=== PATIENT | female | born 1940 | race Caucasian/White ===

== ENCOUNTER 2017-05-08 20:54 | Inpatient (IN) | payer MEDICARE, OTHER ==
[~2017-05-08] VITALS: Ht 162.6 cm; Wt 104.1 kg
[2017-05-08] VITALS (9 sets, daily range): BP systolic 84–119; BP diastolic 53–65; PULSE 88–93; RESP 14–28; Ht 162.6 cm; Wt 104.1 kg
[2017-05-08 23:36] LABS: Allen Test ACCEPTAB; Arterial Base Excess -3.1 mmol/L (-3.0-3); Arterial COHb 0.3 % (0.0-3.0); Arterial Fraction of Oxyhgb 86.2 % (93.0-99.0); Arterial HCO3 23.7 mmol/L (22.0-26.0); Arterial MetHb 0.4 % (0.0-1.5); Arterial Total Hemglobin 8.8 g/dl (12.0-18.0); MODE VENT - AC
[2017-05-09] VITALS (48 sets, daily range): BP systolic 82–166; BP diastolic 44–76; PULSE 81–98; RESP 14–23
--- NOTE | 2017-05-09 06:27 | RADRPT ---
PROCEDURE: XR Chest. CLINICAL INDICATION: Respiratory failure TECHNIQUE: A single AP view of the chest was obtained. COMPARISON: Chest x-ray dated 05/08/2017 FINDINGS: A tracheostomy tube is in place. Lung volumes are low with compressive changes and crowding of the central pulmonary vascular marking s with right basilar interstitial opacities in consolidation of the left lower lobe and lingula. The re is a wedge-shaped opacities projects over the left upper lobe. No pneumothorax is seen. The card iomediastinal silhouette is obscured. Calcifications are seen within the aortic arch. The osseous s tructures demonstrate postsurgical changes from bilateral shoulder arthroplasty. IMPRESSION: 1. Wedge-shaped consolidation of the left upper thorax, suggesting left apical pleural fluid. Findin gs are new when compared to the prior examination. If there is history of recent line placement, con subscription clerk CT to assess for hematoma. 2. Low lung volumes with compressive changes and bibasilar consolidation, at least partially related to atelectasis. 3. Aortic atherosclerosis. 4. Tracheostomy tube in place. RPTAT: HH .Cat Augustine MD, MD Date Time Electronically viewed and signed by .Cat Augustine MD, on 05/09/2017 06:27 .G/
[2017-05-09 06:34] LABS: BASOPHILS % 0.2 % (0.0-2.0); EOSINOPHILS # 0.8 10^3/ul (0.0-0.5); EOSINOPHILS % 9.3 % (0.0-7.0); HEMATOCRIT 25.6 % (37.0-47.0); LYMPHOCYTES # 0.8 10^3/ul (0.8-2.9); LYMPHOCYTES % 9.8 % (15.0-51.0); MEAN CORPUSCULAR HEMOGLOBIN 27.4 pg (29.0-33.0); MEAN CORPUSCULAR HGB CONC 31.3 g/dl (32.0-37.0); MEAN CORPUSCULAR VOLUME 87.7 fl (82.0-101.0); MEAN PLATELET VOLUME 11.9 fl (7.4-10.4); MONOCYTE # 0.6 10^3/ul (0.3-0.9); MONOCYTES % 7.1 % (0.0-11.0); NEUTROPHIL # 5.8 10^3/ul (1.6-7.5); PLATELET COUNT 118 10^3/UL (140-415); RED BLOOD COUNT 2.92 10^6/ul (4.20-5.40); RED CELL DISTRIBUTION WIDTH 18.9 % (11.5-14.5); WHITE BLOOD COUNT 8.4 10^3/ul (4.8-10.8)
[2017-05-09 07:04] LABS: CALCIUM 9.6 mg/dl (8.4-10.2); CREATININE 1.67 mg/dl (0.44-1.00); PHOSPHORUS 5.2 mg/dl (2.5-4.9); POTASSIUM 5.2 mmol/L (3.5-5.1)
[2017-05-09] MEDS ORDERED: PANTOPRAZOLE 40 MG INJ IV SCH (09:00)
[2017-05-09] MEDS ORDERED: SOD CHLORIDE 0.9% 500 ML IV ONE (09:00)
[2017-05-09] MEDS ORDERED: ALBUTEROL/IPRATROPIUM (NEB) 3 ML AMP HHN PRN (09:00)
[2017-05-09] MEDS ORDERED: ONDANSETRON 4 MG INJ IV PRN (09:00)
[2017-05-09 09:01] LABS: AADO2 Arterial 461.7 mmHg (7.0-24.0); Allen Test ACCEPTAB; Arterial Base Excess -2.1 mmol/L (-3.0-3); Arterial COHb 0.3 % (0.0-3.0); Arterial Fraction of Oxyhgb 91.4 % (93.0-99.0); Arterial HCO3 22.6 mmol/L (22.0-26.0); Arterial MetHb 0.4 % (0.0-1.5); Arterial Total Hemglobin 8.8 g/dl (12.0-18.0); MODE VENT - AC
[2017-05-09] MEDS ORDERED: GLUCOSE GEL 15 GRAM TUBE PO PRN ×2 (10:00)
[2017-05-09] MEDS ORDERED: GLUCAGON 1 MG INJ IM PRN (10:00)
[2017-05-09] MEDS: ZINC SULFATE 220 MG CAP GTB SCH (10:00)
[2017-05-09] MEDS ORDERED: DEXTROSE 50% 50 ML SYRINGE IV PRN ×2 (10:00)
[2017-05-09] MEDS: CHOLECALCIFEROL 1,000 UNIT TAB GTB SCH (10:00)
[2017-05-09] MEDS: ENOXAPARIN 30 MG/0.3 ML SYG SC SCH (10:00)
[2017-05-09] MEDS ORDERED: GLUCOSE GEL 15 GRAM TUBE BUCCAL PRN (10:00)
[2017-05-09] MEDS: ASPIRIN 81 MG TAB GTB SCH (10:00)
--- NOTE | 2017-05-09 10:56 | CONS ---
Date/Time of Note Date/Time of Note DATE: 05/09/17 TIME: 10:51 Assessment/Plan Assessment/Plan Additional Assessment/Plan Chest x-ray was reviewed from today which is showing patchy bilateral alveolar infiltrates. Cardiomegaly is present. Ventilator setting; AC of 14, tidal volume 600, PEEP of 5, 80% FiO2. Next Assessment and recommendations; 1. patient admitted with bilateral pneumonia with possibility of areas of loculated pleural effusion bilaterally. 2. Chronic respiratory failure with recent tracheostomy. 3. Generalized anasarca possibly some element of CHF as well. 4. Paraplegia. 5. Renal insufficiency. 6. Anemia and thrombocytopenia. Continue current supportive care. Add cefepime and vancomycin. Obtain CT chest without contrast. Further recommendations to be made once CT imaging of the chest is obtained. Consultation Date/Type/Reason Admit Date/Time May 08, 2017 at 20:54 Date of Consultation: May 09, 2017 Type of Consultation: Pulmonary/critical care Reason for Consultation Pulmonary consultation requested for evaluation of pneumonia and chronic respiratory failure. Next History of presenting illness; patient is a 76-year-old lady who was admitted to [facility] yesterday however soon after being admitted there the patient was found to be quite hypoxemic and was hemodynamically unstable. Patient was then transferred to ICU over here. By the time I saw the patient the patient is on mechanical ventilation with tracheostomy and is arousable. Patient has remained hemodynamically stable. Past medical history; 1. Patient with a history of chronic respiratory failure with recent tracheostomy and PEG tube placement. 2. History of paraplegia. 3. History of chronic renal insufficiency. 4. History of anemia and thrombocytopenia. Medications; reviewed. Allergies; none. Family history; patient is . Occupation history; currently not available. Review of systems; not able to be obtained. General exam; elderly woman, on ventilator via tracheostomy, readily arousable. Currently in no distress. Social History Smoking Status: Never smoker Exam/Review of Systems Vital Signs Vitals Vital Signs Date Time Temp Pulse Resp B/P Pulse Ox O2 Delivery O2 Flow Rate FiO2 05/09/17 08:00 85 05/09/17 06:00 17 97/59 99 Mechanical Ventilator 05/09/17 05:50 90 05/09/17 04:00 97.4 Intake and Output 05/08/17 05/08/17 05/09/17 15:00 23:00 07:00 Output Total 60 ml 220 ml Balance -60 ml -220 ml Exam HEENT exam; supple neck, JVD difficult to see because of short neck. Patient has a tracheostomy in place. Insertion site is clean. No lymphadenopathy. No thyromegaly. No neck bruits. Pupils are small bilaterally. Chest exam; diminished breath sounds throughout. S1-S2 audible, no murmurs. Regular rhythm. Abdomen exam; soft, protuberant. PEG tube in place. Bowel sounds audible. Extremity exam; 1+ generalized anasarca with areas of scattered ecchymosis. GEOTECHNICAL FIELD TECHNICIAN exam; patient is awake and follows very simple commands like eye opening. Patient exhibiting profound generalized weakness. Results Result Diagram: 05/09/17 0550 05/09/17 0550 Results 24 hrs Laboratory Tests Test 05/08/17 23:00 05/09/17 05:50 05/09/17 08:10 Blood Gas Specimen Source Blood arterial Blood arterial Arterial Blood Date Drawn 05/08/2017 11:20:48 PM 05/09/2017 8:50:31 AM Arterial Blood pH (Temp corrected) 7.281 *L 7.388 Arterial Blood pCO2 (Temp correct) 51.5 H 38.4 Arterial Blood pO2 (Temp corrected) 61.5 L 68.4 L Arterial Blood HCO3 23.7 22.6 Arterial Blood Base Excess -3.1 L -2.1 Arterial Blood Oxygen Saturation 86.8 L 92.0 L Ki Test ACCEPTAB ACCEPTAB Arterial Blood Gas Puncture Site Right Radial Left Radial Arterial Blood Carboxyhemoglobin 0.3 0.3 Arterial Blood Methemoglobin 0.4 0.4 Blood Gas A-a O2 Differential 600.0 H 461.7 H Oxyhemoglobin Percent 86.2 L 91.4 L Total Hemoglobin 8.8 L 8.8 L Blood Gas Temperature 37.0 37.0 Blood Gas Respiration Rate 14.0 14.0 Blood Gas Actual Respiration Rate 15 15 Blood Gas Modality VENT - AC VENT - AC FiO2 100.0 80.0 Blood Gas Tidal Volume 600.0 600.0 Blood Gas Low PEEP Setting 5.0 5.0 Blood Gas Critical Value Read Back MODE COOPER Blood Gas Notified Whom JONATHAN WHELAN Blood Gas Notified Time 05/08/2017 11:36:26 PM 05/09/2017 9:01:21 AM White Blood Count 8.4 Red Blood Count 2.92 L Hemoglobin 8.0 L Hematocrit 25.6 L Mean Corpuscular Volume 87.7 Mean Corpuscular Hemoglobin 27.4 L Mean Corpuscular Hemoglobin Concent 31.3 L Red Cell Distribution Width 18.9 H Platelet Count 118 L Mean Platelet Volume 11.9 H Neutrophils % 70.0 Lymphocytes % 9.8 L Monocytes % 7.1 Eosinophils % 9.3 H Basophils % 0.2 Nucleated Red Blood Cells % 0.0 Neutrophils # 5.8 Lymphocytes # 0.8 Monocytes # 0.6 Eosinophils # 0.8 H Basophils # 0.0 Nucleated Red Blood Cells # 0.0 Sodium Level 138 Potassium Level 5.2 H Chloride Level 101 Carbon Dioxide Level 23 Anion Gap 19 H Blood Urea Nitrogen 104 H Creatinine 1.67 H Glucose Level 103 Calcium Level 9.6 Phosphorus Level 5.2 H Magnesium Level 2.0 Medications Medications Current Medications Enoxaparin Sodium (Lovenox) 30 mg DAILY SC Last administered on 05/09/17 10:00 ; Admin Dose 30 MG; Start 05/09/17 at 09:00 Aspirin (Aspirin) 81 mg DAILY GTB Last administered on 05/09/17 10:00; Admin Dose 81 MG; Start 05/09/17 at 09:00 Acetaminophen (Tylenol Liquid) 650 mg Q6H PRN GTB PAIN AND OR ELEVATED TEMP; Start 05/09/17 at 09:00 Cholecalciferol (Vitamin D) 1,000 unit DAILY GTB Last administered on 10:00; Admin Dose 1,000 UNIT; Start 05/09/17 at 09:00 Insulin Glargine (Lantus) 17 unit DAILY@08 SC ; Start 05/10/17 at 08:00 Diagnostic Test (Pha) (Accu-Chek) 1 ea 02 XX ; Start 05/10/17 at 02:00 Levothyroxine Sodium (Synthroid) 125 mcg DAILY@06 GTB ; Start 05/10/17 at 06:00 Zinc Sulfate (Zinc Sulfate) 220 mg DAILY GTB Last administered on 05/09/17 10: 00; Admin Dose 220 MG; Start 05/09/17 at 09:00 Ondansetron HCl (Zofran Inj) 4 mg Q6H PRN IV NAUSEA AND/OR VOMITING; Start 05/09/17 at 09:00 Lorazepam (Ativan) 1 mg Q6H PRN IV ANXIETY; Start 05/09/17 at 09:00 Miscellaneous Information 1 ea NOTE XX ; Start 05/09/17 at 10:00 Glucose (Glutose) 15 gm Q15M PRN PO DECREASED GLUCOSE; Start 05/09/17 at 10:00 Glucose (Glutose) 22.5 gm Q15M PRN PO DECREASED GLUCOSE; Start 05/09/17 at 10: 00 Dextrose (D50w Syringe) 25 ml Q15M PRN IV DECREASED GLUCOSE; Start 05/09/17 at 10:00 Dextrose (D50w Syringe) 50 ml Q15M PRN IV DECREASED GLUCOSE; Start 05/09/17 at 10:00 Glucagon (Glucagen) 1 mg Q15M PRN IM DECREASED GLUCOSE; Start 05/09/17 at 10:00 Glucose (Glutose) 15 gm Q15M PRN BUCCAL DECREASED GLUCOSE; Start 05/09/17 at 10 :00 Famotidine 20 mg 20 mg DAILY IV ; Start 05/10/17 at 09:00 Cefepime HCl (Maxipime 1gm/50 ml (Pmx)) 50 ml @ 100 mls/hr Q12 IVPB ; Start at 11:00; Status GUSTAVO VIERA May 09, 2017 10:55
[2017-05-09] MEDS ORDERED: VANCOMYCIN IV PER PHARMACY XX SCH (11:00)
[2017-05-09] MEDS: INSULIN ASPART [NOVOLOG] 3 ML PEN SC SCH ×3 (11:30→21:00)
[2017-05-09] MEDS ORDERED: CEFEPIME 1GM/50 ML (PMX) 50 ML IVPB SCH (11:34)
--- NOTE | 2017-05-09 12:43 | CONS ---
Date/Time of Note Date/Time of Note DATE: 05/09/17 TIME: 12:43 Assessment/Plan Assessment/Plan Additional Assessment/Plan 1. Acute kindey injury due to ATN with acute fluid overload 2. acute uremia with BUn around 100 3. acute on chronic resp failure, s/p tracheostomy 4. Metabolic acidosis 5. Paraplegia 6. Anemia of chronic disease, rule out iron deficiency Plan : Thanks for consultaiton, pt is dropping her urine outpu will give Albumin 25% 100ml IV x 1 followed up by lasix 20mg IV X 1 Urine stuides Renal US if resp status dont improve with IV lasix and continue to have Uremia, will discuss with family about HD. will follow up Consultation Date/Type/Reason Admit Date/Time May 08, 2017 at 20:54 Date of Consultation: May 09, 2017 Type of Consultation: Nephrology Reason for Consultation Acute kidney injury, acute uremia, Oliguria Referring Provider: PERLITA WALLS MD Hx of Present Illness 76-year-old female who was recently transferred to [facility] and then transferred to [facility] because of worsening hypoxia. Patient on ventilator with increased oxygen requirements..pt is s/p tracheostomy , non verbal, on ventilator Renal has been consulted for BERNARDINO, uremia, and decreased Urine output. Subjective hx not possible: pt non-verbal Past Medical History Medical History: high cholesterol, hypertension, renal disease, other ( Paraplegia, Chronic resp failure s/p Tracheostomy ) Past Surgical History Past Surgical Hx: other (Tracheostomy, PEG tube placement ) Family History Significant Family History: no pertinent family hx Social History Alcohol Use: none Smoking Status: Never smoker Drug Use: none Exam/Review of Systems Vital Signs Vitals Vital Signs Date Time Temp Pulse Resp B/P Pulse Ox O2 Delivery O2 Flow Rate FiO2 05/09/17 12:00 85 05/09/17 11:35 15 100 70 05/09/17 11:00 109/76 Mechanical Ventilator 05/09/17 08:00 97.2 Intake and Output 05/08/17 05/08/17 05/09/17 15:00 23:00 07:00 Output Total 60 ml 240 ml Balance -60 ml -240 ml Exam Constitutional: non-verbal ENMT: other (+ tracehostomy on ventilator ) Neck: non-tender, supple Respiratory: crackles/rales, diminished breath sounds Cardiovascular: other (tachycardia ), regular rate and rhythm Gastrointestinal: non-tender, soft Musculoskeletal: muscle weakness, swelling Neurological: other (Unable to assess neurolgoical due to pt clinical condition ), unresponsive Results Result Diagram: 05/09/17 0550 05/09/17 0550 Results 24 hrs Laboratory Tests Test 05/08/17 23:00 05/09/17 05:50 05/09/17 08:10 05/09/17 12:08 Blood Gas Specimen Source Blood arterial Blood arterial Arterial Blood Date Drawn 05/08/2017 11:20:48 PM 05/09/2017 8:50:31 AM Arterial Blood pH (Temp corrected) 7.281 *L 7.388 Arterial Blood pCO2 (Temp correct) 51.5 H 38.4 Arterial Blood pO2 (Temp corrected) 61.5 L 68.4 L Arterial Blood HCO3 23.7 22.6 Arterial Blood Base Excess -3.1 L -2.1 Arterial Blood Oxygen Saturation 86.8 L 92.0 L Ki Test ACCEPTAB ACCEPTAB Arterial Blood Gas Puncture Site Right Radial Left Radial Arterial Blood Carboxyhemoglobin 0.3 0.3 Arterial Blood Methemoglobin 0.4 0.4 Blood Gas A-a O2 Differential 600.0 H 461.7 H Oxyhemoglobin Percent 86.2 L 91.4 L Total Hemoglobin 8.8 L 8.8 L Blood Gas Temperature 37.0 37.0 Blood Gas Respiration Rate 14.0 14.0 Blood Gas Actual Respiration Rate 15 15 Blood Gas Modality VENT - AC VENT - AC FiO2 100.0 80.0 Blood Gas Tidal Volume 600.0 600.0 Blood Gas Low PEEP Setting 5.0 5.0 Blood Gas Critical Value Read Back MODE COOPER Blood Gas Notified Whom JONATHAN WHELAN Blood Gas Notified Time 05/08/2017 11:36:26 PM 05/09/2017 9:01:21 AM White Blood Count 8.4 Red Blood Count 2.92 L Hemoglobin 8.0 L Hematocrit 25.6 L Mean Corpuscular Volume 87.7 Mean Corpuscular Hemoglobin 27.4 L Mean Corpuscular Hemoglobin Concent 31.3 L Red Cell Distribution Width 18.9 H Platelet Count 118 L Mean Platelet Volume 11.9 H Neutrophils % 70.0 Lymphocytes % 9.8 L Monocytes % 7.1 Eosinophils % 9.3 H Basophils % 0.2 Nucleated Red Blood Cells % 0.0 Neutrophils # 5.8 Lymphocytes # 0.8 Monocytes # 0.6 Eosinophils # 0.8 H Basophils # 0.0 Nucleated Red Blood Cells # 0.0 Sodium Level 138 Potassium Level 5.2 H Chloride Level 101 Carbon Dioxide Level 23 Anion Gap 19 H Blood Urea Nitrogen 104 H Creatinine 1.67 H Glucose Level 103 Calcium Level 9.6 Phosphorus Level 5.2 H Magnesium Level 2.0 Bedside Glucose 86 Medications Medications Current Medications Enoxaparin Sodium (Lovenox) 30 mg DAILY SC Last administered on 05/09/17 10:00 ; Admin Dose 30 MG; Start 05/09/17 at 09:00 Aspirin (Aspirin) 81 mg DAILY GTB Last administered on 05/09/17 10:00; Admin Dose 81 MG; Start 05/09/17 at 09:00 Acetaminophen (Tylenol Liquid) 650 mg Q6H PRN GTB PAIN AND OR ELEVATED TEMP; Start 05/09/17 at 09:00 Cholecalciferol (Vitamin D) 1,000 unit DAILY GTB Last administered on 10:00; Admin Dose 1,000 UNIT; Start 05/09/17 at 09:00 Insulin Glargine (Lantus) 17 unit DAILY@08 SC ; Start 05/10/17 at 08:00 Diagnostic Test (Pha) (Accu-Chek) 1 ea 02 XX ; Start 05/10/17 at 02:00 Levothyroxine Sodium (Synthroid) 125 mcg DAILY@06 GTB ; Start 05/10/17 at 06:00 Zinc Sulfate (Zinc Sulfate) 220 mg DAILY GTB Last administered on 05/09/17 10: 00; Admin Dose 220 MG; Start 05/09/17 at 09:00 Ondansetron HCl (Zofran Inj) 4 mg Q6H PRN IV NAUSEA AND/OR VOMITING; Start 05/09/17 at 09:00 Lorazepam (Ativan) 1 mg Q6H PRN IV ANXIETY; Start 05/09/17 at 09:00 Miscellaneous Information 1 ea NOTE XX ; Start 05/09/17 at 10:00 Glucose (Glutose) 15 gm Q15M PRN PO DECREASED GLUCOSE; Start 05/09/17 at 10:00 Glucose (Glutose) 22.5 gm Q15M PRN PO DECREASED GLUCOSE; Start 05/09/17 at 10: 00 Dextrose (D50w Syringe) 25 ml Q15M PRN IV DECREASED GLUCOSE; Start 05/09/17 at 10:00 Dextrose (D50w Syringe) 50 ml Q15M PRN IV DECREASED GLUCOSE; Start 05/09/17 at 10:00 Glucagon (Glucagen) 1 mg Q15M PRN IM DECREASED GLUCOSE; Start 05/09/17 at 10:00 Glucose (Glutose) 15 gm Q15M PRN BUCCAL DECREASED GLUCOSE; Start 05/09/17 at 10 :00 Famotidine 20 mg 20 mg DAILY IV ; Start 05/10/17 at 09:00 Cefepime HCl (Maxipime 1gm/50 ml (Pmx)) 50 ml @ 100 mls/hr Q12 IVPB Last administered on 05/09/17t 12:04; Admin Dose 100 MLS/HR; Start 05/09/17 at 11:34 Multivitamins (Multivitamin) 30 ml DAILY PEG ; Start 05/10/17 at 09:00 Fluoxetine HCl 20 mg 20 mg DAILY GTB ; Start 05/10/17 at 09:00 Vancomycin HCl/ Sodium Chloride (Vancocin/NS) 500 ml @ 125 mls/hr ONCE IVPB ; Start 05/09/17 at 13:00; Stop 05/09/17 at 16:59 JOANIE PHILLIPS MD May 09, 2017 12:43
[2017-05-09] MEDS ORDERED: VANCOMYCIN 2 GM in SOD CHLORIDE 0.9% 500 ML IVPB SCH (13:00)
[2017-05-09] MEDS ORDERED: EPOETIN 10000 UNITS/1 ML INJ (ESRD) SC SCH (13:00)
[2017-05-09] MEDS ORDERED: ALBUMIN HUMAN 25% 100 ML IV ONE (13:00)
[2017-05-09] MEDS ORDERED: FUROSEMIDE 20 MG INJ IV SCH (13:00)
[2017-05-09] MEDS: ALBUTEROL HFA 8 GM INHALER INH SCH ×2 (13:36→19:01)
[2017-05-09] MEDS: IPRATROPIUM (HFA) 12.9 GM INHALER INH SCH ×2 (13:39→19:01)
[2017-05-09] MEDS ORDERED: ALBUTEROL/IPRATROPIUM (NEB) 3 ML AMP HHN SCH (14:00)
--- NOTE | 2017-05-09 14:59 | RADRPT ---
PROCEDURE: CT Chest without contrast. CLINICAL INDICATION: Respiratory distress. Multifocal pneumonia. TECHNIQUE: CT scan of the chest without contrast was performed on a multidetector high-resolution CT scanner. Coronal and sagittal reformatted images were obtained from the axial source images. The total exam CTDI equals 19.93 mGy and the total exam DLP equals 823.84 mGy-cm. One or more of the following dose reduction techniques were used: Automated exposure control. Adjustment of the mA and/or kV according to patient size. Use of iterative reconstruction technique. COMPARISON: Chest x-ray 05/09/2017 FINDINGS: Tracheostomy is in place. There is complete atelectasis of the left upper lobe. There is partial ate lectasis of the right middle lobe and bilateral lower lobes. Patchy infiltrates are seen in the righ t upper lobe and superior segment of right lower lobe. There is obstruction of the left upper lobe b ronchus. There is narrowing of the left main bronchus. Small to moderate left and small right pleura l effusions are present. There is small right pneumothorax (less than 5%). The mediastinum is unremarkable without evidence for mass or lymphadenopathy. The vascular structur es of the mediastinum are normal in course and caliber. Aortic vascular calcifications and coronary artery calcifications are present. The heart size is normal without evidence for pericardial thick ening or effusion. The axillary regions, subpectoral regions, and supraclavicular regions are all unremarkable. Imagin g obtained through the upper abdomen reveals no acute abnormality. There is atrophic right kidney. T here is no hydronephrosis. Severe anterior compression fracture of L1 with associated focal kyphos is is noted. The surrounding osseous structures are remarkable for degenerative spondylosis of the s pine. No osteolytic or osteoblastic lesion is detected. A call report was made to DENTAL EQUIPMENT TECHNICIANKENNETH Saucedo at 05/09/2017 2:58:52 PM following completion of the examinatio n. IMPRESSION: 1. Complete collapse of the left upper lobe with obliteration of the left upper lobe bronchus. Bj mmend bronchoscopy evaluation. 2. Multifocal patchy infiltrates in the right upper lobe, anterior left lower lobe and superior seg ment of right lower lobe. 3. Partial atelectasis of the right middle lobe and bilateral lower lobes. 4. Small to moderate left and small right pleural effusions. 5. Small right pneumothorax (less than 5%). 6. Atrophic right kidney. 7. Severe compression fracture of L1 with associated moderate junctional kyphosis. RPTAT: BB .Dominick Nguyen MD, Date Time Electronically viewed and signed by .Dominick Nguyen MD, on 05/09/2017 14:59 .O/
--- NOTE | 2017-05-09 16:39 | CONS ---
Date/Time of Note Date/Time of Note DATE: 05/09/17 TIME: 16:33 Assessment/Plan Assessment/Plan Additional Assessment/Plan Respiratory failure with hypoxia Paraplegia Renal dysfunction with volume overload Obesity -Patient status post CT of the chest with evidence of lung collapse. Respiratory and vent management as per our pulmonary colleagues. Would obtain echocardiogram to evaluate LV function and for any significant valvular abnormalities. Antibiotics as per infectious disease. Continue telemetry monitoring, check ECG. Consultation Date/Type/Reason Admit Date/Time May 08, 2017 at 20:54 Type of Consultation: cv Reason for Consultation respiratory failure Hx of Present Illness This is a 76-year-old female who was recently transferred to [facility] and then transferred to [facility] because of worsening hypoxia. Patient on ventilator with increased oxygen requirements. Cardiology consultation was requested for evaluation for any possible cardiac etiology. Patient denies any chest pain at the current time, palpitations. He does have a tracheostomy and history obtaining is difficult. Unable to be performed at the current time given patient unable to give full history Past Medical History Paraplegia, Respiratory failure Medical History: hypertension, renal disease Past Surgical History trach, peg Family History Significant Family History: no pertinent family hx Social History Smoking Status: Never smoker Exam/Review of Systems Vital Signs Vitals Vital Signs Date Time Temp Pulse Resp B/P Pulse Ox O2 Delivery O2 Flow Rate FiO2 05/09/17 16:00 91 05/09/17 14:00 16 88/47 96 Mechanical Ventilator 05/09/17 13:25 70 05/09/17 12:00 97.0 Intake and Output 05/08/17 05/08/17 05/09/17 15:00 23:00 07:00 Output Total 60 ml 240 ml Balance -60 ml -240 ml Exam sleeping but arrousable, follows commands, NAD, obses Head: normocephalic Neck: other (trach) Respiratory: other (course bs, + rhonchi, no wheeze) Cardiovascular: other (s1s2), regular rate and rhythm Gastrointestinal: bowel sounds, non-tender, soft Extremities: edema Results Result Diagram: 05/09/17 0550 05/09/17 0550 Results 24 hrs Laboratory Tests Test 05/08/17 23:00 05/09/17 05:50 05/09/17 08:10 05/09/17 12:08 Blood Gas Specimen Source Blood arterial Blood arterial Arterial Blood Date Drawn 05/08/2017 11:20:48 PM 05/09/2017 8:50:31 AM Arterial Blood pH (Temp corrected) 7.281 *L 7.388 Arterial Blood pCO2 (Temp correct) 51.5 H 38.4 Arterial Blood pO2 (Temp corrected) 61.5 L 68.4 L Arterial Blood HCO3 23.7 22.6 Arterial Blood Base Excess -3.1 L -2.1 Arterial Blood Oxygen Saturation 86.8 L 92.0 L Ki Test ACCEPTAB ACCEPTAB Arterial Blood Gas Puncture Site Right Radial Left Radial Arterial Blood Carboxyhemoglobin 0.3 0.3 Arterial Blood Methemoglobin 0.4 0.4 Blood Gas A-a O2 Differential 600.0 H 461.7 H Oxyhemoglobin Percent 86.2 L 91.4 L Total Hemoglobin 8.8 L 8.8 L Blood Gas Temperature 37.0 37.0 Blood Gas Respiration Rate 14.0 14.0 Blood Gas Actual Respiration Rate 15 15 Blood Gas Modality VENT - AC VENT - AC FiO2 100.0 80.0 Blood Gas Tidal Volume 600.0 600.0 Blood Gas Low PEEP Setting 5.0 5.0 Blood Gas Critical Value Read Back MODE COOPER Blood Gas Notified Whom JONATHAN WHELAN Blood Gas Notified Time 05/08/2017 11:36:26 PM 05/09/2017 9:01:21 AM White Blood Count 8.4 Red Blood Count 2.92 L Hemoglobin 8.0 L Hematocrit 25.6 L Mean Corpuscular Volume 87.7 Mean Corpuscular Hemoglobin 27.4 L Mean Corpuscular Hemoglobin Concent 31.3 L Red Cell Distribution Width 18.9 H Platelet Count 118 L Mean Platelet Volume 11.9 H Neutrophils % 70.0 Lymphocytes % 9.8 L Monocytes % 7.1 Eosinophils % 9.3 H Basophils % 0.2 Nucleated Red Blood Cells % 0.0 Neutrophils # 5.8 Lymphocytes # 0.8 Monocytes # 0.6 Eosinophils # 0.8 H Basophils # 0.0 Nucleated Red Blood Cells # 0.0 Sodium Level 138 Potassium Level 5.2 H Chloride Level 101 Carbon Dioxide Level 23 Anion Gap 19 H Blood Urea Nitrogen 104 H Creatinine 1.67 H Glucose Level 103 Calcium Level 9.6 Phosphorus Level 5.2 H Magnesium Level 2.0 Bedside Glucose 86 Medications Medications Current Medications Enoxaparin Sodium (Lovenox) 30 mg DAILY SC Last administered on 05/09/17 10:00 ; Admin Dose 30 MG; Start 05/09/17 at 09:00 Aspirin (Aspirin) 81 mg DAILY GTB Last administered on 05/09/17 10:00; Admin Dose 81 MG; Start 05/09/17 at 09:00 Acetaminophen (Tylenol Liquid) 650 mg Q6H PRN GTB PAIN AND OR ELEVATED TEMP; Start 05/09/17 at 09:00 Cholecalciferol (Vitamin D) 1,000 unit DAILY GTB Last administered on 10:00; Admin Dose 1,000 UNIT; Start 05/09/17 at 09:00 Insulin Glargine (Lantus) 17 unit DAILY@08 SC ; Start 05/10/17 at 08:00 Diagnostic Test (Pha) (Accu-Chek) 1 ea 02 XX ; Start 05/10/17 at 02:00 Levothyroxine Sodium (Synthroid) 125 mcg DAILY@06 GTB ; Start 05/10/17 at 06:00 Zinc Sulfate (Zinc Sulfate) 220 mg DAILY GTB Last administered on 05/09/17 10: 00; Admin Dose 220 MG; Start 05/09/17 at 09:00 Ondansetron HCl (Zofran Inj) 4 mg Q6H PRN IV NAUSEA AND/OR VOMITING; Start 05/09/17 at 09:00 Lorazepam (Ativan) 1 mg Q6H PRN IV ANXIETY; Start 05/09/17 at 09:00 Miscellaneous Information 1 ea NOTE XX ; Start 05/09/17 at 10:00 Glucose (Glutose) 15 gm Q15M PRN PO DECREASED GLUCOSE; Start 05/09/17 at 10:00 Glucose (Glutose) 22.5 gm Q15M PRN PO DECREASED GLUCOSE; Start 05/09/17 at 10: 00 Dextrose (D50w Syringe) 25 ml Q15M PRN IV DECREASED GLUCOSE; Start 05/09/17 at 10:00 Dextrose (D50w Syringe) 50 ml Q15M PRN IV DECREASED GLUCOSE; Start 05/09/17 at 10:00 Glucagon (Glucagen) 1 mg Q15M PRN IM DECREASED GLUCOSE; Start 05/09/17 at 10:00 Glucose (Glutose) 15 gm Q15M PRN BUCCAL DECREASED GLUCOSE; Start 05/09/17 at 10 :00 Famotidine 20 mg 20 mg DAILY IV ; Start 05/10/17 at 09:00 Cefepime HCl (Maxipime 1gm/50 ml (Pmx)) 50 ml @ 100 mls/hr Q12 IVPB Last administered on 05/09/17 12:04; Admin Dose 100 MLS/HR; Start 05/09/17 at 11:34 Multivitamins (Multivitamin) 30 ml DAILY PEG ; Start 05/10/17 at 09:00 Fluoxetine HCl 20 mg 20 mg DAILY GTB ; Start 05/10/17 at 09:00 Vancomycin HCl/ Sodium Chloride (Vancocin/NS) 500 ml @ 125 mls/hr ONCE IVPB Last administered on 05/09/17 13:33; Admin Dose 125 MLS/HR; Start 05/09/17 at 13:00; Stop 05/09/17 at 16:59 Furosemide (Lasix) 20 mg ONCE IV Last administered on 05/09/17 14:42; Admin Dose 20 MG; Start 05/09/17 at 13:00; Stop 05/09/17 at 23:00 Epoetin [place] (Epogen (Esrd)) 10,000 units ONCE SC Last administered on 15:16; Admin Dose 10,000 UNITS; Start 05/09/17 at 13:00; Stop 05/09/17 at 23:00 Jonah Ayala DO May 09, 2017 16:39
--- NOTE | 2017-05-09 17:09 | RADRPT ---
Echocardiogram Report Patient Name: SUDEEP IRAHETA Gender: Female Date: 1940 Study Date: 09-May-2017 Multiple Resaw Operator: Rex Ly RDCS Location: [facility] Ref. Physician: PERLITA WALLS Quality: Adequate Procedures: Transthoracic echocardiogram with complete 2D, M-Mode, and doppler examination. Indications: fluid overload. 2D/M Mode Doppler Measurement Value Normal Ranges Measurement Value Normal Ranges LVIDd 2D 3.9 3.5 - 5.6 cm AV Peak Wily 1.5 m/sec LVIDs 2D 2.1 2.1 - 4.1 cm AV Peak PG 9.0 mmHg FS 2D 46.6 % LVOT Peak Wily 1.0 m/sec LVPWd 2D 1.1 0.6 - 1.1 cm LVOT Peak PG 4.0 mmHg IVSd 2D 1.0 0.6 - 1.1 cm MV E Peak Wily 0.7 m/sec IVS/LVPW 2D 0.8 MV A Peak Wily 1.0 m/sec AoR Diam 2D 2.9 2.0 - 3.7 cm MV E/A 0.7 LA/Ao 2D 1 0 - 1 MV Decel Time 134 msec EDV 2D 58.4 cm3 MV E/A 0.7 ESV 2D 8.9 cm3 TR Peak Wily 4.0 m/sec LA Dimen 2D 3.8 2.3 - 4.0 cm TR Peak PG 63.0 mmHg RVSP 78.0 mmHg Findings Left Ventricle: Normal left ventricular systolic function. Normal left ventricular cavity size. Mild concentric left ventricular hypertrophy. Ejection fraction is visually estimated at 65 %. Tissue Doppler/Mitral Doppler indices are consistent with impaired relaxation (Stage I diastolic dysfunction). Right Ventricle: Normal right ventricular size. Normal right ventricular systolic function. Left Atrium: The left atrium is normal in size. Right Atrium: The right atrium is normal in size. Mitral Valve: Normal appearance and function of the mitral valve with trace physiologic regurgitation. Aortic Valve: Normal appearance of the aortic valve. No significant aortic stenosis or insufficiency. Tricuspid Valve: Normal appearance of the tricuspid valve. Estimated peak PA systolic pressure 73 mmHg. There is moderate tricuspid regurgitation. Pulmonic Valve: Normal pulmonic valve appearance. There is trace pulmonic regurgitation. Pericardium: Normal pericardium with no significant pericardial effusion. Pleural effusion seen. Aorta: Normal aortic root. IVC: Dilated IVC without respiratory collapse, however, patient on ventilator. Conclusions 1.Normal left ventricular systolic function. Normal left ventricular cavity size. Mild concentric left ventricular hypertrophy. Ejection fraction is visually estimated at 65 %. Tissue Doppler/Mitral Doppler indices are consistent with impaired relaxation (Stage I diastolic dysfunction). 2.Normal right ventricular size. Normal right ventricular systolic function. 3.The left atrium is normal in size. 4.The right atrium is normal in size. 5.Estimated peak PA systolic pressure 73 mmHg. There is moderate tricuspid regurgitation. 6.No significant valvular stenosis or regurgitation seen of remaining visualized valves. 7.Normal pericardium with no significant pericardial effusion. Pleural effusion seen. Electronically Signed By: Jonah Ayala 09-May-2017 17:09:42 -0700 Patient Name: SUDEEP IRAHETA Study Date: 09-May-2017 [id number]
--- NOTE | 2017-05-09 20:49 | RADRPT ---
PROCEDURE: Renal US. CLINICAL INDICATION: Renal dysfunction. TECHNIQUE: Multiple sonographic images of the kidneys and urinary bladder were attempted to be obt ained. The images were reviewed on a PACS workstation. COMPARISON: No prior studies are available for comparison. FINDINGS: The kidneys and urinary bladder are not visualized. IMPRESSION: 1. Nondiagnostic study with kidneys and urinary bladder not visualized. RPTAT: QQ .Tor Grider MD, MD Date Time Electronically viewed and signed by .Tor Grider MD, on 05/09/2017 20:49 .R/
[2017-05-09] MEDS ORDERED: FAMOTIDINE 20 MG INJ IV SCH (21:00)
[2017-05-10] VITALS (43 sets, daily range): BP systolic 82–179; BP diastolic 37–108; PULSE 83–106; RESP 10–29
[2017-05-10] MEDS: ALBUTEROL HFA 8 GM INHALER INH SCH ×4 (01:00→19:34)
[2017-05-10] MEDS: IPRATROPIUM (HFA) 12.9 GM INHALER INH SCH ×4 (01:00→19:34)
[2017-05-10] MEDS ORDERED: PENDING SANTYL ORDER FOR WOUND CARE XX PRN (01:00)
[2017-05-10] MEDS: ACCU-CHEK XX SCH (01:05)
[2017-05-10] MEDS ORDERED: COLLAGENASE 30 GM TUBE TOP PRN (01:30)
--- NOTE | 2017-05-10 01:41 | HP ---
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 The patient is wheelchair bound. The patient also has history of coronary artery disease, details not available, paroxysmal atrial fibrillation, and hypertension. The patient was recently admitted at [facility] for increasing shortness of breath and was diagnosed with acute hypoxemic respiratory failure due to pneumonia, which was attributed to gram-negative organism pseudomonas and possibly due to aspiration. The patient failed swallow study and underwent G-tube placement. The patient could not be weaned off of vent and therefore underwent tracheostomy. Patient was transferred to [facility] for further care. The patient, however, after arriving in [facility] became progressively more hypoxemic and was requiring 100% of FiO2 to maintain adequate saturation, and therefore, the patient was transferred to [facility] ICU last night. The patient also has marginal blood pressure. The patient prior to her transfer did not have any chest pain, diaphoresis, or vomiting. Patient did have bloody tracheal secretions. Upon arrival in the ER, the patient was noted to have white count of 9.8, hemoglobin 8.4, platelets 119, BUN was 99, creatinine 1.5. Chest x-ray revealed pulmonary edema with left side worse than right, and also prior bilateral shoulder surgery. The patient is being admitted for further evaluation and management. Patient since admission at [facility], has not had any temperature spike. No reported seizure. No reported vomiting. No reported diarrhea. REVIEW OF SYSTEMS: Rather limited as the patient has tracheostomy. The patient does follow simple commands. Patient has complete paraplegia but upper extremities are also weaker. The patient has generalized anasarca. PAST MEDICAL HISTORY: As stated above. In addition, the patient recently had left shoulder reverse arthroplasty. The patient also is status post right shoulder surgery, details not available, status post appendectomy, cholecystectomy. ALLERGIES: NONE. SOCIAL HISTORY: No smoking. Patient prior to admission lived with her . FAMILY HISTORY: Negative for patient's condition. PHYSICAL EXAMINATION: GENERAL: The patient is lethargic but arousable and follows simple commands. VITAL SIGNS: Temperature 97.2, pulse 85, respirations 17, blood pressure 90/68 , O2 saturation 97%. Patient is on vent and FiO2 of 80%. HEENT: Atraumatic, normocephalic. Conjunctivae are pale. Lids are normal. No eye discharge or redness. No ear discharge. NECK: Tracheostomy in place. No mass or crepitus. CHEST: Revealed diminished air entry at bases. No use of accessory muscles. CARDIOVASCULAR: Regular rate and rhythm. S1, S2 normal. No murmur. ABDOMEN: Soft, obese. G-tube in place. EXTREMITIES: Edematous. No clubbing, no cyanosis. NEUROLOGIC: The patient is lethargic but arousable, has dense paraplegia and weakness in the upper extremities also. SKIN: Without acute rash. Patient has stage IV coccygeal and also has a right knee wound. LABORATORY DATA: Labs done this morning reveal sodium of 138, potassium 5.2, BUN was 104, creatinine 1.6, glucose 103. Hemoglobin is 8. WBC 8.4. Chest CT scan revealed complete collapse of the left upper lobe with obliteration of the left upper lobe bronchus, multifocal patchy infiltrates, small to moderate left and small right pleural effusion, small right pneumothorax less than 5%, severe compression fracture of L1 with associated moderate junctional kyphosis. IMPRESSION: 1. Acute hypoxemic respiratory failure. Patient's ABG yesterday revealed pH of 7.28, pCO2 of 51, pO2 of 61. Currently, the patient has a pH of 7.38, pCO2 38, and pO2 68.4 on at 80% FiO2. We will continue vent support. In addition, the patient had a possible infectious etiology as indicated by multifocal infiltrates, possibly healthcare facility acquired pneumonia. The patient will be started on IV vancomycin and cefepime. will obtain urine & sputum culture. 2. As far as congestive heart failure is concerned, will obtain echocardiogram and cardiac consult from Dr. Ayala. I spoke with him regarding patient's previous medical history including history of coronary artery disease and paroxysmal atrial fibrillation. The patient is currently in sinus rhythm. Her low blood pressure precludes any use of beta azul or calcium channel azul. I also discussed the case with Dr. Apurva Stevens from nephrology standpoint and we will try a small dose of IV Lasix. 3. Paroxysmal atrial fibrillation. Currently the patient in sinus rhythm. Will hold off on anticoagulation since the patient is anemic and in renal failure& at risk higher for bleeding. Will give 1 dose of Epogen. 4. Diabetes. Will continue Lantus and sliding scale insulin. 5. Hypothyroidism. Continue Synthroid at current dose. Patient's recent TSH and T4 were within acceptable range. 6. Pulmonary consult from Dr. Cohen has also been requested. We will obtain echocardiogram to assess LV function and valvular function, and cardiology evaluation by Dr. Ayala has also been requested. 7. As far as anemia is concerned, will obtain iron panel and ferritin, stool guaiac as well as vitamin B12 level. 8. A wound care consult & consult from Dr. olga Valencia will also be obtained 9. gastrointestinal prophylaxis with Pepcid and deep venous thrombosis prophylaxis with Lovenox adjusted to her creatinine. I recently spoke with her . Continue care in ICU. Dictated By: PERLITA GAMEZ/LOIS Conf#: [id number] DID#: [id number] MTDD
[2017-05-10] MEDS ORDERED: ACCU-CHEK XX SCH (02:00)
[2017-05-10] MEDS: LEVOTHYROXINE 125 MCG TAB GTB SCH (06:41)
[2017-05-10 07:05] LABS: BASOPHILS % 0.2 % (0.0-2.0); EOSINOPHILS # 0.8 10^3/ul (0.0-0.5); EOSINOPHILS % 9.4 % (0.0-7.0); HEMATOCRIT 24.4 % (37.0-47.0); HEMOGLOBIN 7.7 g/dl (12.0-16.0); LYMPHOCYTES # 0.8 10^3/ul (0.8-2.9); LYMPHOCYTES % 9.6 % (15.0-51.0); MEAN CORPUSCULAR HEMOGLOBIN 27.7 pg (29.0-33.0); MEAN CORPUSCULAR HGB CONC 31.6 g/dl (32.0-37.0); MEAN CORPUSCULAR VOLUME 87.8 fl (82.0-101.0); MEAN PLATELET VOLUME 12.5 fl (7.4-10.4); MONOCYTE # 0.6 10^3/ul (0.3-0.9); MONOCYTES % 6.3 % (0.0-11.0); NEUTROPHIL # 6.2 10^3/ul (1.6-7.5); NEUTROPHILS % 70.7 % (39.0-77.0); PLATELET COUNT 149 10^3/UL (140-415); RED BLOOD COUNT 2.78 10^6/ul (4.20-5.40); RED CELL DISTRIBUTION WIDTH 18.8 % (11.5-14.5); WHITE BLOOD COUNT 8.7 10^3/ul (4.8-10.8)
[2017-05-10 07:25] LABS: CALCIUM 9.7 mg/dl (8.4-10.2); CREATININE 1.8 mg/dl (0.44-1.00); POTASSIUM 5.4 mmol/L (3.5-5.1)
[2017-05-10 07:28] LABS: URIC ACID 7.8 mg/dl (3.1-7.9)
[2017-05-10 07:30] LABS: INR 1.16; PROTIME 14.8 Sec (12.2-14.2); PT RATIO 1.2
[2017-05-10 07:31] LABS: PARTIAL THROMBOPLASTIN TIME 40.2 Sec (25.0-35.0)
[2017-05-10 07:34] LABS: CREATINE KINASE < 20 IU/L (23-200)
[2017-05-10] MEDS: INSULIN ASPART [NOVOLOG] 3 ML PEN SC SCH ×4 (07:35→20:42)
[2017-05-10 07:42] LABS: IRON 30 ug/dl (35-150)
[2017-05-10 07:52] LABS: TOTAL IRON BINDING CAPACITY 222 ug/dl (241-421)
[2017-05-10] MEDS: LORAZEPAM 2 MG INJ IV PRN ×3 (08:19→21:47)
[2017-05-10] MEDS ORDERED: FAMOTIDINE 20 MG INJ IV SCH (09:00)
[2017-05-10] MEDS: ASPIRIN 81 MG TAB GTB SCH (09:16)
[2017-05-10] MEDS: COLLAGENASE 30 GM TUBE TOP SCH (09:24)
[2017-05-10] MEDS: ZINC SULFATE 220 MG CAP GTB SCH (09:24)
[2017-05-10] MEDS: FLUOXETINE 20 MG CAP GTB SCH (09:24)
[2017-05-10] MEDS: MULTIVITAMINS 30 ML CUP PEG SCH (09:24)
[2017-05-10] MEDS: CHOLECALCIFEROL 1,000 UNIT TAB GTB SCH (09:24)
[2017-05-10] MEDS: ENOXAPARIN 30 MG/0.3 ML SYG SC SCH (09:27)
[2017-05-10] MEDS: INSULIN GLARGINE [LANtus] 3 ML PEN SC SCH (09:45)
[2017-05-10] MEDS ORDERED: LIDOCAINE 1% (MPF) 5 ML VIAL SC ONE (10:00)
--- NOTE | 2017-05-10 10:16 | CONS ---
Date/Time of Note Date/Time of Note DATE: 05/10/17 TIME: 10:09 Assessment/Plan Assessment/Plan Chief Complaint/Hosp Course 76-year-old female who was recently transferred to [facility] and then transferred to [facility] because of worsening hypoxia. Patient on ventilator with increased oxygen requirements..pt is s/p tracheostomy , non verbal, on ventilator Renal has been consulted for BERNARDINO, uremia, and decreased Urine output. Problems: Additional Assessment/Plan 1. Acute kindey injury due to ATN with acute fluid overload 2. acute uremia with BUn around 100 3. acute on chronic resp failure, s/p tracheostomy 4. Metabolic acidosis 5. Paraplegia 6. Anemia of chronic disease, rule out iron deficiency Plan : pt remains fluid overloaded, IV Albumin + lasix+ NS did not work, urine output dropping down, on ventilator with anasarca she is currently on ventilator with diffus anasarca and facial swelling discussed with at bedside, he wanted to have HD started At [facility] but somehow it was not started.. I explained him in details about HD indications, how it is done, dialysis catheter placement and then HD for 2-3 hr with UF- he understood it and verbalized understanding.. to place latisha HD catheter and will plan for HD today and tomorrow with UF as tolerated I explained the that Starting hemodialysis would be Supportive care but it would not change her overall quality of life since she is vent depenandt and bedridden. he still insisted on attempting dialysis to see if pt improves. will follow up Consultation Date/Type/Reason Admit Date/Time May 08, 2017 at 20:54 Initial Consult Date 05/09/17 Type of Consultation: NEPHROLOGY Referring Provider: PERLITA WALLS MD 24 HR Interval Summary Free Text/Dictation pt remains fluid overloaded, IV Albumin + lasix+ NS did not work, urine output dropping down, on ventilator with anasarca Exam/Review of Systems Vital Signs Vitals Vital Signs Date Time Temp Pulse Resp B/P Pulse Ox O2 Delivery O2 Flow Rate FiO2 05/10/17 08:00 93 05/10/17 05:00 24 124/58 89 Mechanical Ventilator 05/10/17 04:55 70 05/10/17 04:00 98.0 Intake and Output 1105/09/17 05/10/17 15:00 23:00 07:00 Intake Total 1000 ml 610 ml 620 ml Output Total 148 ml 240 ml 250 ml Balance 852 ml 370 ml 370 ml Exam Constitutional: non-verbal + facial swelling, neck swelling, + diffuse anasarca ENMT: other (+ tracehostomy on ventilator ) Neck: non-tender, supple Respiratory: crackles/rales, diminished breath sounds Cardiovascular: other (tachycardia ), regular rate and rhythm Gastrointestinal: non-tender, soft Musculoskeletal: muscle weakness, 3+ pitting edema upto thigh, back and sacral area Neurological: other (Unable to assess neurolgoical due to pt clinical condition ), unresponsive Results Result Diagram: 05/10/17 0649 05/10/17 0648 Results 24 hrs Laboratory Tests Test 05/09/17 12:08 05/09/17 17:26 05/09/17 19:00 05/09/17 21:21 Bedside Glucose 86 91 85 Urine Eosinophils % 0.0 Urine Random Creatinine < 12.40 L Urine Random Sodium 106 H Urine Protein/Creatinine Ratio 5.00 Urine Total Protein 66.0 H Test 05/10/17 00:55 05/10/17 06:48 05/10/17 06:49 05/10/17 09:14 Bedside Glucose 96 90 Sodium Level 139 Potassium Level 5.4 H Chloride Level 100 Carbon Dioxide Level 21 Anion Gap 23 H Blood Urea Nitrogen 100 H Creatinine 1.80 H Glucose Level 77 Calcium Level 9.7 White Blood Count 8.7 Red Blood Count 2.78 L Hemoglobin 7.7 L Hematocrit 24.4 L Mean Corpuscular Volume 87.8 Mean Corpuscular Hemoglobin 27.7 L Mean Corpuscular Hemoglobin Concent 31.6 L Red Cell Distribution Width 18.8 H Platelet Count 149 # Mean Platelet Volume 12.5 H Neutrophils % 70.7 Lymphocytes % 9.6 L Monocytes % 6.3 Eosinophils % 9.4 H Basophils % 0.2 Nucleated Red Blood Cells % 0.0 Neutrophils # 6.2 Lymphocytes # 0.8 Monocytes # 0.6 Eosinophils # 0.8 H Basophils # 0.0 Nucleated Red Blood Cells # 0.0 Prothrombin Time 14.8 H Prothrombin Time Ratio 1.2 INR International Normalized Ratio 1.16 Activated Partial Thromboplast Time 40.2 H Hemoglobin A1c 5.5 Uric Acid 7.8 Iron Level 30 L Total Iron Binding Capacity 222 L Percent Iron Saturation 14 L Creatine Kinase < 20 L Medications Medications Current Medications Enoxaparin Sodium (Lovenox) 30 mg DAILY SC Last administered on 05/10/17 09:27 ; Admin Dose 30 MG; Start 05/09/17 at 09:00 Aspirin (Aspirin) 81 mg DAILY GTB Last administered on 05/10/17 09:16; Admin Dose 81 MG; Start 05/09/17 at 09:00 Acetaminophen (Tylenol Liquid) 650 mg Q6H PRN GTB PAIN AND OR ELEVATED TEMP; Start 05/09/17 at 09:00 Cholecalciferol (Vitamin D) 1,000 unit DAILY GTB Last administered on 09:24; Admin Dose 1,000 UNIT; Start 05/09/17 at 09:00 Insulin Glargine (Lantus) 17 unit DAILY@08 SC Last administered on 05/10/17 09 :45; Admin Dose 17 UNIT; Start 05/10/17 at 08:00 Diagnostic Test (Pha) (Accu-Chek) 1 ea 02 XX ; Start 05/10/17 at 02:00 Levothyroxine Sodium (Synthroid) 125 mcg DAILY@06 GTB Last administered on 05/10 06:41; Admin Dose 125 MCG; Start 05/10/17 at 06:00 Zinc Sulfate (Zinc Sulfate) 220 mg DAILY GTB Last administered on 05/10/17 09: 24; Admin Dose 220 MG; Start 05/09/17 at 09:00 Ondansetron HCl (Zofran Inj) 4 mg Q6H PRN IV NAUSEA AND/OR VOMITING; Start 05/09/17 at 09:00 Lorazepam (Ativan) 1 mg Q6H PRN IV ANXIETY Last administered on 05/10/17 08:19 ; Admin Dose 1 MG; Start 05/09/17 at 09:00 Miscellaneous Information 1 ea NOTE XX ; Start 05/09/17 at 10:00 Glucose (Glutose) 15 gm Q15M PRN PO DECREASED GLUCOSE; Start 05/09/17 at 10:00 Glucose (Glutose) 22.5 gm Q15M PRN PO DECREASED GLUCOSE; Start 05/09/17 at 10: 00 Dextrose (D50w Syringe) 25 ml Q15M PRN IV DECREASED GLUCOSE; Start 05/09/17 at 10:00 Dextrose (D50w Syringe) 50 ml Q15M PRN IV DECREASED GLUCOSE; Start 05/09/17 at 10:00 Glucagon (Glucagen) 1 mg Q15M PRN IM DECREASED GLUCOSE; Start 05/09/17 at 10:00 Glucose (Glutose) 15 gm Q15M PRN BUCCAL DECREASED GLUCOSE; Start 05/09/17 at 10 :00 Famotidine (Pepcid Iv) 20 mg DAILY IV Last administered on 05/10/17 09:24; Admin Dose 20 MG; Start 05/10/17 at 09:00 Multivitamins (Multivitamin) 30 ml DAILY PEG Last administered on 05/10/17 09: 24; Admin Dose 30 ML; Start 05/10/17 at 09:00 Fluoxetine HCl 20 mg 20 mg DAILY GTB Last administered on 05/10/17 09:24; Admin Dose 20 MG; Start 05/10/17 at 09:00 Cefepime HCl (Maxipime 1gm/50 ml (Pmx)) 50 ml @ 100 mls/hr Q24H IVPB ; Start 05/10/17 at 12:00 Collagenase (Santyl) 1 applic DAILY TOP Last administered on 05/10/17 09:24; Admin Dose 1 APPLIC; Start 05/10/17 at 09:00 Collagenase 1 applic 1 applic PRN PRN TOP SOILING; Start 05/10/17 at 01:30 Vancomycin HCl/ Sodium Chloride (Vancocin/NS) 250 ml @ 83.333 mls/ hr Q48H IVPB ; Start 05/11/17 at 13:00 Miscellaneous Information (*Rx Drug Level Order Reminder*) RANDOM VANCOMYCIN LEVEL 1... ONCE ONCE XX ; Start 05/11/17 at 05:00; Stop 05/11/17 at 05:01 JOANIE PHILLIPS MD May 10, 2017 10:16
[2017-05-10 11:06] LABS: FOLATE > 20.0 ng/ml (2.8-20.0)
--- NOTE | 2017-05-10 11:08 | CONS ---
Date/Time of Note Date/Time of Note DATE: 05/10/17 TIME: 11:04 Consult Date/Type/Reason Admit Date/Time May 08, 2017 at 20:54 Initial Consult Date 05/09/17 Type of Consultation: Pulmonary Ordering Provider: PERLITA WALLS MD Subjective Lethargic but arousable. Continues mechanical ventilation. Currently not on vasopressors. Objective Vital Signs Date Time Temp Pulse Resp B/P Pulse Ox O2 Delivery O2 Flow Rate FiO2 05/10/17 10:00 88 21 113/66 100 Mechanical Ventilator 05/10/17 08:00 97.9 05/10/17 04:55 70 Intake and Output 05/09/17 05/09/17 05/10/17 15:00 23:00 07:00 Intake Total 1000 ml 610 ml 620 ml Output Total 148 ml 240 ml 250 ml Balance 852 ml 370 ml 370 ml Exam PHYSICAL EXAMINATION GENERAL: Elderly lady on mechanical ventilation. VITAL SIGNS: see below. HEENT: Pupils equal, round, and reactive to light. Tracheostomy site clean and intact. CARDIAC: S1, S2, 1/6 systolic ejection murmur CHEST: Diminished air entry bilaterally. ABDOMEN: Mildly distended. Bowel sounds present no guarding or rebound EXTREMITIES: No cyanosis, clubbing significant anasarca NEUROLOGIC: Generalized weakness Results/Medications Result Diagram: 05/10/17 0649 05/10/17 0648 Results 24 hrs Laboratory Tests Test 05/09/17 12:08 05/09/17 17:26 05/09/17 19:00 05/09/17 21:21 Bedside Glucose 86 91 85 Urine Eosinophils % 0.0 Urine Random Creatinine < 12.40 L Urine Random Sodium 106 H Urine Protein/Creatinine Ratio 5.00 Urine Total Protein 66.0 H Test 05/10/17 00:55 05/10/17 06:48 05/10/17 06:49 05/10/17 09:14 Bedside Glucose 96 90 Sodium Level 139 Potassium Level 5.4 H Chloride Level 100 Carbon Dioxide Level 21 Anion Gap 23 H Blood Urea Nitrogen 100 H Creatinine 1.80 H Glucose Level 77 Calcium Level 9.7 White Blood Count 8.7 Red Blood Count 2.78 L Hemoglobin 7.7 L Hematocrit 24.4 L Mean Corpuscular Volume 87.8 Mean Corpuscular Hemoglobin 27.7 L Mean Corpuscular Hemoglobin Concent 31.6 L Red Cell Distribution Width 18.8 H Platelet Count 149 # Mean Platelet Volume 12.5 H Neutrophils % 70.7 Lymphocytes % 9.6 L Monocytes % 6.3 Eosinophils % 9.4 H Basophils % 0.2 Nucleated Red Blood Cells % 0.0 Neutrophils # 6.2 Lymphocytes # 0.8 Monocytes # 0.6 Eosinophils # 0.8 H Basophils # 0.0 Nucleated Red Blood Cells # 0.0 Prothrombin Time 14.8 H Prothrombin Time Ratio 1.2 INR International Normalized Ratio 1.16 Activated Partial Thromboplast Time 40.2 H Hemoglobin A1c 5.5 Uric Acid 7.8 Magnesium Level 2.0 Iron Level 30 L Total Iron Binding Capacity 222 L Percent Iron Saturation 14 L Ferritin Pending Creatine Kinase < 20 L Vitamin B12 Level Pending Folate Pending Thyroid Stimulating Hormone (TSH) 25.600 H Medications Current Medications Enoxaparin Sodium (Lovenox) 30 mg DAILY SC Last administered on 05/10/17 09:27 ; Admin Dose 30 MG; Start 05/09/17 at 09:00 Aspirin (Aspirin) 81 mg DAILY GTB Last administered on 05/10/17 09:16; Admin Dose 81 MG; Start 05/09/17 at 09:00 Acetaminophen (Tylenol Liquid) 650 mg Q6H PRN GTB PAIN AND OR ELEVATED TEMP; Start 05/09/17 at 09:00 Cholecalciferol (Vitamin D) 1,000 unit DAILY GTB Last administered on 09:24; Admin Dose 1,000 UNIT; Start 05/09/17 at 09:00 Insulin Glargine (Lantus) 17 unit DAILY@08 SC Last administered on 05/10/17 09 :45; Admin Dose 17 UNIT; Start 05/10/17 at 08:00 Diagnostic Test (Pha) (Accu-Chek) 1 ea 02 XX ; Start 05/10/17 at 02:00 Levothyroxine Sodium (Synthroid) 125 mcg DAILY@06 GTB Last administered on 05/10 06:41; Admin Dose 125 MCG; Start 05/10/17 at 06:00 Zinc Sulfate (Zinc Sulfate) 220 mg DAILY GTB Last administered on 05/10/17 09: 24; Admin Dose 220 MG; Start 05/09/17 at 09:00 Ondansetron HCl (Zofran Inj) 4 mg Q6H PRN IV NAUSEA AND/OR VOMITING; Start 05/09/17 at 09:00 Lorazepam (Ativan) 1 mg Q6H PRN IV ANXIETY Last administered on 05/10/17 08:19 ; Admin Dose 1 MG; Start 05/09/17 at 09:00 Miscellaneous Information 1 ea NOTE XX ; Start 05/09/17 at 10:00 Glucose (Glutose) 15 gm Q15M PRN PO DECREASED GLUCOSE; Start 05/09/17 at 10:00 Glucose (Glutose) 22.5 gm Q15M PRN PO DECREASED GLUCOSE; Start 05/09/17 at 10: 00 Dextrose (D50w Syringe) 25 ml Q15M PRN IV DECREASED GLUCOSE; Start 05/09/17 at 10:00 Dextrose (D50w Syringe) 50 ml Q15M PRN IV DECREASED GLUCOSE; Start 05/09/17 at 10:00 Glucagon (Glucagen) 1 mg Q15M PRN IM DECREASED GLUCOSE; Start 05/09/17 at 10:00 Glucose (Glutose) 15 gm Q15M PRN BUCCAL DECREASED GLUCOSE; Start 05/09/17 at 10 :00 Famotidine (Pepcid Iv) 20 mg DAILY IV Last administered on 05/10/17 09:24; Admin Dose 20 MG; Start 05/10/17 at 09:00 Multivitamins (Multivitamin) 30 ml DAILY PEG Last administered on 05/10/17 09: 24; Admin Dose 30 ML; Start 05/10/17 at 09:00 Fluoxetine HCl 20 mg 20 mg DAILY GTB Last administered on 05/10/17 09:24; Admin Dose 20 MG; Start 05/10/17 at 09:00 Cefepime HCl (Maxipime 1gm/50 ml (Pmx)) 50 ml @ 100 mls/hr Q24H IVPB ; Start 05/10/17 at 12:00 Collagenase (Santyl) 1 applic DAILY TOP Last administered on 05/10/17 09:24; Admin Dose 1 APPLIC; Start 05/10/17 at 09:00 Collagenase 1 applic 1 applic PRN PRN TOP SOILING; Start 05/10/17 at 01:30 Vancomycin HCl/ Sodium Chloride (Vancocin/NS) 250 ml @ 83.333 mls/ hr Q48H IVPB ; Start 05/11/17 at 13:00 Miscellaneous Information (*Rx Drug Level Order Reminder*) RANDOM VANCOMYCIN LEVEL 1... ONCE ONCE XX ; Start 05/11/17 at 05:00; Stop 05/11/17 at 05:01 Assessment/Plan Chief Complaint/Hosp Course Assessment 1. Hypoxemic respiratory failure with recent tracheostomy. Chest CT demonstrates 5% right pneumothorax and dense left lung consolidation. 2. Renal insufficiency with profound anasarca 3. Anemia possible chronic in nature rule out GI bleed 4. Encephalopathy toxic metabolic appears to be resolving 5. Diabetes mellitus 6. Paroxysmal atrial fibrillation 7. History of hypothyroidism 8. Dysphagia now with G-tube Plan 1. Continue mechanical ventilation decrease tidal volume from 600-500. Serial chest x-rays to ensure no progression of pneumothorax. Hold off on chest replacement for now. 2. Continue broad-spectrum antibiotics currently on vancomycin and cefepime pending cultures 3. Continue tube feeding if tolerated 4. Renal recommendations 5. DVT and GI prophylaxis 6. Consider transfusion 1 unit packed red blood cells to improve intravascular volume Discussed with family at bedside. Problems: YAQUELIN DURAN MD, [facility] May 10, 2017 11:08
--- NOTE | 2017-05-10 11:18 | CONS ---
Date/Time of Note Date/Time of Note DATE: 05/10/17 TIME: 11:15 Assessment/Plan Assessment/Plan Additional Assessment/Plan Respiratory failure with hypoxia Preserved ejection fraction Pulmonary hypertension Tricuspid valve regurgitation Pneumothorax Paraplegia Acute kidney injury with history of CKD Obesity -In discussion with nursing staff, patient plan for initiation of hemodialysis. Fluid management via hemodialysis as per nephrology colleagues. Remains in sinus rhythm on telemetry. Echocardiogram with preserved ejection fraction. Ventilator and pulmonary care as per our pulmonary colleagues. Consultation Date/Type/Reason Admit Date/Time May 08, 2017 at 20:54 Initial Consult Date 05/09/17 Type of Consultation: cv Referring Provider: PERLITA WALLS MD 24 HR Interval Summary Free Text/Dictation Patient seen and examined, no new cardiac issues as per nursing staff, denies chest pain or palpitations Exam/Review of Systems Vital Signs Vitals Vital Signs Date Time Temp Pulse Resp B/P Pulse Ox O2 Delivery O2 Flow Rate FiO2 05/10/17 10:00 88 21 113/66 100 Mechanical Ventilator 05/10/17 08:00 97.9 05/10/17 04:55 70 Intake and Output 05/09/17 05/09/17 05/10/17 15:00 23:00 07:00 Intake Total 1000 ml 610 ml 620 ml Output Total 148 ml 240 ml 250 ml Balance 852 ml 370 ml 370 ml Exam Follows commands, able to answer yes or no questions, no apparent distress Constitutional: alert, obese Head: normocephalic Neck: other (Tracheostomy) Respiratory: other (Coarse breath sounds bilaterally, no wheezing) Cardiovascular: other (S1-S2 heard), regular rate and rhythm Gastrointestinal: bowel sounds, non-tender, soft Extremities: edema Results Result Diagram: 05/10/17 0649 05/10/17 0648 Results 24 hrs Laboratory Tests Test 05/09/17 12:08 05/09/17 17:26 05/09/17 19:00 05/09/17 21:21 Bedside Glucose 86 91 85 Urine Eosinophils % 0.0 Urine Random Creatinine < 12.40 L Urine Random Sodium 106 H Urine Protein/Creatinine Ratio 5.00 Urine Total Protein 66.0 H Test 05/10/17 00:55 05/10/17 06:48 05/10/17 06:49 05/10/17 09:14 Bedside Glucose 96 90 Sodium Level 139 Potassium Level 5.4 H Chloride Level 100 Carbon Dioxide Level 21 Anion Gap 23 H Blood Urea Nitrogen 100 H Creatinine 1.80 H Glucose Level 77 Calcium Level 9.7 White Blood Count 8.7 Red Blood Count 2.78 L Hemoglobin 7.7 L Hematocrit 24.4 L Mean Corpuscular Volume 87.8 Mean Corpuscular Hemoglobin 27.7 L Mean Corpuscular Hemoglobin Concent 31.6 L Red Cell Distribution Width 18.8 H Platelet Count 149 # Mean Platelet Volume 12.5 H Neutrophils % 70.7 Lymphocytes % 9.6 L Monocytes % 6.3 Eosinophils % 9.4 H Basophils % 0.2 Nucleated Red Blood Cells % 0.0 Neutrophils # 6.2 Lymphocytes # 0.8 Monocytes # 0.6 Eosinophils # 0.8 H Basophils # 0.0 Nucleated Red Blood Cells # 0.0 Prothrombin Time 14.8 H Prothrombin Time Ratio 1.2 INR International Normalized Ratio 1.16 Activated Partial Thromboplast Time 40.2 H Hemoglobin A1c 5.5 Uric Acid 7.8 Magnesium Level 2.0 Iron Level 30 L Total Iron Binding Capacity 222 L Percent Iron Saturation 14 L Ferritin Pending Creatine Kinase < 20 L Vitamin B12 Level 904 Folate > 20.0 H Thyroid Stimulating Hormone (TSH) 25.600 H Medications Medications Current Medications Enoxaparin Sodium (Lovenox) 30 mg DAILY SC Last administered on 05/10/17 09:27 ; Admin Dose 30 MG; Start 05/09/17 at 09:00 Aspirin (Aspirin) 81 mg DAILY GTB Last administered on 05/10/17 09:16; Admin Dose 81 MG; Start 05/09/17 at 09:00 Acetaminophen (Tylenol Liquid) 650 mg Q6H PRN GTB PAIN AND OR ELEVATED TEMP; Start 05/09/17 at 09:00 Cholecalciferol (Vitamin D) 1,000 unit DAILY GTB Last administered on 09:24; Admin Dose 1,000 UNIT; Start 05/09/17 at 09:00 Insulin Glargine (Lantus) 17 unit DAILY@08 SC Last administered on 05/10/17 09 :45; Admin Dose 17 UNIT; Start 05/10/17 at 08:00 Diagnostic Test (Pha) (Accu-Chek) 1 ea 02 XX ; Start 05/10/17 at 02:00 Levothyroxine Sodium (Synthroid) 125 mcg DAILY@06 GTB Last administered on 05/10 06:41; Admin Dose 125 MCG; Start 05/10/17 at 06:00 Zinc Sulfate (Zinc Sulfate) 220 mg DAILY GTB Last administered on 05/10/17 09: 24; Admin Dose 220 MG; Start 05/09/17 at 09:00 Ondansetron HCl (Zofran Inj) 4 mg Q6H PRN IV NAUSEA AND/OR VOMITING; Start 05/09/17 at 09:00 Lorazepam (Ativan) 1 mg Q6H PRN IV ANXIETY Last administered on 05/10/17 08:19 ; Admin Dose 1 MG; Start 05/09/17 at 09:00 Miscellaneous Information 1 ea NOTE XX ; Start 05/09/17 at 10:00 Glucose (Glutose) 15 gm Q15M PRN PO DECREASED GLUCOSE; Start 05/09/17 at 10:00 Glucose (Glutose) 22.5 gm Q15M PRN PO DECREASED GLUCOSE; Start 05/09/17 at 10: 00 Dextrose (D50w Syringe) 25 ml Q15M PRN IV DECREASED GLUCOSE; Start 05/09/17 at 10:00 Dextrose (D50w Syringe) 50 ml Q15M PRN IV DECREASED GLUCOSE; Start 05/09/17 at 10:00 Glucagon (Glucagen) 1 mg Q15M PRN IM DECREASED GLUCOSE; Start 05/09/17 at 10:00 Glucose (Glutose) 15 gm Q15M PRN BUCCAL DECREASED GLUCOSE; Start 05/09/17 at 10 :00 Famotidine (Pepcid Iv) 20 mg DAILY IV Last administered on 05/10/17 09:24; Admin Dose 20 MG; Start 05/10/17 at 09:00 Multivitamins (Multivitamin) 30 ml DAILY PEG Last administered on 05/10/17 09: 24; Admin Dose 30 ML; Start 05/10/17 at 09:00 Fluoxetine HCl 20 mg 20 mg DAILY GTB Last administered on 05/10/17 09:24; Admin Dose 20 MG; Start 05/10/17 at 09:00 Cefepime HCl (Maxipime 1gm/50 ml (Pmx)) 50 ml @ 100 mls/hr Q24H IVPB ; Start 05/10/17 at 12:00 Collagenase (Santyl) 1 applic DAILY TOP Last administered on 05/10/17t 09:24; Admin Dose 1 APPLIC; Start 05/10/17 at 09:00 Collagenase 1 applic 1 applic PRN PRN TOP SOILING; Start 05/10/17 at 01:30 Vancomycin HCl/ Sodium Chloride (Vancocin/NS) 250 ml @ 83.333 mls/ hr Q48H IVPB ; Start 05/11/17 at 13:00 Miscellaneous Information (*Rx Drug Level Order Reminder*) RANDOM VANCOMYCIN LEVEL 1... ONCE ONCE XX ; Start 05/11/17 at 05:00; Stop 05/11/17 at 05:01 Jonah Ayala DO May 10, 2017 11:18
[2017-05-10] MEDS: CEFEPIME 1GM/50 ML (PMX) 50 ML IVPB SCH (12:38)
--- NOTE | 2017-05-10 12:42 | PN ---
KISHAN SAUCEDO 05/10/17 1242: Date/Time of Note Date/Time of Note DATE: 05/10/17 TIME: 12:37 Assessment/Plan VTE Prophylaxis VTE Prophylaxis Intervention: SCD's Lines/Catheters IV Catheter Type (from Nrs): Mid Line Urinary Cath still in place: Yes Reason Cath still needed: urinary retention Assessment/Plan Chief Complaint/Hosp Course Patient with generalized edema and anasarca, pending hemodialysis catheter placement by Dr. Borges placement for initiation of hemodialysis. Problems: Assessment/Plan -Acute respiratory failure with left upper lobe collapse. Continue ventilatory support. Dr. Hamliton is following in pulmonology consultation. -5% pneumothorax, continue serial chest x-rays to ensure no progression of pneumothorax. -Healthcare acquired pneumonia continue vancomycin and cefepime, follow-up and sputum culture. Dr. Stephenson is following in infection disease consultation - Acute kidney injury with a generalized edema and hyperkalemia, Dr. Stevens is following in nephrology consultation. Pending hemodialysis upon placement of hemodialysis catheter. -Paroxysmal atrial fibrillation -Diabetes mellitus, continue Lantus and NovoLog -Hypothyroidism, continue levothyroxine. 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 Further recommendations based on clinical course. Plan of care discussed with Dr. Walls. Exam/Review of Systems Vital Signs Vitals Vital Signs Date Time Temp Pulse Resp B/P Pulse Ox O2 Delivery O2 Flow Rate FiO2 05/10/17 12:19 93 05/10/17 10:00 21 113/66 100 Mechanical Ventilator 05/10/17 08:00 97.9 05/10/17 04:55 70 Intake and Output 05/09/17 05/09/17 05/10/17 15:00 23:00 07:00 Intake Total 1000 ml 610 ml 620 ml Output Total 148 ml 240 ml 250 ml Balance 852 ml 370 ml 370 ml Exam Constitutional: alert Neck: other (Tracheostomy), supple Respiratory: diminished breath sounds Cardiovascular: nl pulses Gastrointestinal: ascites, non-tender, other (G-tube), soft Musculoskeletal: muscle weakness Extremities: edema Neurological: other (Paraplegia) Results Result Diagram: 05/10/17 0649 05/10/17 0648 Results 24 hrs Laboratory Tests Test 05/09/17 17:26 05/09/17 19:00 05/09/17 21:21 05/10/17 00:55 Bedside Glucose 91 85 96 Urine Eosinophils % 0.0 Urine Random Creatinine < 12.40 L Urine Random Sodium 106 H Urine Protein/Creatinine Ratio 5.00 Urine Total Protein 66.0 H Test 05/10/17 06:48 05/10/17 06:49 05/10/17 09:14 05/10/17 12:22 Sodium Level 139 Potassium Level 5.4 H Chloride Level 100 Carbon Dioxide Level 21 Anion Gap 23 H Blood Urea Nitrogen 100 H Creatinine 1.80 H Glucose Level 77 Calcium Level 9.7 White Blood Count 8.7 Red Blood Count 2.78 L Hemoglobin 7.7 L Hematocrit 24.4 L Mean Corpuscular Volume 87.8 Mean Corpuscular Hemoglobin 27.7 L Mean Corpuscular Hemoglobin Concent 31.6 L Red Cell Distribution Width 18.8 H Platelet Count 149 # Mean Platelet Volume 12.5 H Neutrophils % 70.7 Lymphocytes % 9.6 L Monocytes % 6.3 Eosinophils % 9.4 H Basophils % 0.2 Nucleated Red Blood Cells % 0.0 Neutrophils # 6.2 Lymphocytes # 0.8 Monocytes # 0.6 Eosinophils # 0.8 H Basophils # 0.0 Nucleated Red Blood Cells # 0.0 Prothrombin Time 14.8 H Prothrombin Time Ratio 1.2 INR International Normalized Ratio 1.16 Activated Partial Thromboplast Time 40.2 H Hemoglobin A1c 5.5 Uric Acid 7.8 Magnesium Level 2.0 Iron Level 30 L Total Iron Binding Capacity 222 L Percent Iron Saturation 14 L Ferritin Pending Creatine Kinase < 20 L Vitamin B12 Level 904 Folate > 20.0 H Thyroid Stimulating Hormone (TSH) 25.600 H Bedside Glucose 90 99 Medications Medications Current Medications Enoxaparin Sodium (Lovenox) 30 mg DAILY SC Last administered on 05/10/17 09:27 ; Admin Dose 30 MG; Start 05/09/17 at 09:00 Aspirin (Aspirin) 81 mg DAILY GTB Last administered on 05/10/17 09:16; Admin Dose 81 MG; Start 05/09/17 at 09:00 Acetaminophen (Tylenol Liquid) 650 mg Q6H PRN GTB PAIN AND OR ELEVATED TEMP; Start 05/09/17 at 09:00 Cholecalciferol (Vitamin D) 1,000 unit DAILY GTB Last administered on 09:24; Admin Dose 1,000 UNIT; Start 05/09/17 at 09:00 Insulin Glargine (Lantus) 17 unit DAILY@08 SC Last administered on 05/10/17 09 :45; Admin Dose 17 UNIT; Start 05/10/17 at 08:00 Diagnostic Test (Pha) (Accu-Chek) 1 ea 02 XX ; Start 05/10/17 at 02:00 Levothyroxine Sodium (Synthroid) 125 mcg DAILY@06 GTB Last administered on 05/10 06:41; Admin Dose 125 MCG; Start 05/10/17 at 06:00 Zinc Sulfate (Zinc Sulfate) 220 mg DAILY GTB Last administered on 05/10/17 09: 24; Admin Dose 220 MG; Start 05/09/17 at 09:00 Ondansetron HCl (Zofran Inj) 4 mg Q6H PRN IV NAUSEA AND/OR VOMITING; Start 05/09/17 at 09:00 Lorazepam (Ativan) 1 mg Q6H PRN IV ANXIETY Last administered on 05/10/17 08:19 ; Admin Dose 1 MG; Start 05/09/17 at 09:00 Miscellaneous Information 1 ea NOTE XX ; Start 05/09/17 at 10:00 Glucose (Glutose) 15 gm Q15M PRN PO DECREASED GLUCOSE; Start 05/09/17 at 10:00 Glucose (Glutose) 22.5 gm Q15M PRN PO DECREASED GLUCOSE; Start 05/09/17 at 10: 00 Dextrose (D50w Syringe) 25 ml Q15M PRN IV DECREASED GLUCOSE; Start 05/09/17 at 10:00 Dextrose (D50w Syringe) 50 ml Q15M PRN IV DECREASED GLUCOSE; Start 05/09/17 at 10:00 Glucagon (Glucagen) 1 mg Q15M PRN IM DECREASED GLUCOSE; Start 05/09/17 at 10:00 Glucose (Glutose) 15 gm Q15M PRN BUCCAL DECREASED GLUCOSE; Start 05/09/17 at 10 :00 Famotidine (Pepcid Iv) 20 mg DAILY IV Last administered on 05/10/17 09:24; Admin Dose 20 MG; Start 05/10/17 at 09:00 Multivitamins (Multivitamin) 30 ml DAILY PEG Last administered on 05/10/17 09: 24; Admin Dose 30 ML; Start 05/10/17 at 09:00 Fluoxetine HCl 20 mg 20 mg DAILY GTB Last administered on 05/10/17 09:24; Admin Dose 20 MG; Start 05/10/17 at 09:00 Cefepime HCl (Maxipime 1gm/50 ml (Pmx)) 50 ml @ 100 mls/hr Q24H IVPB ; Start 05/10/17 at 12:00 Collagenase (Santyl) 1 applic DAILY TOP Last administered on 05/10/17 09:24; Admin Dose 1 APPLIC; Start 05/10/17 at 09:00 Collagenase 1 applic 1 applic PRN PRN TOP SOILING; Start 05/10/17 at 01:30 Vancomycin HCl/ Sodium Chloride (Vancocin/NS) 250 ml @ 83.333 mls/ hr Q48H IVPB ; Start 05/11/17 at 13:00 Miscellaneous Information (*Rx Drug Level Order Reminder*) RANDOM VANCOMYCIN LEVEL 1... ONCE ONCE XX ; Start 05/11/17 at 05:00; Stop 05/11/17 at 05:01 PERLITA WALLS MD 05/10/17 1756: Assessment/Plan Assessment/Plan Chief Complaint/Hosp Course Total critical care time spent approx 30 mins Problems: Exam/Review of Systems Results Result Diagram: 05/10/17 0649 05/10/17 0648 KISHAN SAUCEDO May 10, 2017 12:42 PERLITA WALLS MD May 10, 2017 17:56
--- NOTE | 2017-05-10 14:09 | RADRPT ---
Vent Rate: 83 bpm RR Interval: [address] Interval: 144 msec QRS Duration: 68 msec QT Interval: 374 msec QTC Interval: 439 msec P-R-T [place]: 78 - 51 - 50 degrees Normal sinus rhythm Cannot rule out Inferior infarct , age undetermined Anterior infarct , age undetermined Abnormal ECG Electronically Signed By: Adeel Shah [id number]
[2017-05-10] MEDS ORDERED: SOD CHLORIDE 0.9% 250 ML IV* ONE (14:13)
[2017-05-10] MEDS ORDERED: HEPARIN 1000 UNITS/ML 10 ML INJ ONE (16:06)
--- NOTE | 2017-05-10 16:26 | OPR ---
Date/Time of Note Date/Time of Note DATE: 05/10/17 TIME: 16:24 Operative Report Procedure Date: May 10, 2017 Preoperative Diagnosis renal failure Postoperative Diagnosis same Surgeon see signature line Literacy Consultant NONE Anesthesia Type: other (LOCAL) Estimated Blood Loss: none Transfusion none Specimen NONE Grafts/Implants none Complications none Pt Condition Post Procedure: critical Disposition: other (ICU) Procedure Description DATE OF OPERATION: 05/10/2017 SURGEON: Kt Rodas MD PREOPERATIVE DIAGNOSIS: RENAL FAILURE POSTOPERATIVE DIAGNOSIS: same ANESTHESIA: Local BLOOD LOSS: minimal COMPLICATIONS: None. ACCESS: Right common femoral vein INDICATIONS: This is a 76 year-old female with renal failure requiring dialysis. Patient and family have been informed of the alternatives, risks, and benefits. Risks including but not limited to bleeding, thrombosis, embolization , myocardial infarction, , device malfunction, infection, pneumothorax, nephrotoxicity and patient has agreed to proceed. PROCEDURE: 1. Ultrasound guided access of right common femoral vein 2. Right common femoral vein non-tunneled hemodialysis catheter placement DESCRIPTION: The patient was in supine position in her ICU bed. Bed was placed in slight Trendelenburg position and the groin was prepped and draped with sterile technique. The central catheter was flushed with heparin to ensure function of each port. Landmarks were identified and the skin entry site was chosen using ultrasound guidance. The skin And subcutaneous tissue were anesthetized with 1% lidocaine. The vein was then located with a needle with a 10 mL syringe using ultrasound guidance. The needle was then directed towards the vein and was entered. The needle position was secured and syringe was removed. The hub was occluded to prevent venous air embolus. The guidewire was passed easily and the needle was removed while the wire was held in place. A small incision was then made at the point of the wire entry. The dilator was placed over the wire and the tract gently dilated. The catheter was fed over the wire, ensuring the wire exited from the port before advancing the catheter. The catheter was inserted to the desired depth and the wire removed. Each port was aspirated to ensure adequate blood flow and then flushed with heparinized saline solution. The catheter was secured in place with a 2-0 nylon suture and a sterile dressing was applied. The patient tolerated the procedure well and was in stable condition. All instrument, sponge and needle counts were correct 2. KT RODAS MD May 10, 2017 16:26
[2017-05-10] MEDS: morphine 2 MG INJ IV PRN (17:44)
--- NOTE | 2017-05-10 17:49 | HP ---
DATE OF ADMISSION: 05/09/2017 VASCULAR SURGERY CONSULTATION DATE OF CONSULTATION: 05/10/2017 Dear Doctors: Ms. Joann Tate is a 76-year-old female who was transferred from [facility] with worsening hypoxia and acute kidney injury secondary to ATN and fluid overload. Further, the pa marie had developed acute uremia with BUN of 100, requiring dialysis; therefore, vascular surgery wa s consulted for evaluation and HD catheter placement. At the moment, the patient is nonverbal, trac h dependent with respiratory failure and unable to answer any further questions. No family members are at the bedside. The rest of the medical information is based on her medical records. REVIEW OF SYSTEMS: Unable to ascertain as patient is ventilated and nonverbal. PAST MEDICAL HISTORY: Involves spinal injury secondary paraplegia, paroxysmal AFib, hypertension, c hronic respiratory failure, pseudomonas pneumonia, left shoulder injury. PAST SURGICAL HISTORY: Appendectomy, cholecystectomy, tracheostomy, left shoulder reverse arthropla sty, feeding tube. ALLERGIES: NONE RECORDED. SOCIAL HISTORY: No history of tobacco, alcohol or illicit drug use. FAMILY HISTORY: Hypertension. PHYSICAL EXAMINATION: GENERAL: Patient is nonverbal, noncommunicative, and sedated. HEENT: Normocephalic, atraumatic. Mucosa moist. NECK: Supple, no carotid bruit. Tracheostomy intact. PULMONARY: Coarse breath sounds bilaterally, some crackles at the bases. CARDIOVASCULAR: S1, S2 present. ABDOMEN: Soft, nontender, nondistended. Bowel sounds positive. Large truncal obesity, G-tube inta ct. EXTREMITIES: Lower extremities, unable to palpate the femoral pulses secondary to body habitus, non palpable pedal pulse secondary to edema. Motor and sensory unable to ascertain as the patient is se dated and trached. Capillary refill 3 seconds. ASSESSMENT AND PLAN: Renal failure with uremia: Due to the patient's acute kidney injury with pinky re uremia, requires the patient to receive dialysis. I will plan to place a Dany catheter for th e patient. Optimize vascular status (BP meds, diet, nutrition, exercise, sugar control, antiplatelets). We will plan to follow the patient, and will follow the progress of her renal function. Discussed findings, plan and management with her primary service. Thank you for allowing us to partake in the care of your patient. Please call with any questions. Dictated By: WENDY MALIK/LOIS Conf#: [id number] [facility]#: [id number]
--- NOTE | 2017-05-10 20:23 | QN ---
Documentation Comment ID Consult requested by JOE Borrego. Dr. Stephenson to see pt in AM. Thank you. KATHY VARGAS NP May 10, 2017 20:23
[2017-05-11] VITALS (36 sets, daily range): BP systolic 87–156; BP diastolic 44–79; PULSE 86–117; RESP 18–29
[2017-05-11] MEDS ORDERED: VANCOMYCIN 2 GM in SOD CHLORIDE 0.9% 500 ML IVPB SCH ×2
[2017-05-11] MEDS ORDERED: VANCOMYCIN 1.5 GM in SOD CHLORIDE 0.9% 250 ML IVPB SCH ×2 (01:00→13:00)
[2017-05-11] MEDS: IPRATROPIUM (HFA) 12.9 GM INHALER INH SCH ×4 (01:00→19:02)
[2017-05-11] MEDS: ALBUTEROL HFA 8 GM INHALER INH SCH ×4 (01:00→19:02)
[2017-05-11] MEDS: ACCU-CHEK XX SCH (01:55)
[2017-05-11 05:24] LABS: BASOPHILS % 0.3 % (0.0-2.0); EOSINOPHILS # 0.4 10^3/ul (0.0-0.5); EOSINOPHILS % 6.3 % (0.0-7.0); HEMATOCRIT 24.3 % (37.0-47.0); LYMPHOCYTES # 0.7 10^3/ul (0.8-2.9); LYMPHOCYTES % 9.7 % (15.0-51.0); MEAN CORPUSCULAR HEMOGLOBIN 28.9 pg (29.0-33.0); MEAN CORPUSCULAR HGB CONC 32.9 g/dl (32.0-37.0); MEAN CORPUSCULAR VOLUME 87.7 fl (82.0-101.0); MONOCYTE # 0.6 10^3/ul (0.3-0.9); MONOCYTES % 8.9 % (0.0-11.0); NEUTROPHIL # 5.1 10^3/ul (1.6-7.5); NEUTROPHILS % 72.5 % (39.0-77.0); PLATELET COUNT 120 10^3/UL (140-415); RED BLOOD COUNT 2.77 10^6/ul (4.20-5.40); RED CELL DISTRIBUTION WIDTH 17.4 % (11.5-14.5)
[2017-05-11 05:45] LABS: CALCIUM 9.4 mg/dl (8.4-10.2); CREATININE 1.65 mg/dl (0.44-1.00); POTASSIUM 5.2 mmol/L (3.5-5.1)
[2017-05-11] MEDS: LEVOTHYROXINE 125 MCG TAB GTB SCH (06:17)
[2017-05-11] MEDS: INSULIN ASPART [NOVOLOG] 3 ML PEN SC SCH ×4 (07:35→21:00)
[2017-05-11 08:47] LABS: AADO2 Arterial 602.9 mmHg (7.0-24.0); Allen Test ACCEPTAB; Arterial Base Excess -4.7 mmol/L (-3.0-3); Arterial COHb 0.3 % (0.0-3.0); Arterial Fraction of Oxyhgb 94.3 % (93.0-99.0); Arterial MetHb 0.5 % (0.0-1.5); Arterial Total Hemglobin 8.9 g/dl (12.0-18.0); MODE VENT - AC
[2017-05-11] MEDS: MULTIVITAMINS 30 ML CUP PEG SCH (08:51)
[2017-05-11] MEDS: ASPIRIN 81 MG TAB GTB SCH (08:51)
[2017-05-11] MEDS: CHOLECALCIFEROL 1,000 UNIT TAB GTB SCH (08:52)
[2017-05-11] MEDS: FAMOTIDINE 20 MG TAB GTB SCH (08:52)
[2017-05-11] MEDS: ZINC SULFATE 220 MG CAP GTB SCH (08:52)
[2017-05-11] MEDS: FLUOXETINE 20 MG CAP GTB SCH (08:52)
[2017-05-11] MEDS: ENOXAPARIN 30 MG/0.3 ML SYG SC SCH (08:54)
[2017-05-11] MEDS: COLLAGENASE 30 GM TUBE TOP SCH (08:56)
[2017-05-11] MEDS: INSULIN GLARGINE [LANtus] 3 ML PEN SC SCH (09:09)
--- NOTE | 2017-05-11 09:52 | RADRPT ---
PROCEDURE: XR Chest. CLINICAL INDICATION: pna chf TECHNIQUE: Single portable view of the chest was obtained. COMPARISON: CT CHEST 05/09/2017 FINDINGS: Patient rotation and scoliosis with the examination. Tracheostomy tube overlies the upper trachea. Near-complete opacification of the left lung is presen t secondary to the combination of left upper and lower lobe collapse and pleural effusion. Diffuse r ight lung interstitial parenchymal opacities are present likely consistent with pulmonary edema. Sma ll right-sided pleural effusion is present. CT chest of reference also demonstrated partial atelecta sis of the right middle lobe. Small right pneumothorax conspicuous on CT chest is not seen. IMPRESSION: 1. Near-complete opacification of the left lung secondary to the combination of pleural effusion an d collapsed left upper greater than lower lobes. 2. Diffuse right lung interstitial parenchymal opacities favored to represent pulmonary edema. 3. Small right-sided pleural effusion. right-sided pleural effusion. 4. Tracheostomy tube. RPTAT: HRSR Physician Yissel Date Time Electronically viewed and signed by Physician Yissel on 05/11/2017 09:52 RR/
[2017-05-11] MEDS ORDERED: HEPARIN 1000 UNITS/ML 10 ML INJ CATHETER SCH (10:30)
--- NOTE | 2017-05-11 11:27 | CONS ---
Date/Time of Note Date/Time of Note DATE: 05/11/17 TIME: 11:24 Consult Date/Type/Reason Admit Date/Time May 09, 2017 at 00:06 Initial Consult Date 05/09/17 Type of Consultation: Pulm/CCM Ordering Provider: PERLITA WALLS MD Subjective On the vent. No events. On HD. Objective Vital Signs Date Time Temp Pulse Resp B/P Pulse Ox O2 Delivery O2 Flow Rate FiO2 05/11/17 11:00 117 26 126/53 89 05/11/17 08:00 97.8 Mechanical Ventilator 05/11/17 05:10 100 Intake and Output 05/10/17 05/10/17 05/11/17 15:00 23:00 07:00 Intake Total 390 ml 330 ml 1360 ml Output Total 130 ml 2340 ml 80 ml Balance 260 ml -2010 ml 1280 ml Exam HEENT: Neck supple; no JVD; no LAD CVS: Tachy, S1 and S2 CHEST: Decreased BS B/L ABD: Soft, NT, + BS EXT: No c/c; ++ edema Results/Medications Result Diagram: 05/11/17 0500 05/11/17 0500 Results 24 hrs Laboratory Tests Test 05/10/17 12:22 05/10/17 15:00 05/10/17 17:11 05/10/17 17:48 Bedside Glucose 99 83 113 Stool Occult Blood POSITIVE Test 05/10/17 20:26 05/11/17 01:38 05/11/17 03:04 05/11/17 05:00 Bedside Glucose 76 64 L 94 White Blood Count 7.0 Red Blood Count 2.77 L Hemoglobin 8.0 L Hematocrit 24.3 L Mean Corpuscular Volume 87.7 Mean Corpuscular Hemoglobin 28.9 L Mean Corpuscular Hemoglobin Concent 32.9 Red Cell Distribution Width 17.4 H Platelet Count 120 L Mean Platelet Volume 12.0 H Neutrophils % 72.5 Lymphocytes % 9.7 L Monocytes % 8.9 Eosinophils % 6.3 Basophils % 0.3 Nucleated Red Blood Cells % 0.0 Neutrophils # 5.1 Lymphocytes # 0.7 L Monocytes # 0.6 Eosinophils # 0.4 Basophils # 0.0 Nucleated Red Blood Cells # 0.0 Sodium Level 136 Potassium Level 5.2 H Chloride Level 101 Carbon Dioxide Level 20 L Anion Gap 20 H Blood Urea Nitrogen 89 H Creatinine 1.65 H Glucose Level 93 Calcium Level 9.4 Random Vancomycin Level 26.0 Test 05/11/17 07:00 05/11/17 07:50 05/11/17 09:01 Blood Gas Specimen Source Blood arterial Arterial Blood Date Drawn 05/11/2017 8:20:00 AM Arterial Blood pH (Temp corrected) 7.423 Arterial Blood pCO2 (Temp correct) 29.7 L Arterial Blood pO2 (Temp corrected) 80.4 Arterial Blood HCO3 19.0 L Arterial Blood Base Excess -4.7 L Arterial Blood Oxygen Saturation 95.1 Ki Test ACCEPTAB Arterial Blood Gas Puncture Site Right Radial Arterial Blood Carboxyhemoglobin 0.3 Arterial Blood Methemoglobin 0.5 Blood Gas A-a O2 Differential 602.9 H Oxyhemoglobin Percent 94.3 Total Hemoglobin 8.9 L Blood Gas Temperature 37.0 Blood Gas Respiration Rate 14.0 Blood Gas Actual Respiration Rate 21 Blood Gas Modality VENT - AC FiO2 100.0 Blood Gas Tidal Volume 500.0 Blood Gas Low PEEP Setting 8.0 Blood Gas Notified Whom DT Blood Gas Notified Time 05/11/2017 8:46:00 AM Bedside Glucose 130 100 Medications Current Medications Enoxaparin Sodium (Lovenox) 30 mg DAILY SC Last administered on 05/11/17 08:54 ; Admin Dose 30 MG; Start 05/09/17 at 09:00 Aspirin (Aspirin) 81 mg DAILY GTB Last administered on 05/11/17 08:51; Admin Dose 81 MG; Start 05/09/17 at 09:00 Acetaminophen (Tylenol Liquid) 650 mg Q6H PRN GTB PAIN AND OR ELEVATED TEMP; Start 05/09/17 at 09:00 Cholecalciferol (Vitamin D) 1,000 unit DAILY GTB Last administered on 08:52; Admin Dose 1,000 UNIT; Start 05/09/17 at 09:00 Insulin Glargine (Lantus) 17 unit DAILY@08 SC Last administered on 05/11/17 09 :09; Admin Dose 17 UNIT; Start 05/10/17 at 08:00 Diagnostic Test (Pha) (Accu-Chek) 1 ea 02 XX Last administered on 05/11/17 01: 55; Admin Dose 1 EA; Start 05/10/17 at 02:00 Levothyroxine Sodium (Synthroid) 125 mcg DAILY@06 GTB Last administered on 05/11 06:17; Admin Dose 125 MCG; Start 05/10/17 at 06:00 Zinc Sulfate (Zinc Sulfate) 220 mg DAILY GTB Last administered on 05/11/17 08: 52; Admin Dose 220 MG; Start 05/09/17 at 09:00 Ondansetron HCl (Zofran Inj) 4 mg Q6H PRN IV NAUSEA AND/OR VOMITING; Start 05/09/17 at 09:00 Lorazepam (Ativan) 1 mg Q6H PRN IV ANXIETY Last administered on 05/10/17 21:47 ; Admin Dose 1 MG; Start 05/09/17 at 09:00 Miscellaneous Information 1 ea NOTE XX ; Start 05/09/17 at 10:00 Glucose (Glutose) 15 gm Q15M PRN PO DECREASED GLUCOSE; Start 05/09/17 at 10:00 Glucose (Glutose) 22.5 gm Q15M PRN PO DECREASED GLUCOSE; Start 05/09/17 at 10: 00 Dextrose (D50w Syringe) 25 ml Q15M PRN IV DECREASED GLUCOSE Last administered on 05/11/17 01:54; Admin Dose 25 ML; Start 05/09/17 at 10:00 Dextrose (D50w Syringe) 50 ml Q15M PRN IV DECREASED GLUCOSE; Start 05/09/17 at 10:00 Glucagon (Glucagen) 1 mg Q15M PRN IM DECREASED GLUCOSE; Start 05/09/17 at 10:00 Glucose (Glutose) 15 gm Q15M PRN BUCCAL DECREASED GLUCOSE; Start 05/09/17 at 10 :00 Multivitamins (Multivitamin) 30 ml DAILY PEG Last administered on 05/11/17 08: 51; Admin Dose 30 ML; Start 05/10/17 at 09:00 Fluoxetine HCl 20 mg 20 mg DAILY GTB Last administered on 05/11/17 08:52; Admin Dose 20 MG; Start 05/10/17 at 09:00 Cefepime HCl (Maxipime 1gm/50 ml (Pmx)) 50 ml @ 100 mls/hr Q24H IVPB Last administered on 05/10/17 12:38; Admin Dose 100 MLS/HR; Start 05/10/17 at 12:00 Collagenase (Santyl) 1 applic DAILY TOP Last administered on 05/11/17 08:56; Admin Dose 1 APPLIC; Start 05/10/17 at 09:00 Collagenase (Santyl) 1 applic PRN PRN TOP SOILING; Start 05/10/17 at 01:30 Morphine Sulfate (morphine) 2 mg Q4H PRN IV PAIN LEVEL 4-6 Last administered on 05/10/17 17:44; Admin Dose 2 MG; Start 05/10/17 at 17:30 Famotidine 20 mg 20 mg DAILY GTB Last administered on 05/11/17 08:52; Admin Dose 20 MG; Start 05/11/17 at 09:00 Vancomycin HCl/ Sodium Chloride (Vancocin/NS) 250 ml @ 83.333 mls/ hr Q96H IVPB ; Start 05/13/17 at 16:00 Assessment/Plan Additional Assessment/Plan IMP: 1. Hypoxemic respiratory failure with recent tracheostomy 2. Renal insufficiency with profound anasarca 3. Anemia possible chronic in nature rule out GI bleed 4. Encephalopathy toxic metabolic appears to be resolving 5. Diabetes mellitus 6. Paroxysmal atrial fibrillation 7. History of hypothyroidism 8. Dysphagia now with G-tube RECS: 1. Continue mechanical ventilation; follow peak and plateau pressures now. 2. Continue broad-spectrum antibiotics 3. Continue tube feeding if tolerated 4. HD with UF 5. DVT and GI prophylaxis 6. Follow H/H; transfuse as needed. 35 min cc time GREGORY TOLENTINO MD May 11, 2017 11:27
[2017-05-11] MEDS: CEFEPIME 1GM/50 ML (PMX) 50 ML IVPB SCH (11:49)
--- NOTE | 2017-05-11 13:04 | CONS ---
Date/Time of Note Date/Time of Note DATE: 05/11/17 TIME: 13:01 Assessment/Plan Assessment/Plan Chief Complaint/Hosp Course 1. Possible/Probable VAP 2. Probable component of pulm edema 3. vent/trach dependence 4 quadraplegia 5. multiple chronic medical problems R: cont. empiric abx procalc f/u cxs serial cxr influenza screen will follow closely with you Problems: Consultation Date/Type/Reason Admit Date/Time May 09, 2017 at 00:06 Date of Consultation: May 11, 2017 Type of Consultation: id Reason for Consultation abx recs sepsis Referring Provider: PERLITA WALLS MD Hx of Present Illness A very sad case of 76 yo female with hx of quadrpegis, chf, afib, htn, cad, admitted with resp failure and infils. She has been placed on empiric broad spectrum abx and has continued to require heavy resp support. No fevers or leukocytosis is recorded in EMR. Patient is unable to provide any hx at this time. She has been seen by multiple consultants. patient unable to provide Past Medical History Medical History: high cholesterol, hypertension, renal disease, other ( Paraplegia, Chronic resp failure s/p Tracheostomy ) Past Surgical History Past Surgical Hx: other (Tracheostomy, PEG tube placement ) Social History Alcohol Use: none Smoking Status: Never smoker Drug Use: none Exam/Review of Systems Vital Signs Vitals Vital Signs Date Time Temp Pulse Resp B/P Pulse Ox O2 Delivery O2 Flow Rate FiO2 05/11/17 12:00 104 05/11/17 12:00 98.2 26 99/54 100 Mechanical Ventilator 05/11/17 05:10 100 Intake and Output 05/10/17 05/10/17 05/11/17 15:00 23:00 07:00 Intake Total 390 ml 330 ml 1360 ml Output Total 130 ml 2340 ml 80 ml Balance 260 ml -2010 ml 1280 ml Exam Constitutional: alert, non-verbal Psych: no complaints Head: atraumatic, normocephalic Eyes: EOMI, PERRL, nl conjunctiva, nl lids, nl sclera Respiratory: clear to auscultation, diminished breath sounds Cardiovascular: nl pulses, regular rate and rhythm Gastrointestinal: soft Results Result Diagram: 05/11/17 0500 05/11/17 0500 Results 24 hrs Laboratory Tests Test 05/10/17 15:00 05/10/17 17:11 05/10/17 17:48 05/10/17 20:26 Stool Occult Blood POSITIVE Bedside Glucose 83 113 76 Test 05/11/17 01:38 05/11/17 03:04 05/11/17 05:00 05/11/17 07:00 Bedside Glucose 64 L 94 White Blood Count 7.0 Red Blood Count 2.77 L Hemoglobin 8.0 L Hematocrit 24.3 L Mean Corpuscular Volume 87.7 Mean Corpuscular Hemoglobin 28.9 L Mean Corpuscular Hemoglobin Concent 32.9 Red Cell Distribution Width 17.4 H Platelet Count 120 L Mean Platelet Volume 12.0 H Neutrophils % 72.5 Lymphocytes % 9.7 L Monocytes % 8.9 Eosinophils % 6.3 Basophils % 0.3 Nucleated Red Blood Cells % 0.0 Neutrophils # 5.1 Lymphocytes # 0.7 L Monocytes # 0.6 Eosinophils # 0.4 Basophils # 0.0 Nucleated Red Blood Cells # 0.0 Sodium Level 136 Potassium Level 5.2 H Chloride Level 101 Carbon Dioxide Level 20 L Anion Gap 20 H Blood Urea Nitrogen 89 H Creatinine 1.65 H Glucose Level 93 Calcium Level 9.4 Random Vancomycin Level 26.0 Blood Gas Specimen Source Blood arterial Arterial Blood Date Drawn 05/11/2017 8:20:00 AM Arterial Blood pH (Temp corrected) 7.423 Arterial Blood pCO2 (Temp correct) 29.7 L Arterial Blood pO2 (Temp corrected) 80.4 Arterial Blood HCO3 19.0 L Arterial Blood Base Excess -4.7 L Arterial Blood Oxygen Saturation 95.1 Ki Test ACCEPTAB Arterial Blood Gas Puncture Site Right Radial Arterial Blood Carboxyhemoglobin 0.3 Arterial Blood Methemoglobin 0.5 Blood Gas A-a O2 Differential 602.9 H Oxyhemoglobin Percent 94.3 Total Hemoglobin 8.9 L Blood Gas Temperature 37.0 Blood Gas Respiration Rate 14.0 Blood Gas Actual Respiration Rate 21 Blood Gas Modality VENT - AC FiO2 100.0 Blood Gas Tidal Volume 500.0 Blood Gas Low PEEP Setting 8.0 Blood Gas Notified Whom DT Blood Gas Notified Time 05/11/2017 8:46:00 AM Test 05/11/17 07:50 05/11/17 09:01 05/11/17 11:41 Bedside Glucose 130 100 125 Medications Medications Current Medications Enoxaparin Sodium (Lovenox) 30 mg DAILY SC Last administered on 05/11/17 08:54 ; Admin Dose 30 MG; Start 05/09/17 at 09:00 Aspirin (Aspirin) 81 mg DAILY GTB Last administered on 05/11/17 08:51; Admin Dose 81 MG; Start 05/09/17 at 09:00 Acetaminophen (Tylenol Liquid) 650 mg Q6H PRN GTB PAIN AND OR ELEVATED TEMP; Start 05/09/17 at 09:00 Cholecalciferol (Vitamin D) 1,000 unit DAILY GTB Last administered on 08:52; Admin Dose 1,000 UNIT; Start 05/09/17 at 09:00 Insulin Glargine (Lantus) 17 unit DAILY@08 SC Last administered on 05/11/17 09 :09; Admin Dose 17 UNIT; Start 05/10/17 at 08:00 Diagnostic Test (Pha) (Accu-Chek) 1 ea 02 XX Last administered on 05/11/17 01: 55; Admin Dose 1 EA; Start 05/10/17 at 02:00 Levothyroxine Sodium (Synthroid) 125 mcg DAILY@06 GTB Last administered on 05/11 06:17; Admin Dose 125 MCG; Start 05/10/17 at 06:00 Zinc Sulfate (Zinc Sulfate) 220 mg DAILY GTB Last administered on 05/11/17 08: 52; Admin Dose 220 MG; Start 05/09/17 at 09:00 Ondansetron HCl (Zofran Inj) 4 mg Q6H PRN IV NAUSEA AND/OR VOMITING; Start 05/09/17 at 09:00 Lorazepam (Ativan) 1 mg Q6H PRN IV ANXIETY Last administered on 05/10/17 21:47 ; Admin Dose 1 MG; Start 05/09/17 at 09:00 Miscellaneous Information 1 ea NOTE XX ; Start 05/09/17 at 10:00 Glucose (Glutose) 15 gm Q15M PRN PO DECREASED GLUCOSE; Start 05/09/17 at 10:00 Glucose (Glutose) 22.5 gm Q15M PRN PO DECREASED GLUCOSE; Start 05/09/17 at 10: 00 Dextrose (D50w Syringe) 25 ml Q15M PRN IV DECREASED GLUCOSE Last administered on 05/11/17 01:54; Admin Dose 25 ML; Start 05/09/17 at 10:00 Dextrose (D50w Syringe) 50 ml Q15M PRN IV DECREASED GLUCOSE; Start 05/09/17 at 10:00 Glucagon (Glucagen) 1 mg Q15M PRN IM DECREASED GLUCOSE; Start 05/09/17 at 10:00 Glucose (Glutose) 15 gm Q15M PRN BUCCAL DECREASED GLUCOSE; Start 05/09/17 at 10 :00 Multivitamins (Multivitamin) 30 ml DAILY PEG Last administered on 05/11/17 08: 51; Admin Dose 30 ML; Start 05/10/17 at 09:00 Fluoxetine HCl 20 mg 20 mg DAILY GTB Last administered on 05/11/17 08:52; Admin Dose 20 MG; Start 05/10/17 at 09:00 Cefepime HCl (Maxipime 1gm/50 ml (Pmx)) 50 ml @ 100 mls/hr Q24H IVPB Last administered on 05/11/17 11:49; Admin Dose 100 MLS/HR; Start 05/10/17 at 12:00 Collagenase (Santyl) 1 applic DAILY TOP Last administered on 05/11/17 08:56; Admin Dose 1 APPLIC; Start 05/10/17 at 09:00 Collagenase (Santyl) 1 applic PRN PRN TOP SOILING; Start 05/10/17 at 01:30 Morphine Sulfate (morphine) 2 mg Q4H PRN IV PAIN LEVEL 4-6 Last administered on 05/10/17 17:44; Admin Dose 2 MG; Start 05/10/17 at 17:30 Famotidine 20 mg 20 mg DAILY GTB Last administered on 05/11/17 08:52; Admin Dose 20 MG; Start 05/11/17 at 09:00 Vancomycin HCl/ Sodium Chloride (Vancocin/NS) 250 ml @ 83.333 mls/ hr Q96H IVPB ; Start 05/13/17 at 16:00 BELA GRAHAM MD May 11, 2017 13:04
--- NOTE | 2017-05-11 13:09 | PN ---
Date/Time of Note Date/Time of Note DATE: 05/11/17 TIME: 13:08 Assessment/Plan VTE Prophylaxis VTE Prophylaxis Intervention: SCD's Lines/Catheters IV Catheter Type (from Nrs): Dany with pigtail Central line still needed: No Urinary Cath still in place: Yes Reason Cath still needed: urinary retention Assessment/Plan Assessment/Plan Respiratory failure with hypoxia Preserved ejection fraction Pulmonary hypertension Tricuspid valve regurgitation Pneumothorax Paraplegia Acute kidney injury with history of CKD Obesity -on hemodialysis. Fluid management via hemodialysis as per nephrology colleagues. Remains in sinus rhythm on telemetry. Echocardiogram with preserved ejection fraction. Ventilator and pulmonary care as per our pulmonary colleagues. Subjective 24 Hr Interval Summary Free Text/Dictation The patient with no change Exam/Review of Systems Vital Signs Vitals Vital Signs Date Time Temp Pulse Resp B/P Pulse Ox O2 Delivery O2 Flow Rate FiO2 05/11/17 12:00 104 05/11/17 12:00 98.2 26 99/54 100 Mechanical Ventilator 05/11/17 11:10 100 Intake and Output 05/10/17 05/10/17 05/11/17 15:00 23:00 07:00 Intake Total 390 ml 330 ml 1360 ml Output Total 130 ml 2340 ml 80 ml Balance 260 ml -2010 ml 1280 ml Results Result Diagram: 05/11/17 0500 05/11/17 0500 Results 24 hrs Laboratory Tests Test 05/10/17 15:00 05/10/17 17:11 05/10/17 17:48 05/10/17 20:26 Stool Occult Blood POSITIVE Bedside Glucose 83 113 76 Test 05/11/17 01:38 05/11/17 03:04 05/11/17 05:00 05/11/17 07:00 Bedside Glucose 64 L 94 White Blood Count 7.0 Red Blood Count 2.77 L Hemoglobin 8.0 L Hematocrit 24.3 L Mean Corpuscular Volume 87.7 Mean Corpuscular Hemoglobin 28.9 L Mean Corpuscular Hemoglobin Concent 32.9 Red Cell Distribution Width 17.4 H Platelet Count 120 L Mean Platelet Volume 12.0 H Neutrophils % 72.5 Lymphocytes % 9.7 L Monocytes % 8.9 Eosinophils % 6.3 Basophils % 0.3 Nucleated Red Blood Cells % 0.0 Neutrophils # 5.1 Lymphocytes # 0.7 L Monocytes # 0.6 Eosinophils # 0.4 Basophils # 0.0 Nucleated Red Blood Cells # 0.0 Sodium Level 136 Potassium Level 5.2 H Chloride Level 101 Carbon Dioxide Level 20 L Anion Gap 20 H Blood Urea Nitrogen 89 H Creatinine 1.65 H Glucose Level 93 Calcium Level 9.4 Random Vancomycin Level 26.0 Blood Gas Specimen Source Blood arterial Arterial Blood Date Drawn 05/11/2017 8:20:00 AM Arterial Blood pH (Temp corrected) 7.423 Arterial Blood pCO2 (Temp correct) 29.7 L Arterial Blood pO2 (Temp corrected) 80.4 Arterial Blood HCO3 19.0 L Arterial Blood Base Excess -4.7 L Arterial Blood Oxygen Saturation 95.1 Ki Test ACCEPTAB Arterial Blood Gas Puncture Site Right Radial Arterial Blood Carboxyhemoglobin 0.3 Arterial Blood Methemoglobin 0.5 Blood Gas A-a O2 Differential 602.9 H Oxyhemoglobin Percent 94.3 Total Hemoglobin 8.9 L Blood Gas Temperature 37.0 Blood Gas Respiration Rate 14.0 Blood Gas Actual Respiration Rate 21 Blood Gas Modality VENT - AC FiO2 100.0 Blood Gas Tidal Volume 500.0 Blood Gas Low PEEP Setting 8.0 Blood Gas Notified Whom DT Blood Gas Notified Time 05/11/2017 8:46:00 AM Test 05/11/17 07:50 05/11/17 09:01 05/11/17 11:41 Bedside Glucose 130 100 125 Medications Medications Current Medications Enoxaparin Sodium (Lovenox) 30 mg DAILY SC Last administered on 05/11/17 08:54 ; Admin Dose 30 MG; Start 05/09/17 at 09:00 Aspirin (Aspirin) 81 mg DAILY GTB Last administered on 05/11/17 08:51; Admin Dose 81 MG; Start 05/09/17 at 09:00 Acetaminophen (Tylenol Liquid) 650 mg Q6H PRN GTB PAIN AND OR ELEVATED TEMP; Start 05/09/17 at 09:00 Cholecalciferol (Vitamin D) 1,000 unit DAILY GTB Last administered on 08:52; Admin Dose 1,000 UNIT; Start 05/09/17 at 09:00 Insulin Glargine (Lantus) 17 unit DAILY@08 SC Last administered on 05/11/17 09 :09; Admin Dose 17 UNIT; Start 05/10/17 at 08:00 Diagnostic Test (Pha) (Accu-Chek) 1 02 XX Last administered on 05/11/17 01: 55; Admin Dose 1 EA; Start 05/10/17 at 02:00 Levothyroxine Sodium (Synthroid) 125 mcg DAILY@06 GTB Last administered on 05/11 06:17; Admin Dose 125 MCG; Start 05/10/17 at 06:00 Zinc Sulfate (Zinc Sulfate) 220 mg DAILY GTB Last administered on 05/11/17 08: 52; Admin Dose 220 MG; Start 05/09/17 at 09:00 Ondansetron HCl (Zofran Inj) 4 mg Q6H PRN IV NAUSEA AND/OR VOMITING; Start 05/09/17 at 09:00 Lorazepam (Ativan) 1 mg Q6H PRN IV ANXIETY Last administered on 05/10/17 21:47 ; Admin Dose 1 MG; Start 05/09/17 at 09:00 Miscellaneous Information 1 ea NOTE XX ; Start 05/09/17 at 10:00 Glucose (Glutose) 15 gm Q15M PRN PO DECREASED GLUCOSE; Start 05/09/17 at 10:00 Glucose (Glutose) 22.5 gm Q15M PRN PO DECREASED GLUCOSE; Start 05/09/17 at 10: 00 Dextrose (D50w Syringe) 25 ml Q15M PRN IV DECREASED GLUCOSE Last administered on 05/11/17 01:54; Admin Dose 25 ML; Start 05/09/17 at 10:00 Dextrose (D50w Syringe) 50 ml Q15M PRN IV DECREASED GLUCOSE; Start 05/09/17 at 10:00 Glucagon (Glucagen) 1 mg Q15M PRN IM DECREASED GLUCOSE; Start 05/09/17 at 10:00 Glucose (Glutose) 15 gm Q15M PRN BUCCAL DECREASED GLUCOSE; Start 05/09/17 at 10 :00 Multivitamins (Multivitamin) 30 ml DAILY PEG Last administered on 05/11/17 08: 51; Admin Dose 30 ML; Start 05/10/17 at 09:00 Fluoxetine HCl 20 mg 20 mg DAILY GTB Last administered on 05/11/17 08:52; Admin Dose 20 MG; Start 05/10/17 at 09:00 Cefepime HCl (Maxipime 1gm/50 ml (Pmx)) 50 ml @ 100 mls/hr Q24H IVPB Last administered on 05/11/17 11:49; Admin Dose 100 MLS/HR; Start 05/10/17 at 12:00 Collagenase (Santyl) 1 applic DAILY TOP Last administered on 05/11/17 08:56; Admin Dose 1 APPLIC; Start 05/10/17 at 09:00 Collagenase (Santyl) 1 applic PRN PRN TOP SOILING; Start 05/10/17 at 01:30 Morphine Sulfate (morphine) 2 mg Q4H PRN IV PAIN LEVEL 4-6 Last administered on 05/10/17 17:44; Admin Dose 2 MG; Start 05/10/17 at 17:30 Famotidine 20 mg 20 mg DAILY GTB Last administered on 05/11/17 08:52; Admin Dose 20 MG; Start 05/11/17 at 09:00 Vancomycin HCl/ Sodium Chloride (Vancocin/NS) 250 ml @ 83.333 mls/ hr Q96H IVPB ; Start 05/13/17 at 16:00 NASEEM ROJAS MD May 11, 2017 13:09
--- NOTE | 2017-05-11 16:54 | CONS ---
Date/Time of Note Date/Time of Note DATE: 05/11/17 TIME: 16:48 Assessment/Plan Assessment/Plan Chief Complaint/Hosp Course 76-year-old female who was recently transferred to [facility] and then transferred to [facility] because of worsening hypoxia. Patient on ventilator with increased oxygen requirements..pt is s/p tracheostomy , non verbal, on ventilator Renal has been consulted for BERNARDINO, uremia, and decreased Urine output. Problems: Additional Assessment/Plan 1. Acute kindey injury due to ATN with acute fluid overload 2. acute uremia with BUn around 100 3. acute on chronic resp failure, s/p tracheostomy 4. Metabolic acidosis 5. Paraplegia 6. Anemia of chronic disease, rule out iron deficiency Plan : started on HD during This admission s/p HD x 2 hr yesterday, Today during HD saturation dropped so HD stopped after 1.5 hr after HD, 1 L UF Continue IV abx, Bp stable, p remained on ventilator, , pulmonary following no plan for HD tomorrrow, will reassess for HD on Saturday will follow up Consultation Date/Type/Reason Admit Date/Time May 09, 2017 at 00:06 Initial Consult Date 05/09/17 Type of Consultation: NEPHROLOGY Referring Provider: PERLITA WALLS MD 24 HR Interval Summary Free Text/Dictation pt did not tolerate HD well, her saturation droppped furing HD today , Stopped HD after 1.5 hr , remains on ventilator, Exam/Review of Systems Vital Signs Vitals Vital Signs Date Time Temp Pulse Resp B/P Pulse Ox O2 Delivery O2 Flow Rate FiO2 05/11/17 16:00 103 05/11/17 15:00 23 110/52 100 05/11/17 12:00 98.2 Mechanical Ventilator 05/11/17 11:10 100 Intake and Output 05/10/17 05/10/17 05/11/17 15:00 23:00 07:00 Intake Total 390 ml 330 ml 1360 ml Output Total 130 ml 2340 ml 80 ml Balance 260 ml -2010 ml 1280 ml Exam Constitutional: non-verbal + facial swelling, neck swelling, + diffuse anasarca ENMT: other (+ tracehostomy on ventilator ) Neck: non-tender, supple Respiratory: crackles/rales, diminished breath sounds Cardiovascular: other (tachycardia ), regular rate and rhythm Gastrointestinal: non-tender, soft Musculoskeletal: muscle weakness, 3+ pitting edema upto thigh, back and sacral area Neurological: other (Unable to assess neurolgoical due to pt clinical condition ), unresponsive Results Result Diagram: 05/11/17 0500 05/11/17 0500 Results 24 hrs Laboratory Tests Test 05/10/17 17:11 05/10/17 17:48 05/10/17 20:26 05/11/17 01:38 Bedside Glucose 83 113 76 64 L Test 05/11/17 03:04 05/11/17 05:00 05/11/17 07:00 05/11/17 07:50 Bedside Glucose 94 130 White Blood Count 7.0 Red Blood Count 2.77 L Hemoglobin 8.0 L Hematocrit 24.3 L Mean Corpuscular Volume 87.7 Mean Corpuscular Hemoglobin 28.9 L Mean Corpuscular Hemoglobin Concent 32.9 Red Cell Distribution Width 17.4 H Platelet Count 120 L Mean Platelet Volume 12.0 H Neutrophils % 72.5 Lymphocytes % 9.7 L Monocytes % 8.9 Eosinophils % 6.3 Basophils % 0.3 Nucleated Red Blood Cells % 0.0 Neutrophils # 5.1 Lymphocytes # 0.7 L Monocytes # 0.6 Eosinophils # 0.4 Basophils # 0.0 Nucleated Red Blood Cells # 0.0 Sodium Level 136 Potassium Level 5.2 H Chloride Level 101 Carbon Dioxide Level 20 L Anion Gap 20 H Blood Urea Nitrogen 89 H Creatinine 1.65 H Glucose Level 93 Calcium Level 9.4 Random Vancomycin Level 26.0 Blood Gas Specimen Source Blood arterial Arterial Blood Date Drawn 05/11/2017 8:20:00 AM Arterial Blood pH (Temp corrected) 7.423 Arterial Blood pCO2 (Temp correct) 29.7 L Arterial Blood pO2 (Temp corrected) 80.4 Arterial Blood HCO3 19.0 L Arterial Blood Base Excess -4.7 L Arterial Blood Oxygen Saturation 95.1 Ki Test ACCEPTAB Arterial Blood Gas Puncture Site Right Radial Arterial Blood Carboxyhemoglobin 0.3 Arterial Blood Methemoglobin 0.5 Blood Gas A-a O2 Differential 602.9 H Oxyhemoglobin Percent 94.3 Total Hemoglobin 8.9 L Blood Gas Temperature 37.0 Blood Gas Respiration Rate 14.0 Blood Gas Actual Respiration Rate 21 Blood Gas Modality VENT - AC FiO2 100.0 Blood Gas Tidal Volume 500.0 Blood Gas Low PEEP Setting 8.0 Blood Gas Notified Whom DT Blood Gas Notified Time 05/11/2017 8:46:00 AM Test 05/11/17 09:01 05/11/17 11:41 Bedside Glucose 100 125 Medications Medications Current Medications Enoxaparin Sodium (Lovenox) 30 mg DAILY SC Last administered on 05/11/17 08:54 ; Admin Dose 30 MG; Start 05/09/17 at 09:00 Aspirin (Aspirin) 81 mg DAILY GTB Last administered on 05/11/17 08:51; Admin Dose 81 MG; Start 05/09/17 at 09:00 Acetaminophen (Tylenol Liquid) 650 mg Q6H PRN GTB PAIN AND OR ELEVATED TEMP; Start 05/09/17 at 09:00 Cholecalciferol (Vitamin D) 1,000 unit DAILY GTB Last administered on 08:52; Admin Dose 1,000 UNIT; Start 05/09/17 at 09:00 Insulin Glargine (Lantus) 17 unit DAILY@08 SC Last administered on 05/11/17 09 :09; Admin Dose 17 UNIT; Start 05/10/17 at 08:00 Diagnostic Test (Pha) (Accu-Chek) 1 ea 02 XX Last administered on 05/11/17 01: 55; Admin Dose 1 EA; Start 05/10/17 at 02:00 Levothyroxine Sodium (Synthroid) 125 mcg DAILY@06 GTB Last administered on 05/11 06:17; Admin Dose 125 MCG; Start 05/10/17 at 06:00 Zinc Sulfate (Zinc Sulfate) 220 mg DAILY GTB Last administered on 05/11/17 08: 52; Admin Dose 220 MG; Start 05/09/17 at 09:00 Ondansetron HCl (Zofran Inj) 4 mg Q6H PRN IV NAUSEA AND/OR VOMITING; Start 05/09/17 at 09:00 Lorazepam (Ativan) 1 mg Q6H PRN IV ANXIETY Last administered on 05/10/17 21:47 ; Admin Dose 1 MG; Start 05/09/17 at 09:00 Miscellaneous Information 1 ea NOTE XX ; Start 05/09/17 at 10:00 Glucose (Glutose) 15 gm Q15M PRN PO DECREASED GLUCOSE; Start 05/09/17 at 10:00 Glucose (Glutose) 22.5 gm Q15M PRN PO DECREASED GLUCOSE; Start 05/09/17 at 10: 00 Dextrose (D50w Syringe) 25 ml Q15M PRN IV DECREASED GLUCOSE Last administered on 05/11/17 01:54; Admin Dose 25 ML; Start 05/09/17 at 10:00 Dextrose (D50w Syringe) 50 ml Q15M PRN IV DECREASED GLUCOSE; Start 05/09/17 at 10:00 Glucagon (Glucagen) 1 mg Q15M PRN IM DECREASED GLUCOSE; Start 05/09/17 at 10:00 Glucose (Glutose) 15 gm Q15M PRN BUCCAL DECREASED GLUCOSE; Start 05/09/17 at 10 :00 Multivitamins (Multivitamin) 30 ml DAILY PEG Last administered on 05/11/17 08: 51; Admin Dose 30 ML; Start 05/10/17 at 09:00 Fluoxetine HCl 20 mg 20 mg DAILY GTB Last administered on 05/11/17 08:52; Admin Dose 20 MG; Start 05/10/17 at 09:00 Cefepime HCl (Maxipime 1gm/50 ml (Pmx)) 50 ml @ 100 mls/hr Q24H IVPB Last administered on 05/11/17 11:49; Admin Dose 100 MLS/HR; Start 05/10/17 at 12:00 Collagenase (Santyl) 1 applic DAILY TOP Last administered on 05/11/17 08:56; Admin Dose 1 APPLIC; Start 05/10/17 at 09:00 Collagenase (Santyl) 1 applic PRN PRN TOP SOILING; Start 05/10/17 at 01:30 Morphine Sulfate (morphine) 2 mg Q4H PRN IV PAIN LEVEL 4-6 Last administered on 05/10/17 17:44; Admin Dose 2 MG; Start 05/10/17 at 17:30 Famotidine 20 mg 20 mg DAILY GTB Last administered on 05/11/17 08:52; Admin Dose 20 MG; Start 05/11/17 at 09:00 Vancomycin HCl/ Sodium Chloride (Vancocin/NS) 250 ml @ 83.333 mls/ hr Q96H IVPB ; Start 05/13/17 at 16:00 JOANIE PHILLIPS MD May 11, 2017 16:54
--- NOTE | 2017-05-11 18:38 | PN ---
Date/Time of Note Date/Time of Note DATE: 05/11/17 TIME: 14:53 Assessment/Plan VTE Prophylaxis VTE Prophylaxis Intervention: other Lines/Catheters IV C[facility] Type [facility] Dany with pigtail Urinary Cath still in place: Yes Assessment/Plan Assessment/Plan -Acute respiratory failure with left upper lobe collapse. Continue ventilatory support. Dr. Hamilton is following in pulmonology consultation. -5% pneumothorax, continue serial chest x-rays to ensure no progression of pneumothorax. -Healthcare acquired pneumonia continue vancomycin and cefepime, follow-up and sputum culture. Dr. Stephenson is following in infection disease consultation - Acute kidney injury with a generalized edema and hyperkalemia, Dr. Stevens is following in nephrology consultation. Pending hemodialysis upon placement of hemodialysis catheter. -Paroxysmal atrial fibrillation -Diabetes mellitus, continue Lantus and NovoLog -Hypothyroidism, continue levothyroxine. 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 Further recommendations based on clinical course. Plan of care discussed with Dr. Han. Subjective 24 Hr Interval Summary Free Text/Dictation awake, responsive, HD today , 1.5 L removed, pt desaturated, HD on Saturday, afebrile. dw staff Subjective hx not possible: pt critical status Constitutional: requiring IVF, requiring O2 Exam/Review of Systems Vital Signs Vitals Vital Signs Date Time Temp Pulse Resp B/P Pulse Ox O2 Delivery O2 Flow Rate FiO2 05/11/17 13:00 103 24 97/45 100 05/11/17 12:00 98.2 Mechanical Ventilator 05/11/17 11:10 100 Intake and Output 05/10/17 05/10/17 05/11/17 15:00 23:00 07:00 Intake Total 390 ml 330 ml 1360 ml Output Total 130 ml 2340 ml 80 ml Balance 260 ml -2010 ml 1280 ml Exam Constitutional: alert, non-verbal Respiratory: diminished breath sounds, normal air movement Cardiovascular: nl pulses, other (s1s2) Gastrointestinal: non-tender, soft Musculoskeletal: swelling Extremities: normal pulses Neurological: confused Results Result Diagram: 05/11/17 0500 05/11/17 0500 Results 24 hrs Laboratory Tests Test 05/10/17 15:00 05/10/17 17:11 05/10/17 17:48 05/10/17 20:26 Stool Occult Blood POSITIVE Bedside Glucose 83 113 76 Test 05/11/17 01:38 05/11/17 03:04 05/11/17 05:00 05/11/17 07:00 Bedside Glucose 64 L 94 White Blood Count 7.0 Red Blood Count 2.77 L Hemoglobin 8.0 L Hematocrit 24.3 L Mean Corpuscular Volume 87.7 Mean Corpuscular Hemoglobin 28.9 L Mean Corpuscular Hemoglobin Concent 32.9 Red Cell Distribution Width 17.4 H Platelet Count 120 L Mean Platelet Volume 12.0 H Neutrophils % 72.5 Lymphocytes % 9.7 L Monocytes % 8.9 Eosinophils % 6.3 Basophils % 0.3 Nucleated Red Blood Cells % 0.0 Neutrophils # 5.1 Lymphocytes # 0.7 L Monocytes # 0.6 Eosinophils # 0.4 Basophils # 0.0 Nucleated Red Blood Cells # 0.0 Sodium Level 136 Potassium Level 5.2 H Chloride Level 101 Carbon Dioxide Level 20 L Anion Gap 20 H Blood Urea Nitrogen 89 H Creatinine 1.65 H Glucose Level 93 Calcium Level 9.4 Random Vancomycin Level 26.0 Blood Gas Specimen Source Blood arterial Arterial Blood Date Drawn 05/11/2017 8:20:00 AM Arterial Blood pH (Temp corrected) 7.423 Arterial Blood pCO2 (Temp correct) 29.7 L Arterial Blood pO2 (Temp corrected) 80.4 Arterial Blood HCO3 19.0 L Arterial Blood Base Excess -4.7 L Arterial Blood Oxygen Saturation 95.1 Ki Test ACCEPTAB Arterial Blood Gas Puncture Site Right Radial Arterial Blood Carboxyhemoglobin 0.3 Arterial Blood Methemoglobin 0.5 Blood Gas A-a O2 Differential 602.9 H Oxyhemoglobin Percent 94.3 Total Hemoglobin 8.9 L Blood Gas Temperature 37.0 Blood Gas Respiration Rate 14.0 Blood Gas Actual Respiration Rate 21 Blood Gas Modality VENT - AC FiO2 100.0 Blood Gas Tidal Volume 500.0 Blood Gas Low PEEP Setting 8.0 Blood Gas Notified Whom DT Blood Gas Notified Time 05/11/2017 8:46:00 AM Test 05/11/17 07:50 05/11/17 09:01 05/11/17 11:41 Bedside Glucose 130 100 125 Medications Medications Current Medications Enoxaparin Sodium (Lovenox) 30 mg DAILY SC Last administered on 05/11/17t 08:54 ; Admin Dose 30 MG; Start 05/09/17 at 09:00 Aspirin (Aspirin) 81 mg DAILY GTB Last administered on 05/11/17 08:51; Admin Dose 81 MG; Start 05/09/17 at 09:00 Acetaminophen (Tylenol Liquid) 650 mg Q6H PRN GTB PAIN AND OR ELEVATED TEMP; Start 05/09/17 at 09:00 Cholecalciferol (Vitamin D) 1,000 unit DAILY GTB Last administered on 08:52; Admin Dose 1,000 UNIT; Start 05/09/17 at 09:00 Insulin Glargine (Lantus) 17 unit DAILY@08 SC Last administered on 05/11/17 09 :09; Admin Dose 17 UNIT; Start 05/10/17 at 08:00 Diagnostic Test (Pha) (Accu-Chek) 1 ea 02 XX Last administered on 05/11/17 01: 55; Admin Dose 1 EA; Start 05/10/17 at 02:00 Levothyroxine Sodium (Synthroid) 125 mcg DAILY@06 GTB Last administered on 05/11 06:17; Admin Dose 125 MCG; Start 05/10/17 at 06:00 Zinc Sulfate (Zinc Sulfate) 220 mg DAILY GTB Last administered on 05/11/17 08: 52; Admin Dose 220 MG; Start 05/09/17 at 09:00 Ondansetron HCl (Zofran Inj) 4 mg Q6H PRN IV NAUSEA AND/OR VOMITING; Start 05/09/17 at 09:00 Lorazepam (Ativan) 1 mg Q6H PRN IV ANXIETY Last administered on 05/10/17 21:47 ; Admin Dose 1 MG; Start 05/09/17 at 09:00 Miscellaneous Information 1 ea NOTE XX ; Start 05/09/17 at 10:00 Glucose (Glutose) 15 gm Q15M PRN PO DECREASED GLUCOSE; Start 05/09/17 at 10:00 Glucose (Glutose) 22.5 gm Q15M PRN PO DECREASED GLUCOSE; Start 05/09/17 at 10: 00 Dextrose (D50w Syringe) 25 ml Q15M PRN IV DECREASED GLUCOSE Last administered on 05/11/17 01:54; Admin Dose 25 ML; Start 05/09/17 at 10:00 Dextrose (D50w Syringe) 50 ml Q15M PRN IV DECREASED GLUCOSE; Start 05/09/17 at 10:00 Glucagon (Glucagen) 1 mg Q15M PRN IM DECREASED GLUCOSE; Start 05/09/17 at 10:00 Glucose (Glutose) 15 gm Q15M PRN BUCCAL DECREASED GLUCOSE; Start 05/09/17 at 10 :00 Multivitamins (Multivitamin) 30 ml DAILY PEG Last administered on 05/11/17 08: 51; Admin Dose 30 ML; Start 05/10/17 at 09:00 Fluoxetine HCl 20 mg 20 mg DAILY GTB Last administered on 05/11/17 08:52; Admin Dose 20 MG; Start 05/10/17 at 09:00 Cefepime HCl (Maxipime 1gm/50 ml (Pmx)) 50 ml @ 100 mls/hr Q24H IVPB Last administered on 05/11/17 11:49; Admin Dose 100 MLS/HR; Start 05/10/17 at 12:00 Collagenase (Santyl) 1 applic DAILY TOP Last administered on 05/11/17 08:56; Admin Dose 1 APPLIC; Start 05/10/17 at 09:00 Collagenase (Santyl) 1 applic PRN PRN TOP SOILING; Start 05/10/17 at 01:30 Morphine Sulfate (morphine) 2 mg Q4H PRN IV PAIN LEVEL 4-6 Last administered on 05/10/17 17:44; Admin Dose 2 MG; Start 05/10/17 at 17:30 Famotidine 20 mg 20 mg DAILY GTB Last administered on 05/11/17 08:52; Admin Dose 20 MG; Start 05/11/17 at 09:00 Vancomycin HCl/ Sodium Chloride (Vancocin/NS) 250 ml @ 83.333 mls/ hr Q96H IVPB ; Start 05/13/17 at 16:00 LYDIA SWAIN May 11, 2017 15:03
--- NOTE | 2017-05-11 19:36 | PN ---
Date/Time of Note Date/Time of Note DATE: 05/11/17 TIME: 19:32 Assessment/Plan Lines/Catheters IV Catheter Type (from Nrs): Dany with pigtail Geronimo in Place (from Nrs): Yes Assessment/Plan Chief Complaint/Hosp Course 1. Sacral wound: stage 4 -debridement prn -local care -frequent turning and off-loading -low air loss mattress -vitamin c -short term zinc -optimize nutrition 2. Acute respiratory failure with complete collapse of the left upper lobe with obliteration of the left upper lobe bronchus. -pulm consult -continue vent support 3. VDRF -pulm toilet -respiratory treatments 4. Anemia: no acute bleed noted -monitor -transfuse as needed 5. Elevated TSH -further workup per medical team 6. Electrolyte imbalance -optimize lytes 7. Morbid obesity: bmi 40 -diet and exercise optimization -encourage weight loss 8. BERNARDINO started on HD -per renal 9. Tachycardia: -cardiac optimization Thank you. Patient seen and examined in collaboration with Dr. Kedar Valencia. Problems: Subjective 24 Hr Interval Summary HD today. Labs minimally improved. ABG improved. nonverbal indicators of pain not present. Comfortable on vent. No fevers, sz, congested cough, vomiting diarrhea Exam/Review of Systems Vital Signs Vitals Vital Signs Date Time Temp Pulse Resp B/P Pulse Ox O2 Delivery O2 Flow Rate FiO2 05/11/17 18:00 104 27 140/59 99 05/11/17 17:00 100 05/11/17 16:00 98.1 05/11/17 12:00 Mechanical Ventilator Intake and Output 05/10/17 05/10/17 05/11/17 15:00 23:00 07:00 Intake Total 390 ml 330 ml 1360 ml Output Total 130 ml 2340 ml 80 ml Balance 260 ml -2010 ml 1280 ml Exam Free Text/Dictation Constitutional: alert, responsive No distress Psych: nl mood/affect, no complaints Head: atraumatic, normocephalic Eyes: nl lids, nl sclera ENMT: mucosa pink and moist, nl nasal mucosa & septum Neck: non-tender, other (trach vent), supple Respiratory: crackles/rales Cardiovascular: nl pulses, other (st), regular rate and rhythm Gastrointestinal: distended Genitourinary - Female: nl adnexae, nl external genitalia Musculoskeletal: No muscle tone (stiffness) Extremities: pitting pedal edema Neurological: other (paraplegia), No nl speech, No nl strength Skin: other (wound: clean, nonmalodorous, periwound without erythema) Results Result Diagram: 05/11/1749905/11/17499 BRITTANY STALEY NP May 11, 2017 19:36
--- NOTE | 2017-05-11 19:52 | CONS ---
Date/Time of Note Date/Time of Note DATE: 05/10/17 TIME: 18:33 Assessment/Plan Assessment/Plan Chief Complaint/Hosp Course 1. Sacral wound: stage 4 -debridement prn -local care -frequent turning and off-loading -low air loss mattress -vitamin c -short term zinc -optimize nutrition 2. Acute respiratory failure with complete collapse of the left upper lobe with obliteration of the left upper lobe bronchus. -pulm consult -continue vent support 3. VDRF -pulm toilet -respiratory treatments 4. Anemia: no acute bleed noted -monitor -transfuse as needed 5. Elevated TSH -further workup per medical team 6. Electrolyte imbalance -optimize lytes 7. Morbid obesity: bmi 40 -diet and exercise optimization -encourage weight loss Thank you. Patient seen and examined in collaboration with Dr. Kedar Valencia. Problems: Consultation Date/Type/Reason Admit Date/Time May 08, 2017 at 20:54 Date of Consultation: May 10, 2017 Type of Consultation: Surgical Reason for Consultation wounds Referring Provider: KISHAN SAUCEDO Hx of Present Illness Joann Tate is a 76 yo woman with multiple comorbidities, more significantly paraplegia from spinal injury, wheelchair bound and immobility. She was transferred from [facility] s/p recent tracheostomy and peg resulting from pneumonia. However, after arriving in [facility] she became hypoxemic and was requiring 100% of FiO2. She was then transferred to [facility] ICU. The patient also has marginal blood pressure. She was also noted to have bloody tracheal secretions and chest x-ray revealed pulmonary edema with left side worse than right. she was also noted to have a sacral wound. General surgery was asked to evaluate. Constitutional: No chills, No diaphoresis, No febrile Eyes: No discharge, No pain ENT: No congestion Respiratory: sputum (bloody), No cough Cardiovascular: edema Gastrointestinal: No diarrhea, No vomiting Genitourinary: No dysuria Musculoskeletal: No neck pain Skin: other (as above), skin lesions, No bruising, No erythema Neurologic: No seizure Psychological: other (somnolence) Past Medical History Medical History: high cholesterol, hypertension, renal disease, other ( Paraplegia, Chronic resp failure s/p Tracheostomy ) Past Surgical History Past Surgical Hx: other (Tracheostomy, PEG tube placement ) Social History Alcohol Use: none Smoking Status: Never smoker Drug Use: none Exam/Review of Systems Vital Signs Vitals Vital Signs Date Time Temp Pulse Resp B/P Pulse Ox O2 Delivery O2 Flow Rate FiO2 05/10/17 17:10 94 29 96 90 05/10/17 13:00 90/37 Mechanical Ventilator 05/10/17 08:00 97.9 Intake and Output 05/09/17 05/09/17 05/10/17 15:00 23:00 07:00 Intake Total 1000 ml 610 ml 650 ml Output Total 148 ml 240 ml 265 ml Balance 852 ml 370 ml 385 ml Exam Constitutional: alert, other (somnolent), No distress Psych: nl mood/affect, no complaints Head: atraumatic, normocephalic Eyes: nl lids, nl sclera ENMT: mucosa pink and moist, nl nasal mucosa & septum Neck: non-tender, other (trach vent), supple Respiratory: crackles/rales Cardiovascular: nl pulses, other (sr), regular rate and rhythm Gastrointestinal: distended Genitourinary - Female: nl adnexae, nl external genitalia Musculoskeletal: No muscle tone (stiffness) Extremities: pitting pedal edema Neurological: other (paraplegia), No nl speech, No nl strength Skin: other (wound: clean, nonmalodorous, periowound without erythema) Results Result Diagram: 05/10/17 0649 05/10/17 0648 Results 24 hrs Laboratory Tests Test 05/09/17 19:00 05/09/17 21:21 05/10/17 00:55 05/10/17 06:48 Urine Eosinophils % 0.0 Urine Random Creatinine < 12.40 L Urine Random Sodium 106 H Urine Protein/Creatinine Ratio 5.00 Urine Total Protein 66.0 H Bedside Glucose 85 96 Sodium Level 139 Potassium Level 5.4 H Chloride Level 100 Carbon Dioxide Level 21 Anion Gap 23 H Blood Urea Nitrogen 100 H Creatinine 1.80 H Glucose Level 77 Calcium Level 9.7 Test 05/10/17 06:49 05/10/17 09:14 05/10/17 12:22 05/10/17 17:11 White Blood Count 8.7 Red Blood Count 2.78 L Hemoglobin 7.7 L Hematocrit 24.4 L Mean Corpuscular Volume 87.8 Mean Corpuscular Hemoglobin 27.7 L Mean Corpuscular Hemoglobin Concent 31.6 L Red Cell Distribution Width 18.8 H Platelet Count 149 # Mean Platelet Volume 12.5 H Neutrophils % 70.7 Lymphocytes % 9.6 L Monocytes % 6.3 Eosinophils % 9.4 H Basophils % 0.2 Nucleated Red Blood Cells % 0.0 Neutrophils # 6.2 Lymphocytes # 0.8 Monocytes # 0.6 Eosinophils # 0.8 H Basophils # 0.0 Nucleated Red Blood Cells # 0.0 Prothrombin Time 14.8 H Prothrombin Time Ratio 1.2 INR International Normalized Ratio 1.16 Activated Partial Thromboplast Time 40.2 H Hemoglobin A1c 5.5 Uric Acid 7.8 Magnesium Level 2.0 Iron Level 30 L Total Iron Binding Capacity 222 L Percent Iron Saturation 14 L Ferritin 615.0 H Creatine Kinase < 20 L Vitamin B12 Level 904 Folate > 20.0 H Thyroid Stimulating Hormone (TSH) 25.600 H Bedside Glucose 90 99 83 Test 05/10/17 17:48 Bedside Glucose 113 Medications Medications Current Medications Enoxaparin Sodium (Lovenox) 30 mg DAILY SC Last administered on 05/10/17 09:27 ; Admin Dose 30 MG; Start 05/09/17 at 09:00 Aspirin (Aspirin) 81 mg DAILY GTB Last administered on 05/10/17 09:16; Admin Dose 81 MG; Start 05/09/17 at 09:00 Acetaminophen (Tylenol Liquid) 650 mg Q6H PRN GTB PAIN AND OR ELEVATED TEMP; Start 05/09/17 at 09:00 Cholecalciferol (Vitamin D) 1,000 unit DAILY GTB Last administered on 09:24; Admin Dose 1,000 UNIT; Start 05/09/17 at 09:00 Insulin Glargine (Lantus) 17 unit DAILY@08 SC Last administered on 05/10/17 09 :45; Admin Dose 17 UNIT; Start 05/10/17 at 08:00 Diagnostic Test (Pha) (Accu-Chek) 1 ea 02 XX ; Start 05/10/17 at 02:00 Levothyroxine Sodium (Synthroid) 125 mcg DAILY@06 GTB Last administered on 05/10 06:41; Admin Dose 125 MCG; Start 05/10/17 at 06:00 Zinc Sulfate (Zinc Sulfate) 220 mg DAILY GTB Last administered on 05/10/17 09: 24; Admin Dose 220 MG; Start 05/09/17 at 09:00 Ondansetron HCl (Zofran Inj) 4 mg Q6H PRN IV NAUSEA AND/OR VOMITING; Start 05/09/17 at 09:00 Lorazepam (Ativan) 1 mg Q6H PRN IV ANXIETY Last administered on 05/10/17 15:29 ; Admin Dose 1 MG; Start 05/09/17 at 09:00 Miscellaneous Information 1 ea NOTE XX ; Start 05/09/17 at 10:00 Glucose (Glutose) 15 gm Q15M PRN PO DECREASED GLUCOSE; Start 05/09/17 at 10:00 Glucose (Glutose) 22.5 gm Q15M PRN PO DECREASED GLUCOSE; Start 05/09/17 at 10: 00 Dextrose (D50w Syringe) 25 ml Q15M PRN IV DECREASED GLUCOSE; Start 05/09/17 at 10:00 Dextrose (D50w Syringe) 50 ml Q15M PRN IV DECREASED GLUCOSE; Start 05/09/17 at 10:00 Glucagon (Glucagen) 1 mg Q15M PRN IM DECREASED GLUCOSE; Start 05/09/17 at 10:00 Glucose (Glutose) 15 gm Q15M PRN BUCCAL DECREASED GLUCOSE; Start 05/09/17 at 10 :00 Multivitamins (Multivitamin) 30 ml DAILY PEG Last administered on 05/10/17 09: 24; Admin Dose 30 ML; Start 05/10/17 at 09:00 Fluoxetine HCl 20 mg 20 mg DAILY GTB Last administered on 05/10/17 09:24; Admin Dose 20 MG; Start 05/10/17 at 09:00 Cefepime HCl (Maxipime 1gm/50 ml (Pmx)) 50 ml @ 100 mls/hr Q24H IVPB Last administered on 05/10/17 12:38; Admin Dose 100 MLS/HR; Start 05/10/17 at 12:00 Collagenase (Santyl) 1 applic DAILY TOP Last administered on 05/10/17 09:24; Admin Dose 1 APPLIC; Start 05/10/17 at 09:00 Collagenase 1 applic 1 applic PRN PRN TOP SOILING; Start 05/10/17 at 01:30 Vancomycin HCl/ Sodium Chloride (Vancocin/NS) 250 ml @ 83.333 mls/ hr Q48H IVPB ; Start 05/11/17 at 13:00 Miscellaneous Information (*Rx Drug Level Order Reminder*) RANDOM VANCOMYCIN LEVEL 1... ONCE ONCE XX ; Start 05/11/17 at 05:00; Stop 05/11/17 at 05:01 Morphine Sulfate (morphine) 2 mg Q4H PRN IV PAIN LEVEL 4-6 Last administered on 05/10/17t 17:44; Admin Dose 2 MG; Start 05/10/17 at 17:30 Famotidine (Pepcid) 20 mg DAILY GTB ; Start 05/11/17 at 09:00 BRITTANY STALEY NP May 10, 2017 18:43
[2017-05-12] VITALS (27 sets, daily range): BP systolic 82–167; BP diastolic 38–78; PULSE 89–117; RESP 16–28
[2017-05-12] MEDS: IPRATROPIUM (HFA) 12.9 GM INHALER INH SCH ×4 (01:12→20:08)
[2017-05-12] MEDS: ALBUTEROL HFA 8 GM INHALER INH SCH ×4 (01:12→20:08)
[2017-05-12] MEDS: ACCU-CHEK XX SCH (02:07)
[2017-05-12 04:55] LABS: AADO2 Arterial 619.8 mmHg (7.0-24.0); Allen Test ACCEPTAB; Arterial COHb 0.3 % (0.0-3.0); Arterial Fraction of Oxyhgb 82.8 % (93.0-99.0); Arterial HCO3 22.3 mmol/L (22.0-26.0); Arterial MetHb 0.5 % (0.0-1.5); Arterial Total Hemglobin 10.1 g/dl (12.0-18.0); MODE VENT - AC
[2017-05-12] MEDS: morphine 2 MG INJ IV PRN ×2 (05:05→08:33)
[2017-05-12 05:36] LABS: BASOPHILS % 0.2 % (0.0-2.0); EOSINOPHILS # 0.4 10^3/ul (0.0-0.5); EOSINOPHILS % 4.8 % (0.0-7.0); HEMATOCRIT 24.9 % (37.0-47.0); LYMPHOCYTES # 0.7 10^3/ul (0.8-2.9); LYMPHOCYTES % 8.9 % (15.0-51.0); MEAN CORPUSCULAR HEMOGLOBIN 28.1 pg (29.0-33.0); MEAN CORPUSCULAR HGB CONC 32.1 g/dl (32.0-37.0); MEAN CORPUSCULAR VOLUME 87.4 fl (82.0-101.0); MEAN PLATELET VOLUME 11.7 fl (7.4-10.4); MONOCYTE # 0.7 10^3/ul (0.3-0.9); MONOCYTES % 8.9 % (0.0-11.0); NEUTROPHIL # 6.1 10^3/ul (1.6-7.5); NEUTROPHILS % 74.1 % (39.0-77.0); PLATELET COUNT 169 10^3/UL (140-415); RED BLOOD COUNT 2.85 10^6/ul (4.20-5.40); RED CELL DISTRIBUTION WIDTH 18.2 % (11.5-14.5); WHITE BLOOD COUNT 8.2 10^3/ul (4.8-10.8)
[2017-05-12] MEDS: LEVOTHYROXINE 125 MCG TAB GTB SCH (05:50)
[2017-05-12 06:01] LABS: ALBUMIN 2.5 g/dl (3.3-4.9); ALBUMIN/GLOBULIN RATIO 0.86; CALCIUM 9.3 mg/dl (8.4-10.2); CREATININE 1.42 mg/dl (0.44-1.00); POTASSIUM 5.2 mmol/L (3.5-5.1); TOTAL PROTEIN 5.4 g/dl (6.1-8.1)
[2017-05-12] MEDS: INSULIN ASPART [NOVOLOG] 3 ML PEN SC SCH ×4 (07:35→21:00)
[2017-05-12] MEDS: FAMOTIDINE 20 MG TAB GTB SCH (08:34)
[2017-05-12] MEDS: FLUOXETINE 20 MG CAP GTB SCH (08:34)
[2017-05-12] MEDS: CHOLECALCIFEROL 1,000 UNIT TAB GTB SCH (08:34)
[2017-05-12] MEDS: MULTIVITAMINS 30 ML CUP PEG SCH (08:34)
[2017-05-12] MEDS: ZINC SULFATE 220 MG CAP GTB SCH (08:34)
[2017-05-12] MEDS: COLLAGENASE 30 GM TUBE TOP SCH (08:34)
[2017-05-12] MEDS: ACETAMINOPHEN 650MG/20.3ML CUP GTB PRN (08:34)
[2017-05-12] MEDS: ASPIRIN 81 MG TAB GTB SCH (08:34)
[2017-05-12] MEDS: INSULIN GLARGINE [LANtus] 3 ML PEN SC SCH (08:57)
[2017-05-12] MEDS: ENOXAPARIN 30 MG/0.3 ML SYG SC SCH (08:58)
--- NOTE | 2017-05-12 10:55 | CONS ---
Date/Time of Note Date/Time of Note DATE: 05/12/17 TIME: 10:52 Consult Date/Type/Reason Admit Date/Time May 09, 2017 at 00:06 Initial Consult Date 05/09/17 Type of Consultation: Pulm/CCM Ordering Provider: KISHAN SAUCEDO Subjective Remains on 100% FiO2 and PEEP 8 Objective Vital Signs Date Time Temp Pulse Resp B/P Pulse Ox O2 Delivery O2 Flow Rate FiO2 05/12/17 10:00 101 20 85/42 100 Mechanical Ventilator 05/12/17 09:00 100 05/12/17 08:00 98.2 Intake and Output 05/11/17 05/11/17 05/12/17 15:00 23:00 07:00 Intake Total 805 ml 1000 ml 900 ml Output Total 2230 ml 155 ml 150 ml Balance -1425 ml 845 ml 750 ml Exam HEENT: Neck supple; no JVD; no LAD; Trach site clean CVS: Tachy, S1 and S2 CHEST: Decreased BS B/L ABD: Soft, NT, + BS EXT: No c/c; ++ edema Results/Medications Result Diagram: 05/12/1751805/12/17518 Results 24 hrs Laboratory Tests Test 05/11/17 11:41 05/11/17 17:19 05/11/17 21:20 05/12/17 05:00 Bedside Glucose 125 129 130 Blood Gas Specimen Source Blood arterial Arterial Blood Date Drawn 05/12/2017 4:30:01 AM Arterial Blood pH (Temp corrected) 7.352 Arterial Blood pCO2 (Temp correct) 41.2 Arterial Blood pO2 (Temp corrected) 52.0 *L Arterial Blood HCO3 22.3 Arterial Blood Base Excess -3.0 Arterial Blood Oxygen Saturation 83.5 L Ki Test ACCEPTAB Arterial Blood Gas Puncture Site Right Radial Arterial Blood Carboxyhemoglobin 0.3 Arterial Blood Methemoglobin 0.5 Blood Gas A-a O2 Differential 619.8 H Oxyhemoglobin Percent 82.8 L Total Hemoglobin 10.1 L Blood Gas Temperature 37.0 Blood Gas Respiration Rate 14.0 Blood Gas Actual Respiration Rate 25 Blood Gas Modality VENT - AC FiO2 100.0 Blood Gas Tidal Volume 500.0 Blood Gas Low PEEP Setting 8.0 Blood Gas Critical Value Read Back Shiv MCCLOUD R.N Blood Gas Notified Whom MM Blood Gas Notified Time 05/12/2017 4:55:01 AM Test 05/12/17 05:19 05/12/17 08:53 White Blood Count 8.2 Red Blood Count 2.85 L Hemoglobin 8.0 L Hematocrit 24.9 L Mean Corpuscular Volume 87.4 Mean Corpuscular Hemoglobin 28.1 L Mean Corpuscular Hemoglobin Concent 32.1 Red Cell Distribution Width 18.2 H Platelet Count 169 # Mean Platelet Volume 11.7 H Neutrophils % 74.1 Lymphocytes % 8.9 L Monocytes % 8.9 Eosinophils % 4.8 Basophils % 0.2 Nucleated Red Blood Cells % 0.0 Neutrophils # 6.1 Lymphocytes # 0.7 L Monocytes # 0.7 Eosinophils # 0.4 Basophils # 0.0 Nucleated Red Blood Cells # 0.0 Sodium Level 137 Potassium Level 5.2 H Chloride Level 102 Carbon Dioxide Level 22 Anion Gap 18 H Blood Urea Nitrogen 78 H Creatinine 1.42 H Glucose Level 122 Lactic Acid Level 1.2 Calcium Level 9.3 Total Bilirubin 0.0 L Direct Bilirubin 0.00 Indirect Bilirubin 0.0 Aspartate Amino Transf (AST/SGOT) 30 Alanine Aminotransferase (ALT/SGPT) 26 Alkaline Phosphatase 139 H Total Protein 5.4 L Albumin 2.5 L Globulin 2.90 Albumin/Globulin Ratio 0.86 Bedside Glucose 117 Medications Current Medications Enoxaparin Sodium (Lovenox) 30 mg DAILY SC Last administered on 05/12/17 08:58 ; Admin Dose 30 MG; Start 05/09/17 at 09:00 Aspirin (Aspirin) 81 mg DAILY GTB Last administered on 05/12/17 08:34; Admin Dose 81 MG; Start 05/09/17 at 09:00 Acetaminophen (Tylenol Liquid) 650 mg Q6H PRN GTB PAIN AND OR ELEVATED TEMP Last administered on 05/12/17 08:34; Admin Dose 650 MG; Start 05/09/17 at 09:00 Cholecalciferol (Vitamin D) 1,000 unit DAILY GTB Last administered on 08:34; Admin Dose 1,000 UNIT; Start 05/09/17 at 09:00 Insulin Glargine (Lantus) 17 unit DAILY@08 SC Last administered on 05/12/17 08 :57; Admin Dose 17 UNIT; Start 05/10/17 at 08:00 Diagnostic Test (Pha) (Accu-Chek) 1 ea 02 XX Last administered on 05/12/17 02: 07; Admin Dose 1 EA; Start 05/10/17 at 02:00 Levothyroxine Sodium (Synthroid) 125 mcg DAILY@06 GTB Last administered on 05/12 05:50; Admin Dose 125 MCG; Start 05/10/17 at 06:00 Zinc Sulfate (Zinc Sulfate) 220 mg DAILY GTB Last administered on 05/12/17 08: 34; Admin Dose 220 MG; Start 05/09/17 at 09:00 Ondansetron HCl (Zofran Inj) 4 mg Q6H PRN IV NAUSEA AND/OR VOMITING Last administered on 05/12/17 08:33; Admin Dose 4 MG; Start 05/09/17 at 09:00 Lorazepam (Ativan) 1 mg Q6H PRN IV ANXIETY Last administered on 05/10/17 21:47 ; Admin Dose 1 MG; Start 05/09/17 at 09:00 Miscellaneous Information 1 ea NOTE XX ; Start 05/09/17 at 10:00 Glucose (Glutose) 15 gm Q15M PRN PO DECREASED GLUCOSE; Start 05/09/17 at 10:00 Glucose (Glutose) 22.5 gm Q15M PRN PO DECREASED GLUCOSE; Start 05/09/17 at 10: 00 Dextrose (D50w Syringe) 25 ml Q15M PRN IV DECREASED GLUCOSE Last administered on 05/11/17 01:54; Admin Dose 25 ML; Start 05/09/17 at 10:00 Dextrose (D50w Syringe) 50 ml Q15M PRN IV DECREASED GLUCOSE; Start 05/09/17 at 10:00 Glucagon (Glucagen) 1 mg Q15M PRN IM DECREASED GLUCOSE; Start 05/09/17 at 10:00 Glucose (Glutose) 15 gm Q15M PRN BUCCAL DECREASED GLUCOSE; Start 05/09/17 at 10 :00 Multivitamins (Multivitamin) 30 ml DAILY PEG Last administered on 05/12/17 08: 34; Admin Dose 30 ML; Start 05/10/17 at 09:00 Fluoxetine HCl 20 mg 20 mg DAILY GTB Last administered on 05/12/17 08:34; Admin Dose 20 MG; Start 05/10/17 at 09:00 Cefepime HCl (Maxipime 1gm/50 ml (Pmx)) 50 ml @ 100 mls/hr Q24H IVPB Last administered on 05/11/17 11:49; Admin Dose 100 MLS/HR; Start 05/10/17 at 12:00 Collagenase (Santyl) 1 applic DAILY TOP Last administered on 05/12/17 08:34; Admin Dose 1 APPLIC; Start 05/10/17 at 09:00 Collagenase (Santyl) 1 applic PRN PRN TOP SOILING; Start 05/10/17 at 01:30 Morphine Sulfate (morphine) 2 mg Q4H PRN IV PAIN LEVEL 4-6 Last administered on 05/12/17 08:33; Admin Dose 2 MG; Start 05/10/17 at 17:30 Famotidine 20 mg 20 mg DAILY GTB Last administered on 05/12/17 08:34; Admin Dose 20 MG; Start 05/11/17 at 09:00 Vancomycin HCl/ Sodium Chloride (Vancocin/NS) 250 ml @ 83.333 mls/ hr Q96H IVPB ; Start 05/13/17 at 16:00 Assessment/Plan Additional Assessment/Plan IMP: 1. Severe hypoxemic respiratory failure--s/p recent tracheostomy 2. Renal insufficiency with profound anasarca 3. Partial Left Lung ATX/consolidation and small right PTX 4. Encephalopathy toxic metabolic appears to be resolving 5. Diabetes mellitus 6. Paroxysmal atrial fibrillation 7. History of hypothyroidism 8. Dysphagia now with G-tube RECS: 1. Continue mechanical ventilation; follow peak and plateau pressures now. 2. Continue broad-spectrum antibiotics 3. Increase PEEP 12 cm H20 4. HD with UF 5. Chest PT/suctioning 6. Follow CXR/ABG Prognosis poor 35 min cc time GREGORY TOLENTINO MD May 12, 2017 10:55
--- NOTE | 2017-05-12 11:22 | CONS ---
Date/Time of Note Date/Time of Note DATE: 05/12/17 TIME: 11:08 Assessment/Plan Assessment/Plan Chief Complaint/Hosp Course - Probable VAP vs HCAP; prelim sputum cx +Staph aureus - Pulmonary edema - Acute on chronic hypoxemic respiratory failure s/p recent trach - Small right pneumothorax (less than 5%) on CT - BERNARDINO on CKD d/t ATN with fluid overload initiated on HD 05/10/2017 - CAD - PAF - remains in SR/ST - CHF d/t diastolic dysfunction - IDDM - Hgb A1c 5.5% - Hypothyroidism - Anemia with iron deficiency, +stool OB - Dysphagia s/p PEG - Paraplegia d/t spinal injury - Chronic BUE weakness - Hypoalbuminemia with anasarca - Toxic metabolic encephalopathy - improving - Morbid obesity - BMI 39 - 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 Aureus with sensis pending), procalc, influenza screen - serial CXR - continue local wound care Management d/w KENNETH Chandra and Dr. Stephenson Critical care time spent: 40 min Problems: Consultation Date/Type/Reason Admit Date/Time May 09, 2017 at 00:06 Initial Consult Date 05/10/17 Type of Consultation: Infectious Disease Referring Provider: KISHAN SAUCEDO 24 HR Interval Summary Free Text/Dictation Remains on FiO2 100%, PEEP 8, and afebrile. Started on HD this admission and s/p HD with UF yesterday for 2 hours c/b desaturation. Tube feeds held for PICC line placement per d/w nursing staff. Unable to perform ROS d/t encephalopathy. Nods yes to breathing ok and having tolerable pain. Subjective hx not possible: pt non-verbal Exam/Review of Systems Vital Signs Vitals Vital Signs Date Time Temp Pulse Resp B/P Pulse Ox O2 Delivery O2 Flow Rate FiO2 05/12/17 10:00 101 20 85/42 100 Mechanical Ventilator 05/12/17 09:00 100 05/12/17 08:00 98.2 Intake and Output 05/11/17 05/11/17 05/12/17 15:00 23:00 07:00 Intake Total 805 ml 1000 ml 900 ml Output Total 2230 ml 155 ml 150 ml Balance -1425 ml 845 ml 750 ml Exam Constitutional: alert, non-verbal, obese, other (anasarca), well developed Head: atraumatic, normocephalic Eyes: nl sclera ENMT: other (No thrush) Neck: other (tracheostomy intact), supple Respiratory: diminished breath sounds (L>R) Cardiovascular: other (S1, S2, regular rhythm, tachycardic) Gastrointestinal: bowel sounds (normoactive), non-tender, other (G-tube intact with tube feeds on hold), soft, surgical scars (well healed) Genitourinary - Female: other (Geronimo catheter present; R fem HD catheter in place) Extremities: edema, other (Bilateral foot drop noted), No clubbing, No cyanosis Neurological: lethargic, other (paraplegia with BUE weakness; selectively nods to simple questions; + tracking) Skin: other (R knee wound and stage IV coccygeal wound - see nurse note and photos for details) Results Result Diagram: 05/12/1751805/12/17518 Results 24 hrs Laboratory Tests Test 05/11/17 11:41 05/11/17 17:19 05/11/17 21:20 05/12/17 05:00 Bedside Glucose 125 129 130 Blood Gas Specimen Source Blood arterial Arterial Blood Date Drawn 05/12/2017 4:30:01 AM Arterial Blood pH (Temp corrected) 7.352 Arterial Blood pCO2 (Temp correct) 41.2 Arterial Blood pO2 (Temp corrected) 52.0 *L Arterial Blood HCO3 22.3 Arterial Blood Base Excess -3.0 Arterial Blood Oxygen Saturation 83.5 L Ki Test ACCEPTAB Arterial Blood Gas Puncture Site Right Radial Arterial Blood Carboxyhemoglobin 0.3 Arterial Blood Methemoglobin 0.5 Blood Gas A-a O2 Differential 619.8 H Oxyhemoglobin Percent 82.8 L Total Hemoglobin 10.1 L Blood Gas Temperature 37.0 Blood Gas Respiration Rate 14.0 Blood Gas Actual Respiration Rate 25 Blood Gas Modality VENT - AC FiO2 100.0 Blood Gas Tidal Volume 500.0 Blood Gas Low PEEP Setting 8.0 Blood Gas Critical Value Read Back Shiv MCCLOUD R.N Blood Gas Notified Whom MM Blood Gas Notified Time 05/12/2017 4:55:01 AM Test 05/12/17:19 05/12/17 08:53 White Blood Count 8.2 Red Blood Count 2.85 L Hemoglobin 8.0 L Hematocrit 24.9 L Mean Corpuscular Volume 87.4 Mean Corpuscular Hemoglobin 28.1 L Mean Corpuscular Hemoglobin Concent 32.1 Red Cell Distribution Width 18.2 H Platelet Count 169 # Mean Platelet Volume 11.7 H Neutrophils % 74.1 Lymphocytes % 8.9 L Monocytes % 8.9 Eosinophils % 4.8 Basophils % 0.2 Nucleated Red Blood Cells % 0.0 Neutrophils # 6.1 Lymphocytes # 0.7 L Monocytes # 0.7 Eosinophils # 0.4 Basophils # 0.0 Nucleated Red Blood Cells # 0.0 Sodium Level 137 Potassium Level 5.2 H Chloride Level 102 Carbon Dioxide Level 22 Anion Gap 18 H Blood Urea Nitrogen 78 H Creatinine 1.42 H Glucose Level 122 Lactic Acid Level 1.2 Calcium Level 9.3 Total Bilirubin 0.0 L Direct Bilirubin 0.00 Indirect Bilirubin 0.0 Aspartate Amino Transf (AST/SGOT) 30 Alanine Aminotransferase (ALT/SGPT) 26 Alkaline Phosphatase 139 H Total Protein 5.4 L Albumin 2.5 L Globulin 2.90 Albumin/Globulin Ratio 0.86 Bedside Glucose 117 Medications Medications Current Medications Enoxaparin Sodium (Lovenox) 30 mg DAILY SC Last administered on 05/12/17 08:58 ; Admin Dose 30 MG; Start 05/09/17 at 09:00 Aspirin (Aspirin) 81 mg DAILY GTB Last administered on 05/12/17 08:34; Admin Dose 81 MG; Start 05/09/17 at 09:00 Acetaminophen (Tylenol Liquid) 650 mg Q6H PRN GTB PAIN AND OR ELEVATED TEMP Last administered on 05/12/17 08:34; Admin Dose 650 MG; Start 05/09/17 at 09:00 Cholecalciferol (Vitamin D) 1,000 unit DAILY GTB Last administered on 08:34; Admin Dose 1,000 UNIT; Start 05/09/17 at 09:00 Insulin Glargine (Lantus) 17 unit DAILY@08 SC Last administered on 05/12/17 08 :57; Admin Dose 17 UNIT; Start 05/10/17 at 08:00 Diagnostic Test (Pha) (Accu-Chek) ea 02 XX Last administered on 05/12/17 02: 07; Admin Dose 1 EA; Start 05/10/17 at 02:00 Levothyroxine Sodium (Synthroid) 125 mcg DAILY@06 GTB Last administered on 05/12 05:50; Admin Dose 125 MCG; Start 05/10/17 at 06:00 Zinc Sulfate (Zinc Sulfate) 220 mg DAILY GTB Last administered on 05/12/17 08: 34; Admin Dose 220 MG; Start 05/09/17 at 09:00 Ondansetron HCl (Zofran Inj) 4 mg Q6H PRN IV NAUSEA AND/OR VOMITING Last administered on 05/12/17 08:33; Admin Dose 4 MG; Start 05/09/17 at 09:00 Lorazepam (Ativan) 1 mg Q6H PRN IV ANXIETY Last administered on 05/10/17 21:47 ; Admin Dose 1 MG; Start 05/09/17 at 09:00 Miscellaneous Information 1 ea NOTE XX ; Start 05/09/17 at 10:00 Glucose (Glutose) 15 gm Q15M PRN PO DECREASED GLUCOSE; Start 05/09/17 at 10:00 Glucose (Glutose) 22.5 gm Q15M PRN PO DECREASED GLUCOSE; Start 05/09/17 at 10: 00 Dextrose (D50w Syringe) 25 ml Q15M PRN IV DECREASED GLUCOSE Last administered on 05/11/17 01:54; Admin Dose 25 ML; Start 05/09/17 at 10:00 Dextrose (D50w Syringe) 50 ml Q15M PRN IV DECREASED GLUCOSE; Start 05/09/17 at 10:00 Glucagon (Glucagen) 1 mg Q15M PRN IM DECREASED GLUCOSE; Start 05/09/17 at 10:00 Glucose (Glutose) 15 gm Q15M PRN BUCCAL DECREASED GLUCOSE; Start 05/09/17 at 10 :00 Multivitamins (Multivitamin) 30 ml DAILY PEG Last administered on 05/12/17 08: 34; Admin Dose 30 ML; Start 05/10/17 at 09:00 Fluoxetine HCl 20 mg 20 mg DAILY GTB Last administered on 05/12/17 08:34; Admin Dose 20 MG; Start 05/10/17 at 09:00 Cefepime HCl (Maxipime 1gm/50 ml (Pmx)) 50 ml @ 100 mls/hr Q24H IVPB Last administered on 05/11/17 11:49; Admin Dose 100 MLS/HR; Start 05/10/17 at 12:00 Collagenase (Santyl) 1 applic DAILY TOP Last administered on 05/12/17 08:34; Admin Dose 1 APPLIC; Start 05/10/17 at 09:00 Collagenase (Santyl) 1 applic PRN PRN TOP SOILING; Start 05/10/17 at 01:30 Morphine Sulfate (morphine) 2 mg Q4H PRN IV PAIN LEVEL 4-6 Last administered on 05/12/17 08:33; Admin Dose 2 MG; Start 05/10/17 at 17:30 Famotidine 20 mg 20 mg DAILY GTB Last administered on 05/12/17 08:34; Admin Dose 20 MG; Start 05/11/17 at 09:00 Vancomycin HCl/ Sodium Chloride (Vancocin/NS) 250 ml @ 83.333 mls/ hr Q96H IVPB ; Start 05/13/17 at 16:00 Procedures Procedures CXR 05/11/2017: 1. Near-complete opacification of the left lung secondary to the combination of pleural effusion and collapsed left upper greater than lower lobes. 2. Diffuse right lung interstitial parenchymal opacities favored to represent pulmonary edema. 3. Small right-sided pleural effusion. right-sided pleural effusion. 4. Tracheostomy tube. KATHY VARGAS [employer] May 12, 2017 11:18
--- NOTE | 2017-05-12 12:44 | CONS ---
Date/Time of Note Date/Time of Note DATE: 05/12/17 TIME: 12:44 Assessment/Plan Assessment/Plan Additional Assessment/Plan Respiratory failure with hypoxia Preserved ejection fraction Pulmonary hypertension Tricuspid valve regurgitation Pneumothorax Paraplegia Acute kidney injury with history of CKD Obesity -on hemodialysis. Fluid management via hemodialysis as per nephrology colleagues. Remains in sinus rhythm on telemetry. Echocardiogram with preserved ejection fraction. Ventilator and pulmonary care as per our pulmonary colleagues. Consultation Date/Type/Reason Admit Date/Time May 09, 2017 at 00:06 Initial Consult Date 05/10/17 Type of Consultation: Infectious Disease Referring Provider: KISHAN SAUCEDO 24 HR Interval Summary Free Text/Dictation unchanged Exam/Review of Systems Vital Signs Vitals Vital Signs Date Time Temp Pulse Resp B/P Pulse Ox O2 Delivery O2 Flow Rate FiO2 05/12/17 10:00 101 20 85/42 100 Mechanical Ventilator 05/12/17 09:00 100 05/12/17 08:00 98.2 Intake and Output 05/11/17 05/11/17 05/12/17 15:00 23:00 07:00 Intake Total 805 ml 1000 ml 900 ml Output Total 2230 ml 155 ml 150 ml Balance -1425 ml 845 ml 750 ml Results Result Diagram: 05/12/17 0519 05/12/17 0519 Results 24 hrs Laboratory Tests Test 05/11/17 17:19 05/11/17 21:20 05/12/17 05:00 05/12/17 05:19 Bedside Glucose 129 130 Blood Gas Specimen Source Blood arterial Arterial Blood Date Drawn 05/12/2017 4:30:01 AM Arterial Blood pH (Temp corrected) 7.352 Arterial Blood pCO2 (Temp correct) 41.2 Arterial Blood pO2 (Temp corrected) 52.0 *L Arterial Blood HCO3 22.3 Arterial Blood Base Excess -3.0 Arterial Blood Oxygen Saturation 83.5 L Ki Test ACCEPTAB Arterial Blood Gas Puncture Site Right Radial Arterial Blood Carboxyhemoglobin 0.3 Arterial Blood Methemoglobin 0.5 Blood Gas A-a O2 Differential 619.8 H Oxyhemoglobin Percent 82.8 L Total Hemoglobin 10.1 L Blood Gas Temperature 37.0 Blood Gas Respiration Rate 14.0 Blood Gas Actual Respiration Rate 25 Blood Gas Modality VENT - AC FiO2 100.0 Blood Gas Tidal Volume 500.0 Blood Gas Low PEEP Setting 8.0 Blood Gas Critical Value Read Back Shiv MCCLOUD R.N Blood Gas Notified Whom MM Blood Gas Notified Time 05/12/2017 4:55:01 AM White Blood Count 8.2 Red Blood Count 2.85 L Hemoglobin 8.0 L Hematocrit 24.9 L Mean Corpuscular Volume 87.4 Mean Corpuscular Hemoglobin 28.1 L Mean Corpuscular Hemoglobin Concent 32.1 Red Cell Distribution Width 18.2 H Platelet Count 169 # Mean Platelet Volume 11.7 H Neutrophils % 74.1 Lymphocytes % 8.9 L Monocytes % 8.9 Eosinophils % 4.8 Basophils % 0.2 Nucleated Red Blood Cells % 0.0 Neutrophils # 6.1 Lymphocytes # 0.7 L Monocytes # 0.7 Eosinophils # 0.4 Basophils # 0.0 Nucleated Red Blood Cells # 0.0 Sodium Level 137 Potassium Level 5.2 H Chloride Level 102 Carbon Dioxide Level 22 Anion Gap 18 H Blood Urea Nitrogen 78 H Creatinine 1.42 H Glucose Level 122 Lactic Acid Level 1.2 Calcium Level 9.3 Total Bilirubin 0.0 L Direct Bilirubin 0.00 Indirect Bilirubin 0.0 Aspartate Amino Transf (AST/SGOT) 30 Alanine Aminotransferase (ALT/SGPT) 26 Alkaline Phosphatase 139 H Total Protein 5.4 L Albumin 2.5 L Globulin 2.90 Albumin/Globulin Ratio 0.86 Test 05/12/17 08:53 Bedside Glucose 117 Medications Medications Current Medications Enoxaparin Sodium (Lovenox) 30 mg DAILY SC Last administered on 05/12/17 08:58 ; Admin Dose 30 MG; Start 05/09/17 at 09:00 Aspirin (Aspirin) 81 mg DAILY GTB Last administered on 05/12/17 08:34; Admin Dose 81 MG; Start 05/09/17 at 09:00 Acetaminophen (Tylenol Liquid) 650 mg Q6H PRN GTB PAIN AND OR ELEVATED TEMP Last administered on 05/12/17 08:34; Admin Dose 650 MG; Start 05/09/17 at 09:00 Cholecalciferol (Vitamin D) 1,000 unit DAILY GTB Last administered on 08:34; Admin Dose 1,000 UNIT; Start 05/09/17 at 09:00 Insulin Glargine (Lantus) 17 unit DAILY@08 SC Last administered on 05/12/17 08 :57; Admin Dose 17 UNIT; Start 05/10/17 at 08:00 Diagnostic Test (Pha) (Accu-Chek) 1 ea 02 XX Last administered on 05/12/17 02: 07; Admin Dose 1 EA; Start 05/10/17 at 02:00 Levothyroxine Sodium (Synthroid) 125 mcg DAILY@06 GTB Last administered on 05/12 05:50; Admin Dose 125 MCG; Start 05/10/17 at 06:00 Zinc Sulfate (Zinc Sulfate) 220 mg DAILY GTB Last administered on 05/12/17 08: 34; Admin Dose 220 MG; Start 05/09/17 at 09:00 Ondansetron HCl (Zofran Inj) 4 mg Q6H PRN IV NAUSEA AND/OR VOMITING Last administered on 05/12/17 08:33; Admin Dose 4 MG; Start 05/09/17 at 09:00 Lorazepam (Ativan) 1 mg Q6H PRN IV ANXIETY Last administered on 05/10/17 21:47 ; Admin Dose 1 MG; Start 05/09/17 at 09:00 Miscellaneous Information 1 ea NOTE XX ; Start 05/09/17 at 10:00 Glucose (Glutose) 15 gm Q15M PRN PO DECREASED GLUCOSE; Start 05/09/17 at 10:00 Glucose (Glutose) 22.5 gm Q15M PRN PO DECREASED GLUCOSE; Start 05/09/17 at 10: 00 Dextrose (D50w Syringe) 25 ml Q15M PRN IV DECREASED GLUCOSE Last administered on 05/11/17 01:54; Admin Dose 25 ML; Start 05/09/17 at 10:00 Dextrose (D50w Syringe) 50 ml Q15M PRN IV DECREASED GLUCOSE; Start 05/09/17 at 10:00 Glucagon (Glucagen) 1 mg Q15M PRN IM DECREASED GLUCOSE; Start 05/09/17 at 10:00 Glucose (Glutose) 15 gm Q15M PRN BUCCAL DECREASED GLUCOSE; Start 05/09/17 at 10 :00 Multivitamins (Multivitamin) 30 ml DAILY PEG Last administered on 05/12/17 08: 34; Admin Dose 30 ML; Start 05/10/17 at 09:00 Fluoxetine HCl 20 mg 20 mg DAILY GTB Last administered on 05/12/17 08:34; Admin Dose 20 MG; Start 05/10/17 at 09:00 Cefepime HCl (Maxipime 1gm/50 ml (Pmx)) 50 ml @ 100 mls/hr Q24H IVPB Last administered on 05/11/17 11:49; Admin Dose 100 MLS/HR; Start 05/10/17 at 12:00 Collagenase (Santyl) 1 applic DAILY TOP Last administered on 05/12/17 08:34; Admin Dose 1 APPLIC; Start 05/10/17 at 09:00 Collagenase (Santyl) 1 applic PRN PRN TOP SOILING; Start 05/10/17 at 01:30 Morphine Sulfate (morphine) 2 mg Q4H PRN IV PAIN LEVEL 4-6 Last administered on 05/12/17 08:33; Admin Dose 2 MG; Start 05/10/17 at 17:30 Famotidine 20 mg 20 mg DAILY GTB Last administered on 05/12/17 08:34; Admin Dose 20 MG; Start 05/11/17 at 09:00 Vancomycin HCl/ Sodium Chloride (Vancocin/NS) 250 ml @ 83.333 mls/ hr Q96H IVPB ; Start 05/13/17 at 16:00 AMBROSE WONG MD May 12, 2017 12:44
[2017-05-12] MEDS: CEFEPIME 1GM/50 ML (PMX) 50 ML IVPB SCH (13:44)
--- NOTE | 2017-05-12 14:23 | PN ---
Date/Time of Note Date/Time of Note DATE: 05/12/17 TIME: 14:17 Assessment/Plan Lines/Catheters IV Catheter Type (from [facility]): PICC Line Geronimo in Place (from [facility]): Yes (urine output 10-20 cc /hr) Assessment/Plan Chief Complaint/Hosp Course 1. Sacral wound: stage 4 -debridement prn -local care -frequent turning and off-loading -low air loss mattress -vitamin c -short term zinc -optimize nutrition -cultures 2. Acute respiratory failure with complete collapse of the left upper lobe with obliteration of the left upper lobe bronchus. -per pulm -continue vent support 3. VDRF -pulm toilet -respiratory treatments 4. Anemia: no acute bleed noted: stool OB + -monitor -transfuse as needed -gi consult for eventual scope 5. Elevated TSH -further workup per medical team 6. Electrolyte imbalance -optimize lytes 7. Morbid obesity: bmi 40 -diet and exercise optimization -encourage weight loss 8. BERNARDINO started on HD -per renal 9. Tachycardia: -cardiac optimization Thank you. Patient seen and examined in collaboration with Dr. Kedar Valencia. Problems: Subjective 24 Hr Interval Summary Tachycardic, Weaning O2. Picc line today. c/o pimentel. No fevers, chills, sob, congested cough, cp, palpitations, pimentel, dizziness, n/v/d/dysuria. Exam/Review of Systems Vital Signs Vitals Vital Signs Date Time Temp Pulse Resp B/P Pulse Ox O2 Delivery O2 Flow Rate FiO2 05/12/17 13:00 105 21 100 50 05/12/17 10:00 85/42 Mechanical Ventilator 05/12/17 08:00 98.2 Intake and Output 05/11/17 05/11/17 05/12/17 15:00 23:00 07:00 Intake Total 805 ml 1000 ml 900 ml Output Total 2230 ml 155 ml 150 ml Balance -1425 ml 845 ml 750 ml Exam Free Text/Dictation Constitutional: alert, responsive No distress Psych: nl mood/affect, no complaints Head: atraumatic, normocephalic Eyes: nl lids, nl sclera ENMT: mucosa pink and moist, nl nasal mucosa & septum Neck: non-tender, other (trach vent), supple Respiratory: crackles/rales Cardiovascular: nl pulses, other (st), regular rate and rhythm Gastrointestinal: distended Genitourinary - Female: nl adnexae, nl external genitalia Musculoskeletal: No muscle tone (stiffness) Extremities: pitting pedal edema Neurological: other (paraplegia), No nl speech, No nl strength Skin: other (wound: clean, nonmalodorous, periwound without erythema) Results Result Diagram: 05/12/17 0519 05/12/17 0519 BRITTANY STALEY NP May 12, 2017 14:23
--- NOTE | 2017-05-12 14:31 | RADRPT ---
PROCEDURE: XR Chest. CLINICAL INDICATION: Check PICC line position. TECHNIQUE: Single frontal view. COMPARISON: 05/11/2017. FINDINGS: There is a right arm PICC line with the tip in the cavoatrial junction region. The tracheostomy tub e is in satisfactory position. Interstitial disease throughout the right lung is consistent with pulmonary edema or pneumonia. Ther e is left basilar atelectasis, improved. There is no right pleural effusion. There is a small left pleural effusion. There is no pneumothorax. There is a right humeral head prosthesis and a left shoulder reverse arthroplasty. IMPRESSION: 1. Right arm PICC line tip in satisfactory position. 2. Improved aeration of the left lung. 3. No other change from 05/11/2017. RPTAT: QQ .Tor Grider MD, Date Time Electronically viewed and signed by .Tor Grider MD, on 05/12/2017 14:31 .R/
[2017-05-12] MEDS ORDERED: VANCOMYCIN 1.5 GM in SOD CHLORIDE 0.9% 250 ML IVPB SCH (16:00)
--- NOTE | 2017-05-12 20:42 | CONS ---
Date/Time of Note Date/Time of Note DATE: 05/12/17 TIME: 20:35 Assessment/Plan Assessment/Plan Chief Complaint/Hosp Course 76-year-old female who was recently transferred to [facility] and then transferred to [facility] because of worsening hypoxia. Patient on ventilator with increased oxygen requirements..pt is s/p tracheostomy , non verbal, on ventilator Renal has been consulted for BERNARDINO, uremia, and decreased Urine output. Problems: Additional Assessment/Plan 1. Acute kindey injury due to ATN with acute fluid overload 2. acute uremia with BUn around 100 3. acute on chronic resp failure, s/p tracheostomy 4. Metabolic acidosis 5. Paraplegia 6. Anemia of chronic disease, rule out iron deficiency Plan : started on HD during This admission s/p HD x 2 hr yesterday, Today during HD saturation dropped so HD stopped after 1.5 hr after HD, 1 L UF Continue IV abx, Bp stable, pt remained on ventilator, , pulmonary following plan for HD tomorrow will follow up Consultation Date/Type/Reason Admit Date/Time May 09, 2017 at 00:06 Initial Consult Date 05/09/17 Type of Consultation: NEPHROLOGY Referring Provider: KISHAN SAUCEDO 24 HR Interval Summary Free Text/Dictation pt remained on vent, yesterday did not tolerated HD well, Exam/Review of Systems Vital Signs Vitals Vital Signs Date Time Temp Pulse Resp B/P Pulse Ox O2 Delivery O2 Flow Rate FiO2 05/12/17 18:00 110 19 114/48 100 Mechanical Ventilator 05/12/17 17:00 65 05/12/17 16:00 98.8 Intake and Output 05/11/17 05/11/17 05/12/17 15:00 23:00 07:00 Intake Total 805 ml 1000 ml 900 ml Output Total 2230 ml 155 ml 150 ml Balance -1425 ml 845 ml 750 ml Results Result Diagram: 05/12/17 0519 05/12/17 0519 Results 24 hrs Laboratory Tests Test 05/11/17 21:20 05/12/17 05:00 05/12/17 05:19 05/12/17 08:53 Bedside Glucose 130 117 Blood Gas Specimen Source Blood arterial Arterial Blood Date Drawn 05/12/2017 4:30:01 AM Arterial Blood pH (Temp corrected) 7.352 Arterial Blood pCO2 (Temp correct) 41.2 Arterial Blood pO2 (Temp corrected) 52.0 *L Arterial Blood HCO3 22.3 Arterial Blood Base Excess -3.0 Arterial Blood Oxygen Saturation 83.5 L Ki Test ACCEPTAB Arterial Blood Gas Puncture Site Right Radial Arterial Blood Carboxyhemoglobin 0.3 Arterial Blood Methemoglobin 0.5 Blood Gas A-a O2 Differential 619.8 H Oxyhemoglobin Percent 82.8 L Total Hemoglobin 10.1 L Blood Gas Temperature 37.0 Blood Gas Respiration Rate 14.0 Blood Gas Actual Respiration Rate 25 Blood Gas Modality VENT - AC FiO2 100.0 Blood Gas Tidal Volume 500.0 Blood Gas Low PEEP Setting 8.0 Blood Gas Critical Value Read Back Shiv MCCLOUD R.N Blood Gas Notified Whom MM Blood Gas Notified Time 05/12/2017 4:55:01 AM White Blood Count 8.2 Red Blood Count 2.85 L Hemoglobin 8.0 L Hematocrit 24.9 L Mean Corpuscular Volume 87.4 Mean Corpuscular Hemoglobin 28.1 L Mean Corpuscular Hemoglobin Concent 32.1 Red Cell Distribution Width 18.2 H Platelet Count 169 # Mean Platelet Volume 11.7 H Neutrophils % 74.1 Lymphocytes % 8.9 L Monocytes % 8.9 Eosinophils % 4.8 Basophils % 0.2 Nucleated Red Blood Cells % 0.0 Neutrophils # 6.1 Lymphocytes # 0.7 L Monocytes # 0.7 Eosinophils # 0.4 Basophils # 0.0 Nucleated Red Blood Cells # 0.0 Sodium Level 137 Potassium Level 5.2 H Chloride Level 102 Carbon Dioxide Level 22 Anion Gap 18 H Blood Urea Nitrogen 78 H Creatinine 1.42 H Glucose Level 122 Lactic Acid Level 1.2 Calcium Level 9.3 Total Bilirubin 0.0 L Direct Bilirubin 0.00 Indirect Bilirubin 0.0 Aspartate Amino Transf (AST/SGOT) 30 Alanine Aminotransferase (ALT/SGPT) 26 Alkaline Phosphatase 139 H Total Protein 5.4 L Albumin 2.5 L Globulin 2.90 Albumin/Globulin Ratio 0.86 Test 05/12/17 13:36 05/12/17 17:04 Bedside Glucose 98 124 Medications Medications Current Medications Enoxaparin Sodium (Lovenox) 30 mg DAILY SC Last administered on 05/12/17 08:58 ; Admin Dose 30 MG; Start 05/09/17 at 09:00 Aspirin (Aspirin) 81 mg DAILY GTB Last administered on 05/12/17 08:34; Admin Dose 81 MG; Start 05/09/17 at 09:00 Acetaminophen (Tylenol Liquid) 650 mg Q6H PRN GTB PAIN AND OR ELEVATED TEMP Last administered on 05/12/17 08:34; Admin Dose 650 MG; Start 05/09/17 at 09:00 Cholecalciferol (Vitamin D) 1,000 unit DAILY GTB Last administered on 08:34; Admin Dose 1,000 UNIT; Start 05/09/17 at 09:00 Insulin Glargine (Lantus) 17 unit DAILY@08 SC Last administered on 05/12/17 08 :57; Admin Dose 17 UNIT; Start 05/10/17 at 08:00 Diagnostic Test (Pha) (Accu-Chek) 1 ea 02 XX Last administered on 05/12/17 02: 07; Admin Dose 1 EA; Start 05/10/17 at 02:00 Levothyroxine Sodium (Synthroid) 125 mcg DAILY@06 GTB Last administered on 05/12 05:50; Admin Dose 125 MCG; Start 05/10/17 at 06:00 Zinc Sulfate (Zinc Sulfate) 220 mg DAILY GTB Last administered on 05/12/17 08: 34; Admin Dose 220 MG; Start 05/09/17 at 09:00 Ondansetron HCl (Zofran Inj) 4 mg Q6H PRN IV NAUSEA AND/OR VOMITING Last administered on 05/12/17 08:33; Admin Dose 4 MG; Start 05/09/17 at 09:00 Lorazepam (Ativan) 1 mg Q6H PRN IV ANXIETY Last administered on 05/10/17 21:47 ; Admin Dose 1 MG; Start 05/09/17 at 09:00 Miscellaneous Information 1 ea NOTE XX ; Start 05/09/17 at 10:00 Glucose (Glutose) 15 gm Q15M PRN PO DECREASED GLUCOSE; Start 05/09/17 at 10:00 Glucose (Glutose) 22.5 gm Q15M PRN PO DECREASED GLUCOSE; Start 05/09/17 at 10: 00 Dextrose (D50w Syringe) 25 ml Q15M PRN IV DECREASED GLUCOSE Last administered on 05/11/17 01:54; Admin Dose 25 ML; Start 05/09/17 at 10:00 Dextrose (D50w Syringe) 50 ml Q15M PRN IV DECREASED GLUCOSE; Start 05/09/17 at 10:00 Glucagon (Glucagen) 1 mg Q15M PRN IM DECREASED GLUCOSE; Start 05/09/17 at 10:00 Glucose (Glutose) 15 gm Q15M PRN BUCCAL DECREASED GLUCOSE; Start 05/09/17 at 10 :00 Multivitamins (Multivitamin) 30 ml DAILY PEG Last administered on 05/12/17 08: 34; Admin Dose 30 ML; Start 05/10/17 at 09:00 Fluoxetine HCl 20 mg 20 mg DAILY GTB Last administered on 05/12/17 08:34; Admin Dose 20 MG; Start 05/10/17 at 09:00 Cefepime HCl (Maxipime 1gm/50 ml (Pmx)) 50 ml @ 100 mls/hr Q24H IVPB Last administered on 05/12/17 13:44; Admin Dose 100 MLS/HR; Start 05/10/17 at 12:00 Collagenase (Santyl) 1 applic DAILY TOP Last administered on 05/12/17 08:34; Admin Dose 1 APPLIC; Start 05/10/17 at 09:00 Collagenase (Santyl) 1 applic PRN PRN TOP SOILING; Start 05/10/17 at 01:30 Morphine Sulfate (morphine) 2 mg Q4H PRN IV PAIN LEVEL 4-6 Last administered on 05/12/17 08:33; Admin Dose 2 MG; Start 05/10/17 at 17:30 Famotidine 20 mg 20 mg DAILY GTB Last administered on 05/12/17 08:34; Admin Dose 20 MG; Start 05/11/17 at 09:00 Vancomycin HCl/ Sodium Chloride (Vancocin/NS) 250 ml @ 83.333 mls/ hr Q96H IVPB ; Start 05/13/17 at 16:00 JOANIE PHILLIPS MD May 12, 2017 20:42
[2017-05-13] VITALS (33 sets, daily range): BP systolic 92–151; BP diastolic 42–138; PULSE 100–129; RESP 16–27
[2017-05-13] MEDS: ACCU-CHEK XX SCH (02:42)
[2017-05-13] MEDS: ALBUTEROL HFA 8 GM INHALER INH SCH ×4 (03:31→19:00)
[2017-05-13] MEDS: IPRATROPIUM (HFA) 12.9 GM INHALER INH SCH ×4 (03:31→19:00)
[2017-05-13] MEDS: LEVOTHYROXINE 125 MCG TAB GTB SCH (05:35)
[2017-05-13 06:30] LABS: BASOPHILS % 0.2 % (0.0-2.0); EOSINOPHILS # 0.3 10^3/ul (0.0-0.5); EOSINOPHILS % 4.6 % (0.0-7.0); HEMATOCRIT 22.9 % (37.0-47.0); HEMOGLOBIN 7.3 g/dl (12.0-16.0); LYMPHOCYTES # 0.8 10^3/ul (0.8-2.9); LYMPHOCYTES % 12.3 % (15.0-51.0); MEAN CORPUSCULAR HEMOGLOBIN 28.5 pg (29.0-33.0); MEAN CORPUSCULAR HGB CONC 31.9 g/dl (32.0-37.0); MEAN CORPUSCULAR VOLUME 89.5 fl (82.0-101.0); MONOCYTE # 0.6 10^3/ul (0.3-0.9); MONOCYTES % 9.3 % (0.0-11.0); NEUTROPHIL # 4.7 10^3/ul (1.6-7.5); NEUTROPHILS % 70.6 % (39.0-77.0); PLATELET COUNT 191 10^3/UL (140-415); RED BLOOD COUNT 2.56 10^6/ul (4.20-5.40); RED CELL DISTRIBUTION WIDTH 18.5 % (11.5-14.5); WHITE BLOOD COUNT 6.6 10^3/ul (4.8-10.8)
[2017-05-13 06:32] LABS: AADO2 Arterial 357.8 mmHg (7.0-24.0); Allen Test ACCEPTAB; Arterial Base Excess -4.4 mmol/L (-3.0-3); Arterial COHb 0.3 % (0.0-3.0); Arterial HCO3 20.2 mmol/L (22.0-26.0); Arterial MetHb 0.4 % (0.0-1.5); Arterial Total Hemglobin 9.2 g/dl (12.0-18.0); MODE VENT - AC
[2017-05-13] MEDS ORDERED: SOD CHLORIDE 0.9% 250 ML IV* ONE (07:05)
[2017-05-13 07:10] LABS: CALCIUM 9.6 mg/dl (8.4-10.2); CREATININE 1.63 mg/dl (0.44-1.00)
[2017-05-13 07:18] LABS: POTASSIUM 5.8 mmol/L (3.5-5.1)
[2017-05-13] MEDS: INSULIN ASPART [NOVOLOG] 3 ML PEN SC SCH ×3 (07:35→18:00)
--- NOTE | 2017-05-13 07:45 | RADRPT ---
PROCEDURE: XR Chest. CLINICAL INDICATION: Shortness of breath. TECHNIQUE: Single frontal view. COMPARISON: 05/12/2017. FINDINGS: The tracheostomy tube remains in satisfactory position. The right arm PICC line tip is in the cavoat rial junction region. Bilateral pulmonary airspace and interstitial disease is unchanged. The heart is enlarged. There is calcification in the aorta consistent with atherosclerosis. There is no right pleural effusion. There is a small left pleural effusion. There is no pneumothorax. There is a right humeral head prosthesis and a left shoulder reverse arthr oplasty. IMPRESSION: 1. No change from the 05/12/2017 chest radiograph. RPTAT: QQ .Tor Grider MD, MD Date Time Electronically viewed and signed by .Tor Grider MD, on 05/13/2017 07:45 .R/
[2017-05-13] MEDS: ENOXAPARIN 30 MG/0.3 ML SYG SC SCH (09:00)
--- NOTE | 2017-05-13 09:38 | CONS ---
Date/Time of Note Date/Time of Note DATE: 05/13/17 TIME: 09:35 Consult Date/Type/Reason Admit Date/Time May 09, 2017 at 00:06 Initial Consult Date 05/09/17 Type of Consultation: Pulmonary Ordering Provider: KISHAN SAUCEDO Subjective Continues mechanical ventilation. FiO2 70% PEEP of 12, agitation with tachypnea. Objective Vital Signs Date Time Temp Pulse Resp B/P Pulse Ox O2 Delivery O2 Flow Rate FiO2 05/13/17 08:00 114 05/13/17 07:00 22 92 65 05/13/17 06:00 98.3 137/62 Mechanical Ventilator Intake and Output 05/12/17 05/12/17 05/13/17 15:00 23:00 07:00 Intake Total 250 ml 500 ml 650 ml Output Total 240 ml 35 ml Balance 250 ml 260 ml 615 ml Exam PHYSICAL EXAMINATION GENERAL: Elderly lady on mechanical ventilation via tracheostomy VITAL SIGNS: see below. HEENT: Pupils equal, round, and reactive to light. Tracheostomy site clean and intact. CARDIAC: S1, S2, 1/6 systolic ejection murmur CHEST: Diminished air entry bilaterally. ABDOMEN: Mildly distended. Bowel sounds present no guarding or rebound EXTREMITIES: No cyanosis, clubbing edema +1 NEUROLOGIC: Generalized weakness Results/Medications Result Diagram: 05/13/17 0543 05/13/17 0543 Results 24 hrs Laboratory Tests Test 05/12/17 13:36 05/12/17 17:04 05/12/17 21:13 05/13/17 02:38 Bedside Glucose 98 124 125 146 Test 05/13/17 04:59 05/13/17 05:00 05/13/17 05:43 Bedside Glucose 99 Blood Gas Specimen Source Blood arterial Arterial Blood Date Drawn 05/13/2017 4:55:00 AM Arterial Blood pH (Temp corrected) 7.381 Arterial Blood pCO2 (Temp correct) 34.8 L Arterial Blood pO2 (Temp corrected) 67.8 L Arterial Blood HCO3 20.2 L Arterial Blood Base Excess -4.4 L Arterial Blood Oxygen Saturation 92.6 L Ki Test ACCEPTAB Arterial Blood Gas Puncture Site Right Radial Arterial Blood Carboxyhemoglobin 0.3 Arterial Blood Methemoglobin 0.4 Blood Gas A-a O2 Differential 357.8 H Oxyhemoglobin Percent 92.0 L Total Hemoglobin 9.2 L Blood Gas Temperature 37.0 Blood Gas Respiration Rate 14.0 Blood Gas Actual Respiration Rate 23 Blood Gas Modality VENT - AC FiO2 65.0 Blood Gas Tidal Volume 500.0 Blood Gas Low PEEP Setting 12.0 Blood Gas Notified Whom Blood Gas Notified Time 05/13/2017 5:05:00 AM White Blood Count 6.6 Red Blood Count 2.56 L Hemoglobin 7.3 L Hematocrit 22.9 L Mean Corpuscular Volume 89.5 Mean Corpuscular Hemoglobin 28.5 L Mean Corpuscular Hemoglobin Concent 31.9 L Red Cell Distribution Width 18.5 H Platelet Count 191 Mean Platelet Volume 12.0 H Neutrophils % 70.6 Lymphocytes % 12.3 L Monocytes % 9.3 Eosinophils % 4.6 Basophils % 0.2 Nucleated Red Blood Cells % 0.0 Neutrophils # 4.7 Lymphocytes # 0.8 Monocytes # 0.6 Eosinophils # 0.3 Basophils # 0.0 Nucleated Red Blood Cells # 0.0 Sodium Level 137 Potassium Level 5.8 H Chloride Level 103 Carbon Dioxide Level 24 Anion Gap 16 Blood Urea Nitrogen 82 H Creatinine 1.63 H Glucose Level 78 # Calcium Level 9.6 Medications Current Medications Enoxaparin Sodium (Lovenox) 30 mg DAILY SC Last administered on 05/12/17 08:58 ; Admin Dose 30 MG; Start 05/09/17 at 09:00 Aspirin (Aspirin) 81 mg DAILY GTB Last administered on 05/12/17 08:34; Admin Dose 81 MG; Start 05/09/17 at 09:00 Acetaminophen (Tylenol Liquid) 650 mg Q6H PRN GTB PAIN AND OR ELEVATED TEMP Last administered on 05/12/17 08:34; Admin Dose 650 MG; Start 05/09/17 at 09:00 Cholecalciferol (Vitamin D) 1,000 unit DAILY GTB Last administered on 08:34; Admin Dose 1,000 UNIT; Start 05/09/17 at 09:00 Insulin Glargine (Lantus) 17 unit DAILY@08 SC Last administered on 05/12/17 08 :57; Admin Dose 17 UNIT; Start 05/10/17 at 08:00 Levothyroxine Sodium (Synthroid) 125 mcg DAILY@06 GTB Last administered on 05/13 05:35; Admin Dose 125 MCG; Start 05/10/17 at 06:00 Zinc Sulfate (Zinc Sulfate) 220 mg DAILY GTB Last administered on 05/12/17 08: 34; Admin Dose 220 MG; Start 05/09/17 at 09:00 Ondansetron HCl (Zofran Inj) 4 mg Q6H PRN IV NAUSEA AND/OR VOMITING Last administered on 05/12/17 08:33; Admin Dose 4 MG; Start 05/09/17 at 09:00 Lorazepam (Ativan) 1 mg Q6H PRN IV ANXIETY Last administered on 05/10/17 21:47 ; Admin Dose 1 MG; Start 05/09/17 at 09:00 Miscellaneous Information 1 ea NOTE XX ; Start 05/09/17 at 10:00 Glucose (Glutose) 15 gm Q15M PRN PO DECREASED GLUCOSE; Start 05/09/17 at 10:00 Glucose (Glutose) 22.5 gm Q15M PRN PO DECREASED GLUCOSE; Start 05/09/17 at 10: 00 Dextrose (D50w Syringe) 25 ml Q15M PRN IV DECREASED GLUCOSE Last administered on 05/11/17 01:54; Admin Dose 25 ML; Start 05/09/17 at 10:00 Dextrose (D50w Syringe) 50 ml Q15M PRN IV DECREASED GLUCOSE; Start 05/09/17 at 10:00 Glucagon (Glucagen) 1 mg Q15M PRN IM DECREASED GLUCOSE; Start 05/09/17 at 10:00 Glucose (Glutose) 15 gm Q15M PRN BUCCAL DECREASED GLUCOSE; Start 05/09/17 at 10 :00 Multivitamins (Multivitamin) 30 ml DAILY PEG Last administered on 05/12/17 08: 34; Admin Dose 30 ML; Start 05/10/17 at 09:00 Fluoxetine HCl 20 mg 20 mg DAILY GTB Last administered on 05/12/17 08:34; Admin Dose 20 MG; Start 05/10/17 at 09:00 Cefepime HCl (Maxipime 1gm/50 ml (Pmx)) 50 ml @ 100 mls/hr Q24H IVPB Last administered on 05/12/17 13:44; Admin Dose 100 MLS/HR; Start 05/10/17 at 12:00 Collagenase (Santyl) 1 applic DAILY TOP Last administered on 05/12/17 08:34; Admin Dose 1 APPLIC; Start 05/10/17 at 09:00 Collagenase (Santyl) 1 applic PRN PRN TOP SOILING; Start 05/10/17 at 01:30 Morphine Sulfate (morphine) 2 mg Q4H PRN IV PAIN LEVEL 4-6 Last administered on 05/12/17 08:33; Admin Dose 2 MG; Start 05/10/17 at 17:30 Famotidine 20 mg 20 mg DAILY GTB Last administered on 05/12/17 08:34; Admin Dose 20 MG; Start 05/11/17 at 09:00 Vancomycin HCl/ Sodium Chloride (Vancocin/NS) 250 ml @ 83.333 mls/ hr Q96H IVPB ; Start 05/13/17 at 16:00 Insulin Aspart (Novolog Insulin Pen) NOVOLOG *MILD* ALGORI... Q6 SC ; Start 05/13/17 at 12:00 Assessment/Plan Chief Complaint/Hosp Course Assessment 1. Hypoxemic respiratory failure with recent tracheostomy. Still with significant hypoxemia chest x-ray demonstrating ongoing bilateral infiltrates 2. Renal insufficiency with profound anasarca 3. Anemia possible chronic in nature rule out GI bleed 4. Encephalopathy toxic metabolic appears to be resolving 5. Diabetes mellitus 6. Paroxysmal atrial fibrillation 7. History of hypothyroidism 8. Dysphagia now with G-tube Plan 1. Continue mechanical ventilation increase PEEP as tolerated. 2. Continue broad-spectrum antibiotics 3. Continue tube feeding if tolerated 4. Renal recommendations 5. DVT and GI prophylaxis 6. Consider transfusion 1 unit packed red blood cells Prognosis remains guarded Critical care time 40 minutes. Problems: YAQUELIN DURAN MD, [facility] May 13, 2017 09:38
--- NOTE | 2017-05-13 10:21 | PN ---
Date/Time of Note Date/Time of Note DATE: 05/13/17 TIME: 10:14 Assessment/Plan VTE Prophylaxis VTE Prophylaxis Intervention: SCD's Lines/Catheters IV Catheter Type (from [facility]): PICC Line Central line still needed: Yes Urinary Cath still in place: Yes Reason Cath still needed: urinary retention Assessment/Plan Chief Complaint/Hosp Course Patient is undergoing hemodialysis, pending blood transfusion with hemodialysis for hemoglobin of 7.3, remains tachycardic, afebrile, on ventilatory support. Assessment/Plan -Acute respiratory failure with left upper lobe collapse. Continue ventilatory support. Dr. Hamilton is following in pulmonology consultation. -5% pneumothorax, continue serial chest x-rays to ensure no progression of pneumothorax. -Healthcare acquired pneumonia, continue vancomycin and cefepime, follow-up and sputum culture. Dr. Stephenson is following in infection disease consultation - Acute kidney injury with a generalized edema and hyperkalemia, Dr. Stevens is following in nephrology consultation. Continue hemodialysis. -Paroxysmal atrial fibrillation -Diabetes mellitus, continue Lantus and NovoLog -Hypothyroidism, continue levothyroxine. 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 Broussard is asked to see patient in gastroenterology consultation. Further recommendations based on clinical course. Plan of care discussed with Dr. Han. Problems: Exam/Review of Systems Vital Signs Vitals Vital Signs Date Time Temp Pulse Resp B/P Pulse Ox O2 Delivery O2 Flow Rate FiO2 05/13/17 08:30 75 05/13/17 08:00 114 05/13/17 07:00 22 92 05/13/17 06:00 98.3 137/62 Mechanical Ventilator Intake and Output 05/12/17 05/12/17 05/13/17 14:59 22:59 06:59 Intake Total 400 ml 500 ml 700 ml Output Total 30 ml 230 ml 45 ml Balance 370 ml 270 ml 655 ml Exam Constitutional: alert Neck: other (Tracheostomy), supple Respiratory: diminished breath sounds Cardiovascular: nl pulses Gastrointestinal: ascites, non-tender, other (G-tube), soft Musculoskeletal: muscle weakness Extremities: edema Neurological: other (Paraplegia) R fem Dany Results Result Diagram: 05/13/17 0543 05/13/17 0543 Results 24 hrs Laboratory Tests Test 05/12/17 13:36 05/12/17 17:04 05/12/17 21:13 05/13/17 02:38 Bedside Glucose 98 124 125 146 Test 05/13/17 04:59 05/13/17 05:00 05/13/17 05:43 Bedside Glucose 99 Blood Gas Specimen Source Blood arterial Arterial Blood Date Drawn 05/13/2017 4:55:00 AM Arterial Blood pH (Temp corrected) 7.381 Arterial Blood pCO2 (Temp correct) 34.8 L Arterial Blood pO2 (Temp corrected) 67.8 L Arterial Blood HCO3 20.2 L Arterial Blood Base Excess -4.4 L Arterial Blood Oxygen Saturation 92.6 L Ki Test ACCEPTAB Arterial Blood Gas Puncture Site Right Radial Arterial Blood Carboxyhemoglobin 0.3 Arterial Blood Methemoglobin 0.4 Blood Gas A-a O2 Differential 357.8 H Oxyhemoglobin Percent 92.0 L Total Hemoglobin 9.2 L Blood Gas Temperature 37.0 Blood Gas Respiration Rate 14.0 Blood Gas Actual Respiration Rate 23 Blood Gas Modality VENT - AC FiO2 65.0 Blood Gas Tidal Volume 500.0 Blood Gas Low PEEP Setting 12.0 Blood Gas Notified Whom MH Blood Gas Notified Time 05/13/2017 5:05:00 AM White Blood Count 6.6 Red Blood Count 2.56 L Hemoglobin 7.3 L Hematocrit 22.9 L Mean Corpuscular Volume 89.5 Mean Corpuscular Hemoglobin 28.5 L Mean Corpuscular Hemoglobin Concent 31.9 L Red Cell Distribution Width 18.5 H Platelet Count 191 Mean Platelet Volume 12.0 H Neutrophils % 70.6 Lymphocytes % 12.3 L Monocytes % 9.3 Eosinophils % 4.6 Basophils % 0.2 Nucleated Red Blood Cells % 0.0 Neutrophils # 4.7 Lymphocytes # 0.8 Monocytes # 0.6 Eosinophils # 0.3 Basophils # 0.0 Nucleated Red Blood Cells # 0.0 Sodium Level 137 Potassium Level 5.8 H Chloride Level 103 Carbon Dioxide Level 24 Anion Gap 16 Blood Urea Nitrogen 82 H Creatinine 1.63 H Glucose Level 78 # Calcium Level 9.6 Medications Medications Current Medications Enoxaparin Sodium (Lovenox) 30 mg DAILY SC Last administered on 05/12/17 08:58 ; Admin Dose 30 MG; Start 05/09/17 at 09:00 Aspirin (Aspirin) 81 mg DAILY GTB Last administered on 05/12/17 08:34; Admin Dose 81 MG; Start 05/09/17 at 09:00 Acetaminophen (Tylenol Liquid) 650 mg Q6H PRN GTB PAIN AND OR ELEVATED TEMP Last administered on 05/12/17 08:34; Admin Dose 650 MG; Start 05/09/17 at 09:00 Cholecalciferol (Vitamin D) 1,000 unit DAILY GTB Last administered on 08:34; Admin Dose 1,000 UNIT; Start 05/09/17 at 09:00 Insulin Glargine (Lantus) 17 unit DAILY@08 SC Last administered on 05/12/17 08 :57; Admin Dose 17 UNIT; Start 05/10/17 at 08:00 Levothyroxine Sodium (Synthroid) 125 mcg DAILY@06 GTB Last administered on 05/13 05:35; Admin Dose 125 MCG; Start 05/10/17 at 06:00 Zinc Sulfate (Zinc Sulfate) 220 mg DAILY GTB Last administered on 05/12/17 08: 34; Admin Dose 220 MG; Start 05/09/17 at 09:00 Ondansetron HCl (Zofran Inj) 4 mg Q6H PRN IV NAUSEA AND/OR VOMITING Last administered on 05/12/17 08:33; Admin Dose 4 MG; Start 05/09/17 at 09:00 Lorazepam (Ativan) 1 mg Q6H PRN IV ANXIETY Last administered on 05/10/17 21:47 ; Admin Dose 1 MG; Start 05/09/17 at 09:00 Miscellaneous Information 1 ea NOTE XX ; Start 05/09/17 at 10:00 Glucose (Glutose) 15 gm Q15M PRN PO DECREASED GLUCOSE; Start 05/09/17 at 10:00 Glucose (Glutose) 22.5 gm Q15M PRN PO DECREASED GLUCOSE; Start 05/09/17 at 10: 00 Dextrose (D50w Syringe) 25 ml Q15M PRN IV DECREASED GLUCOSE Last administered on 05/11/17 01:54; Admin Dose 25 ML; Start 05/09/17 at 10:00 Dextrose (D50w Syringe) 50 ml Q15M PRN IV DECREASED GLUCOSE; Start 05/09/17 at 10:00 Glucagon (Glucagen) 1 mg Q15M PRN IM DECREASED GLUCOSE; Start 05/09/17 at 10:00 Glucose (Glutose) 15 gm Q15M PRN BUCCAL DECREASED GLUCOSE; Start 05/09/17 at 10 :00 Multivitamins (Multivitamin) 30 ml DAILY PEG Last administered on 05/12/17 08: 34; Admin Dose 30 ML; Start 05/10/17 at 09:00 Fluoxetine HCl 20 mg 20 mg DAILY GTB Last administered on 05/12/17 08:34; Admin Dose 20 MG; Start 05/10/17 at 09:00 Cefepime HCl (Maxipime 1gm/50 ml (Pmx)) 50 ml @ 100 mls/hr Q24H IVPB Last administered on 05/12/17 13:44; Admin Dose 100 MLS/HR; Start 05/10/17 at 12:00 Collagenase (Santyl) 1 applic DAILY TOP Last administered on 05/12/17 08:34; Admin Dose 1 APPLIC; Start 05/10/17 at 09:00 Collagenase (Santyl) 1 applic PRN PRN TOP SOILING; Start 05/10/17 at 01:30 Morphine Sulfate (morphine) 2 mg Q4H PRN IV PAIN LEVEL 4-6 Last administered on 05/12/17 08:33; Admin Dose 2 MG; Start 05/10/17 at 17:30 Famotidine 20 mg 20 mg DAILY GTB Last administered on 05/12/17 08:34; Admin Dose 20 MG; Start 05/11/17 at 09:00 Vancomycin HCl/ Sodium Chloride (Vancocin/NS) 250 ml @ 83.333 mls/ hr Q96H IVPB ; Start 05/13/17 at 16:00 Insulin Aspart (Novolog Insulin Pen) NOVOLOG *MILD* ALGORI... Q6 SC ; Start 05/13/17 at 12:00 KISHAN SAUCEDO May 13, 2017 10:21
--- NOTE | 2017-05-13 10:44 | PN ---
Date/Time of Note Date/Time of Note DATE: 05/13/17 TIME: 10:26 Assessment/Plan Lines/Catheters IV Catheter Type (from [facility]): PICC Line Geronimo in Place (from [facility]): Yes Assessment/Plan Chief Complaint/Hosp Course 1. Sacral wound: stage 4 -debridement prn -local care -frequent turning and off-loading -low air loss mattress -vitamin c -short term zinc -optimize nutrition -cultures-pending 2. Acute respiratory failure with complete collapse of the left upper lobe with obliteration of the left upper lobe bronchus. -per pulm -continue vent support 3. VDRF -pulm toilet -respiratory treatments 4. Anemia: no acute bleed noted: stool OB + -monitor -transfuse as needed -gi consult for eventual scope 5. Elevated TSH -further workup per medical team 6. Electrolyte imbalance -optimize lytes 7. Morbid obesity: bmi 40 -diet and exercise optimization -encourage weight loss 8. BERNARDINO started on HD -per renal 9. Tachycardia: -cardiac optimization Thank you. Patient seen and examined in collaboration with Dr. Kedar Valencia. Problems: Subjective 24 Hr Interval Summary Continues in ICU care. Ongoing HD at the moment. Tachycardic. Wounds without excessive drainage or odor. No fevers, chills, sob, cp, palpitations, pimentel, dizziness, n/v/d/dysuria. Exam/Review of Systems Vital Signs Vitals Vital Signs Date Time Temp Pulse Resp B/P Pulse Ox O2 Delivery O2 Flow Rate FiO2 05/13/17 09:50 112 27 97 75 05/13/17 06:00 98.3 137/62 Mechanical Ventilator Intake and Output 05/12/17 05/12/17 05/13/17 15:00 23:00 07:00 Intake Total 250 ml 500 ml 650 ml Output Total 240 ml 35 ml Balance 250 ml 260 ml 615 ml Exam Free Text/Dictation Constitutional: alert, responsive No distress Psych: nl mood/affect, no complaints Head: atraumatic, normocephalic Eyes: nl lids, nl sclera ENMT: mucosa pink and moist, nl nasal mucosa & septum Neck: non-tender, other (trach vent), supple Respiratory: crackles/rales Cardiovascular: nl pulses, other (st), regular rate and rhythm Gastrointestinal: distended Genitourinary - Female: nl adnexae, nl external genitalia Musculoskeletal: No muscle tone (stiffness) Extremities: pitting pedal edema Neurological: other (paraplegia), No nl speech, No nl strength Skin: other (wound: clean, nonmalodorous, periwound without erythema) Results Result Diagram: 05/13/17 0543 05/13/17 0543 BRITTANY STALEY NP May 13, 2017 10:36
[2017-05-13] MEDS ORDERED: DILTIAZEM 25 MG INJ IV ONE (13:00)
[2017-05-13] MEDS: CEFEPIME 1GM/50 ML (PMX) 50 ML IVPB SCH (13:17)
[2017-05-13] MEDS: CHOLECALCIFEROL 1,000 UNIT TAB GTB SCH (13:17)
[2017-05-13] MEDS: ASPIRIN 81 MG TAB GTB SCH (13:17)
[2017-05-13] MEDS: FAMOTIDINE 20 MG TAB GTB SCH (13:17)
[2017-05-13] MEDS: FLUOXETINE 20 MG CAP GTB SCH (13:17)
[2017-05-13] MEDS: ZINC SULFATE 220 MG CAP GTB SCH (13:17)
[2017-05-13] MEDS: MULTIVITAMINS 30 ML CUP PEG SCH (13:17)
[2017-05-13] MEDS: COLLAGENASE 30 GM TUBE TOP SCH (13:18)
[2017-05-13] MEDS: INSULIN GLARGINE [LANtus] 3 ML PEN SC SCH (13:22)
--- NOTE | 2017-05-13 14:04 | CONS ---
Date/Time of Note Date/Time of Note DATE: 05/13/17 TIME: 14:02 Assessment/Plan Assessment/Plan Additional Assessment/Plan Respiratory failure with hypoxia Preserved ejection fraction Pulmonary hypertension Tricuspid valve regurgitation Pneumothorax Paraplegia Acute kidney injury with history of CKD started on hemodialysis Obesity -Fluid management via hemodialysis as per nephrology colleagues. Echocardiogram with preserved ejection fraction. Ventilator and pulmonary care as per our pulmonary colleagues. Consultation Date/Type/Reason Admit Date/Time May 09, 2017 at 00:06 Initial Consult Date 05/09/17 Type of Consultation: cv Referring Provider: KISHAN SAUCEDO 24 HR Interval Summary Free Text/Dictation Patient seen and examined. In discussion with nursing staff, patient with hypotension during hemodialysis but resolved Exam/Review of Systems Vital Signs Vitals Vital Signs Date Time Temp Pulse Resp B/P Pulse Ox O2 Delivery O2 Flow Rate FiO2 05/13/17 13:00 120 20 103/49 100 Mechanical Ventilator 05/13/17 12:00 98.3 05/13/17 11:50 75 Intake and Output 05/12/17 05/12/17 05/13/17 15:00 23:00 07:00 Intake Total 250 ml 500 ml 650 ml Output Total 240 ml 35 ml Balance 250 ml 260 ml 615 ml Exam Sleeping but arousable, no apparent distress Head: normocephalic Neck: other (Tracheostomy) Respiratory: other (Coarse breath sounds bilaterally, no wheezing) Cardiovascular: other (S1-S2 heard), regular rate and rhythm Gastrointestinal: bowel sounds, non-tender, soft Extremities: edema Results Result Diagram: 05/13/17 0543 05/13/17 0543 Results 24 hrs Laboratory Tests Test 05/12/17 17:04 05/12/17 21:13 05/13/17 02:38 05/13/17 04:59 Bedside Glucose 124 125 146 99 Test 05/13/17 05:00 05/13/17 05:43 05/13/17 13:20 Blood Gas Specimen Source Blood arterial Arterial Blood Date Drawn 05/13/2017 4:55:00 AM Arterial Blood pH (Temp corrected) 7.381 Arterial Blood pCO2 (Temp correct) 34.8 L Arterial Blood pO2 (Temp corrected) 67.8 L Arterial Blood HCO3 20.2 L Arterial Blood Base Excess -4.4 L Arterial Blood Oxygen Saturation 92.6 L Ki Test ACCEPTAB Arterial Blood Gas Puncture Site Right Radial Arterial Blood Carboxyhemoglobin 0.3 Arterial Blood Methemoglobin 0.4 Blood Gas A-a O2 Differential 357.8 H Oxyhemoglobin Percent 92.0 L Total Hemoglobin 9.2 L Blood Gas Temperature 37.0 Blood Gas Respiration Rate 14.0 Blood Gas Actual Respiration Rate 23 Blood Gas Modality VENT - AC FiO2 65.0 Blood Gas Tidal Volume 500.0 Blood Gas Low PEEP Setting 12.0 Blood Gas Notified Whom Blood Gas Notified Time 05/13/2017 5:05:00 AM White Blood Count 6.6 Red Blood Count 2.56 L Hemoglobin 7.3 L Hematocrit 22.9 L Mean Corpuscular Volume 89.5 Mean Corpuscular Hemoglobin 28.5 L Mean Corpuscular Hemoglobin Concent 31.9 L Red Cell Distribution Width 18.5 H Platelet Count 191 Mean Platelet Volume 12.0 H Neutrophils % 70.6 Lymphocytes % 12.3 L Monocytes % 9.3 Eosinophils % 4.6 Basophils % 0.2 Nucleated Red Blood Cells % 0.0 Neutrophils # 4.7 Lymphocytes # 0.8 Monocytes # 0.6 Eosinophils # 0.3 Basophils # 0.0 Nucleated Red Blood Cells # 0.0 Sodium Level 137 Potassium Level 5.8 H Chloride Level 103 Carbon Dioxide Level 24 Anion Gap 16 Blood Urea Nitrogen 82 H Creatinine 1.63 H Glucose Level 78 # Calcium Level 9.6 Bedside Glucose 171 Medications Medications Current Medications Aspirin (Aspirin) 81 mg DAILY GTB Last administered on 05/13/17 13:17; Admin Dose 81 MG; Start 05/09/17 at 09:00 Acetaminophen (Tylenol Liquid) 650 mg Q6H PRN GTB PAIN AND OR ELEVATED TEMP Last administered on 05/12/17 08:34; Admin Dose 650 MG; Start 05/09/17 at 09:00 Cholecalciferol (Vitamin D) 1,000 unit DAILY GTB Last administered on 13:17; Admin Dose 1,000 UNIT; Start 05/09/17 at 09:00 Insulin Glargine (Lantus) 17 unit DAILY@08 SC Last administered on 05/13/17 13 :22; Admin Dose 17 UNIT; Start 05/10/17 at 08:00 Levothyroxine Sodium (Synthroid) 125 mcg DAILY@06 GTB Last administered on 05/13 05:35; Admin Dose 125 MCG; Start 05/10/17 at 06:00 Zinc Sulfate (Zinc Sulfate) 220 mg DAILY GTB Last administered on 05/13/17 13: 17; Admin Dose 220 MG; Start 05/09/17 at 09:00 Ondansetron HCl (Zofran Inj) 4 mg Q6H PRN IV NAUSEA AND/OR VOMITING Last administered on 05/12/17 08:33; Admin Dose 4 MG; Start 05/09/17 at 09:00 Lorazepam (Ativan) 1 mg Q6H PRN IV ANXIETY Last administered on 05/10/17 21:47 ; Admin Dose 1 MG; Start 05/09/17 at 09:00 Miscellaneous Information 1 ea NOTE XX ; Start 05/09/17 at 10:00 Glucose (Glutose) 15 gm Q15M PRN PO DECREASED GLUCOSE; Start 05/09/17 at 10:00 Glucose (Glutose) 22.5 gm Q15M PRN PO DECREASED GLUCOSE; Start 05/09/17 at 10: 00 Dextrose (D50w Syringe) 25 ml Q15M PRN IV DECREASED GLUCOSE Last administered on 05/11/17 01:54; Admin Dose 25 ML; Start 05/09/17 at 10:00 Dextrose (D50w Syringe) 50 ml Q15M PRN IV DECREASED GLUCOSE; Start 05/09/17 at 10:00 Glucagon (Glucagen) 1 mg Q15M PRN IM DECREASED GLUCOSE; Start 05/09/17 at 10:00 Glucose (Glutose) 15 gm Q15M PRN BUCCAL DECREASED GLUCOSE; Start 05/09/17 at 10 :00 Multivitamins (Multivitamin) 30 ml DAILY PEG Last administered on 05/13/17 13: 17; Admin Dose 30 ML; Start 05/10/17 at 09:00 Fluoxetine HCl 20 mg 20 mg DAILY GTB Last administered on 05/13/17 13:17; Admin Dose 20 MG; Start 05/10/17 at 09:00 Cefepime HCl (Maxipime 1gm/50 ml (Pmx)) 50 ml @ 100 mls/hr Q24H IVPB Last administered on 05/13/17 13:17; Admin Dose 100 MLS/HR; Start 05/10/17 at 12:00 Collagenase (Santyl) 1 applic DAILY TOP Last administered on 05/13/17 13:18; Admin Dose 1 APPLIC; Start 05/10/17 at 09:00 Collagenase (Santyl) 1 applic PRN PRN TOP SOILING; Start 05/10/17 at 01:30 Morphine Sulfate (morphine) 2 mg Q4H PRN IV PAIN LEVEL 4-6 Last administered on 05/12/17 08:33; Admin Dose 2 MG; Start 05/10/17 at 17:30 Famotidine 20 mg 20 mg DAILY GTB Last administered on 05/13/17 13:17; Admin Dose 20 MG; Start 05/11/17 at 09:00 Vancomycin HCl/ Sodium Chloride (Vancocin/NS) 250 ml @ 83.333 mls/ hr Q96H IVPB ; Start 05/13/17 at 16:00 Insulin Aspart (Novolog Insulin Pen) NOVOLOG *MILD* ALGORI... Q6 SC Last administered on 05/13/17 13:21; Admin Dose 1 UNIT; Start 05/13/17 at 12:00 Jonah Ayala DO May 13, 2017 14:04
--- NOTE | 2017-05-13 14:11 | CONS ---
Date/Time of Note Date/Time of Note DATE: 05/13/17 TIME: 14:10 Assessment/Plan Assessment/Plan Chief Complaint/Hosp Course - Probable VAP vs HCAP 2/2 MRSA - Pulmonary edema - Acute on chronic hypoxemic respiratory failure s/p recent trach - Small right pneumothorax (less than 5%) on CT - BERNARDINO on CKD d/t ATN with fluid overload initiated on HD 05/10/2017 - Hyperkalemia - CAD - PAF - remains in SR/ST - CHF d/t diastolic dysfunction - IDDM - Hgb A1c 5.5% - Hypothyroidism - Anemia with iron deficiency, +stool OB - Dysphagia s/p PEG - Paraplegia d/t spinal injury - Chronic BUE weakness - Hypoalbuminemia with anasarca - Toxic metabolic encephalopathy - improving - Morbid obesity - BMI 39 - 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 Recommendations: - DC cefepime - continue empiric renally dosed vancomycin (05/09/2017-) - pending: wound cx, procalc, influenza screen - serial CXR - continue local wound care - add Mupirocin for MRSA de-colonization - contact isolation for MRSA Management d/w RN Mirta and Dr. Stephenson Critical care time spent: 45 min Problems: Consultation Date/Type/Reason Admit Date/Time May 09, 2017 at 00:06 Initial Consult Date 05/10/17 Type of Consultation: Infectious Disease Referring Provider: KISHAN SAUCEDO 24 HR Interval Summary Free Text/Dictation 2 units PRBC transfused with HD today for Hgb 7.3 with net 3 L removed per d/w nursing staff. Unable to perform ROS d/t encephalopathy Subjective hx not possible: pt non-verbal Exam/Review of Systems Vital Signs Vitals Vital Signs Date Time Temp Pulse Resp B/P Pulse Ox O2 Delivery O2 Flow Rate FiO2 05/13/17 13:00 120 20 103/49 100 Mechanical Ventilator 05/13/17 12:00 98.3 05/13/17 11:50 75 Intake and Output 05/12/17 05/12/17 05/13/17 15:00 23:00 07:00 Intake Total 250 ml 500 ml 650 ml Output Total 240 ml 35 ml Balance 250 ml 260 ml 615 ml Exam Constitutional: alert, non-verbal, obese, other (anasarca), well developed Head: atraumatic, normocephalic Eyes: nl sclera ENMT: other (No thrush) Neck: other (tracheostomy intact), supple Respiratory: diminished breath sounds Cardiovascular: other (S1, S2, regular rhythm, tachycardic) Gastrointestinal: bowel sounds (normoactive), non-tender, other (G-tube intact with tube feeds on hold), soft, surgical scars (well healed) Genitourinary - Female: other (Geronimo catheter present; R fem HD catheter in place) Extremities: edema, other (Bilateral foot drop noted), No clubbing, No cyanosis Neurological: lethargic, other (paraplegia with BUE weakness; selectively nods to simple questions; + tracking) Skin: other (R knee wound and stage IV coccygeal wound; weeping noted from BUE - see nurse note and photos for details) Results Result Diagram: 05/13/1743 05/13/1743 Results 24 hrs Laboratory Tests Test 05/12/17 17:04 05/12/17 21:13 05/13/17 02:38 05/13/17 04:59 Bedside Glucose 124 125 146 99 Test 05/13/17 05:00 05/13/17 05:43 05/13/17 13:20 Blood Gas Specimen Source Blood arterial Arterial Blood Date Drawn 05/13/2017 4:55:00 AM Arterial Blood pH (Temp corrected) 7.381 Arterial Blood pCO2 (Temp correct) 34.8 L Arterial Blood pO2 (Temp corrected) 67.8 L Arterial Blood HCO3 20.2 L Arterial Blood Base Excess -4.4 L Arterial Blood Oxygen Saturation 92.6 L Ki Test ACCEPTAB Arterial Blood Gas Puncture Site Right Radial Arterial Blood Carboxyhemoglobin 0.3 Arterial Blood Methemoglobin 0.4 Blood Gas A-a O2 Differential 357.8 H Oxyhemoglobin Percent 92.0 L Total Hemoglobin 9.2 L Blood Gas Temperature 37.0 Blood Gas Respiration Rate 14.0 Blood Gas Actual Respiration Rate 23 Blood Gas Modality VENT - AC FiO2 65.0 Blood Gas Tidal Volume 500.0 Blood Gas Low PEEP Setting 12.0 Blood Gas Notified Whom MH Blood Gas Notified Time 05/13/2017 5:05:00 AM White Blood Count 6.6 Red Blood Count 2.56 L Hemoglobin 7.3 L Hematocrit 22.9 L Mean Corpuscular Volume 89.5 Mean Corpuscular Hemoglobin 28.5 L Mean Corpuscular Hemoglobin Concent 31.9 L Red Cell Distribution Width 18.5 H Platelet Count 191 Mean Platelet Volume 12.0 H Neutrophils % 70.6 Lymphocytes % 12.3 L Monocytes % 9.3 Eosinophils % 4.6 Basophils % 0.2 Nucleated Red Blood Cells % 0.0 Neutrophils # 4.7 Lymphocytes # 0.8 Monocytes # 0.6 Eosinophils # 0.3 Basophils # 0.0 Nucleated Red Blood Cells # 0.0 Sodium Level 137 Potassium Level 5.8 H Chloride Level 103 Carbon Dioxide Level 24 Anion Gap 16 Blood Urea Nitrogen 82 H Creatinine 1.63 H Glucose Level 78 # Calcium Level 9.6 Bedside Glucose 171 Medications Medications Current Medications Aspirin (Aspirin) 81 mg DAILY GTB Last administered on 05/13/17 13:17; Admin Dose 81 MG; Start 05/09/17 at 09:00 Acetaminophen (Tylenol Liquid) 650 mg Q6H PRN GTB PAIN AND OR ELEVATED TEMP Last administered on 05/12/17 08:34; Admin Dose 650 MG; Start 05/09/17 at 09:00 Cholecalciferol (Vitamin D) 1,000 unit DAILY GTB Last administered on 13:17; Admin Dose 1,000 UNIT; Start 05/09/17 at 09:00 Insulin Glargine (Lantus) 17 unit DAILY@08 SC Last administered on 05/13/17 13 :22; Admin Dose 17 UNIT; Start 05/10/17 at 08:00 Levothyroxine Sodium (Synthroid) 125 mcg DAILY@06 GTB Last administered on 05/13 05:35; Admin Dose 125 MCG; Start 05/10/17 at 06:00 Zinc Sulfate (Zinc Sulfate) 220 mg DAILY GTB Last administered on 05/13/17 13: 17; Admin Dose 220 MG; Start 05/09/17 at 09:00 Ondansetron HCl (Zofran Inj) 4 mg Q6H PRN IV NAUSEA AND/OR VOMITING Last administered on 05/12/17 08:33; Admin Dose 4 MG; Start 05/09/17 at 09:00 Lorazepam (Ativan) 1 mg Q6H PRN IV ANXIETY Last administered on 05/10/17 21:47 ; Admin Dose 1 MG; Start 05/09/17 at 09:00 Miscellaneous Information 1 ea NOTE XX ; Start 05/09/17 at 10:00 Glucose (Glutose) 15 gm Q15M PRN PO DECREASED GLUCOSE; Start 05/09/17 at 10:00 Glucose (Glutose) 22.5 gm Q15M PRN PO DECREASED GLUCOSE; Start 05/09/17 at 10: 00 Dextrose (D50w Syringe) 25 ml Q15M PRN IV DECREASED GLUCOSE Last administered on 05/11/17 01:54; Admin Dose 25 ML; Start 05/09/17 at 10:00 Dextrose (D50w Syringe) 50 ml Q15M PRN IV DECREASED GLUCOSE; Start 05/09/17 at 10:00 Glucagon (Glucagen) 1 mg Q15M PRN IM DECREASED GLUCOSE; Start 05/09/17 at 10:00 Glucose (Glutose) 15 gm Q15M PRN BUCCAL DECREASED GLUCOSE; Start 05/09/17 at 10 :00 Multivitamins (Multivitamin) 30 ml DAILY PEG Last administered on 05/13/17 13: 17; Admin Dose 30 ML; Start 05/10/17 at 09:00 Fluoxetine HCl 20 mg 20 mg DAILY GTB Last administered on 05/13/17 13:17; Admin Dose 20 MG; Start 05/10/17 at 09:00 Cefepime HCl (Maxipime 1gm/50 ml (Pmx)) 50 ml @ 100 mls/hr Q24H IVPB Last administered on 05/13/17 13:17; Admin Dose 100 MLS/HR; Start 05/10/17 at 12:00 Collagenase (Santyl) 1 applic DAILY TOP Last administered on 05/13/17 13:18; Admin Dose 1 APPLIC; Start 05/10/17 at 09:00 Collagenase (Santyl) 1 applic PRN PRN TOP SOILING; Start 05/10/17 at 01:30 Morphine Sulfate (morphine) 2 mg Q4H PRN IV PAIN LEVEL 4-6 Last administered on 05/12/17 08:33; Admin Dose 2 MG; Start 05/10/17 at 17:30 Famotidine 20 mg 20 mg DAILY GTB Last administered on 05/13/17 13:17; Admin Dose 20 MG; Start 05/11/17 at 09:00 Vancomycin HCl/ Sodium Chloride (Vancocin/NS) 250 ml @ 83.333 mls/ hr Q96H IVPB ; Start 05/13/17 at 16:00 Insulin Aspart (Novolog Insulin Pen) NOVOLOG *MILD* ALGORI... Q6 SC Last administered on 05/13/17t 13:21; Admin Dose 1 UNIT; Start 05/13/17 at 12:00 Procedures Procedures CXR 05/13/2017: FINDINGS: The tracheostomy tube remains in satisfactory position. The right arm PICC line tip is in the cavoatrial junction region. Bilateral pulmonary airspace and interstitial disease is unchanged. The heart is enlarged. There is calcification in the aorta consistent with atherosclerosis. There is no right pleural effusion. There is a small left pleural effusion. There is no pneumothorax. There is a right humeral head prosthesis and a left shoulder reverse arthroplasty. IMPRESSION: 1. No change from the 05/12/2017 chest radiograph. KATHY VARGAS NP May 13, 2017 14:11
--- NOTE | 2017-05-13 15:25 | CONS ---
Date/Time of Note Date/Time of Note DATE: 05/13/17 TIME: 15:23 Assessment/Plan Assessment/Plan Chief Complaint/Hosp Course 76-year-old female who was recently transferred to [facility] and then transferred to [facility] because of worsening hypoxia. Patient on ventilator with increased oxygen requirements..pt is s/p tracheostomy , non verbal, on ventilator Renal has been consulted for BERNARDINO, uremia, and decreased Urine output. Problems: Additional Assessment/Plan 1. Acute kindey injury due to ATN with acute fluid overload 2. acute uremia with BUn around 100 3. acute on chronic resp failure, s/p tracheostomy 4. Metabolic acidosis 5. Paraplegia 6. Anemia of chronic disease, rule out iron deficiency Plan : started on HD during This admission- today S/p HD with Ultrafitration, 3 L removed, Bp stable post HD Continue IV abx, Bp stable, pt remained on ventilator, , pulmonary following will plan for Ultrafiltration tomorrow after my round. will follow up Consultation Date/Type/Reason Admit Date/Time May 09, 2017 at 00:06 Initial Consult Date 05/09/17 Type of Consultation: NEPHROLOG Y Referring Provider: KISHAN SAUCEDO 24 HR Interval Summary Free Text/Dictation s/p HD today with ultrafiltration 3 L removed , remained on Ventilator, BP stable today AM Exam/Review of Systems Vital Signs Vitals Vital Signs Date Time Temp Pulse Resp B/P Pulse Ox O2 Delivery O2 Flow Rate FiO2 05/13/17 15:10 115 18 100 65 05/13/17 13:00 103/49 Mechanical Ventilator 05/13/17 12:00 98.3 Intake and Output 05/12/17 05/12/17 05/13/17 14:59 22:59 06:59 Intake Total 400 ml 500 ml 700 ml Output Total 30 ml 230 ml 45 ml Balance 370 ml 270 ml 655 ml Exam Constitutional: non-verbal + facial swelling, neck swelling, + diffuse anasarca ENMT: other (+ tracehostomy on ventilator ) Neck: non-tender, supple Respiratory: crackles/rales, diminished breath sounds Cardiovascular: other (tachycardia ), regular rate and rhythm Gastrointestinal: non-tender, soft Musculoskeletal: muscle weakness, 3+ pitting edema upto thigh, back and sacral area Neurological: other (Unable to assess neurolgoical due to pt clinical condition ), unresponsive Results Result Diagram: 05/13/17 0543 05/13/17 0543 Results 24 hrs Laboratory Tests Test 05/12/17 17:04 05/12/17 21:13 05/13/17 02:38 05/13/17 04:59 Bedside Glucose 124 125 146 99 Test 05/13/17 05:00 05/13/17 05:43 05/13/17 13:20 Blood Gas Specimen Source Blood arterial Arterial Blood Date Drawn 05/13/2017 4:55:00 AM Arterial Blood pH (Temp corrected) 7.381 Arterial Blood pCO2 (Temp correct) 34.8 L Arterial Blood pO2 (Temp corrected) 67.8 L Arterial Blood HCO3 20.2 L Arterial Blood Base Excess -4.4 L Arterial Blood Oxygen Saturation 92.6 L Ki Test ACCEPTAB Arterial Blood Gas Puncture Site Right Radial Arterial Blood Carboxyhemoglobin 0.3 Arterial Blood Methemoglobin 0.4 Blood Gas A-a O2 Differential 357.8 H Oxyhemoglobin Percent 92.0 L Total Hemoglobin 9.2 L Blood Gas Temperature 37.0 Blood Gas Respiration Rate 14.0 Blood Gas Actual Respiration Rate 23 Blood Gas Modality VENT - AC FiO2 65.0 Blood Gas Tidal Volume 500.0 Blood Gas Low PEEP Setting 12.0 Blood Gas Notified Whom MH Blood Gas Notified Time 05/13/2017 5:05:00 AM White Blood Count 6.6 Red Blood Count 2.56 L Hemoglobin 7.3 L Hematocrit 22.9 L Mean Corpuscular Volume 89.5 Mean Corpuscular Hemoglobin 28.5 L Mean Corpuscular Hemoglobin Concent 31.9 L Red Cell Distribution Width 18.5 H Platelet Count 191 Mean Platelet Volume 12.0 H Neutrophils % 70.6 Lymphocytes % 12.3 L Monocytes % 9.3 Eosinophils % 4.6 Basophils % 0.2 Nucleated Red Blood Cells % 0.0 Neutrophils # 4.7 Lymphocytes # 0.8 Monocytes # 0.6 Eosinophils # 0.3 Basophils # 0.0 Nucleated Red Blood Cells # 0.0 Sodium Level 137 Potassium Level 5.8 H Chloride Level 103 Carbon Dioxide Level 24 Anion Gap 16 Blood Urea Nitrogen 82 H Creatinine 1.63 H Glucose Level 78 # Calcium Level 9.6 Bedside Glucose 171 Medications Medications Current Medications Aspirin (Aspirin) 81 mg DAILY GTB Last administered on 05/13/17t 13:17; Admin Dose 81 MG; Start 05/09/17 at 09:00 Acetaminophen (Tylenol Liquid) 650 mg Q6H PRN GTB PAIN AND OR ELEVATED TEMP Last administered on 05/12/17 08:34; Admin Dose 650 MG; Start 05/09/17 at 09:00 Cholecalciferol (Vitamin D) 1,000 unit DAILY GTB Last administered on 13:17; Admin Dose 1,000 UNIT; Start 05/09/17 at 09:00 Insulin Glargine (Lantus) 17 unit DAILY@08 SC Last administered on 05/13/17 13 :22; Admin Dose 17 UNIT; Start 05/10/17 at 08:00 Levothyroxine Sodium (Synthroid) 125 mcg DAILY@06 GTB Last administered on 05/13 05:35; Admin Dose 125 MCG; Start 05/10/17 at 06:00 Zinc Sulfate (Zinc Sulfate) 220 mg DAILY GTB Last administered on 05/13/17 13: 17; Admin Dose 220 MG; Start 05/09/17 at 09:00 Ondansetron HCl (Zofran Inj) 4 mg Q6H PRN IV NAUSEA AND/OR VOMITING Last administered on 05/12/17 08:33; Admin Dose 4 MG; Start 05/09/17 at 09:00 Lorazepam (Ativan) 1 mg Q6H PRN IV ANXIETY Last administered on 05/10/17 21:47 ; Admin Dose 1 MG; Start 05/09/17 at 09:00 Miscellaneous Information 1 ea NOTE XX ; Start 05/09/17 at 10:00 Glucose (Glutose) 15 gm Q15M PRN PO DECREASED GLUCOSE; Start 05/09/17 at 10:00 Glucose (Glutose) 22.5 gm Q15M PRN PO DECREASED GLUCOSE; Start 05/09/17 at 10: 00 Dextrose (D50w Syringe) 25 ml Q15M PRN IV DECREASED GLUCOSE Last administered on 05/11/17 01:54; Admin Dose 25 ML; Start 05/09/17 at 10:00 Dextrose (D50w Syringe) 50 ml Q15M PRN IV DECREASED GLUCOSE; Start 05/09/17 at 10:00 Glucagon (Glucagen) 1 mg Q15M PRN IM DECREASED GLUCOSE; Start 05/09/17 at 10:00 Glucose (Glutose) 15 gm Q15M PRN BUCCAL DECREASED GLUCOSE; Start 05/09/17 at 10 :00 Multivitamins (Multivitamin) 30 ml DAILY PEG Last administered on 05/13/17 13: 17; Admin Dose 30 ML; Start 05/10/17 at 09:00 Fluoxetine HCl (Prozac) 20 mg DAILY GTB Last administered on 05/13/17 13:17; Admin Dose 20 MG; Start 05/10/17 at 09:00 Collagenase (Santyl) 1 applic DAILY TOP Last administered on 05/13/17 13:18; Admin Dose 1 APPLIC; Start 05/10/17 at 09:00 Collagenase (Santyl) 1 applic PRN PRN TOP SOILING; Start 05/10/17 at 01:30 Morphine Sulfate (morphine) 2 mg Q4H PRN IV PAIN LEVEL 4-6 Last administered on 05/12/17 08:33; Admin Dose 2 MG; Start 05/10/17 at 17:30 Famotidine 20 mg 20 mg DAILY GTB Last administered on 05/13/17 13:17; Admin Dose 20 MG; Start 05/11/17 at 09:00 Vancomycin HCl/ Sodium Chloride (Vancocin/NS) 250 ml @ 83.333 mls/ hr Q96H IVPB ; Start 05/13/17 at 16:00 Insulin Aspart (Novolog Insulin Pen) NOVOLOG *MILD* ALGORI... Q6 SC Last administered on 05/13/17 13:21; Admin Dose 1 UNIT; Start 05/13/17 at 12:00 JOANIE PHILLIPS MD May 13, 2017 15:25
[2017-05-13] MEDS ORDERED: VANCOMYCIN 1.25 GM in SOD CHLORIDE 0.9% 250 ML IVPB SCH (16:00)
--- NOTE | 2017-05-13 19:58 | RADRPT ---
PROCEDURE: US guidance for PICC line CLINICAL INDICATION: PICC line placement TECHNIQUE: Multiple real-time images were acquired of the patient's arm utilizing a high resolutio n transducer. This was performed by the PICC line nurse for venous access. COMPARISON: None FINDINGS: Ultrasound guidance for PICC line placement. IMPRESSION: Ultrasound guidance for PICC line placement. RPTAT: AA .Azael Garvey MD, MD Date Time Electronically viewed and signed by .Azael Garvey MD, on 05/13/2017 15:05 .S/
[2017-05-14] VITALS (35 sets, daily range): BP systolic 83–152; BP diastolic 41–74; PULSE 91–130; RESP 16–31
[2017-05-14] MEDS: INSULIN ASPART [NOVOLOG] 3 ML PEN SC SCH ×5 (01:06→23:52)
[2017-05-14] MEDS: ALBUTEROL HFA 8 GM INHALER INH SCH ×4 (01:22→19:04)
[2017-05-14] MEDS: IPRATROPIUM (HFA) 12.9 GM INHALER INH SCH ×4 (01:22→19:04)
[2017-05-14 05:32] LABS: ABNORMAL IP MESSAGE 1; HEMATOCRIT 29.6 % (37.0-47.0); HEMOGLOBIN 9.6 g/dl (12.0-16.0); MEAN CORPUSCULAR HEMOGLOBIN 27.6 pg (29.0-33.0); MEAN CORPUSCULAR HGB CONC 32.4 g/dl (32.0-37.0); MEAN CORPUSCULAR VOLUME 85.1 fl (82.0-101.0); MEAN PLATELET VOLUME 11.5 fl (7.4-10.4); PLATELET COUNT 221 10^3/UL (140-415); RED BLOOD COUNT 3.48 10^6/ul (4.20-5.40); RED CELL DISTRIBUTION WIDTH 20.7 % (11.5-14.5); WHITE BLOOD COUNT 7.8 10^3/ul (4.8-10.8)
[2017-05-14] MEDS: LEVOTHYROXINE 125 MCG TAB GTB SCH (05:36)
[2017-05-14 05:47] LABS: CALCIUM 9.4 mg/dl (8.4-10.2); CREATININE 1.41 mg/dl (0.44-1.00); PHOSPHORUS 3.3 mg/dl (2.5-4.9); POTASSIUM 4.9 mmol/L (3.5-5.1)
[2017-05-14 06:21] LABS: POSITIVE DIFF @See below
--- NOTE | 2017-05-14 06:58 | RADRPT ---
PROCEDURE: XR Chest. CLINICAL INDICATION: Shortness of breath. TECHNIQUE: Single frontal view. COMPARISON: 05/13/2017. FINDINGS: The tracheostomy tube remains in satisfactory position. The right arm PICC line tip is in the cavoat rial junction region. Bilateral pulmonary airspace and interstitial disease is unchanged. The heart is enlarged. There is calcification in the aorta consistent with atherosclerosis. There is no right pleural effusion. There is a small left pleural effusion. There is no pneumothorax. There is a right humeral head prosthesis and a left shoulder reverse arthr oplasty. IMPRESSION: 1. No change from 05/13/2017. RPTAT: QQ .Tor Grider MD, MD Date Time Electronically viewed and signed by .Tor Grider MD, MD on 05/14/2017 06:58 .R/
[2017-05-14 07:53] LABS: AADO2 Arterial 393.9 mmHg (7.0-24.0); Allen Test ACCEPTAB; Arterial Base Excess -3.9 mmol/L (-3.0-3); Arterial COHb 0.2 % (0.0-3.0); Arterial Fraction of Oxyhgb 97.2 % (93.0-99.0); Arterial HCO3 21.5 mmol/L (22.0-26.0); Arterial MetHb 0.6 % (0.0-1.5); Arterial Total Hemglobin 10.5 g/dl (12.0-18.0); MODE VENT - AC
[2017-05-14] MEDS: INSULIN GLARGINE [LANtus] 3 ML PEN SC SCH (08:35)
[2017-05-14] MEDS: MULTIVITAMINS 30 ML CUP PEG SCH (08:38)
[2017-05-14] MEDS: CHOLECALCIFEROL 1,000 UNIT TAB GTB SCH (08:38)
[2017-05-14] MEDS: ZINC SULFATE 220 MG CAP GTB SCH (08:39)
[2017-05-14] MEDS: FAMOTIDINE 20 MG TAB GTB SCH (08:39)
[2017-05-14] MEDS: MUPIROCIN 2% 22 GM OINT TOP SCH ×2 (08:39→20:33)
[2017-05-14] MEDS: FLUOXETINE 20 MG CAP GTB SCH (08:39)
[2017-05-14] MEDS: COLLAGENASE 30 GM TUBE TOP SCH (08:45)
[2017-05-14] MEDS: ASPIRIN 81 MG TAB GTB SCH (08:49)
--- NOTE | 2017-05-14 09:33 | CONS ---
Date/Time of Note Date/Time of Note DATE: 05/14/17 TIME: 09:28 Consult Date/Type/Reason Admit Date/Time May 09, 2017 at 00:06 Initial Consult Date 05/09/17 Type of Consultation: Pulmonary Ordering Provider: KISHAN SAUCEDO Subjective Patient comfortable this morning. Eyes open but not consistently following commands. FiO2 decreased this morning to 70% and PEEP of 10. Discussed with nursing staff at bedside patient has no sphincter tone therefore not able to tolerate rectal tube. Positional desaturation also to be secondary to trach alignment. Scheduled for hemodialysis today. Objective Vital Signs Date Time Temp Pulse Resp B/P Pulse Ox O2 Delivery O2 Flow Rate FiO2 05/14/17 08:00 91 05/14/17 07:00 99.4 22 152/74 98 Mechanical Ventilator 05/14/17 05:01 80 Intake and Output 05/13/17 05/13/17 05/14/17 15:00 23:00 07:00 Intake Total 1260 ml 400 ml 650 ml Output Total 3500 ml 22 ml 50 ml Balance -2240 ml 378 ml 600 ml Exam PHYSICAL EXAMINATION GENERAL: Elderly lady on mechanical ventilation via tracheostomy VITAL SIGNS: see below. HEENT: Pupils equal, round, and reactive to light. Tracheostomy site clean and intact. CARDIAC: S1, S2, 1/6 systolic ejection murmur CHEST: Diminished air entry bilaterally. ABDOMEN: Mildly distended. Bowel sounds present no guarding or rebound EXTREMITIES: No cyanosis, clubbing edema +1 NEUROLOGIC: Generalized weakness Results/Medications Result Diagram: 05/14/17 0500 05/14/17 0500 Results 24 hrs Laboratory Tests Test 05/13/17 13:20 05/13/17 18:20 05/14/17 01:02 05/14/17 05:00 Bedside Glucose 171 118 159 White Blood Count 7.8 Red Blood Count 3.48 #L Hemoglobin 9.6 #L Hematocrit 29.6 #L Mean Corpuscular Volume 85.1 Mean Corpuscular Hemoglobin 27.6 L Mean Corpuscular Hemoglobin Concent 32.4 Red Cell Distribution Width 20.7 H Platelet Count 221 Mean Platelet Volume 11.5 H Neutrophils % Lymphocytes % Monocytes % Eosinophils % Basophils % Nucleated Red Blood Cells % 0.0 Neutrophils # Lymphocytes # Monocytes # Eosinophils # Basophils # Nucleated Red Blood Cells # Sodium Level 138 Potassium Level 4.9 Chloride Level 102 Carbon Dioxide Level 25 Anion Gap 16 Blood Urea Nitrogen 62 H Creatinine 1.41 H Glucose Level 99 Calcium Level 9.4 Phosphorus Level 3.3 Magnesium Level 2.0 Test 05/14/17 05:06 05/14/17 05:35 05/14/17 07:00 05/14/17 07:24 Lab Scanned Report BLOOD TRANSFUSION REFERENCE LAB Bedside Glucose 111 Blood Gas Specimen Source Blood arterial Arterial Blood Date Drawn 05/14/2017 7:20:47 AM Arterial Blood pH (Temp corrected) 7.342 L Arterial Blood pCO2 (Temp correct) 40.6 Arterial Blood pO2 (Temp corrected) 133.9 H Arterial Blood HCO3 21.5 L Arterial Blood Base Excess -3.9 L Arterial Blood Oxygen Saturation 98.0 Ki Test ACCEPTAB Arterial Blood Gas Puncture Site Left Radial Arterial Blood Carboxyhemoglobin 0.2 Arterial Blood Methemoglobin 0.6 Blood Gas A-a O2 Differential 393.9 H Oxyhemoglobin Percent 97.2 Total Hemoglobin 10.5 L Blood Gas Temperature 37.0 Blood Gas Respiration Rate 14.0 Blood Gas Actual Respiration Rate 17 Blood Gas Modality VENT - AC FiO2 80.0 Blood Gas Tidal Volume 500.0 Blood Gas Low PEEP Setting 12.0 Blood Gas Notified Whom JLD Blood Gas Notified Time 05/14/2017 7:53:36 AM Medications Current Medications Aspirin (Aspirin) 81 mg DAILY GTB Last administered on 05/14/17 08:49; Admin Dose 81 MG; Start 05/09/17 at 09:00 Acetaminophen (Tylenol Liquid) 650 mg Q6H PRN GTB PAIN AND OR ELEVATED TEMP Last administered on 05/12/17 08:34; Admin Dose 650 MG; Start 05/09/17 at 09:00 Cholecalciferol (Vitamin D) 1,000 unit DAILY GTB Last administered on 08:38; Admin Dose 1,000 UNIT; Start 05/09/17 at 09:00 Insulin Glargine (Lantus) 17 unit DAILY@08 SC Last administered on 05/14/17 08 :35; Admin Dose 17 UNIT; Start 05/10/17 at 08:00 Levothyroxine Sodium (Synthroid) 125 mcg DAILY@06 GTB Last administered on 05/14 05:36; Admin Dose 125 MCG; Start 05/10/17 at 06:00 Zinc Sulfate (Zinc Sulfate) 220 mg DAILY GTB Last administered on 05/14/17 08: 39; Admin Dose 220 MG; Start 05/09/17 at 09:00 Ondansetron HCl (Zofran Inj) 4 mg Q6H PRN IV NAUSEA AND/OR VOMITING Last administered on 05/12/17 08:33; Admin Dose 4 MG; Start 05/09/17 at 09:00 Lorazepam (Ativan) 1 mg Q6H PRN IV ANXIETY Last administered on 05/10/17 21:47 ; Admin Dose 1 MG; Start 05/09/17 at 09:00 Miscellaneous Information 1 ea NOTE XX ; Start 05/09/17 at 10:00 Glucose (Glutose) 15 gm Q15M PRN PO DECREASED GLUCOSE; Start 05/09/17 at 10:00 Glucose (Glutose) 22.5 gm Q15M PRN PO DECREASED GLUCOSE; Start 05/09/17 at 10: 00 Dextrose (D50w Syringe) 25 ml Q15M PRN IV DECREASED GLUCOSE Last administered on 05/11/17 01:54; Admin Dose 25 ML; Start 05/09/17 at 10:00 Dextrose (D50w Syringe) 50 ml Q15M PRN IV DECREASED GLUCOSE; Start 05/09/17 at 10:00 Glucagon (Glucagen) 1 mg Q15M PRN IM DECREASED GLUCOSE; Start 05/09/17 at 10:00 Glucose (Glutose) 15 gm Q15M PRN BUCCAL DECREASED GLUCOSE; Start 05/09/17 at 10 :00 Multivitamins (Multivitamin) 30 ml DAILY PEG Last administered on 05/14/17 08: 38; Admin Dose 30 ML; Start 05/10/17 at 09:00 Fluoxetine HCl (Prozac) 20 mg DAILY GTB Last administered on 05/14/17 08:39; Admin Dose 20 MG; Start 05/10/17 at 09:00 Collagenase (Santyl) 1 applic DAILY TOP Last administered on 05/14/17 08:45; Admin Dose 1 APPLIC; Start 05/10/17 at 09:00 Collagenase (Santyl) 1 applic PRN PRN TOP SOILING; Start 05/10/17 at 01:30 Morphine Sulfate (morphine) 2 mg Q4H PRN IV PAIN LEVEL 4-6 Last administered on 05/12/17 08:33; Admin Dose 2 MG; Start 05/10/17 at 17:30 Famotidine 20 mg 20 mg DAILY GTB Last administered on 05/14/17 08:39; Admin Dose 20 MG; Start 05/11/17 at 09:00 Vancomycin HCl/ Sodium Chloride (Vancocin/NS) 250 ml @ 83.333 mls/ hr Q96H IVPB Last administered on 05/13/17 16:31; Admin Dose 83.333 MLS/HR; Start 05/13/17 at 16:00 Insulin Aspart (Novolog Insulin Pen) NOVOLOG *MILD* ALGORI... Q6 SC Last administered on 05/14/17 01:06; Admin Dose 1 UNIT; Start 05/13/17 at 12:00 Mupirocin (Bactroban) 1 applic BID TOP Last administered on 05/14/17 08:39; Admin Dose 1 APPLIC; Start 05/14/17 at 09:00 Assessment/Plan Chief Complaint/Hosp Course Assessment 1. Hypoxemic respiratory failure with recent tracheostomy. Still with significant hypoxemia chest x-ray demonstrating ongoing bilateral infiltrates. Intermittent desaturation possibly secondary to tracheostomy position against tracheal wall. Decrease FiO2 as tolerated. Now down to 70% FiO2 and PEEP of 10. ENT evaluation for hospital XLT tracheostomy 2. Renal insufficiency with profound anasarca. Hemodialysis today. 3. Anemia possible chronic in nature rule out GI bleed H&H remained stable 4. Encephalopathy toxic metabolic appears to be resolving Avoid benzodiazepines if possible 5. Diabetes mellitus Continue current glycemic management 6. Paroxysmal atrial fibrillation Currently rate controlled 7. Dysphagia now with G-tube Continue tube feeding 8. Stage IV decubitus ulcer continues infection formed stool patient may benefit from diverting colostomy. 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 Consider surgical evaluation for diverting colostomy Continue wound care Consider family conference to discuss goals of care is overall prognosis very poor. Problems: YAQUELIN DURAN MD, [facility] May 14, 2017 09:32
[2017-05-14 09:49] LABS: ANISOCYTOSIS 1+ (0-0); BURR CELLS 1+ (0-0); EOSINOPHILS % (M) 4 % (0-7); GIANT THROMBO% (M) 6 % (0-0); HYPOCHROMASIA 1+ (0-0); MONOCYTES % (M) 10 % (0-11); MYELOCYTES % (M) 2 % (0-0); PLATELET ESTIMATE NORMAL; POIKILOCYTOSIS 3+ (0-0); POLYCHROMASIA 1+ (0-0)
--- NOTE | 2017-05-14 09:49 | CONS ---
Date/Time of Note Date/Time of Note DATE: 05/14/17 TIME: 09:46 Assessment/Plan Assessment/Plan Chief Complaint/Hosp Course 76-year-old female who was recently transferred to [facility] and then transferred to [facility] because of worsening hypoxia. Patient on ventilator with increased oxygen requirements..pt is s/p tracheostomy , non verbal, on ventilator Renal has been consulted for BERNARDINO, uremia, and decreased Urine output. Problems: Additional Assessment/Plan 1. Acute kindey injury due to ATN with acute fluid overload- started on HD during this admission 05/10/17 2. acute uremia with BUn around 100- started on HD during this admission 05/10/17 3. acute on chronic resp failure, s/p tracheostomy 4. Metabolic acidosis 5. Paraplegia 6. Anemia of chronic disease, rule out iron deficiency Plan : started on HD during This admission- today S/p HD with Ultrafitration, 3 L removed yesterday, currenlty getting another HD today, goal is to do 2 L UF as tolerated, Continue IV abx, Bp stable, pt remained on ventilator, , pulmonary following currently pt pimentel latisha HD catheter, will wait for Permacath HD access until pt becomes more stable and goals of care plan discussed with family will follow up Consultation Date/Type/Reason Admit Date/Time May 09, 2017 at 00:06 Initial Consult Date 05/09/17 Type of Consultation: NEPHROLOGY Referring Provider: KISHAN SAUCEDO 24 HR Interval Summary Free Text/Dictation Currently getting HD , BP stable, Plan is to Do 2 L UF as toleated, remains on ventilator with anasarca Exam/Review of Systems Vital Signs Vitals Vital Signs Date Time Temp Pulse Resp B/P Pulse Ox O2 Delivery O2 Flow Rate FiO2 05/14/17 08:00 91 05/14/17 07:00 99.4 22 152/74 98 Mechanical Ventilator 05/14/17 05:01 80 Intake and Output 05/13/17 05/13/17 05/14/17 15:00 23:00 07:00 Intake Total 1260 ml 400 ml 650 ml Output Total 3500 ml 22 ml 50 ml Balance -2240 ml 378 ml 600 ml Exam Constitutional: non-verbal + facial swelling, neck swelling, + diffuse anasarca ENMT: other (+ tracehostomy on ventilator ) Respiratory: crackles/rales, diminished breath sounds Cardiovascular: other (tachycardia ), regular rate and rhythm Gastrointestinal: non-tender, soft Musculoskeletal: muscle weakness, 3+ pitting edema upto thigh, back and sacral area Neurological: other (Unable to assess neurolgoical due to pt clinical condition ), unresponsive Results Result Diagram: 05/14/17 0500 05/14/17 0500 Results 24 hrs Laboratory Tests Test 05/13/17 13:20 05/13/17 18:20 05/14/17 01:02 05/14/17 05:00 Bedside Glucose 171 118 159 White Blood Count 7.8 Red Blood Count 3.48 #L Hemoglobin 9.6 #L Hematocrit 29.6 #L Mean Corpuscular Volume 85.1 Mean Corpuscular Hemoglobin 27.6 L Mean Corpuscular Hemoglobin Concent 32.4 Red Cell Distribution Width 20.7 H Platelet Count 221 Mean Platelet Volume 11.5 H Neutrophils % Lymphocytes % Monocytes % Eosinophils % Basophils % Nucleated Red Blood Cells % 0.0 Neutrophils # Lymphocytes # Monocytes # Eosinophils # Basophils # Nucleated Red Blood Cells # Sodium Level 138 Potassium Level 4.9 Chloride Level 102 Carbon Dioxide Level 25 Anion Gap 16 Blood Urea Nitrogen 62 H Creatinine 1.41 H Glucose Level 99 Calcium Level 9.4 Phosphorus Level 3.3 Magnesium Level 2.0 Test 05/14/17 05:06 05/14/17 05:35 05/14/17 07:00 05/14/17 07:24 Lab Scanned Report BLOOD TRANSFUSION REFERENCE LAB Bedside Glucose 111 Blood Gas Specimen Source Blood arterial Arterial Blood Date Drawn 05/14/2017 7:20:47 AM Arterial Blood pH (Temp corrected) 7.342 L Arterial Blood pCO2 (Temp correct) 40.6 Arterial Blood pO2 (Temp corrected) 133.9 H Arterial Blood HCO3 21.5 L Arterial Blood Base Excess -3.9 L Arterial Blood Oxygen Saturation 98.0 Ki Test ACCEPTAB Arterial Blood Gas Puncture Site Left Radial Arterial Blood Carboxyhemoglobin 0.2 Arterial Blood Methemoglobin 0.6 Blood Gas A-a O2 Differential 393.9 H Oxyhemoglobin Percent 97.2 Total Hemoglobin 10.5 L Blood Gas Temperature 37.0 Blood Gas Respiration Rate 14.0 Blood Gas Actual Respiration Rate 17 Blood Gas Modality VENT - AC FiO2 80.0 Blood Gas Tidal Volume 500.0 Blood Gas Low PEEP Setting 12.0 Blood Gas Notified Whom MICHAELD Blood Gas Notified Time 05/14/2017 7:53:36 AM Medications Medications Current Medications Aspirin (Aspirin) 81 mg DAILY GTB Last administered on 05/14/17 08:49; Admin Dose 81 MG; Start 05/09/17 at 09:00 Acetaminophen (Tylenol Liquid) 650 mg Q6H PRN GTB PAIN AND OR ELEVATED TEMP Last administered on 05/12/17 08:34; Admin Dose 650 MG; Start 05/09/17 at 09:00 Cholecalciferol (Vitamin D) 1,000 unit DAILY GTB Last administered on 08:38; Admin Dose 1,000 UNIT; Start 05/09/17 at 09:00 Insulin Glargine (Lantus) 17 unit DAILY@08 SC Last administered on 05/14/17 08 :35; Admin Dose 17 UNIT; Start 05/10/17 at 08:00 Levothyroxine Sodium (Synthroid) 125 mcg DAILY@06 GTB Last administered on 05/14 05:36; Admin Dose 125 MCG; Start 05/10/17 at 06:00 Zinc Sulfate (Zinc Sulfate) 220 mg DAILY GTB Last administered on 05/14/17 08: 39; Admin Dose 220 MG; Start 05/09/17 at 09:00 Ondansetron HCl (Zofran Inj) 4 mg Q6H PRN IV NAUSEA AND/OR VOMITING Last administered on 05/12/17 08:33; Admin Dose 4 MG; Start 05/09/17 at 09:00 Lorazepam (Ativan) 1 mg Q6H PRN IV ANXIETY Last administered on 05/10/17 21:47 ; Admin Dose 1 MG; Start 05/09/17 at 09:00 Miscellaneous Information 1 ea NOTE XX ; Start 05/09/17 at 10:00 Glucose (Glutose) 15 gm Q15M PRN PO DECREASED GLUCOSE; Start 05/09/17 at 10:00 Glucose (Glutose) 22.5 gm Q15M PRN PO DECREASED GLUCOSE; Start 05/09/17 at 10: 00 Dextrose (D50w Syringe) 25 ml Q15M PRN IV DECREASED GLUCOSE Last administered on 05/11/17 01:54; Admin Dose 25 ML; Start 05/09/17 at 10:00 Dextrose (D50w Syringe) 50 ml Q15M PRN IV DECREASED GLUCOSE; Start 05/09/17 at 10:00 Glucagon (Glucagen) 1 mg Q15M PRN IM DECREASED GLUCOSE; Start 05/09/17 at 10:00 Glucose (Glutose) 15 gm Q15M PRN BUCCAL DECREASED GLUCOSE; Start 05/09/17 at 10 :00 Multivitamins (Multivitamin) 30 ml DAILY PEG Last administered on 05/14/17 08: 38; Admin Dose 30 ML; Start 05/10/17 at 09:00 Fluoxetine HCl (Prozac) 20 mg DAILY GTB Last administered on 05/14/17 08:39; Admin Dose 20 MG; Start 05/10/17 at 09:00 Collagenase (Santyl) 1 applic DAILY TOP Last administered on 05/14/17 08:45; Admin Dose 1 APPLIC; Start 05/10/17 at 09:00 Collagenase (Santyl) 1 applic PRN PRN TOP SOILING; Start 05/10/17 at 01:30 Morphine Sulfate (morphine) 2 mg Q4H PRN IV PAIN LEVEL 4-6 Last administered on 05/12/17 08:33; Admin Dose 2 MG; Start 05/10/17 at 17:30 Famotidine 20 mg 20 mg DAILY GTB Last administered on 05/14/17 08:39; Admin Dose 20 MG; Start 05/11/17 at 09:00 Vancomycin HCl/ Sodium Chloride (Vancocin/NS) 250 ml @ 83.333 mls/ hr Q96H IVPB Last administered on 05/13/17 16:31; Admin Dose 83.333 MLS/HR; Start 05/13/17 at 16:00 Insulin Aspart (Novolog Insulin Pen) NOVOLOG *MILD* ALGORI... Q6 SC Last administered on 05/14/17 01:06; Admin Dose 1 UNIT; Start 05/13/17 at 12:00 Mupirocin (Bactroban) 1 applic BID TOP Last administered on 05/14/17 08:39; Admin Dose 1 APPLIC; Start 05/14/17 at 09:00 JOANIE PHILLIPS MD May 14, 2017 09:49
[2017-05-14] MEDS ORDERED: ALBUMIN HUMAN 25% 100 ML IV ONE (10:30)
--- NOTE | 2017-05-14 11:42 | CONS ---
Date/Time of Note Date/Time of Note DATE: 05/14/17 TIME: 11:41 Assessment/Plan Assessment/Plan Additional Assessment/Plan Respiratory failure with hypoxia Preserved ejection fraction Pulmonary hypertension Tricuspid valve regurgitation History of pneumothorax Paraplegia Acute kidney injury with history of CKD started on hemodialysis Obesity -Fluid management via hemodialysis as per nephrology colleagues. Echocardiogram with preserved ejection fraction. Ventilator and pulmonary care as per our pulmonary colleagues. Given labile blood pressure, no antihypertensives at the current time. Consultation Date/Type/Reason Admit Date/Time May 09, 2017 at 00:06 Initial Consult Date 05/09/17 Type of Consultation: cv Referring Provider: KISHAN SAUCEDO 24 HR Interval Summary Free Text/Dictation Patient seen and examined, finishing hemodialysis Exam/Review of Systems Vital Signs Vitals Vital Signs Date Time Temp Pulse Resp B/P Pulse Ox O2 Delivery O2 Flow Rate FiO2 05/14/17 11:00 107 22 115/50 100 Mechanical Ventilator 05/14/17 07:00 99.4 05/14/17 05:01 80 Intake and Output 05/13/17 05/13/17 05/14/17 15:00 23:00 07:00 Intake Total 1260 ml 400 ml 650 ml Output Total 3500 ml 22 ml 50 ml Balance -2240 ml 378 ml 600 ml Exam Sleeping but arousable, no apparent distress Constitutional: obese Head: normocephalic Neck: other (Tracheostomy) Respiratory: other (Coarse breath sounds bilaterally, no wheezing) Cardiovascular: other (S1-S2 heard), regular rate and rhythm Gastrointestinal: bowel sounds, non-tender, soft Extremities: edema Results Result Diagram: 05/14/17 0500 05/14/17 0500 Results 24 hrs Laboratory Tests Test 05/13/17 13:20 05/13/17 18:20 05/14/17 01:02 05/14/17 05:00 Bedside Glucose 171 118 159 White Blood Count 7.8 Red Blood Count 3.48 #L Hemoglobin 9.6 #L Hematocrit 29.6 #L Mean Corpuscular Volume 85.1 Mean Corpuscular Hemoglobin 27.6 L Mean Corpuscular Hemoglobin Concent 32.4 Red Cell Distribution Width 20.7 H Platelet Count 221 Mean Platelet Volume 11.5 H Neutrophils % Segmented Neutrophils % (Manual) 64 Band Neutrophils % (Manual) 8 H Lymphocytes % Lymphocytes % (Manual) 12 L Monocytes % Monocytes % (Manual) 10 Eosinophils % Eosinophils % (Manual) 4 Basophils % Myelocytes % (Manual) 2 H Nucleated Red Blood Cells % 0.0 Neutrophils # Neutrophils # (Manual) 5.0 Band Neutrophils # 0.6 Absolute Lymphocytes (Manual) 0.9 Lymphocytes # Monocytes # Absolute Monocytes (Manual) 0.7 Eosinophils # Basophils # Myelocytes # 0.1 H Nucleated Red Blood Cells # Platelet Estimate NORMAL Giant Platelets 6 H Polychromasia 1+ Hypochromasia 1+ Poikilocytosis 3+ Anisocytosis 1+ Sodium Level 138 Potassium Level 4.9 Chloride Level 102 Carbon Dioxide Level 25 Anion Gap 16 Blood Urea Nitrogen 62 H Creatinine 1.41 H Glucose Level 99 Calcium Level 9.4 Phosphorus Level 3.3 Magnesium Level 2.0 Test 05/14/17 05:06 05/14/17 05:35 05/14/17 07:00 05/14/17 07:24 Lab Scanned Report BLOOD TRANSFUSION REFERENCE LAB Bedside Glucose 111 Blood Gas Specimen Source Blood arterial Arterial Blood Date Drawn 05/14/2017 7:20:47 AM Arterial Blood pH (Temp corrected) 7.342 L Arterial Blood pCO2 (Temp correct) 40.6 Arterial Blood pO2 (Temp corrected) 133.9 H Arterial Blood HCO3 21.5 L Arterial Blood Base Excess -3.9 L Arterial Blood Oxygen Saturation 98.0 Ki Test ACCEPTAB Arterial Blood Gas Puncture Site Left Radial Arterial Blood Carboxyhemoglobin 0.2 Arterial Blood Methemoglobin 0.6 Blood Gas A-a O2 Differential 393.9 H Oxyhemoglobin Percent 97.2 Total Hemoglobin 10.5 L Blood Gas Temperature 37.0 Blood Gas Respiration Rate 14.0 Blood Gas Actual Respiration Rate 17 Blood Gas Modality VENT - AC FiO2 80.0 Blood Gas Tidal Volume 500.0 Blood Gas Low PEEP Setting 12.0 Blood Gas Notified Whom JLD Blood Gas Notified Time 05/14/2017 7:53:36 AM Medications Medications Current Medications Aspirin (Aspirin) 81 mg DAILY GTB Last administered on 05/14/17 08:49; Admin Dose 81 MG; Start 05/09/17 at 09:00 Acetaminophen (Tylenol Liquid) 650 mg Q6H PRN GTB PAIN AND OR ELEVATED TEMP Last administered on 05/12/17 08:34; Admin Dose 650 MG; Start 05/09/17 at 09:00 Cholecalciferol (Vitamin D) 1,000 unit DAILY GTB Last administered on 08:38; Admin Dose 1,000 UNIT; Start 05/09/17 at 09:00 Insulin Glargine (Lantus) 17 unit DAILY@08 SC Last administered on 05/14/17 08 :35; Admin Dose 17 UNIT; Start 05/10/17 at 08:00 Levothyroxine Sodium (Synthroid) 125 mcg DAILY@06 GTB Last administered on 05/14 05:36; Admin Dose 125 MCG; Start 05/10/17 at 06:00 Zinc Sulfate (Zinc Sulfate) 220 mg DAILY GTB Last administered on 05/14/17 08: 39; Admin Dose 220 MG; Start 05/09/17 at 09:00 Ondansetron HCl (Zofran Inj) 4 mg Q6H PRN IV NAUSEA AND/OR VOMITING Last administered on 05/12/17 08:33; Admin Dose 4 MG; Start 05/09/17 at 09:00 Lorazepam (Ativan) 1 mg Q6H PRN IV ANXIETY Last administered on 05/10/17 21:47 ; Admin Dose 1 MG; Start 05/09/17 at 09:00 Miscellaneous Information 1 ea NOTE XX ; Start 05/09/17 at 10:00 Glucose (Glutose) 15 gm Q15M PRN PO DECREASED GLUCOSE; Start 05/09/17 at 10:00 Glucose (Glutose) 22.5 gm Q15M PRN PO DECREASED GLUCOSE; Start 05/09/17 at 10: 00 Dextrose (D50w Syringe) 25 ml Q15M PRN IV DECREASED GLUCOSE Last administered on 05/11/17 01:54; Admin Dose 25 ML; Start 05/09/17 at 10:00 Dextrose (D50w Syringe) 50 ml Q15M PRN IV DECREASED GLUCOSE; Start 05/09/17 at 10:00 Glucagon (Glucagen) 1 mg Q15M PRN IM DECREASED GLUCOSE; Start 05/09/17 at 10:00 Glucose (Glutose) 15 gm Q15M PRN BUCCAL DECREASED GLUCOSE; Start 05/09/17 at 10 :00 Multivitamins (Multivitamin) 30 ml DAILY PEG Last administered on 05/14/17 08: 38; Admin Dose 30 ML; Start 05/10/17 at 09:00 Fluoxetine HCl (Prozac) 20 mg DAILY GTB Last administered on 05/14/17 08:39; Admin Dose 20 MG; Start 05/10/17 at 09:00 Collagenase (Santyl) 1 applic DAILY TOP Last administered on 05/14/17 08:45; Admin Dose 1 APPLIC; Start 05/10/17 at 09:00 Collagenase (Santyl) 1 applic PRN PRN TOP SOILING; Start 05/10/17 at 01:30 Morphine Sulfate (morphine) 2 mg Q4H PRN IV PAIN LEVEL 4-6 Last administered on 05/12/17 08:33; Admin Dose 2 MG; Start 05/10/17 at 17:30 Famotidine 20 mg 20 mg DAILY GTB Last administered on 05/14/17 08:39; Admin Dose 20 MG; Start 05/11/17 at 09:00 Vancomycin HCl/ Sodium Chloride (Vancocin/NS) 250 ml @ 83.333 mls/ hr Q96H IVPB Last administered on 05/13/17 16:31; Admin Dose 83.333 MLS/HR; Start 05/13/17 at 16:00 Insulin Aspart (Novolog Insulin Pen) NOVOLOG *MILD* ALGORI... Q6 SC Last administered on 05/14/17 01:06; Admin Dose 1 UNIT; Start 05/13/17 at 12:00 Mupirocin (Bactroban) 1 applic BID TOP Last administered on 05/14/17 08:39; Admin Dose 1 APPLIC; Start 05/14/17 at 09:00 Jonah Ayala DO May 14, 2017 11:42
--- NOTE | 2017-05-14 12:03 | PN ---
Date/Time of Note Date/Time of Note DATE: 05/14/17 TIME: 12:03 Assessment/Plan VTE Prophylaxis VTE Prophylaxis Intervention: SCD's Lines/Catheters IV C[facility] Type [facility] PICC Line Central line still needed: Yes Urinary Cath still in place: Yes Reason Cath still needed: urinary retention Assessment/Plan Chief Complaint/Hosp Course Assessment/Plan -Acute respiratory failure with left upper lobe collapse. Continue ventilatory support. Dr. Hamilton is following in pulmonology consultation. -5% pneumothorax, continue serial chest x-rays to ensure no progression of pneumothorax. -Healthcare acquired pneumonia, continue vancomycin and cefepime, follow-up and sputum culture. Dr. Stephenson is following in infection disease consultation - Acute kidney injury with a generalized edema and hyperkalemia, Dr. Stevens is following in nephrology consultation. Continue hemodialysis. -Paroxysmal atrial fibrillation -Diabetes mellitus, continue Lantus and NovoLog -Hypothyroidism, continue levothyroxine. 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 Broussard is asked to see patient in gastroenterology consultation. Further recommendations based on clinical course. Plan of care discussed with Dr. Han. Problems: Exam/Review of Systems Vital Signs Vitals Vital Signs Date Time Temp Pulse Resp B/P Pulse Ox O2 Delivery O2 Flow Rate FiO2 05/14/17 11:00 107 22 115/50 100 Mechanical Ventilator 05/14/17 07:00 99.4 05/14/17 05:01 80 Intake and Output 05/13/17 05/13/17 05/14/17 14:59 22:59 06:59 Intake Total 1360 ml 350 ml 700 ml Output Total 3500 ml 22 ml 50 ml Balance -2140 ml 328 ml 650 ml Results Result Diagram: 05/14/17 0500 05/14/17 0500 Results 24 hrs Laboratory Tests Test 05/13/17 13:20 05/13/17 18:20 05/14/17 01:02 05/14/17 05:00 Bedside Glucose 171 118 159 White Blood Count 7.8 Red Blood Count 3.48 #L Hemoglobin 9.6 #L Hematocrit 29.6 #L Mean Corpuscular Volume 85.1 Mean Corpuscular Hemoglobin 27.6 L Mean Corpuscular Hemoglobin Concent 32.4 Red Cell Distribution Width 20.7 H Platelet Count 221 Mean Platelet Volume 11.5 H Neutrophils % Segmented Neutrophils % (Manual) 64 Band Neutrophils % (Manual) 8 H Lymphocytes % Lymphocytes % (Manual) 12 L Monocytes % Monocytes % (Manual) 10 Eosinophils % Eosinophils % (Manual) 4 Basophils % Myelocytes % (Manual) 2 H Nucleated Red Blood Cells % 0.0 Neutrophils # Neutrophils # (Manual) 5.0 Band Neutrophils # 0.6 Absolute Lymphocytes (Manual) 0.9 Lymphocytes # Monocytes # Absolute Monocytes (Manual) 0.7 Eosinophils # Basophils # Myelocytes # 0.1 H Nucleated Red Blood Cells # Platelet Estimate NORMAL Giant Platelets 6 H Polychromasia 1+ Hypochromasia 1+ Poikilocytosis 3+ Anisocytosis 1+ Sodium Level 138 Potassium Level 4.9 Chloride Level 102 Carbon Dioxide Level 25 Anion Gap 16 Blood Urea Nitrogen 62 H Creatinine 1.41 H Glucose Level 99 Calcium Level 9.4 Phosphorus Level 3.3 Magnesium Level 2.0 Test 05/14/17 05:06 05/14/17 05:35 05/14/17 07:00 05/14/17 07:24 Lab Scanned Report BLOOD TRANSFUSION REFERENCE LAB Bedside Glucose 111 Blood Gas Specimen Source Blood arterial Arterial Blood Date Drawn 05/14/2017 7:20:47 AM Arterial Blood pH (Temp corrected) 7.342 L Arterial Blood pCO2 (Temp correct) 40.6 Arterial Blood pO2 (Temp corrected) 133.9 H Arterial Blood HCO3 21.5 L Arterial Blood Base Excess -3.9 L Arterial Blood Oxygen Saturation 98.0 Ki Test ACCEPTAB Arterial Blood Gas Puncture Site Left Radial Arterial Blood Carboxyhemoglobin 0.2 Arterial Blood Methemoglobin 0.6 Blood Gas A-a O2 Differential 393.9 H Oxyhemoglobin Percent 97.2 Total Hemoglobin 10.5 L Blood Gas Temperature 37.0 Blood Gas Respiration Rate 14.0 Blood Gas Actual Respiration Rate 17 Blood Gas Modality VENT - AC FiO2 80.0 Blood Gas Tidal Volume 500.0 Blood Gas Low PEEP Setting 12.0 Blood Gas Notified Whom JLD Blood Gas Notified Time 05/14/2017 7:53:36 AM Medications Medications Current Medications Aspirin (Aspirin) 81 mg DAILY GTB Last administered on 05/14/17t 08:49; Admin Dose 81 MG; Start 05/09/17 at 09:00 Acetaminophen (Tylenol Liquid) 650 mg Q6H PRN GTB PAIN AND OR ELEVATED TEMP Last administered on 05/12/17 08:34; Admin Dose 650 MG; Start 05/09/17 at 09:00 Cholecalciferol (Vitamin D) 1,000 unit DAILY GTB Last administered on 08:38; Admin Dose 1,000 UNIT; Start 05/09/17 at 09:00 Insulin Glargine (Lantus) 17 unit DAILY@08 SC Last administered on 05/14/17 08 :35; Admin Dose 17 UNIT; Start 05/10/17 at 08:00 Levothyroxine Sodium (Synthroid) 125 mcg DAILY@06 GTB Last administered on 05/14 05:36; Admin Dose 125 MCG; Start 05/10/17 at 06:00 Zinc Sulfate (Zinc Sulfate) 220 mg DAILY GTB Last administered on 05/14/17 08: 39; Admin Dose 220 MG; Start 05/09/17 at 09:00 Ondansetron HCl (Zofran Inj) 4 mg Q6H PRN IV NAUSEA AND/OR VOMITING Last administered on 05/12/17 08:33; Admin Dose 4 MG; Start 05/09/17 at 09:00 Lorazepam (Ativan) 1 mg Q6H PRN IV ANXIETY Last administered on 05/10/17 21:47 ; Admin Dose 1 MG; Start 05/09/17 at 09:00 Miscellaneous Information 1 ea NOTE XX ; Start 05/09/17 at 10:00 Glucose (Glutose) 15 gm Q15M PRN PO DECREASED GLUCOSE; Start 05/09/17 at 10:00 Glucose (Glutose) 22.5 gm Q15M PRN PO DECREASED GLUCOSE; Start 05/09/17 at 10: 00 Dextrose (D50w Syringe) 25 ml Q15M PRN IV DECREASED GLUCOSE Last administered on 05/11/17 01:54; Admin Dose 25 ML; Start 05/09/17 at 10:00 Dextrose (D50w Syringe) 50 ml Q15M PRN IV DECREASED GLUCOSE; Start 05/09/17 at 10:00 Glucagon (Glucagen) 1 mg Q15M PRN IM DECREASED GLUCOSE; Start 05/09/17 at 10:00 Glucose (Glutose) 15 gm Q15M PRN BUCCAL DECREASED GLUCOSE; Start 05/09/17 at 10 :00 Multivitamins (Multivitamin) 30 ml DAILY PEG Last administered on 05/14/17 08: 38; Admin Dose 30 ML; Start 05/10/17 at 09:00 Fluoxetine HCl (Prozac) 20 mg DAILY GTB Last administered on 05/14/17 08:39; Admin Dose 20 MG; Start 05/10/17 at 09:00 Collagenase (Santyl) 1 applic DAILY TOP Last administered on 05/14/17 08:45; Admin Dose 1 APPLIC; Start 05/10/17 at 09:00 Collagenase (Santyl) 1 applic PRN PRN TOP SOILING; Start 05/10/17 at 01:30 Morphine Sulfate (morphine) 2 mg Q4H PRN IV PAIN LEVEL 4-6 Last administered on 05/12/17 08:33; Admin Dose 2 MG; Start 05/10/17 at 17:30 Famotidine 20 mg 20 mg DAILY GTB Last administered on 05/14/17 08:39; Admin Dose 20 MG; Start 05/11/17 at 09:00 Vancomycin HCl/ Sodium Chloride (Vancocin/NS) 250 ml @ 83.333 mls/ hr Q96H IVPB Last administered on 05/13/17 16:31; Admin Dose 83.333 MLS/HR; Start 05/13/17 at 16:00 Insulin Aspart (Novolog Insulin Pen) NOVOLOG *MILD* ALGORI... Q6 SC Last administered on 05/14/17 11:52; Admin Dose 1 UNIT; Start 05/13/17 at 12:00 Mupirocin (Bactroban) 1 applic BID TOP Last administered on 05/14/17 08:39; Admin Dose 1 APPLIC; Start 05/14/17 at 09:00 KISHAN SAUCEDO May 14, 2017 12:03
--- NOTE | 2017-05-14 14:19 | PN ---
Date/Time of Note Date/Time of Note DATE: 05/14/17 TIME: 14:13 Assessment/Plan Lines/Catheters IV Catheter Type (from [facility]): PICC Line G[place] in Place (from [facility]): Yes Assessment/Plan Chief Complaint/Hosp Course 1. Sacral wound: stage 4: cultures noted -debridement prn -local care w dakins -frequent turning and off-loading -low air loss mattress -vitamin c -short term zinc -optimize nutrition -abx per sensitivity 2. Acute respiratory failure with complete collapse of the left upper lobe with obliteration of the left upper lobe bronchus. -per pulm -continue vent support 3. VDRF -pulm toilet -respiratory treatments 4. Anemia: no acute bleed noted: stool OB + -monitor -transfuse as needed -gi consult for eventual scope 5. Elevated TSH -further workup per medical team 6. Electrolyte imbalance -optimize lytes 7. Morbid obesity: bmi 40 -diet and exercise optimization -encourage weight loss 8. BERNARDINO started on HD -per renal 9. Tachycardia: -cardiac optimization per cards Thank you. Patient seen and examined in collaboration with Dr. Kedar Valencia. Problems: Subjective 24 Hr Interval Summary Continues in ICU care. Appears comfortable on vent. Tachycardic. No fevers, chills, sob, cp, palpitations, pimentel, dizziness, n/v/d/dysuria, excessive wound drainage. Exam/Review of Systems Vital Signs Vitals Vital Signs Date Time Temp Pulse Resp B/P Pulse Ox O2 Delivery O2 Flow Rate FiO2 05/14/17 12:00 110 05/14/17 11:00 22 115/50 100 Mechanical Ventilator 05/14/17 07:00 99.4 05/14/17 05:01 80 Intake and Output 05/13/17 05/13/17 05/14/17 15:00 23:00 07:00 Intake Total 1260 ml 400 ml 650 ml Output Total 3500 ml 22 ml 50 ml Balance -2240 ml 378 ml 600 ml Exam Free Text/Dictation Constitutional: alert, responsive No distress Psych: nl mood/affect, no complaints Head: atraumatic, normocephalic Eyes: nl lids, nl sclera ENMT: mucosa pink and moist, nl nasal mucosa & septum Neck: non-tender, other (trach vent), supple Respiratory: crackles/rales Cardiovascular: nl pulses, other (st), tachycardic Gastrointestinal: distended Genitourinary - Female: nl adnexae, nl external genitalia Musculoskeletal: No muscle tone (stiffness) Extremities: pitting pedal edema Neurological: other (paraplegia), No nl speech, No nl strength Skin: other (wound: clean, nonmalodorous, periwound without erythema) Results Result Diagram: 05/14/17 0500 05/14/17 0500 BRITTANY STALEY NP May 14, 2017 14:19
--- NOTE | 2017-05-14 14:41 | HP ---
DATE OF ADMISSION: 05/09/2017 HISTORY OF PRESENT ILLNESS: Joann Tate is a 76-year-old female with a long history of spina l injury and paraplegia. Last month she was admitted to [facility] in [facility], ended up with a tracheostomy and a G-tube. ENT was consulted to change her tracheostomy tube. S he has an in place at this point. PAST MEDICAL HISTORY: Spinal injury, paraplegia, coronary artery disease, paroxysmal atrial fibrill ation, hypertension. PAST SURGICAL HISTORY: Tracheostomy, percutaneous endoscopic gastrostomy tube, left shoulder arthro plasty, appendectomy, cholecystectomy. DRUG ALLERGIES: NONE. MEDICATIONS: List was reviewed. SOCIAL HISTORY: Negative for tobacco, alcohol or drug abuse. FAMILY HISTORY: Negative for any heart, lung, kidney failure, liver disease. REVIEW OF SYSTEMS: A 12-point review of systems otherwise noncontributory. PHYSICAL EXAMINATION: HEENT: Today, the oral cavity and oropharynx showed tongue and mouth were normal. Teeth in good re pair. NECK: Reveals no lymphadenopathy or thyromegaly. Trachea is midline. The tracheostomy tube is sta ble. The was removed. She had a mersilene stitch around the tube, which was cut because I wa s unable to get the tracheostomy tube in place as the ostomy was quite small with this tube with the tie tightened where it was. This way I was easily able to place the tube with good CO2 return. I t was fixed in place using tracheal ties. IMPRESSION: Respiratory failure, tracheostomy malfunction. PLAN: At this point, the tube was changed without difficulty. If there are any questions or concer ns, please feel free to call at any time. Dictated By: PAN ANDUJAR/NTS Conf#: [id number] DID#: [id number]
--- NOTE | 2017-05-14 15:27 | PN ---
Date/Time of Note Date/Time of Note DATE: 05/14/17 TIME: 15:24 Assessment/Plan VTE Prophylaxis VTE Prophylaxis Intervention: SCD's Lines/Catheters IV [facility]ter Type (from [facility]): PICC Line Central line still needed: Yes Urinary Cath still in place: Yes Reason Cath still needed: urinary retention Assessment/Plan Chief Complaint/Hosp Course Patient is status post blood transfusion with hemodialysis, continues on high PEEP and FiO2 ventilatory support, tachycardic. Assessment/Plan -Acute respiratory failure with left upper lobe collapse. Continue ventilatory support. Dr. Hamilton is following in pulmonology consultation. -5% pneumothorax, continue serial chest x-rays to ensure no progression of pneumothorax. -Healthcare acquired pneumonia, continue abx per ID Dr. Stephenson is following in infection disease consultation - Acute kidney injury with a generalized edema and hyperkalemia, Dr. Stevens is following in nephrology consultation. Continue hemodialysis. -Paroxysmal atrial fibrillation -Diabetes mellitus, continue Lantus and NovoLog -Hypothyroidism, continue levothyroxine. 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 Broussard is following in gastroenterology consultation. Further recommendations based on clinical course. Plan of care discussed with Dr. Han. Problems: Exam/Review of Systems Vital Signs Vitals Vital Signs Date Time Temp Pulse Resp B/P Pulse Ox O2 Delivery O2 Flow Rate FiO2 05/14/17 12:00 110 05/14/17 11:00 22 115/50 100 Mechanical Ventilator 05/14/17 07:00 99.4 05/14/17 05:01 80 Intake and Output 05/13/17 05/13/17 05/14/17 15:00 23:00 07:00 Intake Total 1260 ml 400 ml 650 ml Output Total 3500 ml 22 ml 50 ml Balance -2240 ml 378 ml 600 ml Exam Constitutional: alert Neck: other (Tracheostomy), supple Respiratory: diminished breath sounds Cardiovascular: nl pulses Gastrointestinal: ascites, non-tender, other (G-tube), soft Musculoskeletal: muscle weakness Extremities: edema Neurological: other (Paraplegia) Cherelle Saenz Results Result Diagram: 05/14/17 0500 05/14/17 0500 Results 24 hrs Laboratory Tests Test 05/13/17 18:20 05/14/17 01:02 05/14/17 05:00 05/14/17 05:06 Bedside Glucose 118 159 White Blood Count 7.8 Red Blood Count 3.48 #L Hemoglobin 9.6 #L Hematocrit 29.6 #L Mean Corpuscular Volume 85.1 Mean Corpuscular Hemoglobin 27.6 L Mean Corpuscular Hemoglobin Concent 32.4 Red Cell Distribution Width 20.7 H Platelet Count 221 Mean Platelet Volume 11.5 H Neutrophils % Segmented Neutrophils % (Manual) 64 Band Neutrophils % (Manual) 8 H Lymphocytes % Lymphocytes % (Manual) 12 L Monocytes % Monocytes % (Manual) 10 Eosinophils % Eosinophils % (Manual) 4 Basophils % Myelocytes % (Manual) 2 H Nucleated Red Blood Cells % 0.0 Neutrophils # Neutrophils # (Manual) 5.0 Band Neutrophils # 0.6 Absolute Lymphocytes (Manual) 0.9 Lymphocytes # Monocytes # Absolute Monocytes (Manual) 0.7 Eosinophils # Basophils # Myelocytes # 0.1 H Nucleated Red Blood Cells # Platelet Estimate NORMAL Giant Platelets 6 H Polychromasia 1+ Hypochromasia 1+ Poikilocytosis 3+ Anisocytosis 1+ Sodium Level 138 Potassium Level 4.9 Chloride Level 102 Carbon Dioxide Level 25 Anion Gap 16 Blood Urea Nitrogen 62 H Creatinine 1.41 H Glucose Level 99 Calcium Level 9.4 Phosphorus Level 3.3 Magnesium Level 2.0 Lab Scanned Report BLOOD TRANSFUSION Test 05/14/17 05:35 05/14/17 07:00 05/14/17 07:24 05/14/17 11:43 Bedside Glucose 111 176 Blood Gas Specimen Source Blood arterial Arterial Blood Date Drawn 05/14/2017 7:20:47 AM Arterial Blood pH (Temp corrected) 7.342 L Arterial Blood pCO2 (Temp correct) 40.6 Arterial Blood pO2 (Temp corrected) 133.9 H Arterial Blood HCO3 21.5 L Arterial Blood Base Excess -3.9 L Arterial Blood Oxygen Saturation 98.0 Ki Test ACCEPTAB Arterial Blood Gas Puncture Site Left Radial Arterial Blood Carboxyhemoglobin 0.2 Arterial Blood Methemoglobin 0.6 Blood Gas A-a O2 Differential 393.9 H Oxyhemoglobin Percent 97.2 Total Hemoglobin 10.5 L Blood Gas Temperature 37.0 Blood Gas Respiration Rate 14.0 Blood Gas Actual Respiration Rate 17 Blood Gas Modality VENT - AC FiO2 80.0 Blood Gas Tidal Volume 500.0 Blood Gas Low PEEP Setting 12.0 Blood Gas Notified Whom JLD Blood Gas Notified Time 05/14/2017 7:53:36 AM Lab Scanned Report REFERENCE LAB Medications Medications Current Medications Aspirin (Aspirin) 81 mg DAILY GTB Last administered on 05/14/17 08:49; Admin Dose 81 MG; Start 05/09/17 at 09:00 Acetaminophen (Tylenol Liquid) 650 mg Q6H PRN GTB PAIN AND OR ELEVATED TEMP Last administered on 05/12/17 08:34; Admin Dose 650 MG; Start 05/09/17 at 09:00 Cholecalciferol (Vitamin D) 1,000 unit DAILY GTB Last administered on 08:38; Admin Dose 1,000 UNIT; Start 05/09/17 at 09:00 Insulin Glargine (Lantus) 17 unit DAILY@08 SC Last administered on 05/14/17 08 :35; Admin Dose 17 UNIT; Start 05/10/17 at 08:00 Levothyroxine Sodium (Synthroid) 125 mcg DAILY@06 GTB Last administered on 05/14 05:36; Admin Dose 125 MCG; Start 05/10/17 at 06:00 Zinc Sulfate (Zinc Sulfate) 220 mg DAILY GTB Last administered on 05/14/17 08: 39; Admin Dose 220 MG; Start 05/09/17 at 09:00 Ondansetron HCl (Zofran Inj) 4 mg Q6H PRN IV NAUSEA AND/OR VOMITING Last administered on 05/12/17 08:33; Admin Dose 4 MG; Start 05/09/17 at 09:00 Lorazepam (Ativan) 1 mg Q6H PRN IV ANXIETY Last administered on 05/10/17 21:47 ; Admin Dose 1 MG; Start 05/09/17 at 09:00 Miscellaneous Information 1 ea NOTE XX ; Start 05/09/17 at 10:00 Glucose (Glutose) 15 gm Q15M PRN PO DECREASED GLUCOSE; Start 05/09/17 at 10:00 Glucose (Glutose) 22.5 gm Q15M PRN PO DECREASED GLUCOSE; Start 05/09/17 at 10: 00 Dextrose (D50w Syringe) 25 ml Q15M PRN IV DECREASED GLUCOSE Last administered on 05/11/17 01:54; Admin Dose 25 ML; Start 05/09/17 at 10:00 Dextrose (D50w Syringe) 50 ml Q15M PRN IV DECREASED GLUCOSE; Start 05/09/17 at 10:00 Glucagon (Glucagen) 1 mg Q15M PRN IM DECREASED GLUCOSE; Start 05/09/17 at 10:00 Glucose (Glutose) 15 gm Q15M PRN BUCCAL DECREASED GLUCOSE; Start 05/09/17 at 10 :00 Multivitamins (Multivitamin) 30 ml DAILY PEG Last administered on 05/14/17 08: 38; Admin Dose 30 ML; Start 05/10/17 at 09:00 Fluoxetine HCl (Prozac) 20 mg DAILY GTB Last administered on 05/14/17 08:39; Admin Dose 20 MG; Start 05/10/17 at 09:00 Collagenase (Santyl) 1 applic DAILY TOP Last administered on 05/14/17 08:45; Admin Dose 1 APPLIC; Start 05/10/17 at 09:00 Collagenase (Santyl) 1 applic PRN PRN TOP SOILING; Start 05/10/17 at 01:30 Morphine Sulfate (morphine) 2 mg Q4H PRN IV PAIN LEVEL 4-6 Last administered on 05/12/17 08:33; Admin Dose 2 MG; Start 05/10/17 at 17:30 Famotidine 20 mg 20 mg DAILY GTB Last administered on 05/14/17 08:39; Admin Dose 20 MG; Start 05/11/17 at 09:00 Vancomycin HCl/ Sodium Chloride (Vancocin/NS) 250 ml @ 83.333 mls/ hr Q96H IVPB Last administered on 05/13/17 16:31; Admin Dose 83.333 MLS/HR; Start 05/13/17 at 16:00 Insulin Aspart (Novolog Insulin Pen) NOVOLOG *MILD* ALGORI... Q6 SC Last administered on 05/14/17 11:52; Admin Dose 1 UNIT; Start 05/13/17 at 12:00 Mupirocin (Bactroban) 1 applic BID TOP Last administered on 05/14/17 08:39; Admin Dose 1 APPLIC; Start 05/14/17 at 09:00 KISHAN SAUCEDO May 14, 2017 15:27
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
--- NOTE | 2017-05-14 17:24 | CONS ---
Date/Time of Note Date/Time of Note DATE: 05/14/17 TIME: 16:07 Assessment/Plan Assessment/Plan Additional Assessment/Plan - VRE Sacral wound- VRE- stod Vanco, start Linezolid 600 mg IV q12HRS Organism 1 VANCO RESISTANT ENTEROCOCCUS QUANTITY 1+ MULTI DRUG RESISTANT ORGANISM Organism 2 GRAM NEGATIVE CAROLYN QUANTITY RARE - stop Vanco - Probable VAP vs HCAP 2/2 MRSA - Pulmonary edema - Acute on chronic hypoxemic respiratory failure s/p recent trach - Small right pneumothorax (less than 5%) on CT - BERNARDINO on CKD d/t ATN with fluid overload initiated on HD 05/10/2017 - Hyperkalemia - CAD - PAF - remains in SR/ST - CHF d/t diastolic dysfunction - IDDM - Hgb A1c 5.5% - Hypothyroidism - Anemia with iron deficiency, +stool OB - Dysphagia s/p PEG - Paraplegia d/t spinal injury - Chronic BUE weakness - Hypoalbuminemia with anasarca - Toxic metabolic encephalopathy - improving - Morbid obesity - BMI 39 - 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 Recommendations: - DC cefepime - DC vancomycin (05/09/2017- 05/14/2017) - pending: wound cx, procalc, influenza screen - serial CXR - continue local wound care - add Mupirocin for MRSA de-colonization - contact isolation for MRSA Management d/w RN and Dr. Stephenson Critical care time spent: 45 min Consultation Date/Type/Reason Admit Date/Time May 09, 2017 at 00:06 Initial Consult Date 05/10/17 Type of Consultation: INFECTIOUS DISEASE Referring Provider: KISHAN SAUCEDO 24 HR Interval Summary Free Text/Dictation - Trach was changed by ENT today - SP 2 units PRBC -yesterday -VRE sacral wound, wbc wnl -Unable to perform ROS sec encephalopathy DW staff Subjective hx not possible: pt non-verbal, pt critical status Constitutional: requiring IVF, requiring O2 Exam/Review of Systems Vital Signs Vitals Vital Signs Date Time Temp Pulse Resp B/P Pulse Ox O2 Delivery O2 Flow Rate FiO2 05/14/17 12:00 110 05/14/17 11:00 22 115/50 100 Mechanical Ventilator 05/14/17 07:00 99.4 05/14/17 05:01 80 Intake and Output 05/13/17 05/13/1717 15:00 23:00 07:00 Intake Total 1260 ml 400 ml 650 ml Output Total 3500 ml 22 ml 50 ml Balance -2240 ml 378 ml 600 ml Exam Constitutional: non-verbal Neck: other (trach intact) Respiratory: diminished breath sounds Cardiovascular: nl pulses, other (s1s2) Gastrointestinal: other, soft (gt intact) Musculoskeletal: muscle weakness Extremities: edema Neurological: unresponsive Skin: other (Sacral wound- stage 4, w/ tunnel, drainage, w/fecal contamination) Results Result Diagram: 05/14/17 0500 05/14/17 0500 Results 24 hrs Laboratory Tests Test 05/13/17 18:20 05/14/17 01:02 05/14/17 05:00 05/14/17 05:06 Bedside Glucose 118 159 White Blood Count 7.8 Red Blood Count 3.48 #L Hemoglobin 9.6 #L Hematocrit 29.6 #L Mean Corpuscular Volume 85.1 Mean Corpuscular Hemoglobin 27.6 L Mean Corpuscular Hemoglobin Concent 32.4 Red Cell Distribution Width 20.7 H Platelet Count 221 Mean Platelet Volume 11.5 H Neutrophils % Segmented Neutrophils % (Manual) 64 Band Neutrophils % (Manual) 8 H Lymphocytes % Lymphocytes % (Manual) 12 L Monocytes % Monocytes % (Manual) 10 Eosinophils % Eosinophils % (Manual) 4 Basophils % Myelocytes % (Manual) 2 H Nucleated Red Blood Cells % 0.0 Neutrophils # Neutrophils # (Manual) 5.0 Band Neutrophils # 0.6 Absolute Lymphocytes (Manual) 0.9 Lymphocytes # Monocytes # Absolute Monocytes (Manual) 0.7 Eosinophils # Basophils # Myelocytes # 0.1 H Nucleated Red Blood Cells # Platelet Estimate NORMAL Giant Platelets 6 H Polychromasia 1+ Hypochromasia 1+ Poikilocytosis 3+ Anisocytosis 1+ Sodium Level 138 Potassium Level 4.9 Chloride Level 102 Carbon Dioxide Level 25 Anion Gap 16 Blood Urea Nitrogen 62 H Creatinine 1.41 H Glucose Level 99 Calcium Level 9.4 Phosphorus Level 3.3 Magnesium Level 2.0 Lab Scanned Report BLOOD TRANSFUSION Test 05/14/17 05:35 05/14/17 07:00 05/14/17 07:24 05/14/17 11:43 Bedside Glucose 111 176 Blood Gas Specimen Source Blood arterial Arterial Blood Date Drawn 05/14/2017 7:20:47 AM Arterial Blood pH (Temp corrected) 7.342 L Arterial Blood pCO2 (Temp correct) 40.6 Arterial Blood pO2 (Temp corrected) 133.9 H Arterial Blood HCO3 21.5 L Arterial Blood Base Excess -3.9 L Arterial Blood Oxygen Saturation 98.0 Ki Test ACCEPTAB Arterial Blood Gas Puncture Site Left Radial Arterial Blood Carboxyhemoglobin 0.2 Arterial Blood Methemoglobin 0.6 Blood Gas A-a O2 Differential 393.9 H Oxyhemoglobin Percent 97.2 Total Hemoglobin 10.5 L Blood Gas Temperature 37.0 Blood Gas Respiration Rate 14.0 Blood Gas Actual Respiration Rate 17 Blood Gas Modality VENT - AC FiO2 80.0 Blood Gas Tidal Volume 500.0 Blood Gas Low PEEP Setting 12.0 Blood Gas Notified Whom JLD Blood Gas Notified Time 05/14/2017 7:53:36 AM Lab Scanned Report REFERENCE LAB Medications Medications Current Medications Aspirin (Aspirin) 81 mg DAILY GTB Last administered on 05/14/17 08:49; Admin Dose 81 MG; Start 05/09/17 at 09:00 Acetaminophen (Tylenol Liquid) 650 mg Q6H PRN GTB PAIN AND OR ELEVATED TEMP Last administered on 05/12/17 08:34; Admin Dose 650 MG; Start 05/09/17 at 09:00 Cholecalciferol (Vitamin D) 1,000 unit DAILY GTB Last administered on 08:38; Admin Dose 1,000 UNIT; Start 05/09/17 at 09:00 Insulin Glargine (Lantus) 17 unit DAILY@08 SC Last administered on 05/14/17 08 :35; Admin Dose 17 UNIT; Start 05/10/17 at 08:00 Levothyroxine Sodium (Synthroid) 125 mcg DAILY@06 GTB Last administered on 05/14 05:36; Admin Dose 125 MCG; Start 05/10/17 at 06:00 Zinc Sulfate (Zinc Sulfate) 220 mg DAILY GTB Last administered on 05/14/17 08: 39; Admin Dose 220 MG; Start 05/09/17 at 09:00 Ondansetron HCl (Zofran Inj) 4 mg Q6H PRN IV NAUSEA AND/OR VOMITING Last administered on 05/12/17 08:33; Admin Dose 4 MG; Start 05/09/17 at 09:00 Lorazepam (Ativan) 1 mg Q6H PRN IV ANXIETY Last administered on 05/10/17 21:47 ; Admin Dose 1 MG; Start 05/09/17 at 09:00 Miscellaneous Information 1 ea NOTE XX ; Start 05/09/17 at 10:00 Glucose (Glutose) 15 gm Q15M PRN PO DECREASED GLUCOSE; Start 05/09/17 at 10:00 Glucose (Glutose) 22.5 gm Q15M PRN PO DECREASED GLUCOSE; Start 05/09/17 at 10: 00 Dextrose (D50w Syringe) 25 ml Q15M PRN IV DECREASED GLUCOSE Last administered on 05/11/17 01:54; Admin Dose 25 ML; Start 05/09/17 at 10:00 Dextrose (D50w Syringe) 50 ml Q15M PRN IV DECREASED GLUCOSE; Start 05/09/17 at 10:00 Glucagon (Glucagen) 1 mg Q15M PRN IM DECREASED GLUCOSE; Start 05/09/17 at 10:00 Glucose (Glutose) 15 gm Q15M PRN BUCCAL DECREASED GLUCOSE; Start 05/09/17 at 10 :00 Multivitamins (Multivitamin) 30 ml DAILY PEG Last administered on 05/14/17 08: 38; Admin Dose 30 ML; Start 05/10/17 at 09:00 Fluoxetine HCl (Prozac) 20 mg DAILY GTB Last administered on 05/14/17 08:39; Admin Dose 20 MG; Start 05/10/17 at 09:00 Collagenase (Santyl) 1 applic DAILY TOP Last administered on 05/14/17 08:45; Admin Dose 1 APPLIC; Start 05/10/17 at 09:00 Collagenase (Santyl) 1 applic PRN PRN TOP SOILING; Start 05/10/17 at 01:30 Morphine Sulfate (morphine) 2 mg Q4H PRN IV PAIN LEVEL 4-6 Last administered on 05/12/17 08:33; Admin Dose 2 MG; Start 05/10/17 at 17:30 Famotidine 20 mg 20 mg DAILY GTB Last administered on 05/14/17 08:39; Admin Dose 20 MG; Start 05/11/17 at 09:00 Vancomycin HCl/ Sodium Chloride (Vancocin/NS) 250 ml @ 83.333 mls/ hr Q96H IVPB Last administered on 05/13/17 16:31; Admin Dose 83.333 MLS/HR; Start 05/13/17 at 16:00 Insulin Aspart (Novolog Insulin Pen) NOVOLOG *MILD* ALGORI... Q6 SC Last administered on 05/14/17 11:52; Admin Dose 1 UNIT; Start 05/13/17 at 12:00 Mupirocin (Bactroban) 1 applic BID TOP Last administered on 05/14/17 08:39; Admin Dose 1 APPLIC; Start 05/14/17 at 09:00 LYDIA SWAIN May 14, 2017 16:17
[2017-05-14] MEDS: LINEZOLID 600 MG/D5W (PMX) 300 ML IVPB SCH (20:34)
[2017-05-15] VITALS (42 sets, daily range): BP systolic 95–183; BP diastolic 43–82; PULSE 96–131; RESP 15–27
[2017-05-15] MEDS: IPRATROPIUM (HFA) 12.9 GM INHALER INH SCH ×4 (01:04→20:10)
[2017-05-15] MEDS: ALBUTEROL HFA 8 GM INHALER INH SCH ×4 (01:04→20:11)
[2017-05-15] MEDS: LEVOTHYROXINE 125 MCG TAB GTB SCH (05:18)
[2017-05-15] MEDS: INSULIN ASPART [NOVOLOG] 3 ML PEN SC SCH ×3 (05:18→18:00)
[2017-05-15 05:37] LABS: ABNORMAL IP MESSAGE 1; HEMATOCRIT 28.4 % (37.0-47.0); MEAN CORPUSCULAR HGB CONC 31.7 g/dl (32.0-37.0); MEAN CORPUSCULAR VOLUME 85.3 fl (82.0-101.0); MEAN PLATELET VOLUME 11.1 fl (7.4-10.4); PLATELET COUNT 206 10^3/UL (140-415); RED BLOOD COUNT 3.33 10^6/ul (4.20-5.40); WHITE BLOOD COUNT 6.7 10^3/ul (4.8-10.8)
[2017-05-15 05:42] LABS: POSITIVE DIFF @See below
[2017-05-15 06:08] LABS: CALCIUM 9.4 mg/dl (8.4-10.2); CREATININE 1.18 mg/dl (0.44-1.00); POTASSIUM 4.3 mmol/L (3.5-5.1)
[2017-05-15] MEDS: ZINC SULFATE 220 MG CAP GTB SCH (08:18)
[2017-05-15] MEDS: ASPIRIN 81 MG TAB GTB SCH (08:18)
[2017-05-15] MEDS: MULTIVITAMINS 30 ML CUP PEG SCH (08:18)
[2017-05-15] MEDS: ACETAMINOPHEN 650MG/20.3ML CUP GTB PRN (08:18)
[2017-05-15] MEDS: FAMOTIDINE 20 MG TAB GTB SCH (08:19)
[2017-05-15] MEDS: CHOLECALCIFEROL 1,000 UNIT TAB GTB SCH (08:19)
[2017-05-15] MEDS: FLUOXETINE 20 MG CAP GTB SCH (08:19)
[2017-05-15] MEDS: LINEZOLID 600 MG/D5W (PMX) 300 ML IVPB SCH ×2 (08:19→21:01)
[2017-05-15] MEDS: COLLAGENASE 30 GM TUBE TOP SCH (08:20)
[2017-05-15] MEDS: MUPIROCIN 2% 22 GM OINT TOP SCH ×2 (08:20→21:01)
[2017-05-15 08:35] LABS: ANISOCYTOSIS 1+ (0-0); BASOPHILS % (M) 2 % (0-2); EOSINOPHILS % (M) 4 % (0-7); GIANT THROMBO% (M) 4 % (0-0); MICROCYTOSIS 1+ (0-0); MONOCYTES % (M) 8 % (0-11); PLATELET ESTIMATE NORMAL; POLYCHROMASIA 2+ (0-0); REACTIVE LYMPHOCYTES% (M) 4 % (0-0)
[2017-05-15] MEDS: INSULIN GLARGINE [LANtus] 3 ML PEN SC SCH (08:44)
--- NOTE | 2017-05-15 09:20 | CONS ---
Date/Time of Note Date/Time of Note DATE: 05/15/17 TIME: 09:18 Consult Date/Type/Reason Admit Date/Time May 09, 2017 at 00:06 Initial Consult Date 05/09/17 Type of Consultation: Pulmonary Ordering Provider: KISHAN SAUCEDO Subjective Slowly improving. Remains off vasopressors. More alert. FiO2 decreased to 60 % and PEEP of 8. Objective Vital Signs Date Time Temp Pulse Resp B/P Pulse Ox O2 Delivery O2 Flow Rate FiO2 05/15/17 08:00 116 05/15/17 07:00 22 142/70 100 05/15/17 06:00 Mechanical Ventilator 05/15/17 05:01 70 05/15/17 04:00 97.5 Intake and Output 05/14/17 05/14/17 05/15/17 15:00 23:00 07:00 Intake Total 870 ml 800 ml 650 ml Output Total 2520 ml 30 ml 40 ml Balance -1650 ml 770 ml 610 ml Exam PHYSICAL EXAMINATION GENERAL: Elderly lady on mechanical ventilation via tracheostomy VITAL SIGNS: see below. HEENT: Pupils equal, round, and reactive to light. Tracheostomy site clean and intact. CARDIAC: S1, S2, 1/6 systolic ejection murmur CHEST: Diminished air entry bilaterally. ABDOMEN: Mildly distended. Bowel sounds present no guarding or rebound EXTREMITIES: No cyanosis, clubbing edema +1 NEUROLOGIC: Generalized weakness Results/Medications Result Diagram: 05/15/17 0500 05/15/17 0500 Results 24 hrs Laboratory Tests Test 05/14/17 11:43 05/14/17 16:44 05/14/17 23:51 05/15/17 05:00 Bedside Glucose 176 141 128 White Blood Count 6.7 Red Blood Count 3.33 L Hemoglobin 9.0 L Hematocrit 28.4 L Mean Corpuscular Volume 85.3 Mean Corpuscular Hemoglobin 27.0 L Mean Corpuscular Hemoglobin Concent 31.7 L Red Cell Distribution Width 21.0 H Platelet Count 206 Mean Platelet Volume 11.1 H Neutrophils % Segmented Neutrophils % (Manual) 55 Band Neutrophils % (Manual) 7 H Lymphocytes % Lymphocytes % (Manual) 20 Reactive Lymphocytes % (Manual) 4 H Monocytes % Monocytes % (Manual) 8 Eosinophils % Eosinophils % (Manual) 4 Basophils % Basophils % (Manual) 2 Nucleated Red Blood Cells % 0.0 Neutrophils # Neutrophils # (Manual) 3.7 Band Neutrophils # 0.4 Absolute Lymphocytes (Manual) 1.3 Lymphocytes # Reactive Lymphocytes # 0.2 H Monocytes # Absolute Monocytes (Manual) 0.5 Eosinophils # Basophils # Basophils # (Manual) 0.1 H Nucleated Red Blood Cells # Platelet Estimate NORMAL Giant Platelets 4 H Polychromasia 2+ Anisocytosis 1+ Microcytosis 1+ Sodium Level 137 Potassium Level 4.3 Chloride Level 102 Carbon Dioxide Level 26 Anion Gap 13 Blood Urea Nitrogen 48 #H Creatinine 1.18 H Glucose Level 130 Calcium Level 9.4 Test 05/15/17 05:18 Bedside Glucose 137 Medications Current Medications Aspirin (Aspirin) 81 mg DAILY GTB Last administered on 05/15/17 08:18; Admin Dose 81 MG; Start 05/09/17 at 09:00 Acetaminophen (Tylenol Liquid) 650 mg Q6H PRN GTB PAIN AND OR ELEVATED TEMP Last administered on 05/15/17 08:18; Admin Dose 650 MG; Start 05/09/17 at 09:00 Cholecalciferol (Vitamin D) 1,000 unit DAILY GTB Last administered on 08:19; Admin Dose 1,000 UNIT; Start 05/09/17 at 09:00 Insulin Glargine (Lantus) 17 unit DAILY@08 SC Last administered on 05/15/17 08 :44; Admin Dose 17 UNIT; Start 05/10/17 at 08:00 Levothyroxine Sodium (Synthroid) 125 mcg DAILY@06 GTB Last administered on 05/15 05:18; Admin Dose 125 MCG; Start 05/10/17 at 06:00 Zinc Sulfate (Zinc Sulfate) 220 mg DAILY GTB Last administered on 05/15/17 08: 18; Admin Dose 220 MG; Start 05/09/17 at 09:00 Ondansetron HCl (Zofran Inj) 4 mg Q6H PRN IV NAUSEA AND/OR VOMITING Last administered on 05/12/17 08:33; Admin Dose 4 MG; Start 05/09/17 at 09:00 Lorazepam (Ativan) 1 mg Q6H PRN IV ANXIETY Last administered on 05/10/17 21:47 ; Admin Dose 1 MG; Start 05/09/17 at 09:00 Miscellaneous Information 1 ea NOTE XX ; Start 05/09/17 at 10:00 Glucose (Glutose) 15 gm Q15M PRN PO DECREASED GLUCOSE; Start 05/09/17 at 10:00 Glucose (Glutose) 22.5 gm Q15M PRN PO DECREASED GLUCOSE; Start 05/09/17 at 10: 00 Dextrose (D50w Syringe) 25 ml Q15M PRN IV DECREASED GLUCOSE Last administered on 05/11/17 01:54; Admin Dose 25 ML; Start 05/09/17 at 10:00 Dextrose (D50w Syringe) 50 ml Q15M PRN IV DECREASED GLUCOSE; Start 05/09/17 at 10:00 Glucagon (Glucagen) 1 mg Q15M PRN IM DECREASED GLUCOSE; Start 05/09/17 at 10:00 Glucose (Glutose) 15 gm Q15M PRN BUCCAL DECREASED GLUCOSE; Start 05/09/17 at 10 :00 Multivitamins (Multivitamin) 30 ml DAILY PEG Last administered on 05/15/17 08: 18; Admin Dose 30 ML; Start 05/10/17 at 09:00 Fluoxetine HCl (Prozac) 20 mg DAILY GTB Last administered on 05/15/17 08:19; Admin Dose 20 MG; Start 05/10/17 at 09:00 Collagenase (Santyl) 1 applic DAILY TOP Last administered on 05/15/17 08:20; Admin Dose 1 APPLIC; Start 05/10/17 at 09:00 Collagenase (Santyl) 1 applic PRN PRN TOP SOILING; Start 05/10/17 at 01:30 Morphine Sulfate (morphine) 2 mg Q4H PRN IV PAIN LEVEL 4-6 Last administered on 05/12/17 08:33; Admin Dose 2 MG; Start 05/10/17 at 17:30 Famotidine (Pepcid) 20 mg DAILY GTB Last administered on 05/15/17 08:19; Admin Dose 20 MG; Start 05/11/17 at 09:00 Insulin Aspart (Novolog Insulin Pen) NOVOLOG *MILD* ALGORI... Q6 SC Last administered on 05/14/17 18:52; Admin Dose 1 UNIT; Start 05/13/17 at 12:00 Mupirocin 1 applic 1 applic BID TOP Last administered on 05/15/17 08:20; Admin Dose 1 APPLIC; Start 05/14/17 at 09:00 Linezolid (Zyvox 600mg/D5W (Pmx)) 300 ml @ 300 mls/hr Q12 IVPB Last administered on 05/15/17t 08:19; Admin Dose 300 MLS/HR; Start 05/14/17 at 21:00 Assessment/Plan Chief Complaint/Hosp Course Assessment 1. Hypoxemic respiratory failure with recent tracheostomy. Still with significant hypoxemia chest x-ray demonstrating ongoing bilateral infiltrates. Intermittent desaturation possibly secondary to tracheostomy position against tracheal wall. Decrease FiO2 as tolerated. Now down to 60% FiO2 and PEEP of 8 ENT evaluation appreciated 2. Renal insufficiency with profound anasarca. Hemodialysis per nephrology 3. Anemia possible chronic in nature rule out GI bleed H&H remained stable 4. Encephalopathy toxic metabolic appears to be resolving Avoid benzodiazepines if possible 5. Diabetes mellitus Continue current glycemic management 6. Paroxysmal atrial fibrillation Currently rate controlled 7. Dysphagia now with G-tube Continue tube feeding 8. Stage IV decubitus ulcer continues infection formed stool patient may benefit from diverting colostomy. 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 Consider surgical evaluation for diverting colostomy Continue wound care Transfer to [place] respiratory unit when stable. Problems: YAQUELIN DURAN MD, [facility] May 15, 2017 09:20
[2017-05-15] MEDS: morphine 2 MG INJ IV PRN ×2 (10:08→13:46)
--- NOTE | 2017-05-15 11:30 | PN ---
Date/Time of Note Date/Time of Note DATE: 05/15/17 TIME: 11:09 Assessment/Plan VTE Prophylaxis VTE Prophylaxis Intervention: other Lines/Catheters IV Catheter Type (from Nrsg): Central Line Central line still needed: Yes Urinary Cath still in place: Yes Reason Cath still needed: urinary retention Assessment/Plan Assessment/Plan - VRE Sacral wound- VRE- stod Vanco, start Linezolid 600 mg IV q12HRS Organism 1 VANCO RESISTANT ENTEROCOCCUS QUANTITY 1+ MULTI DRUG RESISTANT ORGANISM Organism 2 GRAM NEGATIVE CAROLYN QUANTITY RARE - stop Vanco - Probable VAP vs HCAP 2/2 MRSA - Pulmonary edema - Acute on chronic hypoxemic respiratory failure s/p recent trach - Small right pneumothorax (less than 5%) on CT - BERNARDINO on CKD d/t ATN with fluid overload initiated on HD 05/10/2017 - Hyperkalemia - CAD - PAF - remains in SR/ST - CHF d/t diastolic dysfunction - IDDM - Hgb A1c 5.5% - Hypothyroidism - Anemia with iron deficiency, +stool OB - Dysphagia s/p PEG - Paraplegia d/t spinal injury - Chronic BUE weakness - Hypoalbuminemia with anasarca - Toxic metabolic encephalopathy - improving - Morbid obesity - BMI 39 - 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 Recommendations: - DC cefepime - DC vancomycin (05/09/2017- 05/15/2017) due to VRE wound - pending: wound cx, procalc, influenza screen - serial CXR - continue local wound care - add Mupirocin for MRSA de-colonization - contact isolation for MRSA Management d/w RN and Dr. Stephenson Critical care time spent: 45 min Subjective 24 Hr Interval Summary Free Text/Dictation - afebrile - hd - Trach was changed by ENT yesterday -VRE sacral wound- on zyvox - wbc wnl -Unable to perform ROS sec encephalopathy DW staff Subjective hx not possible: pt critical status Constitutional: requiring IVF, requiring O2 Exam/Review of Systems Vital Signs Vitals Vital Signs Date Time Temp Pulse Resp B/P Pulse Ox O2 Delivery O2 Flow Rate FiO2 05/15/17 08:00 116 05/15/17 08:00 70 05/15/17 07:00 22 142/70 100 05/15/17 06:00 Mechanical Ventilator 05/15/17 04:00 97.5 Intake and Output 05/14/17 05/14/17 05/15/17 15:00 23:00 07:00 Intake Total 870 ml 800 ml 650 ml Output Total 2520 ml 30 ml 40 ml Balance -1650 ml 770 ml 610 ml Exam Constitutional: alert Respiratory: diminished breath sounds, normal air movement Cardiovascular: nl pulses, other (s1s2) Gastrointestinal: other, soft Musculoskeletal: muscle weakness Extremities: edema Neurological: confused Results Result Diagram: 05/15/17 0500 05/15/17 0500 Results 24 hrs Laboratory Tests Test 05/14/17 11:43 05/14/17 16:44 05/14/17 23:51 05/15/17 05:00 Bedside Glucose 176 141 128 White Blood Count 6.7 Red Blood Count 3.33 L Hemoglobin 9.0 L Hematocrit 28.4 L Mean Corpuscular Volume 85.3 Mean Corpuscular Hemoglobin 27.0 L Mean Corpuscular Hemoglobin Concent 31.7 L Red Cell Distribution Width 21.0 H Platelet Count 206 Mean Platelet Volume 11.1 H Neutrophils % Segmented Neutrophils % (Manual) 55 Band Neutrophils % (Manual) 7 H Lymphocytes % Lymphocytes % (Manual) 20 Reactive Lymphocytes % (Manual) 4 H Monocytes % Monocytes % (Manual) 8 Eosinophils % Eosinophils % (Manual) 4 Basophils % Basophils % (Manual) 2 Nucleated Red Blood Cells % 0.0 Neutrophils # Neutrophils # (Manual) 3.7 Band Neutrophils # 0.4 Absolute Lymphocytes (Manual) 1.3 Lymphocytes # Reactive Lymphocytes # 0.2 H Monocytes # Absolute Monocytes (Manual) 0.5 Eosinophils # Basophils # Basophils # (Manual) 0.1 H Nucleated Red Blood Cells # Platelet Estimate NORMAL Giant Platelets 4 H Polychromasia 2+ Anisocytosis 1+ Microcytosis 1+ Sodium Level 137 Potassium Level 4.3 Chloride Level 102 Carbon Dioxide Level 26 Anion Gap 13 Blood Urea Nitrogen 48 #H Creatinine 1.18 H Glucose Level 130 Calcium Level 9.4 Test 05/15/17 05:18 Bedside Glucose 137 Medications Medications Current Medications Aspirin (Aspirin) 81 mg DAILY GTB Last administered on 05/15/17 08:18; Admin Dose 81 MG; Start 05/09/17 at 09:00 Acetaminophen (Tylenol Liquid) 650 mg Q6H PRN GTB PAIN AND OR ELEVATED TEMP Last administered on 05/15/17 08:18; Admin Dose 650 MG; Start 05/09/17 at 09:00 Cholecalciferol (Vitamin D) 1,000 unit DAILY GTB Last administered on 08:19; Admin Dose 1,000 UNIT; Start 05/09/17 at 09:00 Insulin Glargine (Lantus) 17 unit DAILY@08 SC Last administered on 05/15/17 08 :44; Admin Dose 17 UNIT; Start 05/10/17 at 08:00 Levothyroxine Sodium (Synthroid) 125 mcg DAILY@06 GTB Last administered on 05/15 05:18; Admin Dose 125 MCG; Start 05/10/17 at 06:00 Zinc Sulfate (Zinc Sulfate) 220 mg DAILY GTB Last administered on 05/15/17 08: 18; Admin Dose 220 MG; Start 05/09/17 at 09:00 Ondansetron HCl (Zofran Inj) 4 mg Q6H PRN IV NAUSEA AND/OR VOMITING Last administered on 05/12/17 08:33; Admin Dose 4 MG; Start 05/09/17 at 09:00 Lorazepam (Ativan) 1 mg Q6H PRN IV ANXIETY Last administered on 05/10/17 21:47 ; Admin Dose 1 MG; Start 05/09/17 at 09:00 Miscellaneous Information 1 ea NOTE XX ; Start 05/09/17 at 10:00 Glucose (Glutose) 15 gm Q15M PRN PO DECREASED GLUCOSE; Start 05/09/17 at 10:00 Glucose (Glutose) 22.5 gm Q15M PRN PO DECREASED GLUCOSE; Start 05/09/17 at 10: 00 Dextrose (D50w Syringe) 25 ml Q15M PRN IV DECREASED GLUCOSE Last administered on 05/11/17 01:54; Admin Dose 25 ML; Start 05/09/17 at 10:00 Dextrose (D50w Syringe) 50 ml Q15M PRN IV DECREASED GLUCOSE; Start 05/09/17 at 10:00 Glucagon (Glucagen) 1 mg Q15M PRN IM DECREASED GLUCOSE; Start 05/09/17 at 10:00 Glucose (Glutose) 15 gm Q15M PRN BUCCAL DECREASED GLUCOSE; Start 05/09/17 at 10 :00 Multivitamins (Multivitamin) 30 ml DAILY PEG Last administered on 05/15/17 08: 18; Admin Dose 30 ML; Start 05/10/17 at 09:00 Fluoxetine HCl (Prozac) 20 mg DAILY GTB Last administered on 05/15/17 08:19; Admin Dose 20 MG; Start 05/10/17 at 09:00 Collagenase (Santyl) 1 applic DAILY TOP Last administered on 05/15/17 08:20; Admin Dose 1 APPLIC; Start 05/10/17 at 09:00 Collagenase (Santyl) 1 applic PRN PRN TOP SOILING; Start 05/10/17 at 01:30 Morphine Sulfate (morphine) 2 mg Q4H PRN IV PAIN LEVEL 4-6 Last administered on 05/15/17 10:08; Admin Dose 2 MG; Start 05/10/17 at 17:30 Famotidine (Pepcid) 20 mg DAILY GTB Last administered on 05/15/17 08:19; Admin Dose 20 MG; Start 05/11/17 at 09:00 Insulin Aspart (Novolog Insulin Pen) NOVOLOG *MILD* ALGORI... Q6 SC Last administered on 05/14/17 18:52; Admin Dose 1 UNIT; Start 05/13/17 at 12:00 Mupirocin 1 applic 1 applic BID TOP Last administered on 05/15/17 08:20; Admin Dose 1 APPLIC; Start 05/14/17 at 09:00 Linezolid (Zyvox 600mg/D5W (Pmx)) 300 ml @ 300 mls/hr Q12 IVPB Last administered on 05/15/17 08:19; Admin Dose 300 MLS/HR; Start 05/14/17 at 21:00 LYDIA SWAIN May 15, 2017 11:19
[2017-05-15] MEDS: LORAZEPAM 2 MG INJ IV PRN (13:15)
--- NOTE | 2017-05-15 13:27 | CONS ---
DATE OF ADMISSION: 05/09/2017 DATE OF CONSULTATION: 05/14/2017 TYPE OF CONSULTATION: Gastroenterology. REASON FOR CONSULTATION: Positive stool guaiac. HISTORY OF PRESENT ILLNESS: The patient is a 76-year-old female with history of spinal injury leadi ng to paraplegia, has a history of coronary artery disease, paroxysmal atrial fibrillation, hyperten kristy. The patient was admitted to [facility] for shortness of breath. She was diagn osed to have pneumonia and had respiratory failure. The patient failed the swallow study and requir ed a G-tube placement and also tracheostomy. The patient is in intensive care unit. She was admit catalina through the ER for bloody secretion from the trachea and the patient was on the vent. GI consul t was called in for a positive stool guaiac and anemia. ALLERGIES: NONE. PAST MEDICAL HISTORY: Cholecystectomy, appendicectomy, right shoulder surgery arthroplasty. SOCIAL HISTORY: Does not smoke. FAMILY HISTORY: Nothing contributory. PHYSICAL EXAMINATION GENERAL: Well-built, patient is on vent. CARDIOVASCULAR: No murmur. LUNGS: Air entry diminished at both bases. ABDOMEN: Soft, bowel sounds are heard. CENTRAL NERVOUS SYSTEM: She is arousable and a paraplegic, weakness in upper extremities. LABORATORY DATA: Her hematocrit on 05/13/2017 was 22, yesterday on 05/14/2017 was 29.6 after transf usion. BUN was 48, creatinine was 1.18. LFTs are normal except for alkaline phosphatase 139. Ches t CT showed collapse of the left upper lobe, multifocal patchy infiltrate in the right upper lobe, p leural effusion on the left side and a small right pneumothorax. IMPRESSION: 1. Gastrointestinal bleeding occult positive stool guaiac. No evidence of overt bleeding as discus sed with the staff. 2. Bleeding also from the tracheostomy site. 3. Paraplegia. 4. Vent dependent respiratory failure. 5. Diabetes mellitus. 6. Status post percutaneous endoscopic gastrostomy. 7. Hypoalbuminemia with anasarca. 8. Obesity. 9. Sacral wound. 10. Pulmonary edema and also hospital-acquired pneumonia. PLAN: At this point, is to continue PPI. Continue antibiotics. Patient at present not on any bloo d thinners other than aspirin. Will discuss with the family regarding the endoscopic procedure and if they are in agreement, then will proceed with both EGD and colonoscopy. Dictated By: DUARTE MORALES/LOIS Conf#: [id number] DID#: [id number]
--- NOTE | 2017-05-15 14:08 | PN ---
Date/Time of Note Date/Time of Note DATE: 05/15/17 TIME: 14:02 Assessment/Plan Lines/Catheters IV Catheter Type (from [facility]): Central Line Geronimo in Place (from [facility]): Yes Assessment/Plan Chief Complaint/Hosp Course 1. Sacral wound: stage 4: cultures noted -debridement prn -local care w dakins -frequent turning and off-loading -low air loss mattress -vitamin c -short term zinc -optimize nutrition -abx per sensitivity 2. Acute respiratory failure with complete collapse of the left upper lobe with obliteration of the left upper lobe bronchus. : comfortable on vent -per pulm -continue vent support 3. VDRF -pulm toilet -respiratory treatments 4. Anemia: no acute bleed noted: stool OB +; h/h stable -monitor -transfuse as needed -per gi 5. Elevated TSH -further workup per medical team 6. Electrolyte imbalance -optimize lytes 7. Morbid obesity: bmi 40 -diet and exercise optimization -encourage weight loss 8. BERNARDINO started on HD; improved edema -per renal 9. Tachycardia: -cardiac optimization per cards Thank you. Patient seen and examined in collaboration with Dr. Kedar Valencia. Problems: Subjective 24 Hr Interval Summary Awake and responsive. HD yesterday. Improved creatinine. Still tachycardic. No fevers, chills, sob, congested cough, cp, palpitations, pimentel, dizziness, n/v/d/ dysuria. Appears comfortable on vent. Min/mod drainage from wounds. Exam/Review of Systems Vital Signs Vitals Vital Signs Date Time Temp Pulse Resp B/P Pulse Ox O2 Delivery O2 Flow Rate FiO2 05/15/17 13:00 108 16 158/62 100 05/15/17 12:00 60 05/15/17 10:00 98.3 05/15/17 06:00 Mechanical Ventilator Intake and Output 05/14/17 05/14/17 05/15/17 14:59 22:59 06:59 Intake Total 820 ml 800 ml 700 ml Output Total 2520 ml 30 ml 40 ml Balance -1700 ml 770 ml 660 ml Exam Free Text/Dictation Constitutional: alert, responsive No distress Psych: nl mood/affect, no complaints Head: atraumatic, normocephalic Eyes: nl lids, nl sclera ENMT: mucosa pink and moist, nl nasal mucosa & septum Neck: non-tender, other (trach vent), supple Respiratory: crackles/rales Cardiovascular: nl pulses, other (st), tachycardic Gastrointestinal: distended Genitourinary - Female: nl adnexae, nl external genitalia Musculoskeletal: No muscle tone (stiffness) Extremities: pitting pedal edema Neurological: other (paraplegia), No nl speech, No nl strength Skin: other (wound: packed, nonmalodorous, periwound without erythema) Results Result Diagram: 05/15/17 0500 05/15/17 0500 BRITTANY STALEY NP May 15, 2017 14:08
[2017-05-15 14:20] LABS: AADO2 Arterial 345.6 mmHg (7.0-24.0); Allen Test ACCEPTAB; Arterial Base Excess 0.3 mmol/L (-3.0-3); Arterial COHb 0.3 % (0.0-3.0); Arterial Fraction of Oxyhgb 85.4 % (93.0-99.0); Arterial HCO3 23.8 mmol/L (22.0-26.0); Arterial MetHb 0.6 % (0.0-1.5); Arterial Total Hemglobin 10.1 g/dl (12.0-18.0); MODE VENT - AC
--- NOTE | 2017-05-15 15:10 | PN ---
Date/Time of Note Date/Time of Note DATE: 05/15/17 TIME: 15:01 Assessment/Plan VTE Prophylaxis VTE Prophylaxis Intervention: SCD's Lines/Catheters IV [facility] Type (from [facility]): PICC Line Central line still needed: Yes Urinary Cath still in place: Yes Reason Cath still needed: urinary retention Assessment/Plan Chief Complaint/Hosp Course Patient status post hemodialysis today, he is on ventilatory support with FiO2 of 60% PEEP of 8. Assessment/Plan -Acute respiratory failure with left upper lobe collapse. Continue ventilatory support. Dr. Hamilton is following in pulmonology consultation. -5% pneumothorax, no pneumothorax per last chest x-ray -Healthcare acquired pneumonia, continue vancomycin and cefepime, follow-up and sputum culture. Dr. Stephenson is following in infection disease consultation - Acute kidney injury with a generalized edema and hyperkalemia, Dr. Stevens is following in nephrology consultation. Continue hemodialysis. -Paroxysmal atrial fibrillation -Diabetes mellitus, continue Lantus and NovoLog -Hypothyroidism, continue levothyroxine. 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 Broussard is following in gastroenterology consultation. -Tracheostomy amount malfunction, s/p tracheostomy tube change by Dr. Lofton, ENT Further recommendations based on clinical course. Plan of care discussed with Dr. Han. Problems: Exam/Review of Systems Vital Signs Vitals Vital Signs Date Time Temp Pulse Resp B/P Pulse Ox O2 Delivery O2 Flow Rate FiO2 05/15/17 13:00 108 16 158/62 100 05/15/17 12:00 60 05/15/17 10:00 98.3 05/15/17 06:00 Mechanical Ventilator Intake and Output 05/14/17 05/14/17 05/15/17 15:00 23:00 07:00 Intake Total 870 ml 800 ml 650 ml Output Total 2520 ml 30 ml 40 ml Balance -1650 ml 770 ml 610 ml Exam Constitutional: alert Neck: other (Tracheostomy), supple Respiratory: diminished breath sounds Cardiovascular: nl pulses Gastrointestinal: ascites, non-tender, other (G-tube), soft Musculoskeletal: muscle weakness Extremities: edema Neurological: other (Paraplegia) R fem Dany Results Result Diagram: 05/15/17 0500 05/15/17 0500 Results 24 hrs Laboratory Tests Test 05/14/17 16:44 05/14/17 23:51 05/15/17 05:00 05/15/17 05:18 Bedside Glucose 141 128 137 White Blood Count 6.7 Red Blood Count 3.33 L Hemoglobin 9.0 L Hematocrit 28.4 L Mean Corpuscular Volume 85.3 Mean Corpuscular Hemoglobin 27.0 L Mean Corpuscular Hemoglobin Concent 31.7 L Red Cell Distribution Width 21.0 H Platelet Count 206 Mean Platelet Volume 11.1 H Neutrophils % Segmented Neutrophils % (Manual) 55 Band Neutrophils % (Manual) 7 H Lymphocytes % Lymphocytes % (Manual) 20 Reactive Lymphocytes % (Manual) 4 H Monocytes % Monocytes % (Manual) 8 Eosinophils % Eosinophils % (Manual) 4 Basophils % Basophils % (Manual) 2 Nucleated Red Blood Cells % 0.0 Neutrophils # Neutrophils # (Manual) 3.7 Band Neutrophils # 0.4 Absolute Lymphocytes (Manual) 1.3 Lymphocytes # Reactive Lymphocytes # 0.2 H Monocytes # Absolute Monocytes (Manual) 0.5 Eosinophils # Basophils # Basophils # (Manual) 0.1 H Nucleated Red Blood Cells # Platelet Estimate NORMAL Giant Platelets 4 H Polychromasia 2+ Anisocytosis 1+ Microcytosis 1+ Sodium Level 137 Potassium Level 4.3 Chloride Level 102 Carbon Dioxide Level 26 Anion Gap 13 Blood Urea Nitrogen 48 #H Creatinine 1.18 H Glucose Level 130 Calcium Level 9.4 Test 05/15/17 13:11 05/15/17 14:00 Bedside Glucose 133 Blood Gas Specimen Source Blood arterial Arterial Blood Date Drawn 05/15/2017 2:10:23 PM Arterial Blood pH (Temp corrected) 7.464 H Arterial Blood pCO2 (Temp correct) 33.9 L Arterial Blood pO2 (Temp corrected) 44.9 *L Arterial Blood HCO3 23.8 Arterial Blood Base Excess 0.3 Arterial Blood Oxygen Saturation 86.2 L Ki Test ACCEPTAB Arterial Blood Gas Puncture Site Right Radial Arterial Blood Carboxyhemoglobin 0.3 Arterial Blood Methemoglobin 0.6 Blood Gas A-a O2 Differential 345.6 H Oxyhemoglobin Percent 85.4 L Total Hemoglobin 10.1 L Blood Gas Temperature 37.0 Blood Gas Respiration Rate 14.0 Blood Gas Actual Respiration Rate 26 Blood Gas Modality VENT - AC FiO2 60.0 Blood Gas Tidal Volume 500.0 Blood Gas Low PEEP Setting 5.0 Blood Gas Critical Value Read Back A YEHUDA RN Blood Gas Notified Whom JLD Blood Gas Notified Time 05/15/2017 2:20:12 PM Medications Medications Current Medications Aspirin (Aspirin) 81 mg DAILY GTB Last administered on 05/15/17 08:18; Admin Dose 81 MG; Start 05/09/17 at 09:00 Acetaminophen (Tylenol Liquid) 650 mg Q6H PRN GTB PAIN AND OR ELEVATED TEMP Last administered on 05/15/17 08:18; Admin Dose 650 MG; Start 05/09/17 at 09:00 Cholecalciferol (Vitamin D) 1,000 unit DAILY GTB Last administered on 08:19; Admin Dose 1,000 UNIT; Start 05/09/17 at 09:00 Insulin Glargine (Lantus) 17 unit DAILY@08 SC Last administered on 05/15/17 08 :44; Admin Dose 17 UNIT; Start 05/10/17 at 08:00 Levothyroxine Sodium (Synthroid) 125 mcg DAILY@06 GTB Last administered on 05/15 05:18; Admin Dose 125 MCG; Start 05/10/17 at 06:00 Zinc Sulfate (Zinc Sulfate) 220 mg DAILY GTB Last administered on 05/15/17 08: 18; Admin Dose 220 MG; Start 05/09/17 at 09:00 Ondansetron HCl (Zofran Inj) 4 mg Q6H PRN IV NAUSEA AND/OR VOMITING Last administered on 05/12/17 08:33; Admin Dose 4 MG; Start 05/09/17 at 09:00 Lorazepam (Ativan) 1 mg Q6H PRN IV ANXIETY Last administered on 05/15/17 13:15 ; Admin Dose 1 MG; Start 05/09/17 at 09:00 Miscellaneous Information 1 ea NOTE XX ; Start 05/09/17 at 10:00 Glucose (Glutose) 15 gm Q15M PRN PO DECREASED GLUCOSE; Start 05/09/17 at 10:00 Glucose (Glutose) 22.5 gm Q15M PRN PO DECREASED GLUCOSE; Start 05/09/17 at 10: 00 Dextrose (D50w Syringe) 25 ml Q15M PRN IV DECREASED GLUCOSE Last administered on 05/11/17 01:54; Admin Dose 25 ML; Start 05/09/17 at 10:00 Dextrose (D50w Syringe) 50 ml Q15M PRN IV DECREASED GLUCOSE; Start 05/09/17 at 10:00 Glucagon (Glucagen) 1 mg Q15M PRN IM DECREASED GLUCOSE; Start 05/09/17 at 10:00 Glucose (Glutose) 15 gm Q15M PRN BUCCAL DECREASED GLUCOSE; Start 05/09/17 at 10 :00 Multivitamins (Multivitamin) 30 ml DAILY PEG Last administered on 05/15/17 08: 18; Admin Dose 30 ML; Start 05/10/17 at 09:00 Fluoxetine HCl (Prozac) 20 mg DAILY GTB Last administered on 05/15/17 08:19; Admin Dose 20 MG; Start 05/10/17 at 09:00 Collagenase (Santyl) 1 applic DAILY TOP Last administered on 05/15/17 08:20; Admin Dose 1 APPLIC; Start 05/10/17 at 09:00 Collagenase (Santyl) 1 applic PRN PRN TOP SOILING; Start 05/10/17 at 01:30 Morphine Sulfate (morphine) 2 mg Q4H PRN IV PAIN LEVEL 4-6 Last administered on 05/15/17 13:46; Admin Dose 2 MG; Start 05/10/17 at 17:30 Famotidine (Pepcid) 20 mg DAILY GTB Last administered on 05/15/17 08:19; Admin Dose 20 MG; Start 05/11/17 at 09:00 Insulin Aspart (Novolog Insulin Pen) NOVOLOG *MILD* ALGORI... Q6 SC Last administered on 05/14/17 18:52; Admin Dose 1 UNIT; Start 05/13/17 at 12:00 Mupirocin 1 applic 1 applic BID TOP Last administered on 05/15/17 08:20; Admin Dose 1 APPLIC; Start 05/14/17 at 09:00 Linezolid (Zyvox 600mg/D5W (Pmx)) 300 ml @ 300 mls/hr Q12 IVPB Last administered on 05/15/17 08:19; Admin Dose 300 MLS/HR; Start 05/14/17 at 21:00 KISHAN SAUCEDO May 15, 2017 15:10
--- NOTE | 2017-05-15 15:40 | RADRPT ---
Vent Rate: 110 bpm RR Interval: 0 msec OR Interval: 184 msec QRS Duration: 64 msec QT Interval: 290 msec QTC Interval: 392 msec P-R-T [place]: 0 - 65 - 39 degrees Sinus tachycardia Low voltage QRS Cannot rule out Anterior infarct , age undetermined Abnormal ECG Electronically Signed By: Kareem Conrad [id number]
--- NOTE | 2017-05-15 18:34 | CONS ---
Date/Time of Note Date/Time of Note DATE: 05/15/17 TIME: 18:32 Assessment/Plan Assessment/Plan Additional Assessment/Plan IMPRESSION: 1. Gastrointestinal bleeding occult positive stool guaiac. No evidence of overt bleeding as discussed with the staff. 2. Bleeding also from the tracheostomy site. 3. Paraplegia. 4. Vent dependent respiratory failure. 5. Diabetes mellitus. 6. Status post percutaneous endoscopic gastrostomy. 7. Hypoalbuminemia with anasarca. 8. Obesity. 9. Sacral wound. 10. Pulmonary edema and also hospital-acquired pneumonia. Plan Continue present care Monitor H&H Consultation Date/Type/Reason Admit Date/Time May 09, 2017 at 00:06 Initial Consult Date 05/10/17 Type of Consultation: Pulmonary Referring Provider: KISHAN SAUCEDO 24 HR Interval Summary Free Text/Dictation No bleeding I examined the stool which is greenish in color. Hemorrhoids are visible and the bleed easily on touching Exam/Review of Systems Vital Signs Vitals Vital Signs Date Time Temp Pulse Resp B/P Pulse Ox O2 Delivery O2 Flow Rate FiO2 05/15/17 17:10 104 22 100 90 05/15/17 13:00 158/62 05/15/17 10:00 98.3 05/15/17 06:00 Mechanical Ventilator Intake and Output 05/14/17 05/14/17 05/15/17 15:00 23:00 07:00 Intake Total 870 ml 800 ml 650 ml Output Total 2520 ml 30 ml 40 ml Balance -1650 ml 770 ml 610 ml Exam Constitutional: alert, oriented, well developed Psych: nl mood/affect, no complaints Head: atraumatic, normocephalic Eyes: EOMI, PERRL, nl conjunctiva, nl lids, nl sclera ENMT: nl external ears & nose, nl lips & teeth, nl nasal mucosa & septum Neck: non-tender, supple Respiratory: clear to auscultation, normal air movement Cardiovascular: nl pulses, regular rate and rhythm Gastrointestinal: nl liver, spleen, non-tender, soft Musculoskeletal: nl extremities to inspection, nl gait and stance Extremities: normal pulses Neurological: SITE INTERPRETER II-XII intact, nl mental status, nl speech, nl strength Skin: nl turgor, No rash or lesions Lymph: nl lymph nodes Results Result Diagram: 05/15/17 0500 05/15/17 0500 Results 24 hrs Laboratory Tests Test 05/14/17 23:51 05/15/17 05:00 05/15/17 05:18 05/15/17 13:11 Bedside Glucose 128 137 133 White Blood Count 6.7 Red Blood Count 3.33 L Hemoglobin 9.0 L Hematocrit 28.4 L Mean Corpuscular Volume 85.3 Mean Corpuscular Hemoglobin 27.0 L Mean Corpuscular Hemoglobin Concent 31.7 L Red Cell Distribution Width 21.0 H Platelet Count 206 Mean Platelet Volume 11.1 H Neutrophils % Segmented Neutrophils % (Manual) 55 Band Neutrophils % (Manual) 7 H Lymphocytes % Lymphocytes % (Manual) 20 Reactive Lymphocytes % (Manual) 4 H Monocytes % Monocytes % (Manual) 8 Eosinophils % Eosinophils % (Manual) 4 Basophils % Basophils % (Manual) 2 Nucleated Red Blood Cells % 0.0 Neutrophils # Neutrophils # (Manual) 3.7 Band Neutrophils # 0.4 Absolute Lymphocytes (Manual) 1.3 Lymphocytes # Reactive Lymphocytes # 0.2 H Monocytes # Absolute Monocytes (Manual) 0.5 Eosinophils # Basophils # Basophils # (Manual) 0.1 H Nucleated Red Blood Cells # Platelet Estimate NORMAL Giant Platelets 4 H Polychromasia 2+ Anisocytosis 1+ Microcytosis 1+ Sodium Level 137 Potassium Level 4.3 Chloride Level 102 Carbon Dioxide Level 26 Anion Gap 13 Blood Urea Nitrogen 48 #H Creatinine 1.18 H Glucose Level 130 Calcium Level 9.4 Test 05/15/17 14:00 05/15/17 18:22 Blood Gas Specimen Source Blood arterial Arterial Blood Date Drawn 05/15/2017 2:10:23 PM Arterial Blood pH (Temp corrected) 7.464 H Arterial Blood pCO2 (Temp correct) 33.9 L Arterial Blood pO2 (Temp corrected) 44.9 *L Arterial Blood HCO3 23.8 Arterial Blood Base Excess 0.3 Arterial Blood Oxygen Saturation 86.2 L Ki Test ACCEPTAB Arterial Blood Gas Puncture Site Right Radial Arterial Blood Carboxyhemoglobin 0.3 Arterial Blood Methemoglobin 0.6 Blood Gas A-a O2 Differential 345.6 H Oxyhemoglobin Percent 85.4 L Total Hemoglobin 10.1 L Blood Gas Temperature 37.0 Blood Gas Respiration Rate 14.0 Blood Gas Actual Respiration Rate 26 Blood Gas Modality VENT - AC FiO2 60.0 Blood Gas Tidal Volume 500.0 Blood Gas Low PEEP Setting 5.0 Blood Gas Critical Value Read Back A YEHUDA COOPER Blood Gas Notified Whom JLD Blood Gas Notified Time 05/15/2017 2:20:12 PM Bedside Glucose 113 Medications Medications Current Medications Aspirin (Aspirin) 81 mg DAILY GTB Last administered on 05/15/17 08:18; Admin Dose 81 MG; Start 05/09/17 at 09:00 Acetaminophen (Tylenol Liquid) 650 mg Q6H PRN GTB PAIN AND OR ELEVATED TEMP Last administered on 05/15/17 08:18; Admin Dose 650 MG; Start 05/09/17 at 09:00 Cholecalciferol (Vitamin D) 1,000 unit DAILY GTB Last administered on 08:19; Admin Dose 1,000 UNIT; Start 05/09/17 at 09:00 Insulin Glargine (Lantus) 17 unit DAILY@08 SC Last administered on 05/15/17 08 :44; Admin Dose 17 UNIT; Start 05/10/17 at 08:00 Levothyroxine Sodium (Synthroid) 125 mcg DAILY@06 GTB Last administered on 05/15 05:18; Admin Dose 125 MCG; Start 05/10/17 at 06:00 Zinc Sulfate (Zinc Sulfate) 220 mg DAILY GTB Last administered on 05/15/17 08: 18; Admin Dose 220 MG; Start 05/09/17 at 09:00 Ondansetron HCl (Zofran Inj) 4 mg Q6H PRN IV NAUSEA AND/OR VOMITING Last administered on 05/12/17 08:33; Admin Dose 4 MG; Start 05/09/17 at 09:00 Lorazepam (Ativan) 1 mg Q6H PRN IV ANXIETY Last administered on 05/15/17 13:15 ; Admin Dose 1 MG; Start 05/09/17 at 09:00 Miscellaneous Information 1 ea NOTE XX ; Start 05/09/17 at 10:00 Glucose (Glutose) 15 gm Q15M PRN PO DECREASED GLUCOSE; Start 05/09/17 at 10:00 Glucose (Glutose) 22.5 gm Q15M PRN PO DECREASED GLUCOSE; Start 05/09/17 at 10: 00 Dextrose (D50w Syringe) 25 ml Q15M PRN IV DECREASED GLUCOSE Last administered on 05/11/17 01:54; Admin Dose 25 ML; Start 05/09/17 at 10:00 Dextrose (D50w Syringe) 50 ml Q15M PRN IV DECREASED GLUCOSE; Start 05/09/17 at 10:00 Glucagon (Glucagen) 1 mg Q15M PRN IM DECREASED GLUCOSE; Start 05/09/17 at 10:00 Glucose (Glutose) 15 gm Q15M PRN BUCCAL DECREASED GLUCOSE; Start 05/09/17 at 10 :00 Multivitamins (Multivitamin) 30 ml DAILY PEG Last administered on 05/15/17 08: 18; Admin Dose 30 ML; Start 05/10/17 at 09:00 Fluoxetine HCl (Prozac) 20 mg DAILY GTB Last administered on 05/15/17 08:19; Admin Dose 20 MG; Start 05/10/17 at 09:00 Collagenase (Santyl) 1 applic DAILY TOP Last administered on 05/15/17 08:20; Admin Dose 1 APPLIC; Start 05/10/17 at 09:00 Collagenase (Santyl) 1 applic PRN PRN TOP SOILING; Start 05/10/17 at 01:30 Morphine Sulfate (morphine) 2 mg Q4H PRN IV PAIN LEVEL 4-6 Last administered on 05/15/17 13:46; Admin Dose 2 MG; Start 05/10/17 at 17:30 Famotidine (Pepcid) 20 mg DAILY GTB Last administered on 05/15/17 08:19; Admin Dose 20 MG; Start 05/11/17 at 09:00 Insulin Aspart (Novolog Insulin Pen) NOVOLOG *MILD* ALGORI... Q6 SC Last administered on 05/14/17 18:52; Admin Dose 1 UNIT; Start 05/13/17 at 12:00 Mupirocin 1 applic 1 applic BID TOP Last administered on 05/15/17 08:20; Admin Dose 1 APPLIC; Start 05/14/17 at 09:00 Linezolid (Zyvox 600mg/D5W (Pmx)) 300 ml @ 300 mls/hr Q12 IVPB Last administered on 05/15/17 08:19; Admin Dose 300 MLS/HR; Start 05/14/17 at 21:00 DUARTE PATTERSON MD May 15, 2017 18:34
--- NOTE | 2017-05-15 19:06 | CONS ---
Date/Time of Note Date/Time of Note DATE: 05/15/17 TIME: 19:01 Assessment/Plan Assessment/Plan Additional Assessment/Plan 1. Acute kindey injury due to ATN with acute fluid overload- started on HD during this admission 05/10/17 2. acute uremia with BUn around 100- started on HD during this admission 05/10/17 3. acute on chronic resp failure, s/p tracheostomy 4. Metabolic acidosis 5. Paraplegia 6. Anemia of chronic disease, rule out iron deficiency Plan : started on HD during This admission- plan for HD today with Ultrafiltration as tolerated, no plan for HD tomorrow, next HD will be on Saturday Continue IV abx, Bp stable, pt remained on ventilator, , pulmonary following currently pt pimentel latisha HD catheter, will wait for Permacath HD access until pt becomes more stable and goals of care plan discussed with family will follow up Consultation Date/Type/Reason Admit Date/Time May 09, 2017 at 00:06 Initial Consult Date 05/09/17 Type of Consultation: NEPHROLOGY Referring Provider: KISHAN SAUCEDO 24 HR Interval Summary Free Text/Dictation BP stable, afebrile, no acute events, Exam/Review of Systems Vital Signs Vitals Vital Signs Date Time Temp Pulse Resp B/P Pulse Ox O2 Delivery O2 Flow Rate FiO2 05/15/17 17:10 104 22 100 90 05/15/17 13:00 158/62 05/15/17 10:00 98.3 05/15/17 06:00 Mechanical Ventilator Intake and Output 05/14/17 05/14/17 05/15/17 15:00 23:00 07:00 Intake Total 870 ml 800 ml 700 ml Output Total 2520 ml 30 ml 40 ml Balance -1650 ml 770 ml 660 ml Exam Constitutional: non-verbal + facial swelling, neck swelling, + diffuse anasarca ENMT: other (+ tracehostomy on ventilator ) Respiratory: crackles/rales, diminished breath sounds Cardiovascular: other (tachycardia ), regular rate and rhythm Gastrointestinal: non-tender, soft Musculoskeletal: muscle weakness, 3+ pitting edema upto thigh, back and sacral area Neurological: other (Unable to assess neurolgoical due to pt clinical condition ), unresponsive Results Result Diagram: 05/15/17 0500 05/15/17 0500 Results 24 hrs Laboratory Tests Test 05/14/17 23:51 05/15/17 05:00 05/15/17 05:18 05/15/17 13:11 Bedside Glucose 128 137 133 White Blood Count 6.7 Red Blood Count 3.33 L Hemoglobin 9.0 L Hematocrit 28.4 L Mean Corpuscular Volume 85.3 Mean Corpuscular Hemoglobin 27.0 L Mean Corpuscular Hemoglobin Concent 31.7 L Red Cell Distribution Width 21.0 H Platelet Count 206 Mean Platelet Volume 11.1 H Neutrophils % Segmented Neutrophils % (Manual) 55 Band Neutrophils % (Manual) 7 H Lymphocytes % Lymphocytes % (Manual) 20 Reactive Lymphocytes % (Manual) 4 H Monocytes % Monocytes % (Manual) 8 Eosinophils % Eosinophils % (Manual) 4 Basophils % Basophils % (Manual) 2 Nucleated Red Blood Cells % 0.0 Neutrophils # Neutrophils # (Manual) 3.7 Band Neutrophils # 0.4 Absolute Lymphocytes (Manual) 1.3 Lymphocytes # Reactive Lymphocytes # 0.2 H Monocytes # Absolute Monocytes (Manual) 0.5 Eosinophils # Basophils # Basophils # (Manual) 0.1 H Nucleated Red Blood Cells # Platelet Estimate NORMAL Giant Platelets 4 H Polychromasia 2+ Anisocytosis 1+ Microcytosis 1+ Sodium Level 137 Potassium Level 4.3 Chloride Level 102 Carbon Dioxide Level 26 Anion Gap 13 Blood Urea Nitrogen 48 #H Creatinine 1.18 H Glucose Level 130 Calcium Level 9.4 Test 05/15/17 14:00 05/15/17 18:22 Blood Gas Specimen Source Blood arterial Arterial Blood Date Drawn 05/15/2017 2:10:23 PM Arterial Blood pH (Temp corrected) 7.464 H Arterial Blood pCO2 (Temp correct) 33.9 L Arterial Blood pO2 (Temp corrected) 44.9 *L Arterial Blood HCO3 23.8 Arterial Blood Base Excess 0.3 Arterial Blood Oxygen Saturation 86.2 L Ki Test ACCEPTAB Arterial Blood Gas Puncture Site Right Radial Arterial Blood Carboxyhemoglobin 0.3 Arterial Blood Methemoglobin 0.6 Blood Gas A-a O2 Differential 345.6 H Oxyhemoglobin Percent 85.4 L Total Hemoglobin 10.1 L Blood Gas Temperature 37.0 Blood Gas Respiration Rate 14.0 Blood Gas Actual Respiration Rate 26 Blood Gas Modality VENT - AC FiO2 60.0 Blood Gas Tidal Volume 500.0 Blood Gas Low PEEP Setting 5.0 Blood Gas Critical Value Read Back A YEHUDA RN Blood Gas Notified Whom MICHAELD Blood Gas Notified Time 05/15/2017 2:20:12 PM Bedside Glucose 113 Medications Medications Current Medications Aspirin (Aspirin) 81 mg DAILY GTB Last administered on 05/15/17 08:18; Admin Dose 81 MG; Start 05/09/17 at 09:00 Acetaminophen (Tylenol Liquid) 650 mg Q6H PRN GTB PAIN AND OR ELEVATED TEMP Last administered on 05/15/17 08:18; Admin Dose 650 MG; Start 05/09/17 at 09:00 Cholecalciferol (Vitamin D) 1,000 unit DAILY GTB Last administered on 08:19; Admin Dose 1,000 UNIT; Start 05/09/17 at 09:00 Insulin Glargine (Lantus) 17 unit DAILY@08 SC Last administered on 05/15/17 08 :44; Admin Dose 17 UNIT; Start 05/10/17 at 08:00 Levothyroxine Sodium (Synthroid) 125 mcg DAILY@06 GTB Last administered on 05/15 05:18; Admin Dose 125 MCG; Start 05/10/17 at 06:00 Zinc Sulfate (Zinc Sulfate) 220 mg DAILY GTB Last administered on 05/15/17 08: 18; Admin Dose 220 MG; Start 05/09/17 at 09:00 Ondansetron HCl (Zofran Inj) 4 mg Q6H PRN IV NAUSEA AND/OR VOMITING Last administered on 05/12/17 08:33; Admin Dose 4 MG; Start 05/09/17 at 09:00 Lorazepam (Ativan) 1 mg Q6H PRN IV ANXIETY Last administered on 05/15/17 13:15 ; Admin Dose 1 MG; Start 05/09/17 at 09:00 Miscellaneous Information 1 ea NOTE XX ; Start 05/09/17 at 10:00 Glucose (Glutose) 15 gm Q15M PRN PO DECREASED GLUCOSE; Start 05/09/17 at 10:00 Glucose (Glutose) 22.5 gm Q15M PRN PO DECREASED GLUCOSE; Start 05/09/17 at 10: 00 Dextrose (D50w Syringe) 25 ml Q15M PRN IV DECREASED GLUCOSE Last administered on 05/11/17 01:54; Admin Dose 25 ML; Start 05/09/17 at 10:00 Dextrose (D50w Syringe) 50 ml Q15M PRN IV DECREASED GLUCOSE; Start 05/09/17 at 10:00 Glucagon (Glucagen) 1 mg Q15M PRN IM DECREASED GLUCOSE; Start 05/09/17 at 10:00 Glucose (Glutose) 15 gm Q15M PRN BUCCAL DECREASED GLUCOSE; Start 05/09/17 at 10 :00 Multivitamins (Multivitamin) 30 ml DAILY PEG Last administered on 05/15/17 08: 18; Admin Dose 30 ML; Start 05/10/17 at 09:00 Fluoxetine HCl (Prozac) 20 mg DAILY GTB Last administered on 05/15/17 08:19; Admin Dose 20 MG; Start 05/10/17 at 09:00 Collagenase (Santyl) 1 applic DAILY TOP Last administered on 05/15/17 08:20; Admin Dose 1 APPLIC; Start 05/10/17 at 09:00 Collagenase (Santyl) 1 applic PRN PRN TOP SOILING; Start 05/10/17 at 01:30 Morphine Sulfate (morphine) 2 mg Q4H PRN IV PAIN LEVEL 4-6 Last administered on 05/15/17 13:46; Admin Dose 2 MG; Start 05/10/17 at 17:30 Famotidine (Pepcid) 20 mg DAILY GTB Last administered on 05/15/17 08:19; Admin Dose 20 MG; Start 05/11/17 at 09:00 Insulin Aspart (Novolog Insulin Pen) NOVOLOG *MILD* ALGORI... Q6 SC Last administered on 05/14/17 18:52; Admin Dose 1 UNIT; Start 05/13/17 at 12:00 Mupirocin 1 applic 1 applic BID TOP Last administered on 05/15/17 08:20; Admin Dose 1 APPLIC; Start 05/14/17 at 09:00 Linezolid (Zyvox 600mg/D5W (Pmx)) 300 ml @ 300 mls/hr Q12 IVPB Last administered on 05/15/17 08:19; Admin Dose 300 MLS/HR; Start 05/14/17 at 21:00 JOANIE PHILLIPS MD May 15, 2017 19:06
--- NOTE | 2017-05-15 22:10 | CONS ---
Date/Time of Note Date/Time of Note DATE: 05/15/17 TIME: 22:09 Assessment/Plan Assessment/Plan Additional Assessment/Plan Respiratory failure with hypoxia Preserved ejection fraction Pulmonary hypertension Tricuspid valve regurgitation History of pneumothorax Paraplegia Acute kidney injury with history of CKD started on hemodialysis Obesity -Blood pressure trend overall stable with mild hypotension near the end of hemo- dialysis as per nursing staff. Continue to hold off on any antihypertensive the current time. Fluid management via hemodialysis as per our nephrology colleagues. Consultation Date/Type/Reason Admit Date/Time May 09, 2017 at 00:06 Initial Consult Date 05/09/17 Type of Consultation: cv Referring Provider: KISHAN SAUCEDO 24 HR Interval Summary Free Text/Dictation no new cv issues as per nursing staff Exam/Review of Systems Vital Signs Vitals Vital Signs Date Time Temp Pulse Resp B/P Pulse Ox O2 Delivery O2 Flow Rate FiO2 05/15/17 20:00 110 05/15/17 20:00 100 05/15/17 19:00 98/43 100 05/15/17 18:00 21 05/15/17 10:00 98.3 05/15/17 06:00 Mechanical Ventilator Intake and Output 05/14/17 05/14/17 05/15/17 15:00 23:00 07:00 Intake Total 870 ml 800 ml 700 ml Output Total 2520 ml 30 ml 40 ml Balance -1650 ml 770 ml 660 ml Exam Sleeping, no apparent distress Head: normocephalic Neck: other (Tracheostomy) Respiratory: other (Coarse breath sounds bilaterally, no wheezing) Cardiovascular: other (S1-S2 heard), regular rate and rhythm Gastrointestinal: bowel sounds, non-tender, soft Extremities: edema Results Result Diagram: 05/15/17 0500 05/15/17 0500 Results 24 hrs Laboratory Tests Test 05/14/17 23:51 05/15/17 05:00 05/15/17 05:18 05/15/17 13:11 Bedside Glucose 128 137 133 White Blood Count 6.7 Red Blood Count 3.33 L Hemoglobin 9.0 L Hematocrit 28.4 L Mean Corpuscular Volume 85.3 Mean Corpuscular Hemoglobin 27.0 L Mean Corpuscular Hemoglobin Concent 31.7 L Red Cell Distribution Width 21.0 H Platelet Count 206 Mean Platelet Volume 11.1 H Neutrophils % Segmented Neutrophils % (Manual) 55 Band Neutrophils % (Manual) 7 H Lymphocytes % Lymphocytes % (Manual) 20 Reactive Lymphocytes % (Manual) 4 H Monocytes % Monocytes % (Manual) 8 Eosinophils % Eosinophils % (Manual) 4 Basophils % Basophils % (Manual) 2 Nucleated Red Blood Cells % 0.0 Neutrophils # Neutrophils # (Manual) 3.7 Band Neutrophils # 0.4 Absolute Lymphocytes (Manual) 1.3 Lymphocytes # Reactive Lymphocytes # 0.2 H Monocytes # Absolute Monocytes (Manual) 0.5 Eosinophils # Basophils # Basophils # (Manual) 0.1 H Nucleated Red Blood Cells # Platelet Estimate NORMAL Giant Platelets 4 H Polychromasia 2+ Anisocytosis 1+ Microcytosis 1+ Sodium Level 137 Potassium Level 4.3 Chloride Level 102 Carbon Dioxide Level 26 Anion Gap 13 Blood Urea Nitrogen 48 #H Creatinine 1.18 H Glucose Level 130 Calcium Level 9.4 Test 05/15/17 14:00 05/15/17 18:22 Blood Gas Specimen Source Blood arterial Arterial Blood Date Drawn 05/15/2017 2:10:23 PM Arterial Blood pH (Temp corrected) 7.464 H Arterial Blood pCO2 (Temp correct) 33.9 L Arterial Blood pO2 (Temp corrected) 44.9 *L Arterial Blood HCO3 23.8 Arterial Blood Base Excess 0.3 Arterial Blood Oxygen Saturation 86.2 L Ki Test ACCEPTAB Arterial Blood Gas Puncture Site Right Radial Arterial Blood Carboxyhemoglobin 0.3 Arterial Blood Methemoglobin 0.6 Blood Gas A-a O2 Differential 345.6 H Oxyhemoglobin Percent 85.4 L Total Hemoglobin 10.1 L Blood Gas Temperature 37.0 Blood Gas Respiration Rate 14.0 Blood Gas Actual Respiration Rate 26 Blood Gas Modality VENT - AC FiO2 60.0 Blood Gas Tidal Volume 500.0 Blood Gas Low PEEP Setting 5.0 Blood Gas Critical Value Read Back A YEHUDA RN Blood Gas Notified Whom MICHAELD Blood Gas Notified Time 05/15/2017 2:20:12 PM Bedside Glucose 113 Medications Medications Current Medications Aspirin (Aspirin) 81 mg DAILY GTB Last administered on 05/15/17 08:18; Admin Dose 81 MG; Start 05/09/17 at 09:00 Acetaminophen (Tylenol Liquid) 650 mg Q6H PRN GTB PAIN AND OR ELEVATED TEMP Last administered on 05/15/17 08:18; Admin Dose 650 MG; Start 05/09/17 at 09:00 Cholecalciferol (Vitamin D) 1,000 unit DAILY GTB Last administered on 08:19; Admin Dose 1,000 UNIT; Start 05/09/17 at 09:00 Insulin Glargine (Lantus) 17 unit DAILY@08 SC Last administered on 05/15/17 08 :44; Admin Dose 17 UNIT; Start 05/10/17 at 08:00 Levothyroxine Sodium (Synthroid) 125 mcg DAILY@06 GTB Last administered on 05/15 05:18; Admin Dose 125 MCG; Start 05/10/17 at 06:00 Zinc Sulfate (Zinc Sulfate) 220 mg DAILY GTB Last administered on 05/15/17 08: 18; Admin Dose 220 MG; Start 05/09/17 at 09:00 Ondansetron HCl (Zofran Inj) 4 mg Q6H PRN IV NAUSEA AND/OR VOMITING Last administered on 05/12/17 08:33; Admin Dose 4 MG; Start 05/09/17 at 09:00 Lorazepam (Ativan) 1 mg Q6H PRN IV ANXIETY Last administered on 05/15/17 13:15 ; Admin Dose 1 MG; Start 05/09/17 at 09:00 Miscellaneous Information 1 ea NOTE XX ; Start 05/09/17 at 10:00 Glucose (Glutose) 15 gm Q15M PRN PO DECREASED GLUCOSE; Start 05/09/17 at 10:00 Glucose (Glutose) 22.5 gm Q15M PRN PO DECREASED GLUCOSE; Start 05/09/17 at 10: 00 Dextrose (D50w Syringe) 25 ml Q15M PRN IV DECREASED GLUCOSE Last administered on 05/11/17 01:54; Admin Dose 25 ML; Start 05/09/17 at 10:00 Dextrose (D50w Syringe) 50 ml Q15M PRN IV DECREASED GLUCOSE; Start 05/09/17 at 10:00 Glucagon (Glucagen) 1 mg Q15M PRN IM DECREASED GLUCOSE; Start 05/09/17 at 10:00 Glucose (Glutose) 15 gm Q15M PRN BUCCAL DECREASED GLUCOSE; Start 05/09/17 at 10 :00 Multivitamins (Multivitamin) 30 ml DAILY PEG Last administered on 05/15/17 08: 18; Admin Dose 30 ML; Start 11/3/17 at 09:00 Fluoxetine HCl (Prozac) 20 mg DAILY GTB Last administered on 05/15/17 08:19; Admin Dose 20 MG; Start 05/10/17 at 09:00 Collagenase (Santyl) 1 applic DAILY TOP Last administered on 05/15/17 08:20; Admin Dose 1 APPLIC; Start 05/10/17 at 09:00 Collagenase (Santyl) 1 applic PRN PRN TOP SOILING; Start 05/10/17 at 01:30 Morphine Sulfate (morphine) 2 mg Q4H PRN IV PAIN LEVEL 4-6 Last administered on 05/15/17 13:46; Admin Dose 2 MG; Start 05/10/17 at 17:30 Famotidine (Pepcid) 20 mg DAILY GTB Last administered on 05/15/17 08:19; Admin Dose 20 MG; Start 05/11/17 at 09:00 Insulin Aspart (Novolog Insulin Pen) NOVOLOG *MILD* ALGORI... Q6 SC Last administered on 05/14/17 18:52; Admin Dose 1 UNIT; Start 05/13/17 at 12:00 Mupirocin 1 applic 1 applic BID TOP Last administered on 05/15/17 21:01; Admin Dose 1 APPLIC; Start 05/14/17 at 09:00 Linezolid (Zyvox 600mg/D5W (Pmx)) 300 ml @ 300 mls/hr Q12 IVPB Last administered on 05/15/17 21:01; Admin Dose 300 MLS/HR; Start 05/14/17 at 21:00 Jonah Ayala DO May 15, 2017 22:10
[2017-05-16] VITALS (38 sets, daily range): BP systolic 93–159; BP diastolic 38–75; PULSE 89–118; RESP 15–25
[2017-05-16] MEDS: IPRATROPIUM (HFA) 12.9 GM INHALER INH SCH ×4 (01:25→21:15)
[2017-05-16] MEDS: ALBUTEROL HFA 8 GM INHALER INH SCH ×4 (01:25→21:14)
[2017-05-16 05:22] LABS: ABNORMAL IP MESSAGE 1; HEMATOCRIT 24.7 % (37.0-47.0); HEMOGLOBIN 7.8 g/dl (12.0-16.0); MEAN CORPUSCULAR HEMOGLOBIN 27.4 pg (29.0-33.0); MEAN CORPUSCULAR HGB CONC 31.6 g/dl (32.0-37.0); MEAN CORPUSCULAR VOLUME 86.7 fl (82.0-101.0); MEAN PLATELET VOLUME 11.5 fl (7.4-10.4); PLATELET COUNT 189 10^3/UL (140-415); RED BLOOD COUNT 2.85 10^6/ul (4.20-5.40); RED CELL DISTRIBUTION WIDTH 20.6 % (11.5-14.5); WHITE BLOOD COUNT 5.4 10^3/ul (4.8-10.8)
[2017-05-16 05:34] LABS: POSITIVE DIFF @See below
[2017-05-16 05:48] LABS: CALCIUM 8.8 mg/dl (8.4-10.2); CREATININE 0.98 mg/dl (0.44-1.00); POTASSIUM 3.9 mmol/L (3.5-5.1)
[2017-05-16] MEDS: INSULIN ASPART [NOVOLOG] 3 ML PEN SC SCH ×4 (06:00→18:00)
[2017-05-16 06:44] LABS: AADO2 Arterial 543.1 mmHg (7.0-24.0); Allen Test ACCEPTAB; Arterial Base Excess -3.7 mmol/L (-3.0-3); Arterial COHb 0.3 % (0.0-3.0); Arterial Fraction of Oxyhgb 97.6 % (93.0-99.0); Arterial HCO3 21.2 mmol/L (22.0-26.0); Arterial MetHb 0.5 % (0.0-1.5); Arterial Total Hemglobin 10.5 g/dl (12.0-18.0); MODE VENT - AC
[2017-05-16] MEDS: LEVOTHYROXINE 125 MCG TAB GTB SCH (07:02)
--- NOTE | 2017-05-16 07:40 | RADRPT ---
PROCEDURE: XR Chest. CLINICAL INDICATION: Respiratory failure TECHNIQUE: An AP view of the chest was obtained. COMPARISON: Chest x-ray dated 05/14/2017 FINDINGS: A tracheostomy tube is in place. There is a right upper extremity PICC line with tip near the cavoa trial junction. There is prominence of the interstitial and central pulmonary vascular markings with small bilatera l pleural effusions. There are right lower lobe alveolar opacities. No pneumothorax is seen. The c ardiomediastinal silhouette is mildly enlarged . Calcifications are seen within the aortic arch. T he osseous structures demonstrate senescent changes. IMPRESSION: 1. Findings suggestive of pulmonary vascular congestion with small bilateral pleural effusions. No significant interval change. 2. Right lower lobe alveolar opacities, may reflect pulmonary edema or superimposed pneumonia, and are increased when compared to the prior examination. 3. Mild cardiomegaly and aortic atherosclerosis. 4. Tubes and lines, as described above. RPTAT: HH .Cat Augustine MD, MD Date Time Electronically viewed and signed by .Cat Augustine MD, MD on 05/16/2017 07:40 .G/
--- NOTE | 2017-05-16 08:19 | CONS ---
Date/Time of Note Date/Time of Note DATE: 05/16/17 TIME: 08:16 Assessment/Plan Assessment/Plan Additional Assessment/Plan 1. Acute kindey injury due to ATN with acute fluid overload- started on HD during this admission 05/10/17- pt did not improve and will be [employer] HD patient 2. acute uremia with BUn around 100- started on HD during this admission 05/10/17 3. acute on chronic resp failure, s/p tracheostomy 4. Metabolic acidosis 5. Paraplegia 6. Anemia of chronic disease, rule out iron deficiency Plan : started on HD during This admission- s/p HD x 3 days in row, 6.5 L removed, no plan for HD today, will order HD for tomorrow Continue IV abx, Bp stable, pt remained on ventilator, , pulmonary following currently pt pimentel latisha HD catheter, pt will be group home HD patient,- will wait for Permacath HD access until pt becomes more stable and goals of care plan discussed with family will follow up Consultation Date/Type/Reason Admit Date/Time May 09, 2017 at 00:06 Initial Consult Date 05/09/17 Type of Consultation: NEPHROLOGY Referring Provider: KISHAN SAUCEDO 24 HR Interval Summary Free Text/Dictation pt remains intubated, s/p HD x 3 days in row- 6.5 L removed in 3 days , BP stable Exam/Review of Systems Vital Signs Vitals Vital Signs Date Time Temp Pulse Resp B/P Pulse Ox O2 Delivery O2 Flow Rate FiO2 05/16/17 07:43 104 22 100 90 05/16/17 05:00 101/46 Mechanical Ventilator 05/16/17 04:00 97.7 Intake and Output 05/15/17 05/15/17 05/16/17 15:00 23:00 07:00 Intake Total 1200 ml 1000 ml 650 ml Output Total 2000 ml 100 ml 60 ml Balance -800 ml 900 ml 590 ml Exam Constitutional: non-verbal + facial swelling, neck swelling, + diffuse anasarca ENMT: other (+ tracehostomy on ventilator ) Respiratory: crackles/rales, diminished breath sounds Cardiovascular: other (tachycardia ), regular rate and rhythm Gastrointestinal: non-tender, soft Musculoskeletal: muscle weakness, 3+ pitting edema upto thigh, back and sacral area Neurological: other (Unable to assess neurolgoical due to pt clinical condition ), unresponsive Results Result Diagram: 05/16/17 0500 05/16/17 0500 Results 24 hrs Laboratory Tests Test 05/15/17 13:11 05/15/17 14:00 05/15/17 18:22 05/16/17 00:19 Bedside Glucose 133 113 153 Blood Gas Specimen Source Blood arterial Arterial Blood Date Drawn 05/15/2017 2:10:23 PM Arterial Blood pH (Temp corrected) 7.464 H Arterial Blood pCO2 (Temp correct) 33.9 L Arterial Blood pO2 (Temp corrected) 44.9 *L Arterial Blood HCO3 23.8 Arterial Blood Base Excess 0.3 Arterial Blood Oxygen Saturation 86.2 L Ki Test ACCEPTAB Arterial Blood Gas Puncture Site Right Radial Arterial Blood Carboxyhemoglobin 0.3 Arterial Blood Methemoglobin 0.6 Blood Gas A-a O2 Differential 345.6 H Oxyhemoglobin Percent 85.4 L Total Hemoglobin 10.1 L Blood Gas Temperature 37.0 Blood Gas Respiration Rate 14.0 Blood Gas Actual Respiration Rate 26 Blood Gas Modality VENT - AC FiO2 60.0 Blood Gas Tidal Volume 500.0 Blood Gas Low PEEP Setting 5.0 Blood Gas Critical Value Read Back A YEHUDA COOPER Blood Gas Notified Whom JLD Blood Gas Notified Time 05/15/2017 2:20:12 PM Test 05/16/17 05:00 05/16/17 05:43 05/16/17 07:00 White Blood Count 5.4 Red Blood Count 2.85 L Hemoglobin 7.8 L Hematocrit 24.7 L Mean Corpuscular Volume 86.7 Mean Corpuscular Hemoglobin 27.4 L Mean Corpuscular Hemoglobin Concent 31.6 L Red Cell Distribution Width 20.6 H Platelet Count 189 Mean Platelet Volume 11.5 H Neutrophils % Lymphocytes % Monocytes % Eosinophils % Basophils % Nucleated Red Blood Cells % 0.0 Neutrophils # Lymphocytes # Monocytes # Eosinophils # Basophils # Nucleated Red Blood Cells # Sodium Level 137 Potassium Level 3.9 Chloride Level 104 Carbon Dioxide Level 26 Anion Gap 11 Blood Urea Nitrogen 34 #H Creatinine 0.98 Glucose Level 130 Calcium Level 8.8 Bedside Glucose 132 Blood Gas Specimen Source Blood arterial Arterial Blood Date Drawn 05/16/2017 6:32:48 AM Arterial Blood pH (Temp corrected) 7.369 Arterial Blood pCO2 (Temp correct) 37.6 Arterial Blood pO2 (Temp corrected) 132.3 H Arterial Blood HCO3 21.2 L Arterial Blood Base Excess -3.7 L Arterial Blood Oxygen Saturation 98.4 Ki Test ACCEPTAB Arterial Blood Gas Puncture Site Right Radial Arterial Blood Carboxyhemoglobin 0.3 Arterial Blood Methemoglobin 0.5 Blood Gas A-a O2 Differential 543.1 H Oxyhemoglobin Percent 97.6 Total Hemoglobin 10.5 L Blood Gas Temperature 37.0 Blood Gas Respiration Rate 14.0 Blood Gas Actual Respiration Rate 23 Blood Gas Modality VENT - AC FiO2 100.0 Blood Gas Tidal Volume 500.0 Blood Gas Low PEEP Setting 8.0 Blood Gas Inspiratory Pressure 24.0 Blood Gas Notified Whom SEGRIO BRISCOE Blood Gas Notified Time 05/16/2017 6:44:07 AM Medications Medications Current Medications Aspirin (Aspirin) 81 mg DAILY GTB Last administered on 05/15/17 08:18; Admin Dose 81 MG; Start 05/09/17 at 09:00 Acetaminophen (Tylenol Liquid) 650 mg Q6H PRN GTB PAIN AND OR ELEVATED TEMP Last administered on 05/15/17 08:18; Admin Dose 650 MG; Start 05/09/17 at 09:00 Cholecalciferol (Vitamin D) 1,000 unit DAILY GTB Last administered on 08:19; Admin Dose 1,000 UNIT; Start 05/09/17 at 09:00 Insulin Glargine (Lantus) 17 unit DAILY@08 SC Last administered on 05/15/17 08 :44; Admin Dose 17 UNIT; Start 05/10/17 at 08:00 Levothyroxine Sodium (Synthroid) 125 mcg DAILY@06 GTB Last administered on 05/16 07:02; Admin Dose 125 MCG; Start 05/10/17 at 06:00 Zinc Sulfate (Zinc Sulfate) 220 mg DAILY GTB Last administered on 05/15/17 08: 18; Admin Dose 220 MG; Start 05/09/17 at 09:00 Ondansetron HCl (Zofran Inj) 4 mg Q6H PRN IV NAUSEA AND/OR VOMITING Last administered on 05/12/17 08:33; Admin Dose 4 MG; Start 05/09/17 at 09:00 Lorazepam (Ativan) 1 mg Q6H PRN IV ANXIETY Last administered on 05/15/17 13:15 ; Admin Dose 1 MG; Start 05/09/17 at 09:00 Miscellaneous Information 1 ea NOTE XX ; Start 05/09/17 at 10:00 Glucose (Glutose) 15 gm Q15M PRN PO DECREASED GLUCOSE; Start 05/09/17 at 10:00 Glucose (Glutose) 22.5 gm Q15M PRN PO DECREASED GLUCOSE; Start 05/09/17 at 10: 00 Dextrose (D50w Syringe) 25 ml Q15M PRN IV DECREASED GLUCOSE Last administered on 05/11/17 01:54; Admin Dose 25 ML; Start 05/09/17 at 10:00 Dextrose (D50w Syringe) 50 ml Q15M PRN IV DECREASED GLUCOSE; Start 05/09/17 at 10:00 Glucagon (Glucagen) 1 mg Q15M PRN IM DECREASED GLUCOSE; Start 05/09/17 at 10:00 Glucose (Glutose) 15 gm Q15M PRN BUCCAL DECREASED GLUCOSE; Start 05/09/17 at 10 :00 Multivitamins (Multivitamin) 30 ml DAILY PEG Last administered on 05/15/17 08: 18; Admin Dose 30 ML; Start 05/10/17 at 09:00 Fluoxetine HCl (Prozac) 20 mg DAILY GTB Last administered on 05/15/17 08:19; Admin Dose 20 MG; Start 05/10/17 at 09:00 Collagenase (Santyl) 1 applic DAILY TOP Last administered on 05/15/17 08:20; Admin Dose 1 APPLIC; Start 05/10/17 at 09:00 Collagenase (Santyl) 1 applic PRN PRN TOP SOILING; Start 05/10/17 at 01:30 Morphine Sulfate (morphine) 2 mg Q4H PRN IV PAIN LEVEL 4-6 Last administered on 05/15/17 13:46; Admin Dose 2 MG; Start 05/10/17 at 17:30 Famotidine (Pepcid) 20 mg DAILY GTB Last administered on 05/15/17 08:19; Admin Dose 20 MG; Start 05/11/17 at 09:00 Insulin Aspart (Novolog Insulin Pen) NOVOLOG *MILD* ALGORI... Q6 SC Last administered on 05/14/17 18:52; Admin Dose 1 UNIT; Start 05/13/17 at 12:00 Mupirocin 1 applic 1 applic BID TOP Last administered on 05/15/17 21:01; Admin Dose 1 APPLIC; Start 05/14/17 at 09:00 Linezolid (Zyvox 600mg/D5W (Pmx)) 300 ml @ 300 mls/hr Q12 IVPB Last administered on 05/15/17 21:01; Admin Dose 300 MLS/HR; Start 05/14/17 at 21:00 JOANIE PHILLIPS MD May 16, 2017 08:19
[2017-05-16 08:27] LABS: ANISOCYTOSIS 1+ (0-0); BASOPHILS % (M) 2 % (0-2); EOSINOPHILS % (M) 13 % (0-7); GIANT THROMBO% (M) 3 % (0-0); MICROCYTOSIS 1+ (0-0); MONOCYTES % (M) 10 % (0-11); MYELOCYTES % (M) 1 % (0-0); PLATELET ESTIMATE NORMAL; POIKILOCYTOSIS 3+ (0-0); POLYCHROMASIA 3+ (0-0); REACTIVE LYMPHOCYTES% (M) 3 % (0-0)
[2017-05-16] MEDS: ZINC SULFATE 220 MG CAP GTB SCH (08:34)
[2017-05-16] MEDS: CHOLECALCIFEROL 1,000 UNIT TAB GTB SCH (08:34)
[2017-05-16] MEDS: MULTIVITAMINS 30 ML CUP PEG SCH (08:34)
[2017-05-16] MEDS: FLUOXETINE 20 MG CAP GTB SCH (08:34)
[2017-05-16] MEDS: ASPIRIN 81 MG TAB GTB SCH (08:34)
[2017-05-16] MEDS: LINEZOLID 600 MG/D5W (PMX) 300 ML IVPB SCH ×2 (08:34→21:25)
[2017-05-16] MEDS: FAMOTIDINE 20 MG TAB GTB SCH (08:34)
[2017-05-16] MEDS: MUPIROCIN 2% 22 GM OINT TOP SCH ×2 (08:35→21:25)
[2017-05-16] MEDS: COLLAGENASE 30 GM TUBE TOP SCH (08:35)
[2017-05-16] MEDS: INSULIN GLARGINE [LANtus] 3 ML PEN SC SCH (08:48)
--- NOTE | 2017-05-16 09:18 | CONS ---
Date/Time of Note Date/Time of Note DATE: 05/16/17 TIME: : Consult Date/Type/Reason Admit Date/Time May 09, 2017 at 00:06 Initial Consult Date 05/09/17 Type of Consultation: Pulmonary Ordering Provider: KISHAN SAUCEDO Subjective No significant changes. Continues FiO2 90% with PEEP of 8. Objective Vital Signs Date Time Temp Pulse Resp B/P Pulse Ox O2 Delivery O2 Flow Rate FiO2 05/16/17 09:00 112 20 135/57 99 Mechanical Ventilator 05/16/17 08:00 98.3 05/16/17 07:43 90 Intake and Output 05/15/17 05/15/17 05/16/17 15:00 23:00 07:00 Intake Total 1200 ml 1000 ml 650 ml Output Total 2000 ml 100 ml 60 ml Balance -800 ml 900 ml 590 ml Exam PHYSICAL EXAMINATION GENERAL: Elderly lady on mechanical ventilation via tracheostomy VITAL SIGNS: see below. HEENT: Pupils equal, round, and reactive to light. Tracheostomy site clean and intact. CARDIAC: S1, S2, 1/6 systolic ejection murmur CHEST: Diminished air entry bilaterally. ABDOMEN: Mildly distended. Bowel sounds present no guarding or rebound EXTREMITIES: No cyanosis, clubbing edema +1 NEUROLOGIC: Generalized weakness Results/Medications Result Diagram: 05/16/17 0500 05/16/17 0500 Results 24 hrs Laboratory Tests Test 05/15/17 13:11 05/15/17 14:00 05/15/17 18:22 05/16/17 00:19 Bedside Glucose 133 113 153 Blood Gas Specimen Source Blood arterial Arterial Blood Date Drawn 05/15/2017 2:10:23 PM Arterial Blood pH (Temp corrected) 7.464 H Arterial Blood pCO2 (Temp correct) 33.9 L Arterial Blood pO2 (Temp corrected) 44.9 *L Arterial Blood HCO3 23.8 Arterial Blood Base Excess 0.3 Arterial Blood Oxygen Saturation 86.2 L Ki Test ACCEPTAB Arterial Blood Gas Puncture Site Right Radial Arterial Blood Carboxyhemoglobin 0.3 Arterial Blood Methemoglobin 0.6 Blood Gas A-a O2 Differential 345.6 H Oxyhemoglobin Percent 85.4 L Total Hemoglobin 10.1 L Blood Gas Temperature 37.0 Blood Gas Respiration Rate 14.0 Blood Gas Actual Respiration Rate 26 Blood Gas Modality VENT - AC FiO2 60.0 Blood Gas Tidal Volume 500.0 Blood Gas Low PEEP Setting 5.0 Blood Gas Critical Value Read Back A YEHUDA COOPER Blood Gas Notified Whom JLD Blood Gas Notified Time 05/15/2017 2:20:12 PM Test 05/16/17 05:00 05/16/17 05:43 05/16/17 07:00 05/16/17 08:46 White Blood Count 5.4 Red Blood Count 2.85 L Hemoglobin 7.8 L Hematocrit 24.7 L Mean Corpuscular Volume 86.7 Mean Corpuscular Hemoglobin 27.4 L Mean Corpuscular Hemoglobin Concent 31.6 L Red Cell Distribution Width 20.6 H Platelet Count 189 Mean Platelet Volume 11.5 H Neutrophils % Segmented Neutrophils % (Manual) 52 Band Neutrophils % (Manual) 8 H Lymphocytes % Lymphocytes % (Manual) 11 L Reactive Lymphocytes % (Manual) 3 H Monocytes % Monocytes % (Manual) 10 Eosinophils % Eosinophils % (Manual) 13 H Basophils % Basophils % (Manual) 2 Myelocytes % (Manual) 1 H Nucleated Red Blood Cells % 0.0 Neutrophils # Neutrophils # (Manual) 2.8 Band Neutrophils # 0.4 Absolute Lymphocytes (Manual) 0.5 L Lymphocytes # Reactive Lymphocytes # 0.1 H Monocytes # Absolute Monocytes (Manual) 0.5 Eosinophils # Basophils # Basophils # (Manual) 0.1 H Myelocytes # 0.0 Nucleated Red Blood Cells # Platelet Estimate NORMAL Giant Platelets 3 H Polychromasia 3+ Poikilocytosis 3+ Anisocytosis 1+ Microcytosis 1+ Sodium Level 137 Potassium Level 3.9 Chloride Level 104 Carbon Dioxide Level 26 Anion Gap 11 Blood Urea Nitrogen 34 #H Creatinine 0.98 Glucose Level 130 Calcium Level 8.8 Bedside Glucose 132 146 Blood Gas Specimen Source Blood arterial Arterial Blood Date Drawn 05/16/2017 6:32:48 AM Arterial Blood pH (Temp corrected) 7.369 Arterial Blood pCO2 (Temp correct) 37.6 Arterial Blood pO2 (Temp corrected) 132.3 H Arterial Blood HCO3 21.2 L Arterial Blood Base Excess -3.7 L Arterial Blood Oxygen Saturation 98.4 Ki Test ACCEPTAB Arterial Blood Gas Puncture Site Right Radial Arterial Blood Carboxyhemoglobin 0.3 Arterial Blood Methemoglobin 0.5 Blood Gas A-a O2 Differential 543.1 H Oxyhemoglobin Percent 97.6 Total Hemoglobin 10.5 L Blood Gas Temperature 37.0 Blood Gas Respiration Rate 14.0 Blood Gas Actual Respiration Rate 23 Blood Gas Modality VENT - AC FiO2 100.0 Blood Gas Tidal Volume 500.0 Blood Gas Low PEEP Setting 8.0 Blood Gas Inspiratory Pressure 24.0 Blood Gas Notified Whom SERGIO BRISCOE Blood Gas Notified Time 05/16/2017 6:44:07 AM Medications Current Medications Aspirin (Aspirin) 81 mg DAILY GTB Last administered on 05/16/17 08:34; Admin Dose 81 MG; Start 05/09/17 at 09:00 Acetaminophen (Tylenol Liquid) 650 mg Q6H PRN GTB PAIN AND OR ELEVATED TEMP Last administered on 05/15/17 08:18; Admin Dose 650 MG; Start 05/09/17 at 09:00 Cholecalciferol (Vitamin D) 1,000 unit DAILY GTB Last administered on 08:34; Admin Dose 1,000 UNIT; Start 05/09/17 at 09:00 Insulin Glargine (Lantus) 17 unit DAILY@08 SC Last administered on 05/16/17 08 :48; Admin Dose 17 UNIT; Start 05/10/17 at 08:00 Levothyroxine Sodium (Synthroid) 125 mcg DAILY@06 GTB Last administered on 05/16 07:02; Admin Dose 125 MCG; Start 05/10/17 at 06:00 Zinc Sulfate (Zinc Sulfate) 220 mg DAILY GTB Last administered on 05/16/17 08: 34; Admin Dose 220 MG; Start 05/09/17 at 09:00 Ondansetron HCl (Zofran Inj) 4 mg Q6H PRN IV NAUSEA AND/OR VOMITING Last administered on 05/12/17 08:33; Admin Dose 4 MG; Start 05/09/17 at 09:00 Lorazepam (Ativan) 1 mg Q6H PRN IV ANXIETY Last administered on 05/15/17 13:15 ; Admin Dose 1 MG; Start 05/09/17 at 09:00 Miscellaneous Information 1 ea NOTE XX ; Start 05/09/17 at 10:00 Glucose (Glutose) 15 gm Q15M PRN PO DECREASED GLUCOSE; Start 05/09/17 at 10:00 Glucose (Glutose) 22.5 gm Q15M PRN PO DECREASED GLUCOSE; Start 05/09/17 at 10: 00 Dextrose (D50w Syringe) 25 ml Q15M PRN IV DECREASED GLUCOSE Last administered on 05/11/17 01:54; Admin Dose 25 ML; Start 05/09/17 at 10:00 Dextrose (D50w Syringe) 50 ml Q15M PRN IV DECREASED GLUCOSE; Start 05/09/17 at 10:00 Glucagon (Glucagen) 1 mg Q15M PRN IM DECREASED GLUCOSE; Start 05/09/17 at 10:00 Glucose (Glutose) 15 gm Q15M PRN BUCCAL DECREASED GLUCOSE; Start 05/09/17 at 10 :00 Multivitamins (Multivitamin) 30 ml DAILY PEG Last administered on 05/16/17 08: 34; Admin Dose 30 ML; Start 05/10/17 at 09:00 Fluoxetine HCl (Prozac) 20 mg DAILY GTB Last administered on 05/16/17 08:34; Admin Dose 20 MG; Start 05/10/17 at 09:00 Collagenase (Santyl) 1 applic DAILY TOP Last administered on 05/16/17 08:35; Admin Dose 1 APPLIC; Start 05/10/17 at 09:00 Collagenase (Santyl) 1 applic PRN PRN TOP SOILING; Start 05/10/17 at 01:30 Morphine Sulfate (morphine) 2 mg Q4H PRN IV PAIN LEVEL 4-6 Last administered on 05/15/17 13:46; Admin Dose 2 MG; Start 05/10/17 at 17:30 Famotidine (Pepcid) 20 mg DAILY GTB Last administered on 05/16/17 08:34; Admin Dose 20 MG; Start 05/11/17 at 09:00 Insulin Aspart (Novolog Insulin Pen) NOVOLOG *MILD* ALGORI... Q6 SC Last administered on 05/14/17 18:52; Admin Dose 1 UNIT; Start 05/13/17 at 12:00 Mupirocin 1 applic 1 applic BID TOP Last administered on 05/16/17 08:35; Admin Dose 1 APPLIC; Start 05/14/17 at 09:00 Linezolid (Zyvox 600mg/D5W (Pmx)) 300 ml @ 300 mls/hr Q12 IVPB Last administered on 05/16/17 08:34; Admin Dose 300 MLS/HR; Start 05/14/17 at 21:00 Assessment/Plan Chief Complaint/Hosp Course Assessment 1. Hypoxemic respiratory failure with recent tracheostomy. Still with significant hypoxemia chest x-ray demonstrating ongoing bilateral infiltrates. Intermittent desaturation possibly secondary to tracheostomy position against tracheal wall. Decrease FiO2 as tolerated. Decrease O2 as tolerated ENT evaluation appreciated Chest x-ray 05/16 1. Findings suggestive of pulmonary vascular congestion with small bilateral pleural effusions. No significant interval change. 2. Right lower lobe alveolar opacities, may reflect pulmonary edema or superimposed pneumonia, and are increased when compared to the prior examination. 3. Mild cardiomegaly and aortic atherosclerosis. 4. Tubes and lines, as described above. 2. Renal insufficiency with profound anasarca. Hemodialysis per nephrology 3. Anemia possible chronic in nature rule out GI bleed H&H remained stable 4. Encephalopathy toxic metabolic appears to be resolving Avoid benzodiazepines 5. Diabetes mellitus Continue current glycemic management 6. Paroxysmal atrial fibrillation Currently rate controlled 7. Dysphagia now with G-tube Continue tube feeding 8. Stage IV decubitus ulcer continues infection formed stool patient may benefit from diverting colostomy. 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 Consider surgical evaluation for diverting colostomy Continue wound care Transfer to [facility] respiratory unit when stable. Problems: YAQUELIN DURAN MD, [facility] May 16, 2017 09:18
[2017-05-16] MEDS: morphine 2 MG INJ IV PRN (12:23)
--- NOTE | 2017-05-16 12:27 | CONS ---
Date/Time of Note Date/Time of Note DATE: 05/16/17 TIME: 12:25 Assessment/Plan Assessment/Plan Additional Assessment/Plan IMPRESSION: 1. Gastrointestinal bleeding occult positive stool guaiac. No evidence of overt bleeding as discussed with the staff. 2. Bleeding also from the tracheostomy site. 3. Paraplegia. 4. Vent dependent respiratory failure. 5. Diabetes mellitus. 6. Status post percutaneous endoscopic gastrostomy. 7. Hypoalbuminemia with anasarca. 8. Obesity. 9. Sacral wound. 10. Pulmonary edema and also hospital-acquired pneumonia. 11. Renal failure patient is on renal dialysis Plan Continue present care Monitor H&H We will do a colonoscopy once consent is obtained. Consultation Date/Type/Reason Admit Date/Time May 09, 2017 at 00:06 Initial Consult Date 05/10/17 Type of Consultation: Pulmonary Referring Provider: KISHAN SAUCEDO 24 HR Interval Summary Constitutional: no complaints Exam/Review of Systems Vital Signs Vitals Vital Signs Date Time Temp Pulse Resp B/P Pulse Ox O2 Delivery O2 Flow Rate FiO2 05/16/17 11:11 110 23 100 70 05/16/17 09:00 135/57 Mechanical Ventilator 05/16/17 08:00 98.3 Intake and Output 05/15/17 05/15/17 05/16/17 15:00 23:00 07:00 Intake Total 1200 ml 1000 ml 650 ml Output Total 2000 ml 100 ml 60 ml Balance -800 ml 900 ml 590 ml Exam Constitutional: alert, oriented, well developed Psych: nl mood/affect, no complaints Head: atraumatic, normocephalic Eyes: EOMI, PERRL, nl conjunctiva, nl lids, nl sclera ENMT: nl external ears & nose, nl lips & teeth, nl nasal mucosa & septum Neck: non-tender, supple Respiratory: clear to auscultation, normal air movement Cardiovascular: nl pulses, regular rate and rhythm Gastrointestinal: nl liver, spleen, non-tender, soft Musculoskeletal: nl extremities to inspection, nl gait and stance Extremities: normal pulses Neurological: MONOGRAM OPERATOR II-XII intact, nl mental status, nl speech, nl strength Skin: nl turgor, No rash or lesions Lymph: nl lymph nodes Results Result Diagram: 05/16/17 0500 05/16/17 0500 Results 24 hrs Laboratory Tests Test 05/15/17 13:11 05/15/17 14:00 05/15/17 18:22 05/16/17 00:19 Bedside Glucose 133 113 153 Blood Gas Specimen Source Blood arterial Arterial Blood Date Drawn 05/15/2017 2:10:23 PM Arterial Blood pH (Temp corrected) 7.464 H Arterial Blood pCO2 (Temp correct) 33.9 L Arterial Blood pO2 (Temp corrected) 44.9 *L Arterial Blood HCO3 23.8 Arterial Blood Base Excess 0.3 Arterial Blood Oxygen Saturation 86.2 L Ki Test ACCEPTAB Arterial Blood Gas Puncture Site Right Radial Arterial Blood Carboxyhemoglobin 0.3 Arterial Blood Methemoglobin 0.6 Blood Gas A-a O2 Differential 345.6 H Oxyhemoglobin Percent 85.4 L Total Hemoglobin 10.1 L Blood Gas Temperature 37.0 Blood Gas Respiration Rate 14.0 Blood Gas Actual Respiration Rate 26 Blood Gas Modality VENT - AC FiO2 60.0 Blood Gas Tidal Volume 500.0 Blood Gas Low PEEP Setting 5.0 Blood Gas Critical Value Read Back A YEHUDA COOPER Blood Gas Notified Whom MICHAELD Blood Gas Notified Time 05/15/2017 2:20:12 PM Test 05/16/17 05:00 05/16/17 05:43 05/16/17 07:00 05/16/17 08:46 White Blood Count 5.4 Red Blood Count 2.85 L Hemoglobin 7.8 L Hematocrit 24.7 L Mean Corpuscular Volume 86.7 Mean Corpuscular Hemoglobin 27.4 L Mean Corpuscular Hemoglobin Concent 31.6 L Red Cell Distribution Width 20.6 H Platelet Count 189 Mean Platelet Volume 11.5 H Neutrophils % Segmented Neutrophils % (Manual) 52 Band Neutrophils % (Manual) 8 H Lymphocytes % Lymphocytes % (Manual) 11 L Reactive Lymphocytes % (Manual) 3 H Monocytes % Monocytes % (Manual) 10 Eosinophils % Eosinophils % (Manual) 13 H Basophils % Basophils % (Manual) 2 Myelocytes % (Manual) 1 H Nucleated Red Blood Cells % 0.0 Neutrophils # Neutrophils # (Manual) 2.8 Band Neutrophils # 0.4 Absolute Lymphocytes (Manual) 0.5 L Lymphocytes # Reactive Lymphocytes # 0.1 H Monocytes # Absolute Monocytes (Manual) 0.5 Eosinophils # Basophils # Basophils # (Manual) 0.1 H Myelocytes # 0.0 Nucleated Red Blood Cells # Platelet Estimate NORMAL Giant Platelets 3 H Polychromasia 3+ Poikilocytosis 3+ Anisocytosis 1+ Microcytosis 1+ Sodium Level 137 Potassium Level 3.9 Chloride Level 104 Carbon Dioxide Level 26 Anion Gap 11 Blood Urea Nitrogen 34 #H Creatinine 0.98 Glucose Level 130 Calcium Level 8.8 Bedside Glucose 132 146 Blood Gas Specimen Source Blood arterial Arterial Blood Date Drawn 05/16/2017 6:32:48 AM Arterial Blood pH (Temp corrected) 7.369 Arterial Blood pCO2 (Temp correct) 37.6 Arterial Blood pO2 (Temp corrected) 132.3 H Arterial Blood HCO3 21.2 L Arterial Blood Base Excess -3.7 L Arterial Blood Oxygen Saturation 98.4 Ki Test ACCEPTAB Arterial Blood Gas Puncture Site Right Radial Arterial Blood Carboxyhemoglobin 0.3 Arterial Blood Methemoglobin 0.5 Blood Gas A-a O2 Differential 543.1 H Oxyhemoglobin Percent 97.6 Total Hemoglobin 10.5 L Blood Gas Temperature 37.0 Blood Gas Respiration Rate 14.0 Blood Gas Actual Respiration Rate 23 Blood Gas Modality VENT - AC FiO2 100.0 Blood Gas Tidal Volume 500.0 Blood Gas Low PEEP Setting 8.0 Blood Gas Inspiratory Pressure 24.0 Blood Gas Notified Whom SERGIO BRISCOE Blood Gas Notified Time 05/16/2017 6:44:07 AM Medications Medications Current Medications Aspirin (Aspirin) 81 mg DAILY GTB Last administered on 05/16/17 08:34; Admin Dose 81 MG; Start 05/09/17 at 09:00 Acetaminophen (Tylenol Liquid) 650 mg Q6H PRN GTB PAIN AND OR ELEVATED TEMP Last administered on 05/15/17 08:18; Admin Dose 650 MG; Start 05/09/17 at 09:00 Cholecalciferol (Vitamin D) 1,000 unit DAILY GTB Last administered on 08:34; Admin Dose 1,000 UNIT; Start 05/09/17 at 09:00 Insulin Glargine (Lantus) 17 unit DAILY@08 SC Last administered on 05/16/17 08 :48; Admin Dose 17 UNIT; Start 05/10/17 at 08:00 Levothyroxine Sodium (Synthroid) 125 mcg DAILY@06 GTB Last administered on 05/16 07:02; Admin Dose 125 MCG; Start 05/10/17 at 06:00 Zinc Sulfate (Zinc Sulfate) 220 mg DAILY GTB Last administered on 05/16/17 08: 34; Admin Dose 220 MG; Start 05/09/17 at 09:00 Ondansetron HCl (Zofran Inj) 4 mg Q6H PRN IV NAUSEA AND/OR VOMITING Last administered on 05/12/17 08:33; Admin Dose 4 MG; Start 05/09/17 at 09:00 Lorazepam (Ativan) 1 mg Q6H PRN IV ANXIETY Last administered on 05/15/17 13:15 ; Admin Dose 1 MG; Start 05/09/17 at 09:00 Miscellaneous Information 1 ea NOTE XX ; Start 05/09/17 at 10:00 Glucose (Glutose) 15 gm Q15M PRN PO DECREASED GLUCOSE; Start 05/09/17 at 10:00 Glucose (Glutose) 22.5 gm Q15M PRN PO DECREASED GLUCOSE; Start 05/09/17 at 10: 00 Dextrose (D50w Syringe) 25 ml Q15M PRN IV DECREASED GLUCOSE Last administered on 05/11/17 01:54; Admin Dose 25 ML; Start 05/09/17 at 10:00 Dextrose (D50w Syringe) 50 ml Q15M PRN IV DECREASED GLUCOSE; Start 05/09/17 at 10:00 Glucagon (Glucagen) 1 mg Q15M PRN IM DECREASED GLUCOSE; Start 05/09/17 at 10:00 Glucose (Glutose) 15 gm Q15M PRN BUCCAL DECREASED GLUCOSE; Start 05/09/17 at 10 :00 Multivitamins (Multivitamin) 30 ml DAILY PEG Last administered on 05/16/17 08: 34; Admin Dose 30 ML; Start 05/10/17 at 09:00 Fluoxetine HCl (Prozac) 20 mg DAILY GTB Last administered on 05/16/17 08:34; Admin Dose 20 MG; Start 05/10/17 at 09:00 Collagenase (Santyl) 1 applic DAILY TOP Last administered on 05/16/17 08:35; Admin Dose 1 APPLIC; Start 05/10/17 at 09:00 Collagenase (Santyl) 1 applic PRN PRN TOP SOILING; Start 05/10/17 at 01:30 Morphine Sulfate (morphine) 2 mg Q4H PRN IV PAIN LEVEL 4-6 Last administered on 05/16/17 12:23; Admin Dose 2 MG; Start 05/10/17 at 17:30 Famotidine (Pepcid) 20 mg DAILY GTB Last administered on 05/16/17 08:34; Admin Dose 20 MG; Start 05/11/17 at 09:00 Insulin Aspart (Novolog Insulin Pen) NOVOLOG *MILD* ALGORI... Q6 SC Last administered on 05/14/17 18:52; Admin Dose 1 UNIT; Start 05/13/17 at 12:00 Mupirocin 1 applic 1 applic BID TOP Last administered on 05/16/17 08:35; Admin Dose 1 APPLIC; Start 05/14/17 at 09:00 Linezolid (Zyvox 600mg/D5W (Pmx)) 300 ml @ 300 mls/hr Q12 IVPB Last administered on 05/16/17 08:34; Admin Dose 300 MLS/HR; Start 05/14/17 at 21:00 DUARTE PATTERSON MD May 16, 2017 12:27
--- NOTE | 2017-05-16 13:30 | PN ---
Date/Time of Note Date/Time of Note DATE: 05/16/17 TIME: 13:21 Assessment/Plan Lines/Catheters [facility] Line [place] in Place [facility] Yes Assessment/Plan Chief Complaint/Hosp Course 1. Sacral wound: stage 4: cultures noted -debridement prn -local care w dakins -frequent turning and off-loading -low air loss mattress -vitamin c -short term zinc -optimize nutrition -abx per sensitivity 2. Acute respiratory failure with complete collapse of the left upper lobe with obliteration of the left upper lobe bronchus. : comfortable on vent; cxr unimproved -per pulm -continue vent support 3. VDRF -pulm toilet -respiratory treatments 4. Anemia: no acute bleed noted: stool OB +; h/h stable -monitor -transfuse as needed -per gi-coloscopy 5. Elevated TSH -further workup per medical team 6. Electrolyte imbalance -optimize lytes 7. Morbid obesity: bmi 40 -diet and exercise optimization -encourage weight loss 8. BERNARDINO started on HD; improved edema -per renal 9. Tachycardia: improved -cardiac optimization per cards Thank you. Patient seen and examined in collaboration with Dr. Kedar Valencia. Problems: Subjective 24 Hr Interval Summary No changes in CXR. Tachycardai improved. No fevers, chills, sob, congested cough , cp, palpitations, pimentel, dizziness, n/v/d/dysuria. Exam/Review of Systems Vital Signs Vitals Vital Signs Date Time Temp Pulse Resp B/P Pulse Ox O2 Delivery O2 Flow Rate FiO2 05/16/17 12:00 113 05/16/17 12:00 98.6 24 137/60 100 Mechanical Ventilator 05/16/17 11:11 70 Intake and Output 05/15/17 05/15/17 05/16/17 15:00 23:00 07:00 Intake Total 1200 ml 1000 ml 650 ml Output Total 2000 ml 100 ml 60 ml Balance -800 ml 900 ml 590 ml Exam Free Text/Dictation Constitutional: alert, responsive No distress Psych: nl mood/affect, no complaints Head: atraumatic, normocephalic Eyes: nl lids, nl sclera ENMT: mucosa pink and moist, nl nasal mucosa & septum Neck: non-tender, other (trach vent), supple Respiratory: crackles/rales Cardiovascular: nl pulses, other (st), tachycardic Gastrointestinal: distended Genitourinary - Female: nl adnexae, nl external genitalia Musculoskeletal: No muscle tone (stiffness) Extremities: pitting pedal edema Neurological: other (paraplegia), No nl speech, No nl strength Skin: other (wound: packed, nonmalodorous, periwound without erythema) Results Result Diagram: 05/16/17 0500 05/16/17 0500 BRITTANY STALEY NP May 16, 2017 13:30
--- NOTE | 2017-05-16 13:40 | CONS ---
Date/Time of Note Date/Time of Note DATE: 05/16/17 TIME: 13:39 Assessment/Plan Assessment/Plan Additional Assessment/Plan Respiratory failure vent dependent Preserved ejection fraction Pulmonary hypertension Tricuspid valve regurgitation History of pneumothorax Paraplegia Acute kidney injury with history of CKD started on hemodialysis Obesity -Fluid management via hemodialysis as per nephrology colleagues. Ventilator and pulmonary care as per our pulmonary colleagues. Given labile blood pressure , no antihypertensives at the current time. Consultation Date/Type/Reason Admit Date/Time May 09, 2017 at 00:06 Initial Consult Date 05/09/17 Type of Consultation: cv Referring Provider: KISHAN SAUCEDO 24 HR Interval Summary Free Text/Dictation Patient seen and examined Exam/Review of Systems Vital Signs Vitals Vital Signs Date Time Temp Pulse Resp B/P Pulse Ox O2 Delivery O2 Flow Rate FiO2 05/16/17 12:00 113 05/16/17 12:00 98.6 24 137/60 100 Mechanical Ventilator 05/16/17 11:11 70 Intake and Output 05/15/17 05/15/17 05/16/17 15:00 23:00 07:00 Intake Total 1200 ml 1000 ml 650 ml Output Total 2000 ml 100 ml 60 ml Balance -800 ml 900 ml 590 ml Exam Sleeping but arousable, no apparent distress Head: normocephalic Neck: other (Tracheostomy) Respiratory: other (Coarse breath sounds bilaterally, no wheezing) Cardiovascular: other (S1-S2 heard), regular rate and rhythm Gastrointestinal: bowel sounds, non-tender, soft Extremities: edema Results Result Diagram: 05/16/17 0500 05/16/17 0500 Results 24 hrs Laboratory Tests Test 05/15/17 14:00 05/15/17 18:22 05/16/17 00:19 05/16/17 05:00 Blood Gas Specimen Source Blood arterial Arterial Blood Date Drawn 05/15/2017 2:10:23 PM Arterial Blood pH (Temp corrected) 7.464 H Arterial Blood pCO2 (Temp correct) 33.9 L Arterial Blood pO2 (Temp corrected) 44.9 *L Arterial Blood HCO3 23.8 Arterial Blood Base Excess 0.3 Arterial Blood Oxygen Saturation 86.2 L Ki Test ACCEPTAB Arterial Blood Gas Puncture Site Right Radial Arterial Blood Carboxyhemoglobin 0.3 Arterial Blood Methemoglobin 0.6 Blood Gas A-a O2 Differential 345.6 H Oxyhemoglobin Percent 85.4 L Total Hemoglobin 10.1 L Blood Gas Temperature 37.0 Blood Gas Respiration Rate 14.0 Blood Gas Actual Respiration Rate 26 Blood Gas Modality VENT - AC FiO2 60.0 Blood Gas Tidal Volume 500.0 Blood Gas Low PEEP Setting 5.0 Blood Gas Critical Value Read Back A YEHUDA RN Blood Gas Notified Whom JLD Blood Gas Notified Time 05/15/2017 2:20:12 PM Bedside Glucose 113 153 White Blood Count 5.4 Red Blood Count 2.85 L Hemoglobin 7.8 L Hematocrit 24.7 L Mean Corpuscular Volume 86.7 Mean Corpuscular Hemoglobin 27.4 L Mean Corpuscular Hemoglobin Concent 31.6 L Red Cell Distribution Width 20.6 H Platelet Count 189 Mean Platelet Volume 11.5 H Neutrophils % Segmented Neutrophils % (Manual) 52 Band Neutrophils % (Manual) 8 H Lymphocytes % Lymphocytes % (Manual) 11 L Reactive Lymphocytes % (Manual) 3 H Monocytes % Monocytes % (Manual) 10 Eosinophils % Eosinophils % (Manual) 13 H Basophils % Basophils % (Manual) 2 Myelocytes % (Manual) 1 H Nucleated Red Blood Cells % 0.0 Neutrophils # Neutrophils # (Manual) 2.8 Band Neutrophils # 0.4 Absolute Lymphocytes (Manual) 0.5 L Lymphocytes # Reactive Lymphocytes # 0.1 H Monocytes # Absolute Monocytes (Manual) 0.5 Eosinophils # Basophils # Basophils # (Manual) 0.1 H Myelocytes # 0.0 Nucleated Red Blood Cells # Platelet Estimate NORMAL Giant Platelets 3 H Polychromasia 3+ Poikilocytosis 3+ Anisocytosis 1+ Microcytosis 1+ Sodium Level 137 Potassium Level 3.9 Chloride Level 104 Carbon Dioxide Level 26 Anion Gap 11 Blood Urea Nitrogen 34 #H Creatinine 0.98 Glucose Level 130 Calcium Level 8.8 Test 05/16/17 05:43 05/16/17 07:00 05/16/17 08:46 05/16/17 12:57 Bedside Glucose 132 146 132 Blood Gas Specimen Source Blood arterial Arterial Blood Date Drawn 05/16/2017 6:32:48 AM Arterial Blood pH (Temp corrected) 7.369 Arterial Blood pCO2 (Temp correct) 37.6 Arterial Blood pO2 (Temp corrected) 132.3 H Arterial Blood HCO3 21.2 L Arterial Blood Base Excess -3.7 L Arterial Blood Oxygen Saturation 98.4 Ki Test ACCEPTAB Arterial Blood Gas Puncture Site Right Radial Arterial Blood Carboxyhemoglobin 0.3 Arterial Blood Methemoglobin 0.5 Blood Gas A-a O2 Differential 543.1 H Oxyhemoglobin Percent 97.6 Total Hemoglobin 10.5 L Blood Gas Temperature 37.0 Blood Gas Respiration Rate 14.0 Blood Gas Actual Respiration Rate 23 Blood Gas Modality VENT - AC FiO2 100.0 Blood Gas Tidal Volume 500.0 Blood Gas Low PEEP Setting 8.0 Blood Gas Inspiratory Pressure 24.0 Blood Gas Notified Whom SERGIO BRISCOE Blood Gas Notified Time 05/16/2017 6:44:07 AM Medications Medications Current Medications Aspirin (Aspirin) 81 mg DAILY GTB Last administered on 05/16/17 08:34; Admin Dose 81 MG; Start 05/09/17 at 09:00 Acetaminophen (Tylenol Liquid) 650 mg Q6H PRN GTB PAIN AND OR ELEVATED TEMP Last administered on 05/15/17 08:18; Admin Dose 650 MG; Start 05/09/17 at 09:00 Cholecalciferol (Vitamin D) 1,000 unit DAILY GTB Last administered on 08:34; Admin Dose 1,000 UNIT; Start 05/09/17 at 09:00 Insulin Glargine (Lantus) 17 unit DAILY@08 SC Last administered on 05/16/17 08 :48; Admin Dose 17 UNIT; Start 05/10/17 at 08:00 Levothyroxine Sodium (Synthroid) 125 mcg DAILY@06 GTB Last administered on 05/16 07:02; Admin Dose 125 MCG; Start 05/10/17 at 06:00 Zinc Sulfate (Zinc Sulfate) 220 mg DAILY GTB Last administered on 05/16/17 08: 34; Admin Dose 220 MG; Start 05/09/17 at 09:00 Ondansetron HCl (Zofran Inj) 4 mg Q6H PRN IV NAUSEA AND/OR VOMITING Last administered on 05/12/17 08:33; Admin Dose 4 MG; Start 05/09/17 at 09:00 Lorazepam (Ativan) 1 mg Q6H PRN IV ANXIETY Last administered on 05/15/17 13:15 ; Admin Dose 1 MG; Start 05/09/17 at 09:00 Miscellaneous Information 1 ea NOTE XX ; Start 05/09/17 at 10:00 Glucose (Glutose) 15 gm Q15M PRN PO DECREASED GLUCOSE; Start 05/09/17 at 10:00 Glucose (Glutose) 22.5 gm Q15M PRN PO DECREASED GLUCOSE; Start 05/09/17 at 10: 00 Dextrose (D50w Syringe) 25 ml Q15M PRN IV DECREASED GLUCOSE Last administered on 05/11/17 01:54; Admin Dose 25 ML; Start 05/09/17 at 10:00 Dextrose (D50w Syringe) 50 ml Q15M PRN IV DECREASED GLUCOSE; Start 05/09/17 at 10:00 Glucagon (Glucagen) 1 mg Q15M PRN IM DECREASED GLUCOSE; Start 05/09/17 at 10:00 Glucose (Glutose) 15 gm Q15M PRN BUCCAL DECREASED GLUCOSE; Start 05/09/17 at 10 :00 Multivitamins (Multivitamin) 30 ml DAILY PEG Last administered on 05/16/17 08: 34; Admin Dose 30 ML; Start 05/10/17 at 09:00 Fluoxetine HCl (Prozac) 20 mg DAILY GTB Last administered on 05/16/17 08:34; Admin Dose 20 MG; Start 05/10/17 at 09:00 Collagenase (Santyl) 1 applic DAILY TOP Last administered on 05/16/17 08:35; Admin Dose 1 APPLIC; Start 05/10/17 at 09:00 Collagenase (Santyl) 1 applic PRN PRN TOP SOILING; Start 05/10/17 at 01:30 Morphine Sulfate (morphine) 2 mg Q4H PRN IV PAIN LEVEL 4-6 Last administered on 05/16/17 12:23; Admin Dose 2 MG; Start 05/10/17 at 17:30 Famotidine (Pepcid) 20 mg DAILY GTB Last administered on 05/16/17 08:34; Admin Dose 20 MG; Start 05/11/17 at 09:00 Insulin Aspart (Novolog Insulin Pen) NOVOLOG *MILD* ALGORI... Q6 SC Last administered on 05/14/17 18:52; Admin Dose 1 UNIT; Start 05/13/17 at 12:00 Mupirocin 1 applic 1 applic BID TOP Last administered on 05/16/17 08:35; Admin Dose 1 APPLIC; Start 05/14/17 at 09:00 Linezolid (Zyvox 600mg/D5W (Pmx)) 300 ml @ 300 mls/hr Q12 IVPB Last administered on 05/16/17t 08:34; Admin Dose 300 MLS/HR; Start 05/14/17 at 21:00 Jonah Ayala DO May 16, 2017 13:40
--- NOTE | 2017-05-16 19:54 | PN ---
Date/Time of Note Date/Time of Note DATE: 05/16/17 TIME: 19:52 Assessment/Plan VTE Prophylaxis VTE Prophylaxis Intervention: other Lines/Catheters IV Catheter Type (from [facility]): PICC Line Central line still needed: Yes Urinary Cath still in place: Yes Reason Cath still needed: urinary retention Assessment/Plan Assessment/Plan -Acute respiratory failure with left upper lobe collapse. Continue ventilatory support. Dr. Hamilton is following in pulmonology consultation. -5% pneumothorax, no pneumothorax per last chest x-ray -Healthcare acquired pneumonia, continue vancomycin and cefepime, follow-up and sputum culture. Dr. Stephenson is following in infection disease consultation - Acute kidney injury with a generalized edema and hyperkalemia, Dr. Stevens is following in nephrology consultation. Continue hemodialysis. -Paroxysmal atrial fibrillation -Diabetes mellitus, continue Lantus and NovoLog -Hypothyroidism, continue levothyroxine. 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 Broussard is following in gastroenterology consultation. -Tracheostomy amount malfunction, s/p tracheostomy tube change by Dr. Lofton, ENT Further recommendations based on clinical course. Plan of care discussed with Dr. Han. Subjective 24 Hr Interval Summary Free Text/Dictation afebrile, remains on vent. no new issues reported, dw staff Subjective hx not possible: pt non-verbal Constitutional: requiring IVF, requiring O2 Exam/Review of Systems Vital Signs Vitals Vital Signs Date Time Temp Pulse Resp B/P Pulse Ox O2 Delivery O2 Flow Rate FiO2 05/16/17 18:00 107 23 131/54 100 Mechanical Ventilator 05/16/17 17:10 70 05/16/17 12:00 98.6 Intake and Output 05/15/17 05/15/17 05/16/17 14:59 22:59 06:59 Intake Total 1200 ml 1000 ml 700 ml Output Total 2000 ml 100 ml 60 ml Balance -800 ml 900 ml 640 ml Exam Constitutional: non-verbal Respiratory: diminished breath sounds, normal air movement Cardiovascular: nl pulses, other (s1s2) Extremities: edema Neurological: lethargic Results Result Diagram: 05/16/17 0500 05/16/17 0500 Results 24 hrs Laboratory Tests Test 05/16/17 00:19 05/16/17 05:00 05/16/17 05:43 05/16/17 07:00 Bedside Glucose 153 132 White Blood Count 5.4 Red Blood Count 2.85 L Hemoglobin 7.8 L Hematocrit 24.7 L Mean Corpuscular Volume 86.7 Mean Corpuscular Hemoglobin 27.4 L Mean Corpuscular Hemoglobin Concent 31.6 L Red Cell Distribution Width 20.6 H Platelet Count 189 Mean Platelet Volume 11.5 H Neutrophils % Segmented Neutrophils % (Manual) 52 Band Neutrophils % (Manual) 8 H Lymphocytes % Lymphocytes % (Manual) 11 L Reactive Lymphocytes % (Manual) 3 H Monocytes % Monocytes % (Manual) 10 Eosinophils % Eosinophils % (Manual) 13 H Basophils % Basophils % (Manual) 2 Myelocytes % (Manual) 1 H Nucleated Red Blood Cells % 0.0 Neutrophils # Neutrophils # (Manual) 2.8 Band Neutrophils # 0.4 Absolute Lymphocytes (Manual) 0.5 L Lymphocytes # Reactive Lymphocytes # 0.1 H Monocytes # Absolute Monocytes (Manual) 0.5 Eosinophils # Basophils # Basophils # (Manual) 0.1 H Myelocytes # 0.0 Nucleated Red Blood Cells # Platelet Estimate NORMAL Giant Platelets 3 H Polychromasia 3+ Poikilocytosis 3+ Anisocytosis 1+ Microcytosis 1+ Sodium Level 137 Potassium Level 3.9 Chloride Level 104 Carbon Dioxide Level 26 Anion Gap 11 Blood Urea Nitrogen 34 #H Creatinine 0.98 Glucose Level 130 Calcium Level 8.8 Blood Gas Specimen Source Blood arterial Arterial Blood Date Drawn 05/16/2017 6:32:48 AM Arterial Blood pH (Temp corrected) 7.369 Arterial Blood pCO2 (Temp correct) 37.6 Arterial Blood pO2 (Temp corrected) 132.3 H Arterial Blood HCO3 21.2 L Arterial Blood Base Excess -3.7 L Arterial Blood Oxygen Saturation 98.4 Ki Test ACCEPTAB Arterial Blood Gas Puncture Site Right Radial Arterial Blood Carboxyhemoglobin 0.3 Arterial Blood Methemoglobin 0.5 Blood Gas A-a O2 Differential 543.1 H Oxyhemoglobin Percent 97.6 Total Hemoglobin 10.5 L Blood Gas Temperature 37.0 Blood Gas Respiration Rate 14.0 Blood Gas Actual Respiration Rate 23 Blood Gas Modality VENT - AC FiO2 100.0 Blood Gas Tidal Volume 500.0 Blood Gas Low PEEP Setting 8.0 Blood Gas Inspiratory Pressure 24.0 Blood Gas Notified Juliana HILL RCP Blood Gas Notified Time 05/16/2017 6:44:07 AM Test 05/16/17 08:46 05/16/17 12:57 05/16/17 18:52 Bedside Glucose 146 132 112 Medications Medications Current Medications Aspirin (Aspirin) 81 mg DAILY GTB Last administered on 05/16/17 08:34; Admin Dose 81 MG; Start 05/09/17 at 09:00 Acetaminophen (Tylenol Liquid) 650 mg Q6H PRN GTB PAIN AND OR ELEVATED TEMP Last administered on 05/15/17 08:18; Admin Dose 650 MG; Start 05/09/17 at 09:00 Cholecalciferol (Vitamin D) 1,000 unit DAILY GTB Last administered on 08:34; Admin Dose 1,000 UNIT; Start 05/09/17 at 09:00 Insulin Glargine (Lantus) 17 unit DAILY@08 SC Last administered on 05/16/17 08 :48; Admin Dose 17 UNIT; Start 05/10/17 at 08:00 Levothyroxine Sodium (Synthroid) 125 mcg DAILY@06 GTB Last administered on 05/16 07:02; Admin Dose 125 MCG; Start 05/10/17 at 06:00 Zinc Sulfate (Zinc Sulfate) 220 mg DAILY GTB Last administered on 05/16/17 08: 34; Admin Dose 220 MG; Start 05/09/17 at 09:00 Ondansetron HCl (Zofran Inj) 4 mg Q6H PRN IV NAUSEA AND/OR VOMITING Last administered on 05/12/17 08:33; Admin Dose 4 MG; Start 05/09/17 at 09:00 Lorazepam (Ativan) 1 mg Q6H PRN IV ANXIETY Last administered on 05/15/17 13:15 ; Admin Dose 1 MG; Start 05/09/17 at 09:00 Miscellaneous Information 1 ea NOTE XX ; Start 05/09/17 at 10:00 Glucose (Glutose) 15 gm Q15M PRN PO DECREASED GLUCOSE; Start 05/09/17 at 10:00 Glucose (Glutose) 22.5 gm Q15M PRN PO DECREASED GLUCOSE; Start 05/09/17 at 10: 00 Dextrose (D50w Syringe) 25 ml Q15M PRN IV DECREASED GLUCOSE Last administered on 05/11/17 01:54; Admin Dose 25 ML; Start 05/09/17 at 10:00 Dextrose (D50w Syringe) 50 ml Q15M PRN IV DECREASED GLUCOSE; Start 05/09/17 at 10:00 Glucagon (Glucagen) 1 mg Q15M PRN IM DECREASED GLUCOSE; Start 05/09/17 at 10:00 Glucose (Glutose) 15 gm Q15M PRN BUCCAL DECREASED GLUCOSE; Start 05/09/17 at 10 :00 Multivitamins (Multivitamin) 30 ml DAILY PEG Last administered on 05/16/17 08: 34; Admin Dose 30 ML; Start 05/10/17 at 09:00 Fluoxetine HCl (Prozac) 20 mg DAILY GTB Last administered on 05/16/17 08:34; Admin Dose 20 MG; Start 05/10/17 at 09:00 Collagenase (Santyl) 1 applic DAILY TOP Last administered on 05/16/17 08:35; Admin Dose 1 APPLIC; Start 05/10/17 at 09:00 Collagenase (Santyl) 1 applic PRN PRN TOP SOILING; Start 05/10/17 at 01:30 Morphine Sulfate (morphine) 2 mg Q4H PRN IV PAIN LEVEL 4-6 Last administered on 05/16/17 12:23; Admin Dose 2 MG; Start 05/10/17 at 17:30 Famotidine (Pepcid) 20 mg DAILY GTB Last administered on 05/16/17 08:34; Admin Dose 20 MG; Start 05/11/17 at 09:00 Insulin Aspart (Novolog Insulin Pen) NOVOLOG *MILD* ALGORI... Q6 SC Last administered on 05/14/17 18:52; Admin Dose 1 UNIT; Start 05/13/17 at 12:00 Mupirocin 1 applic 1 applic BID TOP Last administered on 05/16/17 08:35; Admin Dose 1 APPLIC; Start 05/14/17 at 09:00 Linezolid (Zyvox 600mg/D5W (Pmx)) 300 ml @ 300 mls/hr Q12 IVPB Last administered on 05/16/17 08:34; Admin Dose 300 MLS/HR; Start 05/14/17 at 21:00 LYDIA SWAIN May 16, 2017 19:54
--- NOTE | 2017-05-16 20:27 | CONS ---
Date/Time of Note Date/Time of Note DATE: 05/16/17 TIME: 20:25 Assessment/Plan Assessment/Plan Chief Complaint/Hosp Course - VRE Sacral wound- VRE- stod Vanco, start Linezolid 600 mg IV q12HRS Organism 1 VANCO RESISTANT ENTEROCOCCUS QUANTITY 1+ MULTI DRUG RESISTANT ORGANISM Organism 2 GRAM NEGATIVE CAROLYN QUANTITY RARE - stop Vanco - Probable VAP vs HCAP 2/2 MRSA - Pulmonary edema - Acute on chronic hypoxemic respiratory failure s/p recent trach - Small right pneumothorax (less than 5%) on CT - BERNARDINO on CKD d/t ATN with fluid overload initiated on HD 05/10/2017 - Hyperkalemia - CAD - PAF - remains in SR/ST - CHF d/t diastolic dysfunction - IDDM - Hgb A1c 5.5% - Hypothyroidism - Anemia with iron deficiency, +stool OB - Dysphagia s/p PEG - Paraplegia d/t spinal injury - Chronic BUE weakness - Hypoalbuminemia with anasarca - Toxic metabolic encephalopathy - improving - Morbid obesity - BMI 39 - 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 Recommendations: - Cipro - continue empiric renally dosed vancomycin (05/09/2017-) - pending: wound cx, procalc, influenza screen - serial CXR - continue local wound care - add Mupirocin for MRSA de-colonization - contact isolation for MRSA Problems: Consultation Date/Type/Reason Admit Date/Time May 09, 2017 at 00:06 Initial Consult Date 05/10/17 Type of Consultation: ID Referring Provider: KISHAN SAUCEDO Exam/Review of Systems Vital Signs Vitals Vital Signs Date Time Temp Pulse Resp B/P Pulse Ox O2 Delivery O2 Flow Rate FiO2 05/16/17 18:00 107 23 131/54 100 Mechanical Ventilator 05/16/17 17:10 70 05/16/17 12:00 98.6 Intake and Output 05/15/17 05/15/17 05/16/17 15:00 23:00 07:00 Intake Total 1200 ml 1000 ml 650 ml Output Total 2000 ml 100 ml 60 ml Balance -800 ml 900 ml 590 ml Exam Constitutional: alert, oriented, well developed Eyes: EOMI, PERRL, nl conjunctiva, nl lids, nl sclera Neck: non-tender, supple Respiratory: clear to auscultation, normal air movement Cardiovascular: nl pulses, regular rate and rhythm Gastrointestinal: nl liver, spleen, non-tender, soft Results Result Diagram: 05/16/17 0500 05/16/17 0500 Results 24 hrs Laboratory Tests Test 05/16/17 00:19 05/16/17 05:00 05/16/17 05:43 05/16/17 07:00 Bedside Glucose 153 132 White Blood Count 5.4 Red Blood Count 2.85 L Hemoglobin 7.8 L Hematocrit 24.7 L Mean Corpuscular Volume 86.7 Mean Corpuscular Hemoglobin 27.4 L Mean Corpuscular Hemoglobin Concent 31.6 L Red Cell Distribution Width 20.6 H Platelet Count 189 Mean Platelet Volume 11.5 H Neutrophils % Segmented Neutrophils % (Manual) 52 Band Neutrophils % (Manual) 8 H Lymphocytes % Lymphocytes % (Manual) 11 L Reactive Lymphocytes % (Manual) 3 H Monocytes % Monocytes % (Manual) 10 Eosinophils % Eosinophils % (Manual) 13 H Basophils % Basophils % (Manual) 2 Myelocytes % (Manual) 1 H Nucleated Red Blood Cells % 0.0 Neutrophils # Neutrophils # (Manual) 2.8 Band Neutrophils # 0.4 Absolute Lymphocytes (Manual) 0.5 L Lymphocytes # Reactive Lymphocytes # 0.1 H Monocytes # Absolute Monocytes (Manual) 0.5 Eosinophils # Basophils # Basophils # (Manual) 0.1 H Myelocytes # 0.0 Nucleated Red Blood Cells # Platelet Estimate NORMAL Giant Platelets 3 H Polychromasia 3+ Poikilocytosis 3+ Anisocytosis 1+ Microcytosis 1+ Sodium Level 137 Potassium Level 3.9 Chloride Level 104 Carbon Dioxide Level 26 Anion Gap 11 Blood Urea Nitrogen 34 #H Creatinine 0.98 Glucose Level 130 Calcium Level 8.8 Blood Gas Specimen Source Blood arterial Arterial Blood Date Drawn 05/16/2017 6:32:48 AM Arterial Blood pH (Temp corrected) 7.369 Arterial Blood pCO2 (Temp correct) 37.6 Arterial Blood pO2 (Temp corrected) 132.3 H Arterial Blood HCO3 21.2 L Arterial Blood Base Excess -3.7 L Arterial Blood Oxygen Saturation 98.4 Ki Test ACCEPTAB Arterial Blood Gas Puncture Site Right Radial Arterial Blood Carboxyhemoglobin 0.3 Arterial Blood Methemoglobin 0.5 Blood Gas A-a O2 Differential 543.1 H Oxyhemoglobin Percent 97.6 Total Hemoglobin 10.5 L Blood Gas Temperature 37.0 Blood Gas Respiration Rate 14.0 Blood Gas Actual Respiration Rate 23 Blood Gas Modality VENT - AC FiO2 100.0 Blood Gas Tidal Volume 500.0 Blood Gas Low PEEP Setting 8.0 Blood Gas Inspiratory Pressure 24.0 Blood Gas Notified Whom SERGIO BRISCOE Blood Gas Notified Time 05/16/2017 6:44:07 AM Test 05/16/17 08:46 05/16/17 12:57 05/16/17 18:52 Bedside Glucose 146 132 112 Medications Medications Current Medications Aspirin (Aspirin) 81 mg DAILY GTB Last administered on 05/16/17 08:34; Admin Dose 81 MG; Start 05/09/17 at 09:00 Acetaminophen (Tylenol Liquid) 650 mg Q6H PRN GTB PAIN AND OR ELEVATED TEMP Last administered on 05/15/17 08:18; Admin Dose 650 MG; Start 05/09/17 at 09:00 Cholecalciferol (Vitamin D) 1,000 unit DAILY GTB Last administered on 08:34; Admin Dose 1,000 UNIT; Start 05/09/17 at 09:00 Insulin Glargine (Lantus) 17 unit DAILY@08 SC Last administered on 05/16/17 08 :48; Admin Dose 17 UNIT; Start 05/10/17 at 08:00 Levothyroxine Sodium (Synthroid) 125 mcg DAILY@06 GTB Last administered on 05/16 07:02; Admin Dose 125 MCG; Start 05/10/17 at 06:00 Zinc Sulfate (Zinc Sulfate) 220 mg DAILY GTB Last administered on 05/16/17 08: 34; Admin Dose 220 MG; Start 05/09/17 at 09:00 Ondansetron HCl (Zofran Inj) 4 mg Q6H PRN IV NAUSEA AND/OR VOMITING Last administered on 05/12/17 08:33; Admin Dose 4 MG; Start 05/09/17 at 09:00 Lorazepam (Ativan) 1 mg Q6H PRN IV ANXIETY Last administered on 05/15/17 13:15 ; Admin Dose 1 MG; Start 05/09/17 at 09:00 Miscellaneous Information 1 ea NOTE XX ; Start 05/09/17 at 10:00 Glucose (Glutose) 15 gm Q15M PRN PO DECREASED GLUCOSE; Start 05/09/17 at 10:00 Glucose (Glutose) 22.5 gm Q15M PRN PO DECREASED GLUCOSE; Start 05/09/17 at 10: 00 Dextrose (D50w Syringe) 25 ml Q15M PRN IV DECREASED GLUCOSE Last administered on 05/11/17 01:54; Admin Dose 25 ML; Start 05/09/17 at 10:00 Dextrose (D50w Syringe) 50 ml Q15M PRN IV DECREASED GLUCOSE; Start 05/09/17 at 10:00 Glucagon (Glucagen) 1 mg Q15M PRN IM DECREASED GLUCOSE; Start 05/09/17 at 10:00 Glucose (Glutose) 15 gm Q15M PRN BUCCAL DECREASED GLUCOSE; Start 05/09/17 at 10 :00 Multivitamins (Multivitamin) 30 ml DAILY PEG Last administered on 05/16/17 08: 34; Admin Dose 30 ML; Start 05/10/17 at 09:00 Fluoxetine HCl (Prozac) 20 mg DAILY GTB Last administered on 05/16/17 08:34; Admin Dose 20 MG; Start 05/10/17 at 09:00 Collagenase (Santyl) 1 applic DAILY TOP Last administered on 05/16/17 08:35; Admin Dose 1 APPLIC; Start 05/10/17 at 09:00 Collagenase (Santyl) 1 applic PRN PRN TOP SOILING; Start 05/10/17 at 01:30 Morphine Sulfate (morphine) 2 mg Q4H PRN IV PAIN LEVEL 4-6 Last administered on 05/16/17 12:23; Admin Dose 2 MG; Start 05/10/17 at 17:30 Famotidine (Pepcid) 20 mg DAILY GTB Last administered on 05/16/17 08:34; Admin Dose 20 MG; Start 05/11/17 at 09:00 Insulin Aspart (Novolog Insulin Pen) NOVOLOG *MILD* ALGORI... Q6 SC Last administered on 05/14/17 18:52; Admin Dose 1 UNIT; Start 05/13/17 at 12:00 Mupirocin 1 applic 1 applic BID TOP Last administered on 05/16/17 08:35; Admin Dose 1 APPLIC; Start 05/14/17 at 09:00 Linezolid (Zyvox 600mg/D5W (Pmx)) 300 ml @ 300 mls/hr Q12 IVPB Last administered on 05/16/17 08:34; Admin Dose 300 MLS/HR; Start 05/14/17 at 21:00 BELA GRAHAM MD May 16, 2017 20:27
[2017-05-16] MEDS: CIPROFLOXACIN 400MG/D5W 200 ML IVPB SCH (21:25)
[2017-05-17] VITALS (48 sets, daily range): BP systolic 96–172; BP diastolic 46–82; PULSE 80–119; RESP 17–28
[2017-05-17] MEDS: INSULIN ASPART [NOVOLOG] 3 ML PEN SC SCH ×4 (05:23→17:34)
[2017-05-17] MEDS: LEVOTHYROXINE 125 MCG TAB GTB SCH (05:55)
[2017-05-17 06:39] LABS: ALBUMIN 2.4 g/dl (3.3-4.9); ALBUMIN/GLOBULIN RATIO 0.96; CREATININE 1.13 mg/dl (0.44-1.00); POTASSIUM 4.3 mmol/L (3.5-5.1); TOTAL PROTEIN 4.9 g/dl (6.1-8.1)
[2017-05-17 07:42] LABS: AADO2 Arterial 320.2 mmHg (7.0-24.0); Allen Test ACCEPTAB; Arterial Base Excess -3.9 mmol/L (-3.0-3); Arterial COHb 0.3 % (0.0-3.0); Arterial Fraction of Oxyhgb 97.7 % (93.0-99.0); Arterial HCO3 20.5 mmol/L (22.0-26.0); Arterial MetHb 0.5 % (0.0-1.5); MODE VENT - AC
[2017-05-17] MEDS: IPRATROPIUM (HFA) 12.9 GM INHALER INH SCH ×3 (08:06→19:14)
[2017-05-17] MEDS: ALBUTEROL HFA 8 GM INHALER INH SCH ×3 (08:07→19:14)
--- NOTE | 2017-05-17 08:09 | RADRPT ---
PROCEDURE: XR Chest. CLINICAL INDICATION: Pneumonia, CHF. TECHNIQUE: Portable semi - erect. COMPARISON: 05/16/2017. FINDINGS: The tracheostomy tube overlies the upper trachea. Right upper extremity PICC line tip overlies the m id superior vena cava. The cardiac border is obscured. Thoracic aortic atherosclerotic disease is present. Diffuse bilatera l, right greater than left perihilar lower lobe parenchymal disease is present increased on the left side relative to the previous examination. Again demonstrated are bilateral pleural effusions. No e vidence of a pneumothorax. 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 IMPRESSION: 1. Diffuse bilateral, right greater than left parenchymal opacities which have increased on the lef t side. Findings represent pulmonary edema and/or pneumonia. 2. Bilateral pleural effusions. 3. Stable position of support line and tube. 4. Thoracic aortic atherosclerotic disease. 5. Bilateral reverse shoulder arthroplasty changes. RPTAT: HRSR Physician Yissel Date Time Electronically viewed and signed by Physician Yissel on 05/17/2017 08:09 /
[2017-05-17] MEDS: LINEZOLID 600 MG/D5W (PMX) 300 ML IVPB SCH ×2 (08:13→21:58)
[2017-05-17] MEDS: MULTIVITAMINS 30 ML CUP PEG SCH (08:13)
[2017-05-17] MEDS: CIPROFLOXACIN 400MG/D5W 200 ML IVPB SCH ×2 (08:13→21:40)
[2017-05-17] MEDS: MUPIROCIN 2% 22 GM OINT TOP SCH ×2 (08:14→21:48)
[2017-05-17] MEDS: FAMOTIDINE 20 MG TAB GTB SCH (08:14)
[2017-05-17] MEDS: ZINC SULFATE 220 MG CAP GTB SCH (08:14)
[2017-05-17] MEDS: ASPIRIN 81 MG TAB GTB SCH (08:14)
[2017-05-17] MEDS: FLUOXETINE 20 MG CAP GTB SCH (08:14)
[2017-05-17] MEDS: CHOLECALCIFEROL 1,000 UNIT TAB GTB SCH (08:14)
[2017-05-17] MEDS: COLLAGENASE 30 GM TUBE TOP SCH (08:14)
[2017-05-17] MEDS: morphine 2 MG INJ IV PRN ×3 (08:14→21:40)
[2017-05-17] MEDS: INSULIN GLARGINE [LANtus] 3 ML PEN SC SCH (08:15)
--- NOTE | 2017-05-17 09:28 | CONS ---
Date/Time of Note Date/Time of Note DATE: 05/17/17 TIME: 09:25 Assessment/Plan Assessment/Plan Additional Assessment/Plan Chest x-ray was reviewed from today which is showing extensive bilateral pneumonia. Ventilator setting; AC of 14, tidal volume 500, PEEP of 8, 70% FiO2. ABG from this morning was reviewed. Assessment and recommendations; 1. Patient with chronic respiratory failure admitted for pulmonary edema with bilateral pneumonia. 2. History of renal failure, on hemodialysis. 3. Paraplegia. 4. Obesity. 5. Anemia and thrombocytopenia. Continue current treatment. FiO2 has been dropped down to 50%. Patient is to be aggressively dialyzed. We will obtain follow-up chest x-ray in 24 hours. Consultation Date/Type/Reason Admit Date/Time May 09, 2017 at 00:06 Initial Consult Date 05/10/17 Type of Consultation: Pulmonary/critical care Referring Provider: KISHAN SAUCEDO 24 HR Interval Summary Free Text/Dictation Patient's condition remains critical. Still requiring fairly high FiO2 for O2 saturation maintenance. Patient however has remained hemodynamically stable. Next General exam; elderly woman, appears overweight, awake, currently in no distress. On ventilator via tracheostomy. Exam/Review of Systems Vital Signs Vitals Vital Signs Date Time Temp Pulse Resp B/P Pulse Ox O2 Delivery O2 Flow Rate FiO2 05/17/17 08:00 97.9 106 22 143/61 100 Mechanical Ventilator 05/17/17 05:54 70 Intake and Output 05/16/17 05/16/17 05/17/17 15:00 23:00 07:00 Intake Total 300 ml 770 ml 350 ml Output Total 20 ml Balance 300 ml 770 ml 330 ml Exam HEENT exam; supple neck, positive JVD. No lymphadenopathy. Midline trachea. No thyromegaly. Patient has fair dentition. Has bilateral intraocular lens implants. Tracheostomy in place. Chest exam; diminished breath sounds throughout. S1-S2 audible, no murmurs. Regular rhythm. Abdomen exam; soft, protuberant. G-tube in place. Bowel sounds are audible. Extremity exam; patient has extensive ecchymosis involving all 4 extremities. 2 + edema in lower extremities and 1+ edema in upper extremities. CAN DRYER exam; patient is awake and follows simple commands however patient exhibiting stable paraplegia. Results Result Diagram: 05/16/17 0500 05/17/17 0415 Results 24 hrs Laboratory Tests Test 05/16/17 12:57 05/16/17 18:52 05/17/17 00:38 05/17/17 04:15 Bedside Glucose 132 112 110 Sodium Level 135 Potassium Level 4.3 Chloride Level 101 Carbon Dioxide Level 24 Anion Gap 14 Blood Urea Nitrogen 42 H Creatinine 1.13 H Glucose Level 113 Calcium Level 9.0 Total Bilirubin 0.0 L Direct Bilirubin 0.00 Indirect Bilirubin 0.0 Aspartate Amino Transf (AST/SGOT) 33 Alanine Aminotransferase (ALT/SGPT) 36 Alkaline Phosphatase 153 H Total Protein 4.9 L Albumin 2.4 L Globulin 2.50 Albumin/Globulin Ratio 0.96 Test 05/17/17 04:58 05/17/17 07:00 05/17/17 08:12 Bedside Glucose 113 149 Blood Gas Specimen Source Blood arterial Arterial Blood Date Drawn 05/17/2017 7:20:17 AM Arterial Blood pH (Temp corrected) 7.388 Arterial Blood pCO2 (Temp correct) 34.8 L Arterial Blood pO2 (Temp corrected) 141.5 H Arterial Blood HCO3 20.5 L Arterial Blood Base Excess -3.9 L Arterial Blood Oxygen Saturation 98.5 Ki Test ACCEPTAB Arterial Blood Gas Puncture Site Right Radial Arterial Blood Carboxyhemoglobin 0.3 Arterial Blood Methemoglobin 0.5 Blood Gas A-a O2 Differential 320.2 H Oxyhemoglobin Percent 97.7 Total Hemoglobin 10.0 L Blood Gas Temperature 37.0 Blood Gas Respiration Rate 14.0 Blood Gas Actual Respiration Rate 20 Blood Gas Modality VENT - AC FiO2 70.0 Blood Gas Tidal Volume 500.0 Blood Gas Low PEEP Setting 8.0 Blood Gas Notified Whom JLD Blood Gas Notified Time 05/17/2017 7:42:00 AM Medications Medications Current Medications Aspirin (Aspirin) 81 mg DAILY GTB Last administered on 05/17/17 08:14; Admin Dose 81 MG; Start 05/09/17 at 09:00 Acetaminophen (Tylenol Liquid) 650 mg Q6H PRN GTB PAIN AND OR ELEVATED TEMP Last administered on 05/15/17 08:18; Admin Dose 650 MG; Start 05/09/17 at 09:00 Cholecalciferol (Vitamin D) 1,000 unit DAILY GTB Last administered on 08:14; Admin Dose 1,000 UNIT; Start 05/09/17 at 09:00 Insulin Glargine (Lantus) 17 unit DAILY@08 SC Last administered on 05/17/17 08:15; Admin Dose 17 UNIT; Start 05/10/17 at 08:00 Levothyroxine Sodium (Synthroid) 125 mcg DAILY@06 GTB Last administered on 05:55; Admin Dose 125 MCG; Start 05/10/17 at 06:00 Zinc Sulfate (Zinc Sulfate) 220 mg DAILY GTB Last administered on 05/17/17 08 :14; Admin Dose 220 MG; Start 05/09/17 at 09:00 Ondansetron HCl (Zofran Inj) 4 mg Q6H PRN IV NAUSEA AND/OR VOMITING Last administered on 05/12/17 08:33; Admin Dose 4 MG; Start 05/09/17 at 09:00 Lorazepam (Ativan) 1 mg Q6H PRN IV ANXIETY Last administered on 05/15/17 13:15 ; Admin Dose 1 MG; Start 05/09/17 at 09:00 Miscellaneous Information 1 ea NOTE XX ; Start 05/09/17 at 10:00 Glucose (Glutose) 15 gm Q15M PRN PO DECREASED GLUCOSE; Start 05/09/17 at 10:00 Glucose (Glutose) 22.5 gm Q15M PRN PO DECREASED GLUCOSE; Start 05/09/17 at 10: 00 Dextrose (D50w Syringe) 25 ml Q15M PRN IV DECREASED GLUCOSE Last administered on 05/11/17 01:54; Admin Dose 25 ML; Start 05/09/17 at 10:00 Dextrose (D50w Syringe) 50 ml Q15M PRN IV DECREASED GLUCOSE; Start 05/09/17 at 10:00 Glucagon (Glucagen) 1 mg Q15M PRN IM DECREASED GLUCOSE; Start 05/09/17 at 10:00 Glucose (Glutose) 15 gm Q15M PRN BUCCAL DECREASED GLUCOSE; Start 05/09/17 at 10 :00 Multivitamins (Multivitamin) 30 ml DAILY PEG Last administered on 05/17/17 08 :13; Admin Dose 30 ML; Start 05/10/17 at 09:00 Fluoxetine HCl (Prozac) 20 mg DAILY GTB Last administered on 05/17/17 08:14; Admin Dose 20 MG; Start 05/10/17 at 09:00 Collagenase (Santyl) 1 applic DAILY TOP Last administered on 05/17/17 08:14; Admin Dose 1 APPLIC; Start 05/10/17 at 09:00 Collagenase (Santyl) 1 applic PRN PRN TOP SOILING; Start 05/10/17 at 01:30 Morphine Sulfate (morphine) 2 mg Q4H PRN IV PAIN LEVEL 4-6 Last administered on 05/17/17 08:14; Admin Dose 2 MG; Start 05/10/17 at 17:30 Famotidine (Pepcid) 20 mg DAILY GTB Last administered on 05/17/17 08:14; Admin Dose 20 MG; Start 05/11/17 at 09:00 Insulin Aspart (Novolog Insulin Pen) NOVOLOG *MILD* ALGORI... Q6 SC Last administered on 05/14/17 18:52; Admin Dose 1 UNIT; Start 05/13/17 at 12:00 Mupirocin 1 applic 1 applic BID TOP Last administered on 05/17/17 08:14; Admin Dose 1 APPLIC; Start 05/14/17 at 09:00 Linezolid 300 ml @ 300 mls/hr Q12 IVPB Last administered on 05/17/17 08:13; Admin Dose 300 MLS/HR; Start 05/14/17 at 21:00 Ciprofloxacin/ Dextrose (Cipro Ivpb) 200 ml @ 200 mls/hr Q12 IVPB Last administered on 05/17/17 08:13; Admin Dose 200 MLS/HR; Start 05/16/17 at 21:00 GUSTAVO BRIONES May 17, 2017 09:28
--- NOTE | 2017-05-17 09:44 | CONS ---
Date/Time of Note Date/Time of Note DATE: 05/17/17 TIME: 09:43 Assessment/Plan Assessment/Plan Additional Assessment/Plan Respiratory failure vent dependent Acute decompensated diastolic congestive heart failure Preserved ejection fraction Pulmonary hypertension Tricuspid valve regurgitation History of pneumothorax Paraplegia Acute kidney injury with history of CKD started on hemodialysis Obesity -Fluid management via hemodialysis as per nephrology colleagues. Ventilator and pulmonary care as per our pulmonary colleagues. Given labile blood pressure , no antihypertensives at the current time. Consultation Date/Type/Reason Admit Date/Time May 09, 2017 at 00:06 Initial Consult Date 05/09/17 Type of Consultation: cv Referring Provider: KISHAN SAUCEDO 24 HR Interval Summary Free Text/Dictation Patient seen and examined, denies shortness of breath or chest pain Exam/Review of Systems Vital Signs Vitals Vital Signs Date Time Temp Pulse Resp B/P Pulse Ox O2 Delivery O2 Flow Rate FiO2 05/17/17 08:00 97.9 106 22 143/61 100 Mechanical Ventilator 05/17/17 05:54 70 Intake and Output 05/16/17 05/16/17 05/17/17 15:00 23:00 07:00 Intake Total 300 ml 770 ml 350 ml Output Total 20 ml Balance 300 ml 770 ml 330 ml Exam No apparent distress, following commands Constitutional: alert, oriented Head: normocephalic Neck: other (Tracheostomy) Respiratory: other (Coarse breath sounds bilaterally, no wheezing) Cardiovascular: other (S1-S2 heard), regular rate and rhythm Gastrointestinal: bowel sounds, non-tender, soft Extremities: edema Results Result Diagram: 05/16/17 0500 05/17/17 0415 Results 24 hrs Laboratory Tests Test 05/16/17 12:57 05/16/17 18:52 05/17/17 00:38 05/17/17 04:15 Bedside Glucose 132 112 110 Sodium Level 135 Potassium Level 4.3 Chloride Level 101 Carbon Dioxide Level 24 Anion Gap 14 Blood Urea Nitrogen 42 H Creatinine 1.13 H Glucose Level 113 Calcium Level 9.0 Total Bilirubin 0.0 L Direct Bilirubin 0.00 Indirect Bilirubin 0.0 Aspartate Amino Transf (AST/SGOT) 33 Alanine Aminotransferase (ALT/SGPT) 36 Alkaline Phosphatase 153 H Total Protein 4.9 L Albumin 2.4 L Globulin 2.50 Albumin/Globulin Ratio 0.96 Test 05/17/17 04:58 05/17/17 07:00 05/17/17 08:12 Bedside Glucose 113 149 Blood Gas Specimen Source Blood arterial Arterial Blood Date Drawn 05/17/2017 7:20:17 AM Arterial Blood pH (Temp corrected) 7.388 Arterial Blood pCO2 (Temp correct) 34.8 L Arterial Blood pO2 (Temp corrected) 141.5 H Arterial Blood HCO3 20.5 L Arterial Blood Base Excess -3.9 L Arterial Blood Oxygen Saturation 98.5 Ki Test ACCEPTAB Arterial Blood Gas Puncture Site Right Radial Arterial Blood Carboxyhemoglobin 0.3 Arterial Blood Methemoglobin 0.5 Blood Gas A-a O2 Differential 320.2 H Oxyhemoglobin Percent 97.7 Total Hemoglobin 10.0 L Blood Gas Temperature 37.0 Blood Gas Respiration Rate 14.0 Blood Gas Actual Respiration Rate 20 Blood Gas Modality VENT - AC FiO2 70.0 Blood Gas Tidal Volume 500.0 Blood Gas Low PEEP Setting 8.0 Blood Gas Notified Whom JLD Blood Gas Notified Time 05/17/2017 7:42:00 AM Medications Medications Current Medications Aspirin (Aspirin) 81 mg DAILY GTB Last administered on 05/17/17 08:14; Admin Dose 81 MG; Start 05/09/17 at 09:00 Acetaminophen (Tylenol Liquid) 650 mg Q6H PRN GTB PAIN AND OR ELEVATED TEMP Last administered on 05/15/17 08:18; Admin Dose 650 MG; Start 05/09/17 at 09:00 Cholecalciferol (Vitamin D) 1,000 unit DAILY GTB Last administered on 08:14; Admin Dose 1,000 UNIT; Start 05/09/17 at 09:00 Insulin Glargine (Lantus) 17 unit DAILY@08 SC Last administered on 05/17/17 08:15; Admin Dose 17 UNIT; Start 05/10/17 at 08:00 Levothyroxine Sodium (Synthroid) 125 mcg DAILY@06 GTB Last administered on 05:55; Admin Dose 125 MCG; Start 05/10/17 at 06:00 Zinc Sulfate (Zinc Sulfate) 220 mg DAILY GTB Last administered on 05/17/17 08 :14; Admin Dose 220 MG; Start 05/09/17 at 09:00 Ondansetron HCl (Zofran Inj) 4 mg Q6H PRN IV NAUSEA AND/OR VOMITING Last administered on 05/12/17 08:33; Admin Dose 4 MG; Start 05/09/17 at 09:00 Lorazepam (Ativan) 1 mg Q6H PRN IV ANXIETY Last administered on 05/15/17 13:15 ; Admin Dose 1 MG; Start 05/09/17 at 09:00 Miscellaneous Information 1 ea NOTE XX ; Start 05/09/17 at 10:00 Glucose (Glutose) 15 gm Q15M PRN PO DECREASED GLUCOSE; Start 05/09/17 at 10:00 Glucose (Glutose) 22.5 gm Q15M PRN PO DECREASED GLUCOSE; Start 05/09/17 at 10: 00 Dextrose (D50w Syringe) 25 ml Q15M PRN IV DECREASED GLUCOSE Last administered on 05/11/17 01:54; Admin Dose 25 ML; Start 05/09/17 at 10:00 Dextrose (D50w Syringe) 50 ml Q15M PRN IV DECREASED GLUCOSE; Start 05/09/17 at 10:00 Glucagon (Glucagen) 1 mg Q15M PRN IM DECREASED GLUCOSE; Start 05/09/17 at 10:00 Glucose (Glutose) 15 gm Q15M PRN BUCCAL DECREASED GLUCOSE; Start 05/09/17 at 10 :00 Multivitamins (Multivitamin) 30 ml DAILY PEG Last administered on 05/17/17 08 :13; Admin Dose 30 ML; Start 05/10/17 at 09:00 Fluoxetine HCl (Prozac) 20 mg DAILY GTB Last administered on 05/17/17 08:14; Admin Dose 20 MG; Start 05/10/17 at 09:00 Collagenase (Santyl) 1 applic DAILY TOP Last administered on 05/17/17 08:14; Admin Dose 1 APPLIC; Start 05/10/17 at 09:00 Collagenase (Santyl) 1 applic PRN PRN TOP SOILING; Start 05/10/17 at 01:30 Morphine Sulfate (morphine) 2 mg Q4H PRN IV PAIN LEVEL 4-6 Last administered on 05/17/17 08:14; Admin Dose 2 MG; Start 05/10/17 at 17:30 Famotidine (Pepcid) 20 mg DAILY GTB Last administered on 05/17/17 08:14; Admin Dose 20 MG; Start 05/11/17 at 09:00 Insulin Aspart (Novolog Insulin Pen) NOVOLOG *MILD* ALGORI... Q6 SC Last administered on 05/14/17 18:52; Admin Dose 1 UNIT; Start 05/13/17 at 12:00 Mupirocin 1 applic 1 applic BID TOP Last administered on 05/17/17 08:14; Admin Dose 1 APPLIC; Start 05/14/17 at 09:00 Linezolid 300 ml @ 300 mls/hr Q12 IVPB Last administered on 05/17/17 08:13; Admin Dose 300 MLS/HR; Start 05/14/17 at 21:00 Ciprofloxacin/ Dextrose (Cipro Ivpb) 200 ml @ 200 mls/hr Q12 IVPB Last administered on 05/17/17 08:13; Admin Dose 200 MLS/HR; Start 05/16/17 at 21:00 Jonah Ayala DO May 17, 2017 09:44
[2017-05-17] MEDS ORDERED: ALBUMIN HUMAN 25% 100 ML IV ONE (11:00)
[2017-05-17] MEDS ORDERED: ALBUMIN HUMAN 25% 100 ML ONE (11:02)
--- NOTE | 2017-05-17 11:17 | CONS ---
Date/Time of Note Date/Time of Note DATE: 05/17/17 TIME: 11:03 Assessment/Plan Assessment/Plan Chief Complaint/Hosp Course - VAP vs HCAP 2/2 MRSA (Procalcitonin 2.34) - Pulmonary edema - Acute on chronic hypoxemic respiratory failure s/p recent trach - Small right pneumothorax (less than 5%) on CT - BERNARDINO on CKD d/t ATN with fluid overload initiated on HD 05/10/2017 - Hyperkalemia - resolved - CAD - PAF - remains in SR/ST - CHF d/t diastolic dysfunction - IDDM - Hgb A1c 5.5% - Hypothyroidism - Anemia with iron deficiency, +stool OB - Dysphagia s/p PEG - Paraplegia d/t spinal injury - Chronic BUE weakness - Hypoalbuminemia with anasarca - Toxic metabolic encephalopathy - improving - Morbid obesity - BMI 39 - R knee wound - 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 Stephenson Critical care time spent: 40 min Problems: Consultation Date/Type/Reason Admit Date/Time May 09, 2017 at 00:06 Initial Consult Date 05/10/17 Type of Consultation: Infectious Disease Referring Provider: KISHAN SAUCEDO 24 HR Interval Summary Free Text/Dictation FiO2 remains at 70% with plans to wean it down after HD; remains afebrile; no acute issues per d/w nursing staff. Unable to perform ROS d/t encephalopathy. Subjective hx not possible: pt critical Exam/Review of Systems Vital Signs Vitals Vital Signs Date Time Temp Pulse Resp B/P Pulse Ox O2 Delivery O2 Flow Rate FiO2 05/17/17 08:00 97.9 106 22 143/61 100 Mechanical Ventilator 05/17/17 05:54 70 Intake and Output 05/16/17 05/16/17 05/17/17 15:00 23:00 07:00 Intake Total 300 ml 770 ml 350 ml Output Total 20 ml Balance 300 ml 770 ml 330 ml Exam Constitutional: alert, non-verbal, obese, other (anasarca), well developed Head: atraumatic, normocephalic Eyes: nl sclera Neck: other (tracheostomy intact), supple Respiratory: diminished breath sounds Cardiovascular: other (S1, S2, regular rhythm, tachycardic) Gastrointestinal: bowel sounds (normoactive), non-tender, other (G-tube intact with tube feeds in progress), soft, surgical scars (well healed) Genitourinary - Female: other (Geronimo catheter present; R fem HD catheter in place) Extremities: edema, other (Bilateral foot drop noted), No clubbing, No cyanosis Neurological: lethargic, other (paraplegia with BUE weakness; selectively nods to simple questions; + tracking) Skin: other (R knee wound and stage IV coccygeal wound; weeping noted from BUE - see nurse note and photos for details) Results Result Diagram: 05/16/17 0500 05/17/17 0415 Results 24 hrs Laboratory Tests Test 05/16/17 12:57 05/16/17 18:52 05/17/17 00:38 05/17/17 04:15 Bedside Glucose 132 112 110 Sodium Level 135 Potassium Level 4.3 Chloride Level 101 Carbon Dioxide Level 24 Anion Gap 14 Blood Urea Nitrogen 42 H Creatinine 1.13 H Glucose Level 113 Calcium Level 9.0 Total Bilirubin 0.0 L Direct Bilirubin 0.00 Indirect Bilirubin 0.0 Aspartate Amino Transf (AST/SGOT) 33 Alanine Aminotransferase (ALT/SGPT) 36 Alkaline Phosphatase 153 H Total Protein 4.9 L Albumin 2.4 L Globulin 2.50 Albumin/Globulin Ratio 0.96 Test 05/17/17 04:58 05/17/17 07:00 05/17/17 08:12 Bedside Glucose 113 149 Blood Gas Specimen Source Blood arterial Arterial Blood Date Drawn 05/17/2017 7:20:17 AM Arterial Blood pH (Temp corrected) 7.388 Arterial Blood pCO2 (Temp correct) 34.8 L Arterial Blood pO2 (Temp corrected) 141.5 H Arterial Blood HCO3 20.5 L Arterial Blood Base Excess -3.9 L Arterial Blood Oxygen Saturation 98.5 Ki Test ACCEPTAB Arterial Blood Gas Puncture Site Right Radial Arterial Blood Carboxyhemoglobin 0.3 Arterial Blood Methemoglobin 0.5 Blood Gas A-a O2 Differential 320.2 H Oxyhemoglobin Percent 97.7 Total Hemoglobin 10.0 L Blood Gas Temperature 37.0 Blood Gas Respiration Rate 14.0 Blood Gas Actual Respiration Rate 20 Blood Gas Modality VENT - AC FiO2 70.0 Blood Gas Tidal Volume 500.0 Blood Gas Low PEEP Setting 8.0 Blood Gas Notified Whom JLD Blood Gas Notified Time 05/17/2017 7:42:00 AM Medications Medications Current Medications Aspirin (Aspirin) 81 mg DAILY GTB Last administered on 05/17/17 08:14; Admin Dose 81 MG; Start 05/09/17 at 09:00 Acetaminophen (Tylenol Liquid) 650 mg Q6H PRN GTB PAIN AND OR ELEVATED TEMP Last administered on 05/15/17 08:18; Admin Dose 650 MG; Start 05/09/17 at 09:00 Cholecalciferol (Vitamin D) 1,000 unit DAILY GTB Last administered on 08:14; Admin Dose 1,000 UNIT; Start 05/09/17 at 09:00 Insulin Glargine (Lantus) 17 unit DAILY@08 SC Last administered on 05/17/17 08:15; Admin Dose 17 UNIT; Start 05/10/17 at 08:00 Levothyroxine Sodium (Synthroid) 125 mcg DAILY@06 GTB Last administered on 05:55; Admin Dose 125 MCG; Start 05/10/17 at 06:00 Zinc Sulfate (Zinc Sulfate) 220 mg DAILY GTB Last administered on 05/17/17 08 :14; Admin Dose 220 MG; Start 05/09/17 at 09:00 Ondansetron HCl (Zofran Inj) 4 mg Q6H PRN IV NAUSEA AND/OR VOMITING Last administered on 05/12/17 08:33; Admin Dose 4 MG; Start 05/09/17 at 09:00 Lorazepam (Ativan) 1 mg Q6H PRN IV ANXIETY Last administered on 05/15/17 13:15 ; Admin Dose 1 MG; Start 05/09/17 at 09:00 Miscellaneous Information 1 ea NOTE XX ; Start 05/09/17 at 10:00 Glucose (Glutose) 15 gm Q15M PRN PO DECREASED GLUCOSE; Start 05/09/17 at 10:00 Glucose (Glutose) 22.5 gm Q15M PRN PO DECREASED GLUCOSE; Start 05/09/17 at 10: 00 Dextrose (D50w Syringe) 25 ml Q15M PRN IV DECREASED GLUCOSE Last administered on 05/11/17 01:54; Admin Dose 25 ML; Start 05/09/17 at 10:00 Dextrose (D50w Syringe) 50 ml Q15M PRN IV DECREASED GLUCOSE; Start 05/09/17 at 10:00 Glucagon (Glucagen) 1 mg Q15M PRN IM DECREASED GLUCOSE; Start 05/09/17 at 10:00 Glucose (Glutose) 15 gm Q15M PRN BUCCAL DECREASED GLUCOSE; Start 05/09/17 at 10 :00 Multivitamins (Multivitamin) 30 ml DAILY PEG Last administered on 05/17/17 08 :13; Admin Dose 30 ML; Start 05/10/17 at 09:00 Fluoxetine HCl (Prozac) 20 mg DAILY GTB Last administered on 05/17/17 08:14; Admin Dose 20 MG; Start 05/10/17 at 09:00 Collagenase (Santyl) 1 applic DAILY TOP Last administered on 05/17/17 08:14; Admin Dose 1 APPLIC; Start 05/10/17 at 09:00 Collagenase (Santyl) 1 applic PRN PRN TOP SOILING; Start 05/10/17 at 01:30 Morphine Sulfate (morphine) 2 mg Q4H PRN IV PAIN LEVEL 4-6 Last administered on 05/17/17 08:14; Admin Dose 2 MG; Start 05/10/17 at 17:30 Famotidine (Pepcid) 20 mg DAILY GTB Last administered on 05/17/17 08:14; Admin Dose 20 MG; Start 05/11/17 at 09:00 Insulin Aspart (Novolog Insulin Pen) NOVOLOG *MILD* ALGORI... Q6 SC Last administered on 05/14/17 18:52; Admin Dose 1 UNIT; Start 05/13/17 at 12:00 Mupirocin 1 applic 1 applic BID TOP Last administered on 05/17/17 08:14; Admin Dose 1 APPLIC; Start 05/14/17 at 09:00 Linezolid 300 ml @ 300 mls/hr Q12 IVPB Last administered on 05/17/17 08:13; Admin Dose 300 MLS/HR; Start 05/14/17 at 21:00 Ciprofloxacin/ Dextrose 200 ml @ 200 mls/hr Q12 IVPB Last administered on t 08:13; Admin Dose 200 MLS/HR; Start 05/16/17 at 21:00 Albumin Human (Albumin Human 25%) 100 ml @ 100 mls/hr ONCE ONCE IV ; Start at 11:00; Stop 05/17/17 at 11:59; Status UNV Procedures Procedures CXR 05/17/2017: 1. Diffuse bilateral, right greater than left parenchymal opacities which have increased on the left side. Findings represent pulmonary edema and/or pneumonia. 2. Bilateral pleural effusions. 3. Stable position of support line and tube. 4. Thoracic aortic atherosclerotic disease. 5. Bilateral reverse shoulder arthroplasty changes. KATHY VARGAS [employer] May 17, 2017 11:13
--- NOTE | 2017-05-17 12:26 | PN ---
Date/Time of Note Date/Time of Note DATE: 05/17/17 TIME: 12:25 Assessment/Plan VTE Prophylaxis VTE Prophylaxis Intervention: SCD's Lines/Catheters IV C[facility] Type (from [facility] PICC Line Central line still needed: Yes Urinary Cath still in place: Yes Reason Cath still needed: urinary retention Assessment/Plan Chief Complaint/Hosp Course Patient is undergoing hemodialysis, patient continues on ventilatory support with 70% FiO2 and PEEP of 8. Hemoglobin yesterday 7.8, with will obtain CBC today, transfuse as needed. Assessment/Plan -Acute respiratory failure with left upper lobe collapse. Continue ventilatory support. Dr. Hamilton is following in pulmonology consultation. -5% pneumothorax, no pneumothorax per last chest x-ray -Healthcare acquired pneumonia, continue vancomycin and cefepime, follow-up and sputum culture. Dr. Stephenson is following in infection disease consultation - Acute kidney injury with a generalized edema and hyperkalemia, Dr. Stevens is following in nephrology consultation. Continue hemodialysis. -Paroxysmal atrial fibrillation -Diabetes mellitus, continue Lantus and NovoLog -Hypothyroidism, continue levothyroxine. 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 Broussard is following in gastroenterology consultation. -Tracheostomy amount malfunction, s/p tracheostomy tube change by Dr. Lofton, ENT Further recommendations based on clinical course. Plan of care discussed with Dr. Han. Problems: Exam/Review of Systems Vital Signs Vitals Vital Signs Date Time Temp Pulse Resp B/P Pulse Ox O2 Delivery O2 Flow Rate FiO2 05/17/17 12:00 111 05/17/17 11:10 21 100 70 05/17/17 11:00 102/49 Mechanical Ventilator 05/17/17 08:00 97.9 Intake and Output 05/16/17 05/16/17 05/17/17 15:00 23:00 07:00 Intake Total 300 ml 770 ml 350 ml Output Total 20 ml Balance 300 ml 770 ml 330 ml Exam Constitutional: alert Neck: other (Tracheostomy), supple Respiratory: diminished breath sounds Cardiovascular: nl pulses Gastrointestinal: ascites, non-tender, other (G-tube), soft Musculoskeletal: muscle weakness Extremities: edema Neurological: other (Paraplegia) Cherelle Saenz Results Result Diagram: 05/16/17 0500 05/17/17 0415 Results 24 hrs Laboratory Tests Test 05/16/17 12:57 05/16/17 18:52 05/17/17 00:38 05/17/17 04:15 Bedside Glucose 132 112 110 Sodium Level 135 Potassium Level 4.3 Chloride Level 101 Carbon Dioxide Level 24 Anion Gap 14 Blood Urea Nitrogen 42 H Creatinine 1.13 H Glucose Level 113 Calcium Level 9.0 Total Bilirubin 0.0 L Direct Bilirubin 0.00 Indirect Bilirubin 0.0 Aspartate Amino Transf (AST/SGOT) 33 Alanine Aminotransferase (ALT/SGPT) 36 Alkaline Phosphatase 153 H Total Protein 4.9 L Albumin 2.4 L Globulin 2.50 Albumin/Globulin Ratio 0.96 Test 05/17/17 04:58 05/17/17 07:00 05/17/17 08:12 05/17/17 12:08 Bedside Glucose 113 149 118 Blood Gas Specimen Source Blood arterial Arterial Blood Date Drawn 05/17/2017 7:20:17 AM Arterial Blood pH (Temp corrected) 7.388 Arterial Blood pCO2 (Temp correct) 34.8 L Arterial Blood pO2 (Temp corrected) 141.5 H Arterial Blood HCO3 20.5 L Arterial Blood Base Excess -3.9 L Arterial Blood Oxygen Saturation 98.5 Ki Test ACCEPTAB Arterial Blood Gas Puncture Site Right Radial Arterial Blood Carboxyhemoglobin 0.3 Arterial Blood Methemoglobin 0.5 Blood Gas A-a O2 Differential 320.2 H Oxyhemoglobin Percent 97.7 Total Hemoglobin 10.0 L Blood Gas Temperature 37.0 Blood Gas Respiration Rate 14.0 Blood Gas Actual Respiration Rate 20 Blood Gas Modality VENT - AC FiO2 70.0 Blood Gas Tidal Volume 500.0 Blood Gas Low PEEP Setting 8.0 Blood Gas Notified Whom JLD Blood Gas Notified Time 05/17/2017 7:42:00 AM Medications Medications Current Medications Aspirin (Aspirin) 81 mg DAILY GTB Last administered on 05/17/17 08:14; Admin Dose 81 MG; Start 05/09/17 at 09:00 Acetaminophen (Tylenol Liquid) 650 mg Q6H PRN GTB PAIN AND OR ELEVATED TEMP Last administered on 05/15/17 08:18; Admin Dose 650 MG; Start 05/09/17 at 09:00 Cholecalciferol (Vitamin D) 1,000 unit DAILY GTB Last administered on 08:14; Admin Dose 1,000 UNIT; Start 05/09/17 at 09:00 Insulin Glargine (Lantus) 17 unit DAILY@08 SC Last administered on 05/17/17 08:15; Admin Dose 17 UNIT; Start 05/10/17 at 08:00 Levothyroxine Sodium (Synthroid) 125 mcg DAILY@06 GTB Last administered on 05:55; Admin Dose 125 MCG; Start 05/10/17 at 06:00 Zinc Sulfate (Zinc Sulfate) 220 mg DAILY GTB Last administered on 05/17/17 08 :14; Admin Dose 220 MG; Start 05/09/17 at 09:00 Ondansetron HCl (Zofran Inj) 4 mg Q6H PRN IV NAUSEA AND/OR VOMITING Last administered on 05/12/17 08:33; Admin Dose 4 MG; Start 05/09/17 at 09:00 Lorazepam (Ativan) 1 mg Q6H PRN IV ANXIETY Last administered on 05/15/17 13:15 ; Admin Dose 1 MG; Start 05/09/17 at 09:00 Miscellaneous Information 1 ea NOTE XX ; Start 05/09/17 at 10:00 Glucose (Glutose) 15 gm Q15M PRN PO DECREASED GLUCOSE; Start 05/09/17 at 10:00 Glucose (Glutose) 22.5 gm Q15M PRN PO DECREASED GLUCOSE; Start 05/09/17 at 10: 00 Dextrose (D50w Syringe) 25 ml Q15M PRN IV DECREASED GLUCOSE Last administered on 05/11/17 01:54; Admin Dose 25 ML; Start 05/09/17 at 10:00 Dextrose (D50w Syringe) 50 ml Q15M PRN IV DECREASED GLUCOSE; Start 05/09/17 at 10:00 Glucagon (Glucagen) 1 mg Q15M PRN IM DECREASED GLUCOSE; Start 05/09/17 at 10:00 Glucose (Glutose) 15 gm Q15M PRN BUCCAL DECREASED GLUCOSE; Start 05/09/17 at 10 :00 Multivitamins (Multivitamin) 30 ml DAILY PEG Last administered on 05/17/17 08 :13; Admin Dose 30 ML; Start 05/10/17 at 09:00 Fluoxetine HCl (Prozac) 20 mg DAILY GTB Last administered on 05/17/17 08:14; Admin Dose 20 MG; Start 05/10/17 at 09:00 Collagenase (Santyl) 1 applic DAILY TOP Last administered on 05/17/17 08:14; Admin Dose 1 APPLIC; Start 05/10/17 at 09:00 Collagenase (Santyl) 1 applic PRN PRN TOP SOILING; Start 05/10/17 at 01:30 Morphine Sulfate (morphine) 2 mg Q4H PRN IV PAIN LEVEL 4-6 Last administered on 05/17/17 08:14; Admin Dose 2 MG; Start 05/10/17 at 17:30 Famotidine (Pepcid) 20 mg DAILY GTB Last administered on 05/17/17 08:14; Admin Dose 20 MG; Start 05/11/17 at 09:00 Insulin Aspart (Novolog Insulin Pen) NOVOLOG *MILD* ALGORI... Q6 SC Last administered on 05/14/17 18:52; Admin Dose 1 UNIT; Start 05/13/17 at 12:00 Mupirocin 1 applic 1 applic BID TOP Last administered on 05/17/17 08:14; Admin Dose 1 APPLIC; Start 05/14/17 at 09:00 Linezolid 300 ml @ 300 mls/hr Q12 IVPB Last administered on 05/17/17 08:13; Admin Dose 300 MLS/HR; Start 05/14/17 at 21:00 Ciprofloxacin/ Dextrose (Cipro Ivpb) 200 ml @ 200 mls/hr Q12 IVPB Last administered on 05/17/17 08:13; Admin Dose 200 MLS/HR; Start 05/16/17 at 21:00 KISHAN SAUCEDO May 17, 2017 12:26
[2017-05-17 13:09] LABS: ABNORMAL IP MESSAGE 1; BASOPHILS % 0.6 % (0.0-2.0); EOSINOPHILS # 0.3 10^3/ul (0.0-0.5); EOSINOPHILS % 3.9 % (0.0-7.0); HEMATOCRIT 28.5 % (37.0-47.0); HEMOGLOBIN 9.1 g/dl (12.0-16.0); LYMPHOCYTES # 0.6 10^3/ul (0.8-2.9); LYMPHOCYTES % 8.9 % (15.0-51.0); MEAN CORPUSCULAR HEMOGLOBIN 27.6 pg (29.0-33.0); MEAN CORPUSCULAR HGB CONC 31.9 g/dl (32.0-37.0); MEAN CORPUSCULAR VOLUME 86.4 fl (82.0-101.0); MEAN PLATELET VOLUME 10.8 fl (7.4-10.4); MONOCYTE # 0.7 10^3/ul (0.3-0.9); MONOCYTES % 10.1 % (0.0-11.0); NEUTROPHIL # 4.7 10^3/ul (1.6-7.5); PLATELET COUNT 234 10^3/UL (140-415); RED CELL DISTRIBUTION WIDTH 20.2 % (11.5-14.5); WHITE BLOOD COUNT 6.8 10^3/ul (4.8-10.8)
[2017-05-17 13:29] LABS: POSITIVE DIFF @See below
--- NOTE | 2017-05-17 13:43 | PN ---
Date/Time of Note Date/Time of Note DATE: 05/17/17 TIME: 13:39 Assessment/Plan Lines/Catheters IV Catheter Type (from [facility]): PICC Line Geronimo in Place (from [facility]): Yes Assessment/Plan Chief Complaint/Hosp Course 1. Sacral wound: stage 4: cultures noted; nonmalodorous -debridement prn -local care w dakins -frequent turning and off-loading -low air loss mattress -vitamin c -short term zinc -optimize nutrition -abx per sensitivity 2. Acute respiratory failure with complete collapse of the left upper lobe with obliteration of the left upper lobe bronchus; pulmonary congestion, ?pna: comfortable on vent; cxr unimproved -per pulm -continue vent support -abx -hd 3. VDRF -pulm toilet -respiratory treatments 4. Anemia: no acute bleed noted: stool OB +; h/h stable -monitor -transfuse as needed -per gi-eventual coloscopy 5. Elevated TSH -further workup per medical team 6. Electrolyte imbalance -optimize lytes 7. Morbid obesity: bmi 40 -diet and exercise optimization -encourage weight loss 8. BERNARDINO started on HD; improved edema -per renal 9. Tachycardia: improved -cardiac optimization per cards Thank you. Patient seen and examined in collaboration with Dr. Kedar Valencia. Problems: Subjective 24 Hr Interval Summary s/p hd today. Still tachycardic. Afebrile. Wounds without excessive drainage or odor. No fevers, chills, sob, congested cough, cp, palpitations, pimentel, dizziness, n/v/d/dysuria. Exam/Review of Systems Vital Signs Vitals Vital Signs Date Time Temp Pulse Resp B/P Pulse Ox O2 Delivery O2 Flow Rate FiO2 05/17/17 13:00 114 20 05/17/17 13:00 119/60 96 Mechanical Ventilator 05/17/17 12:00 98.2 05/17/17 11:10 70 Intake and Output 05/16/17 05/16/17 05/17/17 14:59 22:59 06:59 Intake Total 300 ml 420 ml 700 ml Output Total 20 ml Balance 300 ml 420 ml 680 ml Exam Free Text/Dictation Constitutional: alert, responsive No distress Psych: nl mood/affect, no complaints Head: atraumatic, normocephalic Eyes: nl lids, nl sclera ENMT: mucosa pink and moist, nl nasal mucosa & septum Neck: non-tender, other (trach vent), supple Respiratory: crackles/rales Cardiovascular: nl pulses, other (st), tachycardic Gastrointestinal: distended Genitourinary - Female: nl adnexae, nl external genitalia Musculoskeletal: No muscle tone (stiffness) Extremities: pitting pedal edema Neurological: other (paraplegia), No nl speech, No nl strength Skin: other (wound: packed, nonmalodorous, min drainage, periwound without erythema) Results Result Diagram: 05/17/17 1248 05/17/17 0415 BRITTANY STALEY NP May 17, 2017 13:43
--- NOTE | 2017-05-17 17:00 | CONS ---
Date/Time of Note Date/Time of Note DATE: 05/17/17 TIME: 16:59 Assessment/Plan Assessment/Plan Additional Assessment/Plan 1. 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 acute uremia with BUn around 100- started on HD during this admission 05/10/17 3. acute on chronic resp failure, s/p tracheostomy 4. Metabolic acidosis 5. Paraplegia 6. 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,- will wait for Permacath HD access until pt becomes more stable and goals of care plan discussed with family will follow up Consultation Date/Type/Reason Admit Date/Time May 09, 2017 at 00:06 Initial Consult Date 05/09/17 Type of Consultation: NEPHROLOGY Referring Provider: KISHAN SAUCEDO 24 HR Interval Summary Free Text/Dictation s/p HD today 2.5 L removed, remains on ventilator Exam/Review of Systems Vital Signs Vitals Vital Signs Date Time Temp Pulse Resp B/P Pulse Ox O2 Delivery O2 Flow Rate FiO2 05/17/17 16:00 102 05/17/17 15:10 22 97 70 05/17/17 15:00 129/57 Mechanical Ventilator 05/17/17 12:00 98.2 Intake and Output 05/16/17 05/16/17 05/17/17 15:00 23:00 07:00 Intake Total 300 ml 770 ml 350 ml Output Total 20 ml Balance 300 ml 770 ml 330 ml Exam Constitutional: non-verbal + facial swelling, neck swelling, + diffuse anasarca ENMT: other (+ tracehostomy on ventilator ) Respiratory: crackles/rales, diminished breath sounds Cardiovascular: other (tachycardia ), regular rate and rhythm Gastrointestinal: non-tender, soft Musculoskeletal: muscle weakness, 3+ pitting edema upto thigh, back and sacral area Neurological: other (Unable to assess neurolgoical due to pt clinical condition ), unresponsive Results Result Diagram: 05/17/17 1248 05/17/17 0415 Results 24 hrs Laboratory Tests Test 05/16/17 18:52 05/17/17 00:38 05/17/17 04:15 05/17/17 04:58 Bedside Glucose 112 110 113 Sodium Level 135 Potassium Level 4.3 Chloride Level 101 Carbon Dioxide Level 24 Anion Gap 14 Blood Urea Nitrogen 42 H Creatinine 1.13 H Glucose Level 113 Calcium Level 9.0 Total Bilirubin 0.0 L Direct Bilirubin 0.00 Indirect Bilirubin 0.0 Aspartate Amino Transf (AST/SGOT) 33 Alanine Aminotransferase (ALT/SGPT) 36 Alkaline Phosphatase 153 H Total Protein 4.9 L Albumin 2.4 L Globulin 2.50 Albumin/Globulin Ratio 0.96 Test 05/17/17 07:00 05/17/17 08:12 05/17/17 12:08 05/17/17 12:48 Blood Gas Specimen Source Blood arterial Arterial Blood Date Drawn 05/17/2017 7:20:17 AM Arterial Blood pH (Temp corrected) 7.388 Arterial Blood pCO2 (Temp correct) 34.8 L Arterial Blood pO2 (Temp corrected) 141.5 H Arterial Blood HCO3 20.5 L Arterial Blood Base Excess -3.9 L Arterial Blood Oxygen Saturation 98.5 Ki Test ACCEPTAB Arterial Blood Gas Puncture Site Right Radial Arterial Blood Carboxyhemoglobin 0.3 Arterial Blood Methemoglobin 0.5 Blood Gas A-a O2 Differential 320.2 H Oxyhemoglobin Percent 97.7 Total Hemoglobin 10.0 L Blood Gas Temperature 37.0 Blood Gas Respiration Rate 14.0 Blood Gas Actual Respiration Rate 20 Blood Gas Modality VENT - AC FiO2 70.0 Blood Gas Tidal Volume 500.0 Blood Gas Low PEEP Setting 8.0 Blood Gas Notified Whom JLD Blood Gas Notified Time 05/17/2017 7:42:00 AM Bedside Glucose 149 118 White Blood Count 6.8 # Red Blood Count 3.30 L Hemoglobin 9.1 L Hematocrit 28.5 L Mean Corpuscular Volume 86.4 Mean Corpuscular Hemoglobin 27.6 L Mean Corpuscular Hemoglobin Concent 31.9 L Red Cell Distribution Width 20.2 H Platelet Count 234 # Mean Platelet Volume 10.8 H Neutrophils % 68.0 Lymphocytes % 8.9 L Monocytes % 10.1 Eosinophils % 3.9 Basophils % 0.6 Nucleated Red Blood Cells % 0.0 Neutrophils # 4.7 Lymphocytes # 0.6 L Monocytes # 0.7 Eosinophils # 0.3 Basophils # 0.0 Nucleated Red Blood Cells # 0.0 Medications Medications Current Medications Aspirin (Aspirin) 81 mg DAILY GTB Last administered on 05/17/17 08:14; Admin Dose 81 MG; Start 05/09/17 at 09:00 Acetaminophen (Tylenol Liquid) 650 mg Q6H PRN GTB PAIN AND OR ELEVATED TEMP Last administered on 05/15/17 08:18; Admin Dose 650 MG; Start 05/09/17 at 09:00 Cholecalciferol (Vitamin D) 1,000 unit DAILY GTB Last administered on 08:14; Admin Dose 1,000 UNIT; Start 05/09/17 at 09:00 Insulin Glargine (Lantus) 17 unit DAILY@08 SC Last administered on 05/17/17 08:15; Admin Dose 17 UNIT; Start 05/10/17 at 08:00 Levothyroxine Sodium (Synthroid) 125 mcg DAILY@06 GTB Last administered on 05:55; Admin Dose 125 MCG; Start 05/10/17 at 06:00 Zinc Sulfate (Zinc Sulfate) 220 mg DAILY GTB Last administered on 05/17/17 08 :14; Admin Dose 220 MG; Start 05/09/17 at 09:00 Ondansetron HCl (Zofran Inj) 4 mg Q6H PRN IV NAUSEA AND/OR VOMITING Last administered on 05/12/17 08:33; Admin Dose 4 MG; Start 05/09/17 at 09:00 Lorazepam (Ativan) 1 mg Q6H PRN IV ANXIETY Last administered on 05/15/17 13:15 ; Admin Dose 1 MG; Start 05/09/17 at 09:00 Miscellaneous Information 1 ea NOTE XX ; Start 05/09/17 at 10:00 Glucose (Glutose) 15 gm Q15M PRN PO DECREASED GLUCOSE; Start 05/09/17 at 10:00 Glucose (Glutose) 22.5 gm Q15M PRN PO DECREASED GLUCOSE; Start 05/09/17 at 10: 00 Dextrose (D50w Syringe) 25 ml Q15M PRN IV DECREASED GLUCOSE Last administered on 05/11/17 01:54; Admin Dose 25 ML; Start 05/09/17 at 10:00 Dextrose (D50w Syringe) 50 ml Q15M PRN IV DECREASED GLUCOSE; Start 05/09/17 at 10:00 Glucagon (Glucagen) 1 mg Q15M PRN IM DECREASED GLUCOSE; Start 05/09/17 at 10:00 Glucose (Glutose) 15 gm Q15M PRN BUCCAL DECREASED GLUCOSE; Start 05/09/17 at 10 :00 Multivitamins (Multivitamin) 30 ml DAILY PEG Last administered on 05/17/17 08 :13; Admin Dose 30 ML; Start 05/10/17 at 09:00 Fluoxetine HCl (Prozac) 20 mg DAILY GTB Last administered on 05/17/17 08:14; Admin Dose 20 MG; Start 05/10/17 at 09:00 Collagenase (Santyl) 1 applic DAILY TOP Last administered on 05/17/17 08:14; Admin Dose 1 APPLIC; Start 05/10/17 at 09:00 Collagenase (Santyl) 1 applic PRN PRN TOP SOILING; Start 05/10/17 at 01:30 Morphine Sulfate (morphine) 2 mg Q4H PRN IV PAIN LEVEL 4-6 Last administered on 05/17/17 15:22; Admin Dose 2 MG; Start 05/10/17 at 17:30 Famotidine (Pepcid) 20 mg DAILY GTB Last administered on 05/17/17 08:14; Admin Dose 20 MG; Start 05/11/17 at 09:00 Insulin Aspart (Novolog Insulin Pen) NOVOLOG *MILD* ALGORI... Q6 SC Last administered on 05/14/17 18:52; Admin Dose 1 UNIT; Start 05/13/17 at 12:00 Mupirocin 1 applic 1 applic BID TOP Last administered on 05/17/17 08:14; Admin Dose 1 APPLIC; Start 05/14/17 at 09:00 Linezolid 300 ml @ 300 mls/hr Q12 IVPB Last administered on 05/17/17 08:13; Admin Dose 300 MLS/HR; Start 05/14/17 at 21:00 Ciprofloxacin/ Dextrose (Cipro Ivpb) 200 ml @ 200 mls/hr Q12 IVPB Last administered on 05/17/17 08:13; Admin Dose 200 MLS/HR; Start 05/16/17 at 21:00 JOANIE PHILLIPS MD May 17, 2017 17:00
[2017-05-17] MEDS: LORAZEPAM 2 MG INJ IV PRN (21:54)
[2017-05-18] VITALS (43 sets, daily range): BP systolic 78–164; BP diastolic 33–77; PULSE 96–123; RESP 7–26
[2017-05-18] MEDS: ALBUTEROL HFA 8 GM INHALER INH SCH ×4 (01:16→20:15)
[2017-05-18] MEDS: IPRATROPIUM (HFA) 12.9 GM INHALER INH SCH ×4 (01:16→20:15)
[2017-05-18 04:50] LABS: ABNORMAL IP MESSAGE 1; BASOPHILS % 0.3 % (0.0-2.0); EOSINOPHILS # 0.3 10^3/ul (0.0-0.5); EOSINOPHILS % 3.9 % (0.0-7.0); HEMATOCRIT 24.5 % (37.0-47.0); HEMOGLOBIN 7.7 g/dl (12.0-16.0); LYMPHOCYTES # 0.9 10^3/ul (0.8-2.9); LYMPHOCYTES % 13.1 % (15.0-51.0); MEAN CORPUSCULAR HEMOGLOBIN 26.9 pg (29.0-33.0); MEAN CORPUSCULAR HGB CONC 31.4 g/dl (32.0-37.0); MEAN CORPUSCULAR VOLUME 85.7 fl (82.0-101.0); MEAN PLATELET VOLUME 10.8 fl (7.4-10.4); MONOCYTE # 0.9 10^3/ul (0.3-0.9); NEUTROPHIL # 4.5 10^3/ul (1.6-7.5); NEUTROPHILS % 62.9 % (39.0-77.0); PLATELET COUNT 198 10^3/UL (140-415); RED BLOOD COUNT 2.86 10^6/ul (4.20-5.40); RED CELL DISTRIBUTION WIDTH 20.5 % (11.5-14.5); WHITE BLOOD COUNT 7.2 10^3/ul (4.8-10.8)
[2017-05-18 05:03] LABS: POSITIVE DIFF @See below
[2017-05-18 05:12] LABS: CREATININE 1.05 mg/dl (0.44-1.00); POTASSIUM 4.1 mmol/L (3.5-5.1)
[2017-05-18] MEDS: LEVOTHYROXINE 125 MCG TAB GTB SCH (05:51)
[2017-05-18] MEDS: INSULIN ASPART [NOVOLOG] 3 ML PEN SC SCH ×5 (05:55→23:22)
--- NOTE | 2017-05-18 07:16 | RADRPT ---
PROCEDURE: XR Chest. CLINICAL INDICATION: Shortness of breath. TECHNIQUE: Single frontal view. COMPARISON: 05/17/2017. FINDINGS: The tracheostomy tube is in satisfactory position. Bilateral air space and interstitial disease cons istent with pulmonary edema or multifocal pneumonia is unchanged. The right arm PICC line is in sati sfactory position. The heart is enlarged. There is calcification in the aorta consistent with atherosclerosis. Surgical clips are present in the upper abdomen. There is a right humeral head prosthesis and the left shoul jay reverse arthroplasty. There are small bilateral pleural effusions. There is no pneumothorax. IMPRESSION: 1. Unchanged appearance of the lungs. 2. No other change from the 05/16/2017 chest radiograph. RPTAT: QQ .Tor Grider MD, Date Time Electronically viewed and signed by .Tor Grider MD, MD on 05/18/2017 07:16 .R/
--- NOTE | 2017-05-18 08:08 | PN ---
Date/Time of Note Date/Time of Note DATE: 05/18/17 TIME: 08:07 Assessment/Plan VTE Prophylaxis VTE Prophylaxis Intervention: other Lines/Catheters IV [facility]ter Type (from [facility]): PICC Line Central line still needed: Yes Urinary Cath still in place: Yes Reason Cath still needed: skin wounds contaminated by urine Assessment/Plan Chief Complaint/Hosp Course -Acute respiratory failure with left upper lobe collapse. Continue ventilatory support. Dr. Hamilton is following in pulmonology consultation. -5% pneumothorax, no pneumothorax per last chest x-ray -Healthcare acquired pneumonia, continue vancomycin and cefepime, follow-up and sputum culture. Dr. Stephenson is following in infection disease consultation - Acute kidney injury with a generalized edema and hyperkalemia, Dr. Stevens is following in nephrology consultation. Continue hemodialysis. -Paroxysmal atrial fibrillation -Diabetes mellitus, continue Lantus and NovoLog -Hypothyroidism, continue levothyroxine. 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 Broussard is following in gastroenterology consultation. -Tracheostomy amount malfunction, s/p tracheostomy tube change by Dr. Lofton, ENT Problems: Subjective 24 Hr Interval Summary Free Text/Dictation Patient resting, trach in place Exam/Review of Systems Vital Signs Vitals Vital Signs Date Time Temp Pulse Resp B/P Pulse Ox O2 Delivery O2 Flow Rate FiO2 05/18/17 07:50 45 05/18/17 06:30 103 20 106/57 57 05/18/17 06:00 Mechanical Ventilator 05/18/17 05:30 98.7 Intake and Output 05/17/17 05/17/17 05/18/17 15:00 23:00 07:00 Intake Total 1650 ml 620 ml 750 ml Output Total 5700 ml 35 ml 50 ml Balance -4050 ml 585 ml 700 ml Exam Constitutional: well developed Head: atraumatic, normocephalic Neck: supple Respiratory: diminished breath sounds Cardiovascular: regular rate and rhythm Gastrointestinal: non-tender, soft Extremities: normal pulses Results Result Diagram: 05/18/17 0435 05/18/17 0435 Results 24 hrs Laboratory Tests Test 05/17/17 08:12 05/17/17 12:08 05/17/17 12:48 05/17/17 17:32 Bedside Glucose 149 118 106 White Blood Count 6.8 # Red Blood Count 3.30 L Hemoglobin 9.1 L Hematocrit 28.5 L Mean Corpuscular Volume 86.4 Mean Corpuscular Hemoglobin 27.6 L Mean Corpuscular Hemoglobin Concent 31.9 L Red Cell Distribution Width 20.2 H Platelet Count 234 # Mean Platelet Volume 10.8 H Neutrophils % 68.0 Lymphocytes % 8.9 L Monocytes % 10.1 Eosinophils % 3.9 Basophils % 0.6 Nucleated Red Blood Cells % 0.0 Neutrophils # 4.7 Lymphocytes # 0.6 L Monocytes # 0.7 Eosinophils # 0.3 Basophils # 0.0 Nucleated Red Blood Cells # 0.0 Test 05/18/17 00:01 05/18/17 04:35 05/18/17 05:54 Bedside Glucose 114 123 White Blood Count 7.2 Red Blood Count 2.86 L Hemoglobin 7.7 L Hematocrit 24.5 L Mean Corpuscular Volume 85.7 Mean Corpuscular Hemoglobin 26.9 L Mean Corpuscular Hemoglobin Concent 31.4 L Red Cell Distribution Width 20.5 H Platelet Count 198 Mean Platelet Volume 10.8 H Neutrophils % 62.9 Lymphocytes % 13.1 L Monocytes % 12.0 H Eosinophils % 3.9 Basophils % 0.3 Nucleated Red Blood Cells % 0.0 Neutrophils # 4.5 Lymphocytes # 0.9 Monocytes # 0.9 Eosinophils # 0.3 Basophils # 0.0 Nucleated Red Blood Cells # 0.0 Sodium Level 135 Potassium Level 4.1 Chloride Level 100 Carbon Dioxide Level 25 Anion Gap 14 Blood Urea Nitrogen 34 H Creatinine 1.05 H Glucose Level 101 Calcium Level 9.0 Medications Medications Current Medications Aspirin (Aspirin) 81 mg DAILY GTB Last administered on 05/17/17 08:14; Admin Dose 81 MG; Start 05/09/17 at 09:00 Acetaminophen (Tylenol Liquid) 650 mg Q6H PRN GTB PAIN AND OR ELEVATED TEMP Last administered on 05/15/17 08:18; Admin Dose 650 MG; Start 05/09/17 at 09:00 Cholecalciferol (Vitamin D) 1,000 unit DAILY GTB Last administered on 08:14; Admin Dose 1,000 UNIT; Start 05/09/17 at 09:00 Insulin Glargine (Lantus) 17 unit DAILY@08 SC Last administered on 05/17/17 08:15; Admin Dose 17 UNIT; Start 05/10/17 at 08:00 Levothyroxine Sodium (Synthroid) 125 mcg DAILY@06 GTB Last administered on 05:51; Admin Dose 125 MCG; Start 05/10/17 at 06:00 Zinc Sulfate (Zinc Sulfate) 220 mg DAILY GTB Last administered on 05/17/17 08 :14; Admin Dose 220 MG; Start 05/09/17 at 09:00 Ondansetron HCl (Zofran Inj) 4 mg Q6H PRN IV NAUSEA AND/OR VOMITING Last administered on 05/12/17 08:33; Admin Dose 4 MG; Start 05/09/17 at 09:00 Lorazepam (Ativan) 1 mg Q6H PRN IV ANXIETY Last administered on 05/17/17 21: 54; Admin Dose 1 MG; Start 05/09/17 at 09:00 Miscellaneous Information 1 ea NOTE XX ; Start 05/09/17 at 10:00 Glucose (Glutose) 15 gm Q15M PRN PO DECREASED GLUCOSE; Start 05/09/17 at 10:00 Glucose (Glutose) 22.5 gm Q15M PRN PO DECREASED GLUCOSE; Start 05/09/17 at 10: 00 Dextrose (D50w Syringe) 25 ml Q15M PRN IV DECREASED GLUCOSE Last administered on 05/11/17 01:54; Admin Dose 25 ML; Start 05/09/17 at 10:00 Dextrose (D50w Syringe) 50 ml Q15M PRN IV DECREASED GLUCOSE; Start 05/09/17 at 10:00 Glucagon (Glucagen) 1 mg Q15M PRN IM DECREASED GLUCOSE; Start 05/09/17 at 10:00 Glucose (Glutose) 15 gm Q15M PRN BUCCAL DECREASED GLUCOSE; Start 05/09/17 at 10 :00 Multivitamins (Multivitamin) 30 ml DAILY PEG Last administered on 05/17/17 08 :13; Admin Dose 30 ML; Start 05/10/17 at 09:00 Fluoxetine HCl (Prozac) 20 mg DAILY GTB Last administered on 05/17/17 08:14; Admin Dose 20 MG; Start 05/10/17 at 09:00 Collagenase (Santyl) 1 applic DAILY TOP Last administered on 05/17/17 08:14; Admin Dose 1 APPLIC; Start 05/10/17 at 09:00 Collagenase (Santyl) 1 applic PRN PRN TOP SOILING; Start 05/10/17 at 01:30 Morphine Sulfate (morphine) 2 mg Q4H PRN IV PAIN LEVEL 4-6 Last administered on 05/17/17 21:40; Admin Dose 2 MG; Start 05/10/17 at 17:30 Famotidine (Pepcid) 20 mg DAILY GTB Last administered on 05/17/17 08:14; Admin Dose 20 MG; Start 05/11/17 at 09:00 Insulin Aspart (Novolog Insulin Pen) NOVOLOG *MILD* ALGORI... Q6 SC Last administered on 05/14/17 18:52; Admin Dose 1 UNIT; Start 05/13/17 at 12:00 Mupirocin 1 applic 1 applic BID TOP Last administered on 05/17/17 21:48; Admin Dose 1 APPLIC; Start 05/14/17 at 09:00 Linezolid 300 ml @ 300 mls/hr Q12 IVPB Last administered on 05/17/17 21:58; Admin Dose 300 MLS/HR; Start 05/14/17 at 21:00 Ciprofloxacin/ Dextrose (Cipro Ivpb) 200 ml @ 200 mls/hr Q12 IVPB Last administered on 05/17/17 21:40; Admin Dose 200 MLS/HR; Start 05/16/17 at 21:00 ANIL ASCENCIO May 18, 2017 08:08
[2017-05-18] MEDS: FAMOTIDINE 20 MG TAB GTB SCH (08:23)
[2017-05-18] MEDS: MULTIVITAMINS 30 ML CUP PEG SCH (08:23)
[2017-05-18] MEDS: ZINC SULFATE 220 MG CAP GTB SCH (08:23)
[2017-05-18] MEDS: ASPIRIN 81 MG TAB GTB SCH (08:23)
[2017-05-18] MEDS: CIPROFLOXACIN 400MG/D5W 200 ML IVPB SCH ×2 (08:23→21:03)
[2017-05-18] MEDS: FLUOXETINE 20 MG CAP GTB SCH (08:23)
[2017-05-18] MEDS: CHOLECALCIFEROL 1,000 UNIT TAB GTB SCH (08:23)
[2017-05-18] MEDS: LINEZOLID 600 MG/D5W (PMX) 300 ML IVPB SCH ×2 (08:23→20:03)
[2017-05-18] MEDS: MUPIROCIN 2% 22 GM OINT TOP SCH ×2 (08:24→20:03)
[2017-05-18] MEDS: COLLAGENASE 30 GM TUBE TOP SCH (08:24)
[2017-05-18] MEDS: INSULIN GLARGINE [LANtus] 3 ML PEN SC SCH (09:07)
[2017-05-18] MEDS: morphine 2 MG INJ IV PRN ×3 (09:14→19:54)
[2017-05-18] MEDS: LORAZEPAM 2 MG INJ IV PRN ×2 (09:59→21:08)
--- NOTE | 2017-05-18 10:23 | CONS ---
Date/Time of Note Date/Time of Note DATE: 05/18/17 TIME: 10:19 Assessment/Plan Assessment/Plan Additional Assessment/Plan Chest x-ray was reviewed from today which is again showing bilateral infiltrative changes. There is a possibility the findings are chronic in nature. Patient is currently on AC of 14, tidal volume 500, PEEP of 5, 40% FiO2. Assessment and recommendations; 1. Patient with history of chronic respiratory failure which is ventilator dependent admitted for hypoxemia with combination of pneumonia and some element of pulmonary edema, Clinically improved. 2. End-stage renal disease, on hemodialysis. 3. Anemia and thrombocytopenia. 4. History of paraplegia. 5. Severe generalized deconditioning. Continue current supportive care. Consultation Date/Type/Reason Admit Date/Time May 09, 2017 at 00:06 Initial Consult Date 05/10/17 Type of Consultation: Pulmonary/critical care Referring Provider: KISHAN SAUCEDO 24 HR Interval Summary Free Text/Dictation Patient's condition remains stable. Remains awake and alert. Has remained hemodynamically stable. General exam; elderly woman, on ventilator via tracheostomy, awake and alert. Currently in no distress. Exam/Review of Systems Vital Signs Vitals Vital Signs Date Time Temp Pulse Resp B/P Pulse Ox O2 Delivery O2 Flow Rate FiO2 05/18/17 10:00 115 16 145/63 100 Mechanical Ventilator 05/18/17 08:00 98.5 05/18/17 07:50 45 Intake and Output 05/17/17 05/17/17 05/18/17 15:00 23:00 07:00 Intake Total 1650 ml 620 ml 750 ml Output Total 5700 ml 35 ml 50 ml Balance -4050 ml 585 ml 700 ml Exam HEENT exam; supple neck, JVD difficult to see because of short neck. Tracheostomy in place. Patient has fair dentition. Bilateral intraocular lens implants are present. No thyromegaly. No lymphadenopathy. No neck masses. Chest exam; diminished breath sounds bilaterally. S1-S2 audible, no murmurs. Regular rhythm. Abdomen exam; soft, G-tube in place. No organomegaly. Protuberant. Bowel sounds audible. Extremity exam; 2+ edema in lower extremities. Trace generalized anasarca. Multiple ecchymoses are present in all 4 extremities. 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 Results Result Diagram: 05/18/17 0435 05/18/17 0435 Results 24 hrs Laboratory Tests Test 05/17/17 12:08 05/17/17 12:48 05/17/17 17:32 05/18/17 00:01 Bedside Glucose 118 106 114 White Blood Count 6.8 # Red Blood Count 3.30 L Hemoglobin 9.1 L Hematocrit 28.5 L Mean Corpuscular Volume 86.4 Mean Corpuscular Hemoglobin 27.6 L Mean Corpuscular Hemoglobin Concent 31.9 L Red Cell Distribution Width 20.2 H Platelet Count 234 # Mean Platelet Volume 10.8 H Neutrophils % 68.0 Lymphocytes % 8.9 L Monocytes % 10.1 Eosinophils % 3.9 Basophils % 0.6 Nucleated Red Blood Cells % 0.0 Neutrophils # 4.7 Lymphocytes # 0.6 L Monocytes # 0.7 Eosinophils # 0.3 Basophils # 0.0 Nucleated Red Blood Cells # 0.0 Test 05/18/17 04:35 05/18/17 05:54 05/18/17 09:02 White Blood Count 7.2 Red Blood Count 2.86 L Hemoglobin 7.7 L Hematocrit 24.5 L Mean Corpuscular Volume 85.7 Mean Corpuscular Hemoglobin 26.9 L Mean Corpuscular Hemoglobin Concent 31.4 L Red Cell Distribution Width 20.5 H Platelet Count 198 Mean Platelet Volume 10.8 H Neutrophils % 62.9 Lymphocytes % 13.1 L Monocytes % 12.0 H Eosinophils % 3.9 Basophils % 0.3 Nucleated Red Blood Cells % 0.0 Neutrophils # 4.5 Lymphocytes # 0.9 Monocytes # 0.9 Eosinophils # 0.3 Basophils # 0.0 Nucleated Red Blood Cells # 0.0 Sodium Level 135 Potassium Level 4.1 Chloride Level 100 Carbon Dioxide Level 25 Anion Gap 14 Blood Urea Nitrogen 34 H Creatinine 1.05 H Glucose Level 101 Calcium Level 9.0 Bedside Glucose 123 179 Medications Medications Current Medications Aspirin (Aspirin) 81 mg DAILY GTB Last administered on 05/18/17 08:23; Admin Dose 81 MG; Start 05/09/17 at 09:00 Acetaminophen (Tylenol Liquid) 650 mg Q6H PRN GTB PAIN AND OR ELEVATED TEMP Last administered on 05/15/17 08:18; Admin Dose 650 MG; Start 05/09/17 at 09:00 Cholecalciferol (Vitamin D) 1,000 unit DAILY GTB Last administered on 08:23; Admin Dose 1,000 UNIT; Start 05/09/17 at 09:00 Insulin Glargine (Lantus) 17 unit DAILY@08 SC Last administered on 05/18/17 09:07; Admin Dose 17 UNIT; Start 05/10/17 at 08:00 Levothyroxine Sodium (Synthroid) 125 mcg DAILY@06 GTB Last administered on 05:51; Admin Dose 125 MCG; Start 05/10/17 at 06:00 Zinc Sulfate (Zinc Sulfate) 220 mg DAILY GTB Last administered on 05/18/17 08 :23; Admin Dose 220 MG; Start 05/09/17 at 09:00 Ondansetron HCl (Zofran Inj) 4 mg Q6H PRN IV NAUSEA AND/OR VOMITING Last administered on 05/12/17 08:33; Admin Dose 4 MG; Start 05/09/17 at 09:00 Lorazepam (Ativan) 1 mg Q6H PRN IV ANXIETY Last administered on 05/18/17 09: 59; Admin Dose 1 MG; Start 05/09/17 at 09:00 Miscellaneous Information 1 ea NOTE XX ; Start 05/09/17 at 10:00 Glucose (Glutose) 15 gm Q15M PRN PO DECREASED GLUCOSE; Start 05/09/17 at 10:00 Glucose (Glutose) 22.5 gm Q15M PRN PO DECREASED GLUCOSE; Start 05/09/17 at 10: 00 Dextrose (D50w Syringe) 25 ml Q15M PRN IV DECREASED GLUCOSE Last administered on 05/11/17 01:54; Admin Dose 25 ML; Start 05/09/17 at 10:00 Dextrose (D50w Syringe) 50 ml Q15M PRN IV DECREASED GLUCOSE; Start 05/09/17 at 10:00 Glucagon (Glucagen) 1 mg Q15M PRN IM DECREASED GLUCOSE; Start 05/09/17 at 10:00 Glucose (Glutose) 15 gm Q15M PRN BUCCAL DECREASED GLUCOSE; Start 05/09/17 at 10 :00 Multivitamins (Multivitamin) 30 ml DAILY PEG Last administered on 05/18/17 08 :23; Admin Dose 30 ML; Start 05/10/17 at 09:00 Fluoxetine HCl (Prozac) 20 mg DAILY GTB Last administered on 05/18/17 08:23; Admin Dose 20 MG; Start 05/10/17 at 09:00 Collagenase (Santyl) 1 applic DAILY TOP Last administered on 05/18/17 08:24; Admin Dose 1 APPLIC; Start 05/10/17 at 09:00 Collagenase (Santyl) 1 applic PRN PRN TOP SOILING; Start 05/10/17 at 01:30 Morphine Sulfate (morphine) 2 mg Q4H PRN IV PAIN LEVEL 4-6 Last administered on 05/18/17 09:14; Admin Dose 2 MG; Start 05/10/17 at 17:30 Famotidine (Pepcid) 20 mg DAILY GTB Last administered on 05/18/17 08:23; Admin Dose 20 MG; Start 05/11/17 at 09:00 Insulin Aspart (Novolog Insulin Pen) NOVOLOG *MILD* ALGORI... Q6 SC Last administered on 05/14/17 18:52; Admin Dose 1 UNIT; Start 05/13/17 at 12:00 Mupirocin 1 applic 1 applic BID TOP Last administered on 05/18/17 08:24; Admin Dose 1 APPLIC; Start 05/14/17 at 09:00 Linezolid 300 ml @ 300 mls/hr Q12 IVPB Last administered on 05/18/17 08:23; Admin Dose 300 MLS/HR; Start 05/14/17 at 21:00 Ciprofloxacin/ Dextrose (Cipro Ivpb) 200 ml @ 200 mls/hr Q12 IVPB Last administered on 05/18/17 08:23; Admin Dose 200 MLS/HR; Start 05/16/17 at 21:00 GUSTAVO BRIONES May 18, 2017 10:23
--- NOTE | 2017-05-18 11:59 | CONS ---
Date/Time of Note Date/Time of Note DATE: 05/18/17 TIME: 11:46 Assessment/Plan Assessment/Plan Additional Assessment/Plan - VAP vs HCAP 2/2 MRSA (Procalcitonin 2.34) - Pulmonary edema - Acute on chronic hypoxemic respiratory failure s/p recent trach - Small right pneumothorax (less than 5%) on CT - BERNARDINO on CKD d/t ATN with fluid overload initiated on HD 05/10/2017 - Hyperkalemia - resolved - CAD - PAF - remains in SR/ST - CHF d/t diastolic dysfunction - IDDM - Hgb A1c 5.5% - Hypothyroidism - Anemia with iron deficiency, +stool OB - Dysphagia s/p PEG - Paraplegia d/t spinal injury - Chronic BUE weakness - Hypoalbuminemia with anasarca - Toxic metabolic encephalopathy - improving - Morbid obesity - BMI 39 - R knee wound - 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 Stephenson Critical care time spent: 40 min Consultation Date/Type/Reason Admit Date/Time May 09, 2017 at 00:06 Initial Consult Date 05/10/17 Type of Consultation: Pulmonary/critical care Referring Provider: KISHAN SAUCEDO 24 HR Interval Summary Free Text/Dictation -FiO2 remains at 40% , peep 5 - seems comfortable. - afebrile - no acute issues per d/w nursing staff. - Unable to perform ROS d/t encephalopathy. Subjective hx not possible: pt non-verbal, pt critical status Constitutional: requiring IVF, requiring O2 Exam/Review of Systems Vital Signs Vitals Vital Signs Date Time Temp Pulse Resp B/P Pulse Ox O2 Delivery O2 Flow Rate FiO2 05/18/17 10:00 115 16 145/63 100 Mechanical Ventilator 05/18/17 08:00 98.5 05/18/17 07:50 45 Intake and Output 05/17/17 05/17/17 05/18/17 15:00 23:00 07:00 Intake Total 1650 ml 620 ml 750 ml Output Total 5700 ml 35 ml 50 ml Balance -4050 ml 585 ml 700 ml Exam Constitutional: non-verbal Respiratory: diminished breath sounds Gastrointestinal: other, soft Musculoskeletal: other Extremities: edema Neurological: confused, lethargic, other (opens eyes at times.) Results Result Diagram: 05/18/17 0435 05/18/17 0435 Results 24 hrs Laboratory Tests Test 05/17/17 12:08 05/17/17 12:48 05/17/17 17:32 05/18/17 00:01 Bedside Glucose 118 106 114 White Blood Count 6.8 # Red Blood Count 3.30 L Hemoglobin 9.1 L Hematocrit 28.5 L Mean Corpuscular Volume 86.4 Mean Corpuscular Hemoglobin 27.6 L Mean Corpuscular Hemoglobin Concent 31.9 L Red Cell Distribution Width 20.2 H Platelet Count 234 # Mean Platelet Volume 10.8 H Neutrophils % 68.0 Lymphocytes % 8.9 L Monocytes % 10.1 Eosinophils % 3.9 Basophils % 0.6 Nucleated Red Blood Cells % 0.0 Neutrophils # 4.7 Lymphocytes # 0.6 L Monocytes # 0.7 Eosinophils # 0.3 Basophils # 0.0 Nucleated Red Blood Cells # 0.0 Test 05/18/17 04:35 05/18/17 05:54 05/18/17 09:02 White Blood Count 7.2 Red Blood Count 2.86 L Hemoglobin 7.7 L Hematocrit 24.5 L Mean Corpuscular Volume 85.7 Mean Corpuscular Hemoglobin 26.9 L Mean Corpuscular Hemoglobin Concent 31.4 L Red Cell Distribution Width 20.5 H Platelet Count 198 Mean Platelet Volume 10.8 H Neutrophils % 62.9 Lymphocytes % 13.1 L Monocytes % 12.0 H Eosinophils % 3.9 Basophils % 0.3 Nucleated Red Blood Cells % 0.0 Neutrophils # 4.5 Lymphocytes # 0.9 Monocytes # 0.9 Eosinophils # 0.3 Basophils # 0.0 Nucleated Red Blood Cells # 0.0 Sodium Level 135 Potassium Level 4.1 Chloride Level 100 Carbon Dioxide Level 25 Anion Gap 14 Blood Urea Nitrogen 34 H Creatinine 1.05 H Glucose Level 101 Calcium Level 9.0 Bedside Glucose 123 179 Medications Medications Current Medications Aspirin (Aspirin) 81 mg DAILY GTB Last administered on 05/18/17 08:23; Admin Dose 81 MG; Start 05/09/17 at 09:00 Acetaminophen (Tylenol Liquid) 650 mg Q6H PRN GTB PAIN AND OR ELEVATED TEMP Last administered on 05/15/17 08:18; Admin Dose 650 MG; Start 05/09/17 at 09:00 Cholecalciferol (Vitamin D) 1,000 unit DAILY GTB Last administered on 08:23; Admin Dose 1,000 UNIT; Start 05/09/17 at 09:00 Insulin Glargine (Lantus) 17 unit DAILY@08 SC Last administered on 05/18/17 09:07; Admin Dose 17 UNIT; Start 05/10/17 at 08:00 Levothyroxine Sodium (Synthroid) 125 mcg DAILY@06 GTB Last administered on 05:51; Admin Dose 125 MCG; Start 05/10/17 at 06:00 Zinc Sulfate (Zinc Sulfate) 220 mg DAILY GTB Last administered on 05/18/17 08 :23; Admin Dose 220 MG; Start 05/09/17 at 09:00 Ondansetron HCl (Zofran Inj) 4 mg Q6H PRN IV NAUSEA AND/OR VOMITING Last administered on 05/12/17 08:33; Admin Dose 4 MG; Start 05/09/17 at 09:00 Lorazepam (Ativan) 1 mg Q6H PRN IV ANXIETY Last administered on 05/18/17 09: 59; Admin Dose 1 MG; Start 05/09/17 at 09:00 Miscellaneous Information 1 ea NOTE XX ; Start 05/09/17 at 10:00 Glucose (Glutose) 15 gm Q15M PRN PO DECREASED GLUCOSE; Start 05/09/17 at 10:00 Glucose (Glutose) 22.5 gm Q15M PRN PO DECREASED GLUCOSE; Start 05/09/17 at 10: 00 Dextrose (D50w Syringe) 25 ml Q15M PRN IV DECREASED GLUCOSE Last administered on 05/11/17 01:54; Admin Dose 25 ML; Start 05/09/17 at 10:00 Dextrose (D50w Syringe) 50 ml Q15M PRN IV DECREASED GLUCOSE; Start 05/09/17 at 10:00 Glucagon (Glucagen) 1 mg Q15M PRN IM DECREASED GLUCOSE; Start 05/09/17 at 10:00 Glucose (Glutose) 15 gm Q15M PRN BUCCAL DECREASED GLUCOSE; Start 05/09/17 at 10 :00 Multivitamins (Multivitamin) 30 ml DAILY PEG Last administered on 05/18/17 08 :23; Admin Dose 30 ML; Start 05/10/17 at 09:00 Fluoxetine HCl (Prozac) 20 mg DAILY GTB Last administered on 05/18/17 08:23; Admin Dose 20 MG; Start 05/10/17 at 09:00 Collagenase (Santyl) 1 applic DAILY TOP Last administered on 05/18/17 08:24; Admin Dose 1 APPLIC; Start 05/10/17 at 09:00 Collagenase (Santyl) 1 applic PRN PRN TOP SOILING; Start 05/10/17 at 01:30 Morphine Sulfate (morphine) 2 mg Q4H PRN IV PAIN LEVEL 4-6 Last administered on 05/18/17 09:14; Admin Dose 2 MG; Start 05/10/17 at 17:30 Famotidine (Pepcid) 20 mg DAILY GTB Last administered on 05/18/17 08:23; Admin Dose 20 MG; Start 05/11/17 at 09:00 Insulin Aspart (Novolog Insulin Pen) NOVOLOG *MILD* ALGORI... Q6 SC Last administered on 05/14/17 18:52; Admin Dose 1 UNIT; Start 05/13/17 at 12:00 Mupirocin 1 applic 1 applic BID TOP Last administered on 05/18/17 08:24; Admin Dose 1 APPLIC; Start 05/14/17 at 09:00 Linezolid 300 ml @ 300 mls/hr Q12 IVPB Last administered on 05/18/17 08:23; Admin Dose 300 MLS/HR; Start 05/14/17 at 21:00 Ciprofloxacin/ Dextrose (Cipro Ivpb) 200 ml @ 200 mls/hr Q12 IVPB Last administered on 05/18/17 08:23; Admin Dose 200 MLS/HR; Start 05/16/17 at 21:00 LYDIA SWAIN May 18, 2017 11:56
--- NOTE | 2017-05-18 12:18 | CONS ---
Date/Time of Note Date/Time of Note DATE: 05/18/17 TIME: 12:15 Assessment/Plan Assessment/Plan Chief Complaint/Hosp Course IMPRESSION: 1. Gastrointestinal bleeding occult positive stool guaiac. hgb dropped today 2. Bleeding also from the tracheostomy site. 3. Paraplegia. 4. Vent dependent respiratory failure. 5. Diabetes mellitus. 6. Status post percutaneous endoscopic gastrostomy. 7. Hypoalbuminemia with anasarca. 8. Obesity. 9. Sacral wound. 10. Pulmonary edema and also hospital-acquired pneumonia. 11. Renal failure patient is on renal dialysis Plan Continue present care Monitor H&H transfuse prn hgb less than 7 start protonix for better acid suppression and stress ulcer prophylaxis We will do a colonoscopy once consent is obtained. Problems: Consultation Date/Type/Reason Admit Date/Time May 09, 2017 at 00:06 Initial Consult Date 05/10/17 Type of Consultation: GI Referring Provider: KISHAN SAUCEDO 24 HR Interval Summary Subjective hx not possible: pt non-verbal, pt critical status Exam/Review of Systems Vital Signs Vitals Vital Signs Date Time Temp Pulse Resp B/P Pulse Ox O2 Delivery O2 Flow Rate FiO2 05/18/17 10:00 115 16 145/63 100 Mechanical Ventilator 05/18/17 08:00 98.5 05/18/17 07:50 45 Intake and Output 05/17/17 05/17/17 05/18/17 15:00 23:00 07:00 Intake Total 1650 ml 620 ml 750 ml Output Total 5700 ml 35 ml 50 ml Balance -4050 ml 585 ml 700 ml Exam Constitutional: non-verbal Psych: confusion Head: atraumatic, normocephalic Eyes: EOMI, nl conjunctiva, nl lids ENMT: nl external ears & nose, nl lips & teeth, nl nasal mucosa & septum Neck: non-tender, supple Respiratory: clear to auscultation, normal air movement Cardiovascular: nl pulses, regular rate and rhythm Gastrointestinal: bowel sounds, non-tender, soft Results Result Diagram: 05/18/17 0435 05/18/17 0435 Results 24 hrs Laboratory Tests Test 05/17/17 12:48 05/17/17 17:32 05/18/17 00:01 05/18/17 04:35 White Blood Count 6.8 # 7.2 Red Blood Count 3.30 L 2.86 L Hemoglobin 9.1 L 7.7 L Hematocrit 28.5 L 24.5 L Mean Corpuscular Volume 86.4 85.7 Mean Corpuscular Hemoglobin 27.6 L 26.9 L Mean Corpuscular Hemoglobin Concent 31.9 L 31.4 L Red Cell Distribution Width 20.2 H 20.5 H Platelet Count 234 # 198 Mean Platelet Volume 10.8 H 10.8 H Neutrophils % 68.0 62.9 Lymphocytes % 8.9 L 13.1 L Monocytes % 10.1 12.0 H Eosinophils % 3.9 3.9 Basophils % 0.6 0.3 Nucleated Red Blood Cells % 0.0 0.0 Neutrophils # 4.7 4.5 Lymphocytes # 0.6 L 0.9 Monocytes # 0.7 0.9 Eosinophils # 0.3 0.3 Basophils # 0.0 0.0 Nucleated Red Blood Cells # 0.0 0.0 Bedside Glucose 106 114 Sodium Level 135 Potassium Level 4.1 Chloride Level 100 Carbon Dioxide Level 25 Anion Gap 14 Blood Urea Nitrogen 34 H Creatinine 1.05 H Glucose Level 101 Calcium Level 9.0 Test 05/18/17 05:54 05/18/17 09:02 Bedside Glucose 123 179 Medications Medications Current Medications Aspirin (Aspirin) 81 mg DAILY GTB Last administered on 05/18/17 08:23; Admin Dose 81 MG; Start 05/09/17 at 09:00 Acetaminophen (Tylenol Liquid) 650 mg Q6H PRN GTB PAIN AND OR ELEVATED TEMP Last administered on 05/15/17 08:18; Admin Dose 650 MG; Start 05/09/17 at 09:00 Cholecalciferol (Vitamin D) 1,000 unit DAILY GTB Last administered on 08:23; Admin Dose 1,000 UNIT; Start 05/09/17 at 09:00 Insulin Glargine (Lantus) 17 unit DAILY@08 SC Last administered on 05/18/17 09:07; Admin Dose 17 UNIT; Start 05/10/17 at 08:00 Levothyroxine Sodium (Synthroid) 125 mcg DAILY@06 GTB Last administered on 05:51; Admin Dose 125 MCG; Start 05/10/17 at 06:00 Zinc Sulfate (Zinc Sulfate) 220 mg DAILY GTB Last administered on 05/18/17 08 :23; Admin Dose 220 MG; Start 05/09/17 at 09:00 Ondansetron HCl (Zofran Inj) 4 mg Q6H PRN IV NAUSEA AND/OR VOMITING Last administered on 05/12/17 08:33; Admin Dose 4 MG; Start 05/09/17 at 09:00 Lorazepam (Ativan) 1 mg Q6H PRN IV ANXIETY Last administered on 05/18/17 09: 59; Admin Dose 1 MG; Start 05/09/17 at 09:00 Miscellaneous Information 1 ea NOTE XX ; Start 05/09/17 at 10:00 Glucose (Glutose) 15 gm Q15M PRN PO DECREASED GLUCOSE; Start 05/09/17 at 10:00 Glucose (Glutose) 22.5 gm Q15M PRN PO DECREASED GLUCOSE; Start 05/09/17 at 10: 00 Dextrose (D50w Syringe) 25 ml Q15M PRN IV DECREASED GLUCOSE Last administered on 05/11/17 01:54; Admin Dose 25 ML; Start 05/09/17 at 10:00 Dextrose (D50w Syringe) 50 ml Q15M PRN IV DECREASED GLUCOSE; Start 05/09/17 at 10:00 Glucagon (Glucagen) 1 mg Q15M PRN IM DECREASED GLUCOSE; Start 05/09/17 at 10:00 Glucose (Glutose) 15 gm Q15M PRN BUCCAL DECREASED GLUCOSE; Start 05/09/17 at 10 :00 Multivitamins (Multivitamin) 30 ml DAILY PEG Last administered on 05/18/17 08 :23; Admin Dose 30 ML; Start 05/10/17 at 09:00 Fluoxetine HCl (Prozac) 20 mg DAILY GTB Last administered on 05/18/17 08:23; Admin Dose 20 MG; Start 05/10/17 at 09:00 Collagenase (Santyl) 1 applic DAILY TOP Last administered on 05/18/17 08:24; Admin Dose 1 APPLIC; Start 05/10/17 at 09:00 Collagenase (Santyl) 1 applic PRN PRN TOP SOILING; Start 05/10/17 at 01:30 Morphine Sulfate (morphine) 2 mg Q4H PRN IV PAIN LEVEL 4-6 Last administered on 05/18/17 09:14; Admin Dose 2 MG; Start 05/10/17 at 17:30 Famotidine (Pepcid) 20 mg DAILY GTB Last administered on 05/18/17 08:23; Admin Dose 20 MG; Start 05/11/17 at 09:00 Insulin Aspart (Novolog Insulin Pen) NOVOLOG *MILD* ALGORI... Q6 SC Last administered on 05/14/17 18:52; Admin Dose 1 UNIT; Start 05/13/17 at 12:00 Mupirocin 1 applic 1 applic BID TOP Last administered on 05/18/17 08:24; Admin Dose 1 APPLIC; Start 05/14/17 at 09:00 Linezolid 300 ml @ 300 mls/hr Q12 IVPB Last administered on 05/18/17 08:23; Admin Dose 300 MLS/HR; Start 05/14/17 at 21:00 Ciprofloxacin/ Dextrose (Cipro Ivpb) 200 ml @ 200 mls/hr Q12 IVPB Last administered on 05/18/17 08:23; Admin Dose 200 MLS/HR; Start 05/16/17 at 21:00 PAN WORTHINGTON MD May 18, 2017 12:18
--- NOTE | 2017-05-18 14:35 | PN ---
Date/Time of Note Date/Time of Note DATE: 05/18/17 TIME: 14:34 Assessment/Plan Lines/Catheters IV Catheter Type (from Rust): PICC Line Geronimo in Place (from Rust): Yes Assessment/Plan Chief Complaint/Hosp Course 1. Sacral wound: stage 4: cultures noted; nonmalodorous -debridement prn -local care w dakins -frequent turning and off-loading -low air loss mattress -vitamin c -short term zinc -optimize nutrition -abx per sensitivity 2. Acute respiratory failure with complete collapse of the left upper lobe with obliteration of the left upper lobe bronchus; pulmonary congestion, ?pna: comfortable on vent; cxr unimproved -per pulm -continue vent support -abx -hd 3. VDRF -pulm toilet -respiratory treatments 4. Anemia: no acute bleed noted: stool OB +; h/h stable -monitor -transfuse as needed -per gi-eventual coloscopy 5. Elevated TSH -further workup per medical team 6. Electrolyte imbalance -optimize lytes 7. Morbid obesity: bmi 40 -diet and exercise optimization -encourage weight loss 8. BERNARDINO started on HD; improved edema -per renal 9. Tachycardia: improved -cardiac optimization per cards Thank you, Problems: Subjective 24 Hr Interval Summary Tachycardic. Afebrile. Wounds without excessive drainage or odor. No fevers, chills, sob, congested cough, cp, palpitations, pimentel, dizziness, n/v/d/dysuria. Exam/Review of Systems Vital Signs Vitals Vital Signs Date Time Temp Pulse Resp B/P Pulse Ox O2 Delivery O2 Flow Rate FiO2 05/18/17 13:35 115 25 99 40 05/18/17 13:00 107/52 Mechanical Ventilator 05/18/17 12:00 98.7 Intake and Output 05/17/17 05/17/17 05/18/17 15:00 23:00 07:00 Intake Total 1650 ml 620 ml 800 ml Output Total 5700 ml 35 ml 50 ml Balance -4050 ml 585 ml 750 ml Exam Free Text/Dictation Constitutional: alert, responsive No distress Psych: nl mood/affect, no complaints Head: atraumatic, normocephalic Eyes: nl lids, nl sclera ENMT: mucosa pink and moist, nl nasal mucosa & septum Neck: non-tender, other (trach vent), supple Respiratory: crackles/rales Cardiovascular: nl pulses, other (st), tachycardic Gastrointestinal: distended Genitourinary - Female: nl adnexae, nl external genitalia Musculoskeletal: No muscle tone (stiffness) Extremities: pitting pedal edema Neurological: other (paraplegia), No nl speech, No nl strength Skin: other (wound: packed, nonmalodorous, min drainage, periwound without erythema) Results Result Diagram: 05/18/17 0435 05/18/17 0435 MIQUEL MOREJON MD May 18, 2017 14:35
--- NOTE | 2017-05-18 15:56 | CONS ---
Date/Time of Note Date/Time of Note DATE: 05/18/17 TIME: 15:55 Assessment/Plan Assessment/Plan Additional Assessment/Plan 1. 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 acute uremia with BUn around 100- started on HD during this admission 05/10/17 3. acute on chronic resp failure, s/p tracheostomy 4. Metabolic acidosis 5. Paraplegia 6. Anemia of chronic disease, rule out iron deficiency Plan : started on HD during This admission- s/p HD yesterdaay 2.5 L removed, next HD we will plan is on Saturday Continue IV abx, Bp stable, pt remained on ventilator, , pulmonary following currently pt pimentel latisha HD catheter, pt will be intermediate HD patient,- will wait for Permacath HD access until pt becomes more stable and goals of care plan discussed with family will follow up Consultation Date/Type/Reason Admit Date/Time May 09, 2017 at 00:06 Initial Consult Date 05/09/17 Type of Consultation: NEPHROLOGY Referring Provider: KISHAN SAUCEDO Exam/Review of Systems Vital Signs Vitals Vital Signs Date Time Temp Pulse Resp B/P Pulse Ox O2 Delivery O2 Flow Rate FiO2 05/18/17 13:35 115 25 99 40 05/18/17 13:00 107/52 Mechanical Ventilator 05/18/17 12:00 98.7 Intake and Output 05/17/17 05/17/17 05/18/17 15:00 23:00 07:00 Intake Total 1650 ml 620 ml 800 ml Output Total 5700 ml 35 ml 50 ml Balance -4050 ml 585 ml 750 ml Exam Constitutional: non-verbal + facial swelling, neck swelling, + diffuse anasarca ENMT: other (+ tracehostomy on ventilator ) Respiratory: crackles/rales, diminished breath sounds Cardiovascular: other (tachycardia ), regular rate and rhythm Gastrointestinal: non-tender, soft Musculoskeletal: muscle weakness, 3+ pitting edema upto thigh, back and sacral area Neurological: other (Unable to assess neurolgoical due to pt clinical condition ), unresponsive Results Result Diagram: 05/18/17 0435 05/18/17 0435 Results 24 hrs Laboratory Tests Test 05/17/17 17:32 05/18/17 00:01 05/18/17 04:35 05/18/17 05:54 Bedside Glucose 106 114 123 White Blood Count 7.2 Red Blood Count 2.86 L Hemoglobin 7.7 L Hematocrit 24.5 L Mean Corpuscular Volume 85.7 Mean Corpuscular Hemoglobin 26.9 L Mean Corpuscular Hemoglobin Concent 31.4 L Red Cell Distribution Width 20.5 H Platelet Count 198 Mean Platelet Volume 10.8 H Neutrophils % 62.9 Lymphocytes % 13.1 L Monocytes % 12.0 H Eosinophils % 3.9 Basophils % 0.3 Nucleated Red Blood Cells % 0.0 Neutrophils # 4.5 Lymphocytes # 0.9 Monocytes # 0.9 Eosinophils # 0.3 Basophils # 0.0 Nucleated Red Blood Cells # 0.0 Sodium Level 135 Potassium Level 4.1 Chloride Level 100 Carbon Dioxide Level 25 Anion Gap 14 Blood Urea Nitrogen 34 H Creatinine 1.05 H Glucose Level 101 Calcium Level 9.0 Test 05/18/17 09:02 05/18/17 13:01 Bedside Glucose 179 144 Medications Medications Current Medications Aspirin (Aspirin) 81 mg DAILY GTB Last administered on 05/18/17 08:23; Admin Dose 81 MG; Start 05/09/17 at 09:00 Acetaminophen (Tylenol Liquid) 650 mg Q6H PRN GTB PAIN AND OR ELEVATED TEMP Last administered on 05/15/17 08:18; Admin Dose 650 MG; Start 05/09/17 at 09:00 Cholecalciferol (Vitamin D) 1,000 unit DAILY GTB Last administered on 08:23; Admin Dose 1,000 UNIT; Start 05/09/17 at 09:00 Insulin Glargine (Lantus) 17 unit DAILY@08 SC Last administered on 05/18/17 09:07; Admin Dose 17 UNIT; Start 05/10/17 at 08:00 Levothyroxine Sodium (Synthroid) 125 mcg DAILY@06 GTB Last administered on 05:51; Admin Dose 125 MCG; Start 05/10/17 at 06:00 Zinc Sulfate (Zinc Sulfate) 220 mg DAILY GTB Last administered on 05/18/17 08 :23; Admin Dose 220 MG; Start 05/09/17 at 09:00 Ondansetron HCl (Zofran Inj) 4 mg Q6H PRN IV NAUSEA AND/OR VOMITING Last administered on 05/12/17 08:33; Admin Dose 4 MG; Start 05/09/17 at 09:00 Lorazepam (Ativan) 1 mg Q6H PRN IV ANXIETY Last administered on 05/18/17 09: 59; Admin Dose 1 MG; Start 05/09/17 at 09:00 Miscellaneous Information 1 ea NOTE XX ; Start 05/09/17 at 10:00 Glucose (Glutose) 15 gm Q15M PRN PO DECREASED GLUCOSE; Start 05/09/17 at 10:00 Glucose (Glutose) 22.5 gm Q15M PRN PO DECREASED GLUCOSE; Start 05/09/17 at 10: 00 Dextrose (D50w Syringe) 25 ml Q15M PRN IV DECREASED GLUCOSE Last administered on 05/11/17 01:54; Admin Dose 25 ML; Start 05/09/17 at 10:00 Dextrose (D50w Syringe) 50 ml Q15M PRN IV DECREASED GLUCOSE; Start 05/09/17 at 10:00 Glucagon (Glucagen) 1 mg Q15M PRN IM DECREASED GLUCOSE; Start 05/09/17 at 10:00 Glucose (Glutose) 15 gm Q15M PRN BUCCAL DECREASED GLUCOSE; Start 05/09/17 at 10 :00 Multivitamins (Multivitamin) 30 ml DAILY PEG Last administered on 05/18/17 08 :23; Admin Dose 30 ML; Start 05/10/17 at 09:00 Fluoxetine HCl (Prozac) 20 mg DAILY GTB Last administered on 05/18/17 08:23; Admin Dose 20 MG; Start 05/10/17 at 09:00 Collagenase (Santyl) 1 applic DAILY TOP Last administered on 05/18/17 08:24; Admin Dose 1 APPLIC; Start 05/10/17 at 09:00 Collagenase (Santyl) 1 applic PRN PRN TOP SOILING; Start 05/10/17 at 01:30 Morphine Sulfate (morphine) 2 mg Q4H PRN IV PAIN LEVEL 4-6 Last administered on 05/18/17 15:40; Admin Dose 2 MG; Start 05/10/17 at 17:30 Insulin Aspart (Novolog Insulin Pen) NOVOLOG *MILD* ALGORI... Q6 SC Last administered on 05/18/17 13:18; Admin Dose 1 UNIT; Start 05/13/17 at 12:00 Mupirocin 1 applic 1 applic BID TOP Last administered on 05/18/17 08:24; Admin Dose 1 APPLIC; Start 05/14/17 at 09:00 Linezolid 300 ml @ 300 mls/hr Q12 IVPB Last administered on 05/18/17 08:23; Admin Dose 300 MLS/HR; Start 05/14/17 at 21:00 Ciprofloxacin/ Dextrose (Cipro Ivpb) 200 ml @ 200 mls/hr Q12 IVPB Last administered on 05/18/17 08:23; Admin Dose 200 MLS/HR; Start 05/16/17 at 21:00 Pantoprazole (Protonix Iv) 40 mg BID@06,18 IV ; Start 05/18/17 at 18:00 JOANIE PHILLIPS MD May 18, 2017 15:56
[2017-05-18] MEDS: PANTOPRAZOLE 40 MG INJ IV SCH (18:51)
[2017-05-19] VITALS (36 sets, daily range): BP systolic 100–161; BP diastolic 50–77; PULSE 86–113; RESP 9–25
[2017-05-19] MEDS: IPRATROPIUM (HFA) 12.9 GM INHALER INH SCH ×4 (01:18→19:21)
[2017-05-19] MEDS: ALBUTEROL HFA 8 GM INHALER INH SCH ×4 (01:18→19:21)
[2017-05-19 04:45] LABS: ABNORMAL IP MESSAGE 1; BASOPHILS % 0.3 % (0.0-2.0); EOSINOPHILS # 0.3 10^3/ul (0.0-0.5); EOSINOPHILS % 3.8 % (0.0-7.0); HEMATOCRIT 24.8 % (37.0-47.0); HEMOGLOBIN 7.9 g/dl (12.0-16.0); LYMPHOCYTES # 0.9 10^3/ul (0.8-2.9); LYMPHOCYTES % 11.5 % (15.0-51.0); MEAN CORPUSCULAR HEMOGLOBIN 27.1 pg (29.0-33.0); MEAN CORPUSCULAR HGB CONC 31.9 g/dl (32.0-37.0); MEAN CORPUSCULAR VOLUME 85.2 fl (82.0-101.0); MEAN PLATELET VOLUME 11.7 fl (7.4-10.4); MONOCYTE # 0.9 10^3/ul (0.3-0.9); MONOCYTES % 11.7 % (0.0-11.0); NEUTROPHIL # 4.9 10^3/ul (1.6-7.5); NEUTROPHILS % 62.7 % (39.0-77.0); PLATELET COUNT 219 10^3/UL (140-415); RED BLOOD COUNT 2.91 10^6/ul (4.20-5.40); RED CELL DISTRIBUTION WIDTH 20.7 % (11.5-14.5); WHITE BLOOD COUNT 7.8 10^3/ul (4.8-10.8)
[2017-05-19 04:52] LABS: POSITIVE DIFF @See below
[2017-05-19 05:11] LABS: CALCIUM 9.3 mg/dl (8.4-10.2); CREATININE 1.16 mg/dl (0.44-1.00); POTASSIUM 4.5 mmol/L (3.5-5.1)
[2017-05-19] MEDS: LEVOTHYROXINE 125 MCG TAB GTB SCH (05:30)
[2017-05-19] MEDS: INSULIN ASPART [NOVOLOG] 3 ML PEN SC SCH ×4 (05:30→23:31)
[2017-05-19] MEDS: PANTOPRAZOLE 40 MG INJ IV SCH ×2 (05:30→17:07)
[2017-05-19] MEDS: morphine 2 MG INJ IV PRN ×4 (07:50→23:21)
--- NOTE | 2017-05-19 08:27 | CONS ---
Date/Time of Note Date/Time of Note DATE: 05/19/17 TIME: 08:25 Assessment/Plan Assessment/Plan Additional Assessment/Plan Ventilator setting; AC of 14, tidal volume 500, PEEP of 5, 40% FiO2. Assessment and recommendations; 1. Patient admitted with respiratory failure due to pneumonia and pulmonary edema. 2. Underlying obesity. 3. Paraplegia. 4. Anemia. 5. Improving thrombocytopenia. 6. Severe generalized deconditioning. 7. Possibly some element of pulmonary fibrosis/interstitial lung disease. Continue current supportive care. Consider transfer to telemetry unit. Consultation Date/Type/Reason Admit Date/Time May 09, 2017 at 00:06 Initial Consult Date 05/10/17 Type of Consultation: Pulmonary/critical care Referring Provider: KISHAN SAUCEDO 24 HR Interval Summary Free Text/Dictation Patient's condition remains stable. Remains chronically ventilator dependent. Patient has remained hemodynamically stable. General exam; elderly woman, on ventilator via tracheostomy, awake, currently in no distress. Exam/Review of Systems Vital Signs Vitals Vital Signs Date Time Temp Pulse Resp B/P Pulse Ox O2 Delivery O2 Flow Rate FiO2 05/19/17 07:00 98 22 120/64 100 Mechanical Ventilator 05/19/17 05:12 40 05/19/17 04:00 98.0 Intake and Output 05/18/17 05/18/17 05/19/17 15:00 23:00 07:00 Intake Total 950 ml 1000 ml 460 ml Output Total 20 ml 25 ml Balance 950 ml 980 ml 435 ml Exam HEENT exam; supple neck, JVD difficult to see because of short neck. Patient has fair dentition. Bilateral intraocular lens implants are present. Tracheostomy in place. No thyromegaly. No neck masses. Chest exam; diminished breath sounds bilaterally. S1-S2 audible, no murmurs. Regular rhythm. Abdomen exam; soft, protuberant. Bowel sounds audible. G-tube in place. Next Extremities; trace generalized edema, more pronounced in lower extremities bilaterally. With ecchymosis in all 4 extremities. 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 Patient exhibiting profound generalized weakness. Results Result Diagram: 05/19/17 0245 05/19/17 0245 Results 24 hrs Laboratory Tests Test 05/18/17 09:02 05/18/17 13:01 05/18/17 18:57 05/18/17 23:21 Bedside Glucose 179 144 113 132 Test 05/19/17 02:45 05/19/17 05:29 White Blood Count 7.8 Red Blood Count 2.91 L Hemoglobin 7.9 L Hematocrit 24.8 L Mean Corpuscular Volume 85.2 Mean Corpuscular Hemoglobin 27.1 L Mean Corpuscular Hemoglobin Concent 31.9 L Red Cell Distribution Width 20.7 H Platelet Count 219 Mean Platelet Volume 11.7 H Neutrophils % 62.7 Lymphocytes % 11.5 L Monocytes % 11.7 H Eosinophils % 3.8 Basophils % 0.3 Nucleated Red Blood Cells % 0.0 Neutrophils # 4.9 Lymphocytes # 0.9 Monocytes # 0.9 Eosinophils # 0.3 Basophils # 0.0 Nucleated Red Blood Cells # 0.0 Sodium Level 133 L Potassium Level 4.5 Chloride Level 99 Carbon Dioxide Level 25 Anion Gap 14 Blood Urea Nitrogen 44 H Creatinine 1.16 H Glucose Level 89 Calcium Level 9.3 Bedside Glucose 112 Medications Medications Current Medications Aspirin (Aspirin) 81 mg DAILY GTB Last administered on 05/18/17 08:23; Admin Dose 81 MG; Start 05/09/17 at 09:00 Acetaminophen (Tylenol Liquid) 650 mg Q6H PRN GTB PAIN AND OR ELEVATED TEMP Last administered on 05/15/17 08:18; Admin Dose 650 MG; Start 05/09/17 at 09:00 Cholecalciferol (Vitamin D) 1,000 unit DAILY GTB Last administered on 08:23; Admin Dose 1,000 UNIT; Start 05/09/17 at 09:00 Insulin Glargine (Lantus) 17 unit DAILY@08 SC Last administered on 05/18/17 09:07; Admin Dose 17 UNIT; Start 05/10/17 at 08:00 Levothyroxine Sodium (Synthroid) 125 mcg DAILY@06 GTB Last administered on 05:30; Admin Dose 125 MCG; Start 05/10/17 at 06:00 Zinc Sulfate (Zinc Sulfate) 220 mg DAILY GTB Last administered on 05/18/17 08 :23; Admin Dose 220 MG; Start 05/09/17 at 09:00 Ondansetron HCl (Zofran Inj) 4 mg Q6H PRN IV NAUSEA AND/OR VOMITING Last administered on 05/12/17 08:33; Admin Dose 4 MG; Start 05/09/17 at 09:00 Lorazepam (Ativan) 1 mg Q6H PRN IV ANXIETY Last administered on 05/18/17 21: 08; Admin Dose 1 MG; Start 05/09/17 at 09:00 Miscellaneous Information 1 ea NOTE XX ; Start 05/09/17 at 10:00 Glucose (Glutose) 15 gm Q15M PRN PO DECREASED GLUCOSE; Start 05/09/17 at 10:00 Glucose (Glutose) 22.5 gm Q15M PRN PO DECREASED GLUCOSE; Start 05/09/17 at 10: 00 Dextrose (D50w Syringe) 25 ml Q15M PRN IV DECREASED GLUCOSE Last administered on 05/11/17 01:54; Admin Dose 25 ML; Start 05/09/17 at 10:00 Dextrose (D50w Syringe) 50 ml Q15M PRN IV DECREASED GLUCOSE; Start 05/09/17 at 10:00 Glucagon (Glucagen) 1 mg Q15M PRN IM DECREASED GLUCOSE; Start 05/09/17 at 10:00 Glucose (Glutose) 15 gm Q15M PRN BUCCAL DECREASED GLUCOSE; Start 05/09/17 at 10 :00 Multivitamins (Multivitamin) 30 ml DAILY PEG Last administered on 05/18/17 08 :23; Admin Dose 30 ML; Start 05/10/17 at 09:00 Fluoxetine HCl (Prozac) 20 mg DAILY GTB Last administered on 05/18/17 08:23; Admin Dose 20 MG; Start 05/10/17 at 09:00 Collagenase (Santyl) 1 applic DAILY TOP Last administered on 05/18/17 08:24; Admin Dose 1 APPLIC; Start 05/10/17 at 09:00 Collagenase (Santyl) 1 applic PRN PRN TOP SOILING; Start 05/10/17 at 01:30 Morphine Sulfate (morphine) 2 mg Q4H PRN IV PAIN LEVEL 4-6 Last administered on 05/19/17 07:50; Admin Dose 2 MG; Start 05/10/17 at 17:30 Insulin Aspart (Novolog Insulin Pen) NOVOLOG *MILD* ALGORI... Q6 SC Last administered on 05/18/17 13:18; Admin Dose 1 UNIT; Start 05/13/17 at 12:00 Mupirocin 1 applic 1 applic BID TOP Last administered on 05/18/17 20:03; Admin Dose 1 APPLIC; Start 05/14/17 at 09:00 Linezolid 300 ml @ 300 mls/hr Q12 IVPB Last administered on 05/18/17 20:03; Admin Dose 300 MLS/HR; Start 05/14/17 at 21:00 Ciprofloxacin/ Dextrose (Cipro Ivpb) 200 ml @ 200 mls/hr Q12 IVPB Last administered on 05/18/17 21:03; Admin Dose 200 MLS/HR; Start 05/16/17 at 21:00 Pantoprazole (Protonix Iv) 40 mg BID@06,18 IV Last administered on 05/19/17 05:30; Admin Dose 40 MG; Start 05/18/17 at 18:00 GUSTAVO BRIONES May 19, 2017 08:27
[2017-05-19] MEDS: ZINC SULFATE 220 MG CAP GTB SCH (08:45)
[2017-05-19] MEDS: MULTIVITAMINS 30 ML CUP PEG SCH (08:45)
[2017-05-19] MEDS: CHOLECALCIFEROL 1,000 UNIT TAB GTB SCH (08:45)
[2017-05-19] MEDS: COLLAGENASE 30 GM TUBE TOP SCH (08:45)
[2017-05-19] MEDS: ASPIRIN 81 MG TAB GTB SCH (08:45)
[2017-05-19] MEDS: FLUOXETINE 20 MG CAP GTB SCH (08:45)
[2017-05-19] MEDS: LINEZOLID 600 MG/D5W (PMX) 300 ML IVPB SCH ×2 (08:45→20:00)
[2017-05-19] MEDS: MUPIROCIN 2% 22 GM OINT TOP SCH ×2 (08:45→20:00)
[2017-05-19] MEDS: INSULIN GLARGINE [LANtus] 3 ML PEN SC SCH (08:55)
--- NOTE | 2017-05-19 09:16 | PN ---
Date/Time of Note Date/Time of Note DATE: 05/19/17 TIME: 09:15 Assessment/Plan VTE Prophylaxis VTE Prophylaxis Intervention: other Lines/Catheters IV [facility]ter Type (from [facility]): PICC Line Central line still needed: Yes Urinary Cath still in place: Yes Reason Cath still needed: skin wounds contaminated by urine Assessment/Plan Chief Complaint/Hosp Course -Acute respiratory failure with left upper lobe collapse. Continue ventilatory support. Dr. Hamilton is following in pulmonology consultation. -5% pneumothorax, no pneumothorax per last chest x-ray -Healthcare acquired pneumonia, continue vancomycin and cefepime, follow-up and sputum culture. Dr. Stephenson is following in infection disease consultation - Acute kidney injury with a generalized edema and hyperkalemia, Dr. Stevens is following in nephrology consultation. Continue hemodialysis. -Paroxysmal atrial fibrillation -Diabetes mellitus, continue Lantus and NovoLog -Hypothyroidism, continue levothyroxine. 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 Broussard is following in gastroenterology consultation. -Tracheostomy amount malfunction, s/p tracheostomy tube change by Dr. Lofton, ENT Problems: Subjective 24 Hr Interval Summary Free Text/Dictation Patient is sedated, trach in place Exam/Review of Systems Vital Signs Vitals Vital Signs Date Time Temp Pulse Resp B/P Pulse Ox O2 Delivery O2 Flow Rate FiO2 05/19/17 08:00 101 23 125/61 98 Mechanical Ventilator 05/19/17 07:30 97.8 05/19/17 05:12 40 Intake and Output 05/18/17 05/18/17 05/19/17 15:00 23:00 07:00 Intake Total 950 ml 1000 ml 460 ml Output Total 20 ml 25 ml Balance 950 ml 980 ml 435 ml Exam Constitutional: well developed Head: atraumatic, normocephalic Neck: supple Respiratory: diminished breath sounds Cardiovascular: regular rate and rhythm Gastrointestinal: non-tender, soft Extremities: normal pulses Results Result Diagram: 05/19/17 0245 05/19/175 Results 24 hrs Laboratory Tests Test 05/18/17 13:01 05/18/17 18:57 05/18/17 23:21 05/19/17 02:45 Bedside Glucose 144 113 132 White Blood Count 7.8 Red Blood Count 2.91 L Hemoglobin 7.9 L Hematocrit 24.8 L Mean Corpuscular Volume 85.2 Mean Corpuscular Hemoglobin 27.1 L Mean Corpuscular Hemoglobin Concent 31.9 L Red Cell Distribution Width 20.7 H Platelet Count 219 Mean Platelet Volume 11.7 H Neutrophils % 62.7 Lymphocytes % 11.5 L Monocytes % 11.7 H Eosinophils % 3.8 Basophils % 0.3 Nucleated Red Blood Cells % 0.0 Neutrophils # 4.9 Lymphocytes # 0.9 Monocytes # 0.9 Eosinophils # 0.3 Basophils # 0.0 Nucleated Red Blood Cells # 0.0 Sodium Level 133 L Potassium Level 4.5 Chloride Level 99 Carbon Dioxide Level 25 Anion Gap 14 Blood Urea Nitrogen 44 H Creatinine 1.16 H Glucose Level 89 Calcium Level 9.3 Test 05/19/17 05:29 05/19/17 08:54 Bedside Glucose 112 110 Medications Medications Current Medications Aspirin (Aspirin) 81 mg DAILY GTB Last administered on 05/19/17 08:45; Admin Dose 81 MG; Start 05/09/17 at 09:00 Acetaminophen (Tylenol Liquid) 650 mg Q6H PRN GTB PAIN AND OR ELEVATED TEMP Last administered on 05/15/17 08:18; Admin Dose 650 MG; Start 05/09/17 at 09:00 Cholecalciferol (Vitamin D) 1,000 unit DAILY GTB Last administered on 08:45; Admin Dose 1,000 UNIT; Start 05/09/17 at 09:00 Insulin Glargine (Lantus) 17 unit DAILY@08 SC Last administered on 05/19/17 08:55; Admin Dose 17 UNIT; Start 05/10/17 at 08:00 Levothyroxine Sodium (Synthroid) 125 mcg DAILY@06 GTB Last administered on 05:30; Admin Dose 125 MCG; Start 05/10/17 at 06:00 Zinc Sulfate (Zinc Sulfate) 220 mg DAILY GTB Last administered on 05/19/17 08 :45; Admin Dose 220 MG; Start 05/09/17 at 09:00 Ondansetron HCl (Zofran Inj) 4 mg Q6H PRN IV NAUSEA AND/OR VOMITING Last administered on 05/12/17 08:33; Admin Dose 4 MG; Start 05/09/17 at 09:00 Lorazepam (Ativan) 1 mg Q6H PRN IV ANXIETY Last administered on 05/18/17 21: 08; Admin Dose 1 MG; Start 05/09/17 at 09:00 Miscellaneous Information 1 ea NOTE XX ; Start 05/09/17 at 10:00 Glucose (Glutose) 15 gm Q15M PRN PO DECREASED GLUCOSE; Start 05/09/17 at 10:00 Glucose (Glutose) 22.5 gm Q15M PRN PO DECREASED GLUCOSE; Start 05/09/17 at 10: 00 Dextrose (D50w Syringe) 25 ml Q15M PRN IV DECREASED GLUCOSE Last administered on 05/11/17 01:54; Admin Dose 25 ML; Start 05/09/17 at 10:00 Dextrose (D50w Syringe) 50 ml Q15M PRN IV DECREASED GLUCOSE; Start 05/09/17 at 10:00 Glucagon (Glucagen) 1 mg Q15M PRN IM DECREASED GLUCOSE; Start 05/09/17 at 10:00 Glucose (Glutose) 15 gm Q15M PRN BUCCAL DECREASED GLUCOSE; Start 05/09/17 at 10 :00 Multivitamins (Multivitamin) 30 ml DAILY PEG Last administered on 05/19/17 08 :45; Admin Dose 30 ML; Start 05/10/17 at 09:00 Fluoxetine HCl (Prozac) 20 mg DAILY GTB Last administered on 05/19/17 08:45; Admin Dose 20 MG; Start 05/10/17 at 09:00 Collagenase (Santyl) 1 applic DAILY TOP Last administered on 05/19/17 08:45; Admin Dose 1 APPLIC; Start 05/10/17 at 09:00 Collagenase (Santyl) 1 applic PRN PRN TOP SOILING; Start 05/10/17 at 01:30 Morphine Sulfate (morphine) 2 mg Q4H PRN IV PAIN LEVEL 4-6 Last administered on 05/19/17 07:50; Admin Dose 2 MG; Start 05/10/17 at 17:30 Insulin Aspart (Novolog Insulin Pen) NOVOLOG *MILD* ALGORI... Q6 SC Last administered on 05/18/17 13:18; Admin Dose 1 UNIT; Start 05/13/17 at 12:00 Mupirocin 1 applic 1 applic BID TOP Last administered on 05/19/17 08:45; Admin Dose 1 APPLIC; Start 05/14/17 at 09:00 Linezolid 300 ml @ 300 mls/hr Q12 IVPB Last administered on 05/19/17 08:45; Admin Dose 300 MLS/HR; Start 05/14/17 at 21:00 Ciprofloxacin/ Dextrose (Cipro Ivpb) 200 ml @ 200 mls/hr Q12 IVPB Last administered on 05/18/17 21:03; Admin Dose 200 MLS/HR; Start 05/16/17 at 21:00 Pantoprazole (Protonix Iv) 40 mg BID@06,18 IV Last administered on 05/19/17 05:30; Admin Dose 40 MG; Start 05/18/17 at 18:00 ANIL ASCENCIO May 19, 2017 09:15
--- NOTE | 2017-05-19 10:51 | CONS ---
Date/Time of Note Date/Time of Note DATE: 05/19/17 TIME: 10:50 Assessment/Plan Assessment/Plan Additional Assessment/Plan Respiratory failure vent dependent Acute decompensated diastolic congestive heart failure Preserved ejection fraction Pulmonary hypertension Tricuspid valve regurgitation History of pneumothorax Paraplegia Acute kidney injury with history of CKD started on hemodialysis Obesity -Fluid management via hemodialysis as per nephrology colleagues. Ventilator and pulmonary care as per our pulmonary colleagues. Given labile blood pressure , no antihypertensives at the current time. Consultation Date/Type/Reason Admit Date/Time May 09, 2017 at 00:06 Initial Consult Date 05/09/17 Type of Consultation: cv Referring Provider: KISHAN SAUCEDO 24 HR Interval Summary Free Text/Dictation Patient seen and examined, denies any complaints Exam/Review of Systems Vital Signs Vitals Vital Signs Date Time Temp Pulse Resp B/P Pulse Ox O2 Delivery O2 Flow Rate FiO2 05/19/17 10:00 100 19 154/77 99 Mechanical Ventilator 05/19/17 07:30 97.8 05/19/17 05:12 40 Intake and Output 05/18/17 05/18/17 05/19/17 15:00 23:00 07:00 Intake Total 950 ml 1000 ml 460 ml Output Total 20 ml 25 ml Balance 950 ml 980 ml 435 ml Exam Sleeping but arousable, follows commands, no apparent distress Head: normocephalic Neck: other (Tracheostomy) Respiratory: other (Coarse breath sounds bilaterally, no wheezing) Cardiovascular: other (S1-S2 heard), regular rate and rhythm Gastrointestinal: bowel sounds, non-tender, soft Extremities: edema Results Result Diagram: 05/19/17 0245 05/19/17 0245 Results 24 hrs Laboratory Tests Test 05/18/17 13:01 05/18/17 18:57 05/18/17 23:21 05/19/17 02:45 Bedside Glucose 144 113 132 White Blood Count 7.8 Red Blood Count 2.91 L Hemoglobin 7.9 L Hematocrit 24.8 L Mean Corpuscular Volume 85.2 Mean Corpuscular Hemoglobin 27.1 L Mean Corpuscular Hemoglobin Concent 31.9 L Red Cell Distribution Width 20.7 H Platelet Count 219 Mean Platelet Volume 11.7 H Neutrophils % 62.7 Lymphocytes % 11.5 L Monocytes % 11.7 H Eosinophils % 3.8 Basophils % 0.3 Nucleated Red Blood Cells % 0.0 Neutrophils # 4.9 Lymphocytes # 0.9 Monocytes # 0.9 Eosinophils # 0.3 Basophils # 0.0 Nucleated Red Blood Cells # 0.0 Sodium Level 133 L Potassium Level 4.5 Chloride Level 99 Carbon Dioxide Level 25 Anion Gap 14 Blood Urea Nitrogen 44 H Creatinine 1.16 H Glucose Level 89 Calcium Level 9.3 Test 05/19/17 05:29 05/19/17 08:54 Bedside Glucose 112 110 Medications Medications Current Medications Aspirin (Aspirin) 81 mg DAILY GTB Last administered on 05/19/17 08:45; Admin Dose 81 MG; Start 05/09/17 at 09:00 Acetaminophen (Tylenol Liquid) 650 mg Q6H PRN GTB PAIN AND OR ELEVATED TEMP Last administered on 05/15/17 08:18; Admin Dose 650 MG; Start 05/09/17 at 09:00 Cholecalciferol (Vitamin D) 1,000 unit DAILY GTB Last administered on 08:45; Admin Dose 1,000 UNIT; Start 05/09/17 at 09:00 Insulin Glargine (Lantus) 17 unit DAILY@08 SC Last administered on 05/19/17 08:55; Admin Dose 17 UNIT; Start 05/10/17 at 08:00 Levothyroxine Sodium (Synthroid) 125 mcg DAILY@06 GTB Last administered on 05:30; Admin Dose 125 MCG; Start 05/10/17 at 06:00 Zinc Sulfate (Zinc Sulfate) 220 mg DAILY GTB Last administered on 05/19/17 08 :45; Admin Dose 220 MG; Start 05/09/17 at 09:00 Ondansetron HCl (Zofran Inj) 4 mg Q6H PRN IV NAUSEA AND/OR VOMITING Last administered on 05/12/17 08:33; Admin Dose 4 MG; Start 05/09/17 at 09:00 Lorazepam (Ativan) 1 mg Q6H PRN IV ANXIETY Last administered on 05/18/17 21: 08; Admin Dose 1 MG; Start 05/09/17 at 09:00 Miscellaneous Information 1 ea NOTE XX ; Start 05/09/17 at 10:00 Glucose (Glutose) 15 gm Q15M PRN PO DECREASED GLUCOSE; Start 05/09/17 at 10:00 Glucose (Glutose) 22.5 gm Q15M PRN PO DECREASED GLUCOSE; Start 05/09/17 at 10: 00 Dextrose (D50w Syringe) 25 ml Q15M PRN IV DECREASED GLUCOSE Last administered on 05/11/17 01:54; Admin Dose 25 ML; Start 05/09/17 at 10:00 Dextrose (D50w Syringe) 50 ml Q15M PRN IV DECREASED GLUCOSE; Start 05/09/17 at 10:00 Glucagon (Glucagen) 1 mg Q15M PRN IM DECREASED GLUCOSE; Start 05/09/17 at 10:00 Glucose (Glutose) 15 gm Q15M PRN BUCCAL DECREASED GLUCOSE; Start 05/09/17 at 10 :00 Multivitamins (Multivitamin) 30 ml DAILY PEG Last administered on 05/19/17 08 :45; Admin Dose 30 ML; Start 05/10/17 at 09:00 Fluoxetine HCl (Prozac) 20 mg DAILY GTB Last administered on 05/19/17 08:45; Admin Dose 20 MG; Start 05/10/17 at 09:00 Collagenase (Santyl) 1 applic DAILY TOP Last administered on 05/19/17 08:45; Admin Dose 1 APPLIC; Start 05/10/17 at 09:00 Collagenase (Santyl) 1 applic PRN PRN TOP SOILING; Start 05/10/17 at 01:30 Morphine Sulfate (morphine) 2 mg Q4H PRN IV PAIN LEVEL 4-6 Last administered on 05/19/17 07:50; Admin Dose 2 MG; Start 05/10/17 at 17:30 Insulin Aspart (Novolog Insulin Pen) NOVOLOG *MILD* ALGORI... Q6 SC Last administered on 05/18/17 13:18; Admin Dose 1 UNIT; Start 05/13/17 at 12:00 Mupirocin 1 applic 1 applic BID TOP Last administered on 05/19/17 08:45; Admin Dose 1 APPLIC; Start 05/14/17 at 09:00 Linezolid 300 ml @ 300 mls/hr Q12 IVPB Last administered on 05/19/17 08:45; Admin Dose 300 MLS/HR; Start 05/14/17 at 21:00 Ciprofloxacin/ Dextrose (Cipro Ivpb) 200 ml @ 200 mls/hr Q12 IVPB Last administered on 05/18/17 21:03; Admin Dose 200 MLS/HR; Start 05/16/17 at 21:00 Pantoprazole (Protonix Iv) 40 mg BID@,18 IV Last administered on 05/19/17 05:30; Admin Dose 40 MG; Start 05/18/17 at 18:00 Jonah Ayala DO May 19, 2017 10:51
[2017-05-19] MEDS ORDERED: hydrALAzine 20 MG INJ IV PRN (11:00)
[2017-05-19] MEDS: CIPROFLOXACIN 400MG/D5W 200 ML IVPB SCH (11:01)
--- NOTE | 2017-05-19 11:14 | CONS ---
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 (Procalcitonin 2.34) - Pulmonary edema - Acute on chronic hypoxemic respiratory failure s/p recent trach - Small right pneumothorax (less than 5%) on CT - BERNARDINO on CKD d/t ATN with fluid overload initiated on HD 05/10/2017 - Hyperkalemia - resolved - CAD - PAF - remains in SR/ST - CHF d/t diastolic dysfunction - IDDM - Hgb A1c 5.5% - Hypothyroidism - Anemia with iron deficiency, +stool OB - Dysphagia s/p PEG - Paraplegia d/t spinal injury - Chronic BUE weakness - Hypoalbuminemia with anasarca - Toxic metabolic encephalopathy - improving - Morbid obesity - BMI 39 - R knee wound - 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 Stephenson Critical care time spent: 40 min Consultation Date/Type/Reason Admit Date/Time May 09, 2017 at 00:06 Initial Consult Date 05/10/17 Type of Consultation: cv Referring Provider: KISHAN SAUCEDO 24 HR Interval Summary Free Text/Dictation -Trach to vent, FiO2 remains at 40% , peep 5 - seems comfortable. - afebrile - WBC wnl - c- diff stool neg - no acute issues per d/w nursing staff. - Unable to perform ROS d/t encephalopathy. Subjective hx not possible: pt non-verbal Constitutional: requiring IVF, requiring O2 Exam/Review of Systems Vital Signs Vitals Vital Signs Date Time Temp Pulse Resp B/P Pulse Ox O2 Delivery O2 Flow Rate FiO2 05/19/17 10:00 100 19 154/77 99 Mechanical Ventilator 05/19/17 08:00 40 05/19/17 07:30 97.8 Intake and Output 05/18/17 05/18/17 05/19/17 15:00 23:00 07:00 Intake Total 950 ml 1000 ml 460 ml Output Total 20 ml 25 ml Balance 950 ml 980 ml 435 ml Exam Constitutional: alert Respiratory: diminished breath sounds Cardiovascular: nl pulses, other (s1s2) Gastrointestinal: non-tender, soft Musculoskeletal: other Extremities: edema Neurological: other (alet/awake) Results Result Diagram: 05/19/17 0245 05/19/17 0245 Results 24 hrs Laboratory Tests Test 05/18/17 13:01 05/18/17 18:57 05/18/17 23:21 05/19/17 02:45 Bedside Glucose 144 113 132 White Blood Count 7.8 Red Blood Count 2.91 L Hemoglobin 7.9 L Hematocrit 24.8 L Mean Corpuscular Volume 85.2 Mean Corpuscular Hemoglobin 27.1 L Mean Corpuscular Hemoglobin Concent 31.9 L Red Cell Distribution Width 20.7 H Platelet Count 219 Mean Platelet Volume 11.7 H Neutrophils % 62.7 Lymphocytes % 11.5 L Monocytes % 11.7 H Eosinophils % 3.8 Basophils % 0.3 Nucleated Red Blood Cells % 0.0 Neutrophils # 4.9 Lymphocytes # 0.9 Monocytes # 0.9 Eosinophils # 0.3 Basophils # 0.0 Nucleated Red Blood Cells # 0.0 Sodium Level 133 L Potassium Level 4.5 Chloride Level 99 Carbon Dioxide Level 25 Anion Gap 14 Blood Urea Nitrogen 44 H Creatinine 1.16 H Glucose Level 89 Calcium Level 9.3 Test 05/19/17 05:29 05/19/17 08:54 Bedside Glucose 112 110 Medications Medications Current Medications Aspirin (Aspirin) 81 mg DAILY GTB Last administered on 05/19/17 08:45; Admin Dose 81 MG; Start 05/09/17 at 09:00 Acetaminophen (Tylenol Liquid) 650 mg Q6H PRN GTB PAIN AND OR ELEVATED TEMP Last administered on 05/15/17 08:18; Admin Dose 650 MG; Start 05/09/17 at 09:00 Cholecalciferol (Vitamin D) 1,000 unit DAILY GTB Last administered on 08:45; Admin Dose 1,000 UNIT; Start 05/09/17 at 09:00 Insulin Glargine (Lantus) 17 unit DAILY@08 SC Last administered on 05/19/17 08:55; Admin Dose 17 UNIT; Start 05/10/17 at 08:00 Levothyroxine Sodium (Synthroid) 125 mcg DAILY@06 GTB Last administered on 05:30; Admin Dose 125 MCG; Start 05/10/17 at 06:00 Zinc Sulfate (Zinc Sulfate) 220 mg DAILY GTB Last administered on 05/19/17 08 :45; Admin Dose 220 MG; Start 05/09/17 at 09:00 Ondansetron HCl (Zofran Inj) 4 mg Q6H PRN IV NAUSEA AND/OR VOMITING Last administered on 05/12/17 08:33; Admin Dose 4 MG; Start 05/09/17 at 09:00 Lorazepam (Ativan) 1 mg Q6H PRN IV ANXIETY Last administered on 05/18/17 21: 08; Admin Dose 1 MG; Start 05/09/17 at 09:00 Miscellaneous Information 1 ea NOTE XX ; Start 05/09/17 at 10:00 Glucose (Glutose) 15 gm Q15M PRN PO DECREASED GLUCOSE; Start 05/09/17 at 10:00 Glucose (Glutose) 22.5 gm Q15M PRN PO DECREASED GLUCOSE; Start 05/09/17 at 10: 00 Dextrose (D50w Syringe) 25 ml Q15M PRN IV DECREASED GLUCOSE Last administered on 05/11/17 01:54; Admin Dose 25 ML; Start 05/09/17 at 10:00 Dextrose (D50w Syringe) 50 ml Q15M PRN IV DECREASED GLUCOSE; Start 05/09/17 at 10:00 Glucagon (Glucagen) 1 mg Q15M PRN IM DECREASED GLUCOSE; Start 05/09/17 at 10:00 Glucose (Glutose) 15 gm Q15M PRN BUCCAL DECREASED GLUCOSE; Start 05/09/17 at 10 :00 Multivitamins (Multivitamin) 30 ml DAILY PEG Last administered on 05/19/17 08 :45; Admin Dose 30 ML; Start 05/10/17 at 09:00 Fluoxetine HCl (Prozac) 20 mg DAILY GTB Last administered on 05/19/17 08:45; Admin Dose 20 MG; Start 05/10/17 at 09:00 Collagenase (Santyl) 1 applic DAILY TOP Last administered on 05/19/17 08:45; Admin Dose 1 APPLIC; Start 05/10/17 at 09:00 Collagenase (Santyl) 1 applic PRN PRN TOP SOILING; Start 05/10/17 at 01:30 Morphine Sulfate (morphine) 2 mg Q4H PRN IV PAIN LEVEL 4-6 Last administered on 05/19/17 07:50; Admin Dose 2 MG; Start 05/10/17 at 17:30 Insulin Aspart (Novolog Insulin Pen) NOVOLOG *MILD* ALGORI... Q6 SC Last administered on 05/19/17 11:05; Admin Dose 1 UNIT; Start 05/13/17 at 12:00 Mupirocin 1 applic 1 applic BID TOP Last administered on 05/19/17 08:45; Admin Dose 1 APPLIC; Start 05/14/17 at 09:00 Linezolid 300 ml @ 300 mls/hr Q12 IVPB Last administered on 05/19/17 08:45; Admin Dose 300 MLS/HR; Start 05/14/17 at 21:00 Ciprofloxacin/ Dextrose (Cipro Ivpb) 200 ml @ 200 mls/hr Q12 IVPB Last administered on 05/19/17 11:01; Admin Dose 200 MLS/HR; Start 05/16/17 at 21:00 Pantoprazole (Protonix Iv) 40 mg BID@06,18 IV Last administered on 05/19/17 05:30; Admin Dose 40 MG; Start 05/18/17 at 18:00 Hydralazine HCl (Apresoline) 10 mg Q6H PRN IV sbp>170; Start 05/19/17 at 11:00 LYDIA SWAIN May 19, 2017 11:14
[2017-05-19] MEDS: LORAZEPAM 2 MG INJ IV PRN ×2 (13:06→19:41)
--- NOTE | 2017-05-19 15:18 | PN ---
Date/Time of Note Date/Time of Note DATE: 05/19/17 TIME: 15:14 Assessment/Plan Lines/Catheters IV Catheter Type (from [facility]): PICC Line Geronimo in Place (from [facility]): Yes Assessment/Plan Chief Complaint/Hosp Course 1. Sacral wound: stage 4: cultures noted; nonmalodorous -debridement prn -local care w dakins -frequent turning and off-loading -low air loss mattress -vitamin c -short term zinc -optimize nutrition -abx per sensitivity 2. Acute respiratory failure with complete collapse of the left upper lobe with obliteration of the left upper lobe bronchus; pulmonary congestion, ?pna: comfortable on vent; cxr unchanged -per pulm -continue vent support -abx -hd 3. VDRF -pulm toilet -respiratory treatments 4. Anemia: no acute bleed noted: stool OB +; h/h stable -monitor -transfuse as needed -per gi-eventual coloscopy 5. Elevated TSH -further workup per medical team 6. Electrolyte imbalance -optimize lytes 7. Morbid obesity: bmi 40 -diet and exercise optimization -encourage weight loss 8. BERNARDINO started on HD; improved edema -per renal Thank you. Patient seen and examined in collaboration with Dr. Kedar Valencia. Problems: Subjective 24 Hr Interval Summary Resting comfortably. Comfortable on vent. No fevers, chills, sob, congested cough, cp, palpitations, pimentel, dizziness, n/v/d/dysuria. Exam/Review of Systems Vital Signs Vitals Vital Signs Date Time Temp Pulse Resp B/P Pulse Ox O2 Delivery O2 Flow Rate FiO2 05/19/17 13:50 95 17 100 40 05/19/17 13:00 161/74 Mechanical Ventilator 05/19/17 12:00 98.0 Intake and Output 05/18/17 05/18/17 05/19/17 14:59 22:59 06:59 Intake Total 950 ml 1000 ml 510 ml Output Total 10 ml 35 ml Balance 950 ml 990 ml 475 ml Exam Free Text/Dictation Constitutional: alert, responsive No distress Psych: nl mood/affect, no complaints Head: atraumatic, normocephalic Eyes: nl lids, nl sclera ENMT: mucosa pink and moist, nl nasal mucosa & septum Neck: non-tender, other (trach vent), supple Respiratory: diminished Cardiovascular: nl pulses, sr Gastrointestinal: distended Genitourinary - Female: nl adnexae, nl external genitalia Musculoskeletal: No muscle tone (stiffness) Extremities: pitting pedal edema Neurological: other (paraplegia), No nl speech, No nl strength Skin: other (wound: packed, nonmalodorous, min drainage, periwound without erythema) Results Result Diagram: 05/19/17 0245 05/19/17 0245 BRITTANY STALEY NP May 19, 2017 15:18
--- NOTE | 2017-05-19 20:13 | CONS ---
Date/Time of Note Date/Time of Note DATE: 05/19/17 TIME: 20:12 Assessment/Plan Assessment/Plan Additional Assessment/Plan 1. Acute kindey injury due to ATN with acute fluid overload- started on HD during this admission 05/10/17- pt did not improve and will be terminal manager HD patient 2. acute uremia with BUn around 100- started on HD during this admission 05/10/17 3. acute on chronic resp failure, s/p tracheostomy 4. Metabolic acidosis 5. Paraplegia 6. Anemia of chronic disease, rule out iron deficiency Plan : started on HD during This admission- Plan for HD tomorrow through Latisha HD catheter Continue IV abx, Bp stable, pt remained on ventilator, , pulmonary following currently pt pimentel latisha HD catheter, pt will be terminal manager HD patient,- will wait for Permacath HD access until pt becomes more stable and goals of care plan discussed with family will follow up Consultation Date/Type/Reason Admit Date/Time May 09, 2017 at 00:06 Initial Consult Date 05/09/17 Type of Consultation: NEPHROLOGY Referring Provider: KISHAN SAUCEDO 24 HR Interval Summary Free Text/Dictation Plan for HD tomorrow,a febrile, Exam/Review of Systems Vital Signs Vitals Vital Signs Date Time Temp Pulse Resp B/P Pulse Ox O2 Delivery O2 Flow Rate FiO2 05/19/17 19:02 102 23 100 40 05/19/17 18:00 132/65 Mechanical Ventilator 05/19/17 16:00 98.1 Intake and Output 05/18/17 05/18/17 05/19/17 15:00 23:00 07:00 Intake Total 950 ml 1000 ml 460 ml Output Total 20 ml 25 ml Balance 950 ml 980 ml 435 ml Exam Constitutional: non-verbal + facial swelling, neck swelling, + diffuse anasarca ENMT: other (+ tracehostomy on ventilator ) Respiratory: crackles/rales, diminished breath sounds Cardiovascular: other (tachycardia ), regular rate and rhythm Gastrointestinal: non-tender, soft Musculoskeletal: muscle weakness, 3+ pitting edema upto thigh, back and sacral area Neurological: other (Unable to assess neurolgoical due to pt clinical condition Results Result Diagram: 05/19/17 0245 05/19/17 0245 Results 24 hrs Laboratory Tests Test 05/18/17 23:21 05/19/17 02:45 05/19/17 05:29 05/19/17 08:54 Bedside Glucose 132 112 110 White Blood Count 7.8 Red Blood Count 2.91 L Hemoglobin 7.9 L Hematocrit 24.8 L Mean Corpuscular Volume 85.2 Mean Corpuscular Hemoglobin 27.1 L Mean Corpuscular Hemoglobin Concent 31.9 L Red Cell Distribution Width 20.7 H Platelet Count 219 Mean Platelet Volume 11.7 H Neutrophils % 62.7 Lymphocytes % 11.5 L Monocytes % 11.7 H Eosinophils % 3.8 Basophils % 0.3 Nucleated Red Blood Cells % 0.0 Neutrophils # 4.9 Lymphocytes # 0.9 Monocytes # 0.9 Eosinophils # 0.3 Basophils # 0.0 Nucleated Red Blood Cells # 0.0 Sodium Level 133 L Potassium Level 4.5 Chloride Level 99 Carbon Dioxide Level 25 Anion Gap 14 Blood Urea Nitrogen 44 H Creatinine 1.16 H Glucose Level 89 Calcium Level 9.3 Test 05/19/17 11:03 05/19/17 17:02 Bedside Glucose 143 119 Medications Medications Current Medications Aspirin (Aspirin) 81 mg DAILY GTB Last administered on 05/19/17 08:45; Admin Dose 81 MG; Start 05/09/17 at 09:00 Acetaminophen (Tylenol Liquid) 650 mg Q6H PRN GTB PAIN AND OR ELEVATED TEMP Last administered on 05/15/17 08:18; Admin Dose 650 MG; Start 05/09/17 at 09:00 Cholecalciferol (Vitamin D) 1,000 unit DAILY GTB Last administered on 08:45; Admin Dose 1,000 UNIT; Start 05/09/17 at 09:00 Insulin Glargine (Lantus) 17 unit DAILY@08 SC Last administered on 05/19/17 08:55; Admin Dose 17 UNIT; Start 05/10/17 at 08:00 Levothyroxine Sodium (Synthroid) 125 mcg DAILY@06 GTB Last administered on 05:30; Admin Dose 125 MCG; Start 05/10/17 at 06:00 Zinc Sulfate (Zinc Sulfate) 220 mg DAILY GTB Last administered on 05/19/17 08 :45; Admin Dose 220 MG; Start 05/09/17 at 09:00 Ondansetron HCl (Zofran Inj) 4 mg Q6H PRN IV NAUSEA AND/OR VOMITING Last administered on 05/12/17 08:33; Admin Dose 4 MG; Start 05/09/17 at 09:00 Lorazepam (Ativan) 1 mg Q6H PRN IV ANXIETY Last administered on 05/19/17 19: 41; Admin Dose 1 MG; Start 05/09/17 at 09:00 Miscellaneous Information 1 ea NOTE XX ; Start 05/09/17 at 10:00 Glucose (Glutose) 15 gm Q15M PRN PO DECREASED GLUCOSE; Start 05/09/17 at 10:00 Glucose (Glutose) 22.5 gm Q15M PRN PO DECREASED GLUCOSE; Start 05/09/17 at 10: 00 Dextrose (D50w Syringe) 25 ml Q15M PRN IV DECREASED GLUCOSE Last administered on 05/11/17 01:54; Admin Dose 25 ML; Start 05/09/17 at 10:00 Dextrose (D50w Syringe) 50 ml Q15M PRN IV DECREASED GLUCOSE; Start 05/09/17 at 10:00 Glucagon (Glucagen) 1 mg Q15M PRN IM DECREASED GLUCOSE; Start 05/09/17 at 10:00 Glucose (Glutose) 15 gm Q15M PRN BUCCAL DECREASED GLUCOSE; Start 05/09/17 at 10 :00 Multivitamins (Multivitamin) 30 ml DAILY PEG Last administered on 05/19/17 08 :45; Admin Dose 30 ML; Start 05/10/17 at 09:00 Fluoxetine HCl (Prozac) 20 mg DAILY GTB Last administered on 05/19/17 08:45; Admin Dose 20 MG; Start 05/10/17 at 09:00 Collagenase (Santyl) 1 applic DAILY TOP Last administered on 05/19/17 08:45; Admin Dose 1 APPLIC; Start 05/10/17 at 09:00 Collagenase (Santyl) 1 applic PRN PRN TOP SOILING; Start 05/10/17 at 01:30 Morphine Sulfate (morphine) 2 mg Q4H PRN IV PAIN LEVEL 4-6 Last administered on 05/19/17 17:03; Admin Dose 2 MG; Start 05/10/17 at 17:30 Insulin Aspart (Novolog Insulin Pen) NOVOLOG *MILD* ALGORI... Q6 SC Last administered on 11/12/17at 11:05; Admin Dose 1 UNIT; Start 05/13/17 at 12:00 Mupirocin 1 applic 1 applic BID TOP Last administered on 05/19/17 20:00; Admin Dose 1 APPLIC; Start 05/14/17 at 09:00 Linezolid (Zyvox 600mg/D5W (Pmx)) 300 ml @ 300 mls/hr Q12 IVPB Last administered on 05/19/17 20:00; Admin Dose 300 MLS/HR; Start 05/14/17 at 21:00 Pantoprazole (Protonix Iv) 40 mg BID@06,18 IV Last administered on 05/19/17 17:07; Admin Dose 40 MG; Start 05/18/17 at 18:00 Hydralazine HCl 10 mg 10 mg Q6H PRN IV sbp>170; Start 05/19/17 at 11:00 Ciprofloxacin/ Dextrose (Cipro Ivpb) 200 ml @ 200 mls/hr Q24H IVPB ; Start at 11:00 JOANIE PHILLIPS MD May 19, 2017 20:13
[2017-05-20] VITALS (47 sets, daily range): BP systolic 103–162; BP diastolic 46–79; PULSE 90–107; RESP 13–25
[2017-05-20] MEDS: IPRATROPIUM (HFA) 12.9 GM INHALER INH SCH ×4 (01:41→19:19)
[2017-05-20] MEDS: ALBUTEROL HFA 8 GM INHALER INH SCH ×4 (01:41→19:19)
[2017-05-20] MEDS: morphine 2 MG INJ IV PRN ×4 (03:23→23:49)
[2017-05-20] MEDS: LEVOTHYROXINE 125 MCG TAB GTB SCH (05:09)
[2017-05-20] MEDS: INSULIN ASPART [NOVOLOG] 3 ML PEN SC SCH ×3 (05:09→17:50)
[2017-05-20] MEDS: PANTOPRAZOLE 40 MG INJ IV SCH ×2 (05:09→17:39)
[2017-05-20 05:35] LABS: ABNORMAL IP MESSAGE 1; HEMATOCRIT 26.4 % (37.0-47.0); HEMOGLOBIN 8.4 g/dl (12.0-16.0); MEAN CORPUSCULAR HGB CONC 31.8 g/dl (32.0-37.0); MEAN CORPUSCULAR VOLUME 84.9 fl (82.0-101.0); MEAN PLATELET VOLUME 11.1 fl (7.4-10.4); PLATELET COUNT 214 10^3/UL (140-415); RED BLOOD COUNT 3.11 10^6/ul (4.20-5.40); RED CELL DISTRIBUTION WIDTH 20.6 % (11.5-14.5); WHITE BLOOD COUNT 9.3 10^3/ul (4.8-10.8)
[2017-05-20 05:55] LABS: CALCIUM 9.4 mg/dl (8.4-10.2); CREATININE 1.31 mg/dl (0.44-1.00); POTASSIUM 4.9 mmol/L (3.5-5.1)
[2017-05-20 06:50] LABS: POSITIVE DIFF @See below
[2017-05-20] MEDS: ASPIRIN 81 MG TAB GTB SCH (08:46)
[2017-05-20] MEDS: FLUOXETINE 20 MG CAP GTB SCH (08:46)
[2017-05-20] MEDS: ZINC SULFATE 220 MG CAP GTB SCH (08:46)
[2017-05-20] MEDS: MULTIVITAMINS 30 ML CUP PEG SCH (08:46)
[2017-05-20] MEDS: COLLAGENASE 30 GM TUBE TOP SCH (08:46)
[2017-05-20] MEDS: CHOLECALCIFEROL 1,000 UNIT TAB GTB SCH (08:46)
[2017-05-20] MEDS: MUPIROCIN 2% 22 GM OINT TOP SCH ×2 (08:47→20:01)
[2017-05-20] MEDS: INSULIN GLARGINE [LANtus] 3 ML PEN SC SCH (08:48)
[2017-05-20 09:07] LABS: ANISOCYTOSIS 2+ (0-0); BASOPHILS % (M) 2 % (0-2); EOSINOPHILS % (M) 10 % (0-7); GIANT THROMBO% (M) 1 % (0-0); MICROCYTOSIS 1+ (0-0); MONOCYTES % (M) 9 % (0-11); PLATELET ESTIMATE NORMAL; POIKILOCYTOSIS 3+ (0-0); POLYCHROMASIA 3+ (0-0)
[2017-05-20] MEDS: LINEZOLID 600 MG/D5W (PMX) 300 ML IVPB SCH ×2 (10:55→20:00)
--- NOTE | 2017-05-20 11:00 | CONS ---
Date/Time of Note Date/Time of Note DATE: 05/20/17 TIME: 10:58 Assessment/Plan Assessment/Plan Additional Assessment/Plan Ventilator setting; AC of 14, tidal volume 500, PEEP of 5, 40% FiO2. Assessment and recommendations; 1. Patient with history of chronic respiratory failure admitted for pneumonia. Possibly with a background of underlying severe interstitial lung disease. 2. Stable paraplegia. 3. Chronic renal failure, on hemodialysis. 4. Severe generalized deconditioning. Continue current treatment. Will obtain follow-up chest x-ray in 24 hours. Consultation Date/Type/Reason Admit Date/Time May 09, 2017 at 00:06 Initial Consult Date 05/10/17 Type of Consultation: Pulmonary/critical care Referring Provider: KISHAN SAUCEDO 24 HR Interval Summary Free Text/Dictation Patient's condition remains stable. Remains awake and alert. General exam; elderly woman, on ventilator via tracheostomy, awake, currently in no distress. Exam/Review of Systems Vital Signs Vitals Vital Signs Date Time Temp Pulse Resp B/P Pulse Ox O2 Delivery O2 Flow Rate FiO2 05/20/17 09:15 99 22 99 40 05/20/17 09:00 141/64 Mechanical Ventilator 05/20/17 08:00 97.2 Intake and Output 05/19/17 05/19/17 05/20/17 15:00 23:00 07:00 Intake Total 1000 ml 810 ml 450 ml Output Total 55 ml 35 ml 55 ml Balance 945 ml 775 ml 395 ml Exam HEENT exam; supple neck, positive JVD. No lymphadenopathy. Midline trachea. No thyromegaly. Tracheostomy in place. Pupils are small bilaterally. Chest exam; diminished but clear breath sounds. S1-S2 audible, no murmurs. Regular rhythm. Abdomen exam; soft, protuberant. Nontender. Bowel sounds audible. G-tube in place. Extremity exam; trace generalized edema. CARDIAC CATH LAB RADIOLOGY TECHNOLOGIST exam; patient has stable paraplegia. Results Result Diagram: 05/20/17 0400 05/20/17 0400 Results 24 hrs Laboratory Tests Test 05/19/17 11:03 05/19/17 17:02 05/19/17 23:31 05/20/17 04:00 Bedside Glucose 143 119 129 White Blood Count 9.3 Red Blood Count 3.11 L Hemoglobin 8.4 L Hematocrit 26.4 L Mean Corpuscular Volume 84.9 Mean Corpuscular Hemoglobin 27.0 L Mean Corpuscular Hemoglobin Concent 31.8 L Red Cell Distribution Width 20.6 H Platelet Count 214 Mean Platelet Volume 11.1 H Neutrophils % Segmented Neutrophils % (Manual) 67 Band Neutrophils % (Manual) 7 H Lymphocytes % Lymphocytes % (Manual) 5 L Monocytes % Monocytes % (Manual) 9 Eosinophils % Eosinophils % (Manual) 10 H Basophils % Basophils % (Manual) 2 Nucleated Red Blood Cells % 0.0 Neutrophils # Neutrophils # (Manual) 6.3 Band Neutrophils # 0.6 Absolute Lymphocytes (Manual) 0.4 L Lymphocytes # Monocytes # Absolute Monocytes (Manual) 0.8 Eosinophils # Basophils # Basophils # (Manual) 0.1 H Nucleated Red Blood Cells # Platelet Estimate NORMAL Giant Platelets 1 H Polychromasia 3+ Poikilocytosis 3+ Anisocytosis 2+ Microcytosis 1+ Sodium Level 130 L Potassium Level 4.9 Chloride Level 97 Carbon Dioxide Level 23 Anion Gap 15 Blood Urea Nitrogen 49 H Creatinine 1.31 H Glucose Level 113 Calcium Level 9.4 Test 05/20/17 05:08 05/20/17 08:45 Bedside Glucose 119 138 Medications Medications Current Medications Aspirin (Aspirin) 81 mg DAILY GTB Last administered on 05/20/17 08:46; Admin Dose 81 MG; Start 05/09/17 at 09:00 Acetaminophen (Tylenol Liquid) 650 mg Q6H PRN GTB PAIN AND OR ELEVATED TEMP Last administered on 05/15/17 08:18; Admin Dose 650 MG; Start 05/09/17 at 09:00 Cholecalciferol (Vitamin D) 1,000 unit DAILY GTB Last administered on 08:46; Admin Dose 1,000 UNIT; Start 05/09/17 at 09:00 Insulin Glargine (Lantus) 17 unit DAILY@08 SC Last administered on 05/20/17 08:48; Admin Dose 17 UNIT; Start 05/10/17 at 08:00 Levothyroxine Sodium (Synthroid) 125 mcg DAILY@06 GTB Last administered on 05:09; Admin Dose 125 MCG; Start 05/10/17 at 06:00 Zinc Sulfate (Zinc Sulfate) 220 mg DAILY GTB Last administered on 05/20/17 08 :46; Admin Dose 220 MG; Start 05/09/17 at 09:00 Ondansetron HCl (Zofran Inj) 4 mg Q6H PRN IV NAUSEA AND/OR VOMITING Last administered on 05/12/17 08:33; Admin Dose 4 MG; Start 05/09/17 at 09:00 Lorazepam (Ativan) 1 mg Q6H PRN IV ANXIETY Last administered on 05/19/17 19: 41; Admin Dose 1 MG; Start 05/09/17 at 09:00 Miscellaneous Information 1 ea NOTE XX ; Start 05/09/17 at 10:00 Glucose (Glutose) 15 gm Q15M PRN PO DECREASED GLUCOSE; Start 05/09/17 at 10:00 Glucose (Glutose) 22.5 gm Q15M PRN PO DECREASED GLUCOSE; Start 05/09/17 at 10: 00 Dextrose (D50w Syringe) 25 ml Q15M PRN IV DECREASED GLUCOSE Last administered on 05/11/17 01:54; Admin Dose 25 ML; Start 05/09/17 at 10:00 Dextrose (D50w Syringe) 50 ml Q15M PRN IV DECREASED GLUCOSE; Start 05/09/17 at 10:00 Glucagon (Glucagen) 1 mg Q15M PRN IM DECREASED GLUCOSE; Start 05/09/17 at 10:00 Glucose (Glutose) 15 gm Q15M PRN BUCCAL DECREASED GLUCOSE; Start 05/09/17 at 10 :00 Multivitamins (Multivitamin) 30 ml DAILY PEG Last administered on 05/20/17 08 :46; Admin Dose 30 ML; Start 05/10/17 at 09:00 Fluoxetine HCl (Prozac) 20 mg DAILY GTB Last administered on 05/20/17 08:46; Admin Dose 20 MG; Start 05/10/17 at 09:00 Collagenase (Santyl) 1 applic DAILY TOP Last administered on 05/20/17 08:46; Admin Dose 1 APPLIC; Start 05/10/17 at 09:00 Collagenase (Santyl) 1 applic PRN PRN TOP SOILING; Start 05/10/17 at 01:30 Morphine Sulfate (morphine) 2 mg Q4H PRN IV PAIN LEVEL 4-6 Last administered on 05/20/17 10:56; Admin Dose 2 MG; Start 05/10/17 at 17:30 Insulin Aspart (Novolog Insulin Pen) NOVOLOG *MILD* ALGORI... Q6 SC Last administered on 05/19/17 11:05; Admin Dose 1 UNIT; Start 05/13/17 at 12:00 Mupirocin 1 applic 1 applic BID TOP Last administered on 05/20/17 08:47; Admin Dose 1 APPLIC; Start 05/14/17 at 09:00 Linezolid (Zyvox 600mg/D5W (Pmx)) 300 ml @ 300 mls/hr Q12 IVPB Last administered on 05/20/17 10:55; Admin Dose 300 MLS/HR; Start 05/14/17 at 21:00 Pantoprazole (Protonix Iv) 40 mg BID@06,18 IV Last administered on 05/20/17 05:09; Admin Dose 40 MG; Start 05/18/17 at 18:00 Hydralazine HCl 10 mg 10 mg Q6H PRN IV sbp>170; Start 05/19/17 at 11:00 Ciprofloxacin/ Dextrose (Cipro Ivpb) 200 ml @ 200 mls/hr Q24H IVPB ; Start at 11:00 GUSTAVO BRIONES May 20, 2017 11:00
--- NOTE | 2017-05-20 11:08 | PN ---
Date/Time of Note Date/Time of Note DATE: 05/20/17 TIME: 11:07 Assessment/Plan Lines/Catheters IV Catheter Type (from [facility]): PICC Line Geronimo in Place (from [facility]): Yes Assessment/Plan Chief Complaint/Hosp Course 1. Sacral wound: stage 4: cultures noted; nonmalodorous -debridement prn -local care w dakins -frequent turning and off-loading -low air loss mattress -vitamin c -short term zinc -optimize nutrition -abx per sensitivity 2. Acute respiratory failure with complete collapse of the left upper lobe with obliteration of the left upper lobe bronchus; pulmonary congestion, ?pna: comfortable on vent; cxr unchanged -per pulm -continue vent support -abx -hd 3. VDRF -pulm toilet -respiratory treatments 4. Anemia: no acute bleed noted: stool OB +; h/h stable -monitor -transfuse as needed -per gi-eventual coloscopy 5. Elevated TSH -further workup per medical team 6. Electrolyte imbalance -optimize lytes 7. Morbid obesity: bmi 40 -diet and exercise optimization -encourage weight loss 8. BERNARDINO started on HD; improved edema -per renal Thank you Problems: Subjective 24 Hr Interval Summary Resting comfortably. Comfortable on vent. No fevers, chills, sob, congested cough, cp, palpitations, pimentel, dizziness, n/v/d/dysuria. Exam/Review of Systems Vital Signs Vitals Vital Signs Date Time Temp Pulse Resp B/P Pulse Ox O2 Delivery O2 Flow Rate FiO2 05/20/17 09:15 99 22 99 40 05/20/17 09:00 141/64 Mechanical Ventilator 05/20/17 08:00 97.2 Intake and Output 05/19/17 05/19/17 05/20/17 15:00 23:00 07:00 Intake Total 1000 ml 810 ml 450 ml Output Total 55 ml 35 ml 55 ml Balance 945 ml 775 ml 395 ml Exam Free Text/Dictation Constitutional: alert, responsive No distress Psych: nl mood/affect, no complaints Head: atraumatic, normocephalic Eyes: nl lids, nl sclera ENMT: mucosa pink and moist, nl nasal mucosa & septum Neck: non-tender, other (trach vent), supple Respiratory: diminished Cardiovascular: nl pulses, sr Gastrointestinal: distended Genitourinary - Female: nl adnexae, nl external genitalia Musculoskeletal: No muscle tone (stiffness) Extremities: pitting pedal edema Neurological: other (paraplegia), No nl speech, No nl strength Skin: other (wound: packed, nonmalodorous, min drainage, periwound without erythema) Results Result Diagram: 05/20/170 05/20/17 0400 MIQUEL MOREJON MD May 20, 2017 11:08
[2017-05-20] MEDS: CIPROFLOXACIN 400MG/D5W 200 ML IVPB SCH (12:17)
--- NOTE | 2017-05-20 13:03 | CONS ---
Date/Time of Note Date/Time of Note DATE: 05/20/17 TIME: 13:02 Assessment/Plan Assessment/Plan Additional Assessment/Plan Respiratory failure vent dependent Acute decompensated diastolic congestive heart failure Preserved ejection fraction Pulmonary hypertension Tricuspid valve regurgitation History of pneumothorax Paraplegia Acute kidney injury with history of CKD started on hemodialysis Obesity -Fluid management via hemodialysis as per nephrology colleagues. Ventilator and pulmonary care as per our pulmonary colleagues. Blood pressure trend overall remains stable, if persistent elevation, would consider initiation of standing antihypertensive med. Consultation Date/Type/Reason Admit Date/Time May 09, 2017 at 00:06 Initial Consult Date 05/09/17 Type of Consultation: cv Referring Provider: KISHAN SAUCEDO 24 HR Interval Summary Free Text/Dictation Patient seen and examined, no new cardiac issues as per nursing staff Exam/Review of Systems Vital Signs Vitals Vital Signs Date Time Temp Pulse Resp B/P Pulse Ox O2 Delivery O2 Flow Rate FiO2 05/20/17 12:00 101 05/20/17 12:00 97.5 19 149/76 97 Mechanical Ventilator 05/20/17 11:18 40 Intake and Output 05/19/17 05/19/17 05/20/17 15:00 23:00 07:00 Intake Total 1000 ml 810 ml 450 ml Output Total 55 ml 35 ml 55 ml Balance 945 ml 775 ml 395 ml Exam Following commands, no apparent distress Constitutional: alert Head: normocephalic Neck: other (Tracheostomy) Respiratory: other (Coarse breath sounds bilaterally, no wheezing) Cardiovascular: other (S1-S2 heard), regular rate and rhythm Gastrointestinal: bowel sounds, non-tender, soft Extremities: edema Results Result Diagram: 05/20/17 0400 05/20/17 0400 Results 24 hrs Laboratory Tests Test 05/19/17 17:02 05/19/17 23:31 05/20/17 04:00 05/20/17 05:08 Bedside Glucose 119 129 119 White Blood Count 9.3 Red Blood Count 3.11 L Hemoglobin 8.4 L Hematocrit 26.4 L Mean Corpuscular Volume 84.9 Mean Corpuscular Hemoglobin 27.0 L Mean Corpuscular Hemoglobin Concent 31.8 L Red Cell Distribution Width 20.6 H Platelet Count 214 Mean Platelet Volume 11.1 H Neutrophils % Segmented Neutrophils % (Manual) 67 Band Neutrophils % (Manual) 7 H Lymphocytes % Lymphocytes % (Manual) 5 L Monocytes % Monocytes % (Manual) 9 Eosinophils % Eosinophils % (Manual) 10 H Basophils % Basophils % (Manual) 2 Nucleated Red Blood Cells % 0.0 Neutrophils # Neutrophils # (Manual) 6.3 Band Neutrophils # 0.6 Absolute Lymphocytes (Manual) 0.4 L Lymphocytes # Monocytes # Absolute Monocytes (Manual) 0.8 Eosinophils # Basophils # Basophils # (Manual) 0.1 H Nucleated Red Blood Cells # Platelet Estimate NORMAL Giant Platelets 1 H Polychromasia 3+ Poikilocytosis 3+ Anisocytosis 2+ Microcytosis 1+ Sodium Level 130 L Potassium Level 4.9 Chloride Level 97 Carbon Dioxide Level 23 Anion Gap 15 Blood Urea Nitrogen 49 H Creatinine 1.31 H Glucose Level 113 Calcium Level 9.4 Test 05/20/17 08:45 05/20/17 12:16 Bedside Glucose 138 150 Medications Medications Current Medications Aspirin (Aspirin) 81 mg DAILY GTB Last administered on 05/20/17 08:46; Admin Dose 81 MG; Start 05/09/17 at 09:00 Acetaminophen (Tylenol Liquid) 650 mg Q6H PRN GTB PAIN AND OR ELEVATED TEMP Last administered on 05/15/17 08:18; Admin Dose 650 MG; Start 05/09/17 at 09:00 Cholecalciferol (Vitamin D) 1,000 unit DAILY GTB Last administered on 08:46; Admin Dose 1,000 UNIT; Start 05/09/17 at 09:00 Insulin Glargine (Lantus) 17 unit DAILY@08 SC Last administered on 05/20/17 08:48; Admin Dose 17 UNIT; Start 05/10/17 at 08:00 Levothyroxine Sodium (Synthroid) 125 mcg DAILY@06 GTB Last administered on 05:09; Admin Dose 125 MCG; Start 05/10/17 at 06:00 Zinc Sulfate (Zinc Sulfate) 220 mg DAILY GTB Last administered on 05/20/17 08 :46; Admin Dose 220 MG; Start 05/09/17 at 09:00 Ondansetron HCl (Zofran Inj) 4 mg Q6H PRN IV NAUSEA AND/OR VOMITING Last administered on 05/12/17 08:33; Admin Dose 4 MG; Start 05/09/17 at 09:00 Lorazepam (Ativan) 1 mg Q6H PRN IV ANXIETY Last administered on 05/19/17 19: 41; Admin Dose 1 MG; Start 05/09/17 at 09:00 Miscellaneous Information 1 ea NOTE XX ; Start 05/09/17 at 10:00 Glucose (Glutose) 15 gm Q15M PRN PO DECREASED GLUCOSE; Start 05/09/17 at 10:00 Glucose (Glutose) 22.5 gm Q15M PRN PO DECREASED GLUCOSE; Start 05/09/17 at 10: 00 Dextrose (D50w Syringe) 25 ml Q15M PRN IV DECREASED GLUCOSE Last administered on 05/11/17 01:54; Admin Dose 25 ML; Start 05/09/17 at 10:00 Dextrose (D50w Syringe) 50 ml Q15M PRN IV DECREASED GLUCOSE; Start 05/09/17 at 10:00 Glucagon (Glucagen) 1 mg Q15M PRN IM DECREASED GLUCOSE; Start 05/09/17 at 10:00 Glucose (Glutose) 15 gm Q15M PRN BUCCAL DECREASED GLUCOSE; Start 05/09/17 at 10 :00 Multivitamins (Multivitamin) 30 ml DAILY PEG Last administered on 05/20/17 08 :46; Admin Dose 30 ML; Start 05/10/17 at 09:00 Fluoxetine HCl (Prozac) 20 mg DAILY GTB Last administered on 05/20/17 08:46; Admin Dose 20 MG; Start 05/10/17 at 09:00 Collagenase (Santyl) 1 applic DAILY TOP Last administered on 05/20/17 08:46; Admin Dose 1 APPLIC; Start 05/10/17 at 09:00 Collagenase (Santyl) 1 applic PRN PRN TOP SOILING; Start 05/10/17 at 01:30 Morphine Sulfate (morphine) 2 mg Q4H PRN IV PAIN LEVEL 4-6 Last administered on 05/20/17 10:56; Admin Dose 2 MG; Start 05/10/17 at 17:30 Insulin Aspart (Novolog Insulin Pen) NOVOLOG *MILD* ALGORI... Q6 SC Last administered on 05/20/17 12:18; Admin Dose 1 UNIT; Start 05/13/17 at 12:00 Mupirocin 1 applic 1 applic BID TOP Last administered on 05/20/17 08:47; Admin Dose 1 APPLIC; Start 05/14/17 at 09:00 Linezolid (Zyvox 600mg/D5W (Pmx)) 300 ml @ 300 mls/hr Q12 IVPB Last administered on 05/20/17 10:55; Admin Dose 300 MLS/HR; Start 05/14/17 at 21:00 Pantoprazole (Protonix Iv) 40 mg BID@06,18 IV Last administered on 05/20/17 05:09; Admin Dose 40 MG; Start 05/18/17 at 18:00 Hydralazine HCl 10 mg 10 mg Q6H PRN IV sbp>170; Start 05/19/17 at 11:00 Ciprofloxacin/ Dextrose (Cipro Ivpb) 200 ml @ 200 mls/hr Q24H IVPB Last administered on 05/20/17 12:17; Admin Dose 200 MLS/HR; Start 05/20/17 at 11: 00 Jonah Ayala DO May 20, 2017 13:03
[2017-05-20] MEDS ORDERED: PEG/ELECTROLYTES 4L BTL PO ONE ×2 (15:00→20:00)
--- NOTE | 2017-05-20 15:27 | PN ---
Date/Time of Note Date/Time of Note DATE: 05/20/17 TIME: 15:22 Assessment/Plan VTE Prophylaxis VTE Prophylaxis Intervention: SCD's Lines/Catheters IV Catheter Type (from [facility]): PICC Line Central line still needed: Yes Urinary Cath still in place: Yes Reason Cath still needed: urinary retention Assessment/Plan Chief Complaint/Hosp Course Patient is comfortable on 40% FiO2 and PEEP of 5, is undergoing hemodialysis, pending EGD and colonoscopy tomorrow. Assessment/Plan -Acute respiratory failure with left upper lobe collapse. Continue ventilatory support. Dr. Hamilton is following in pulmonology consultation. -5% pneumothorax, no pneumothorax per last chest x-ray -Healthcare acquired pneumonia, continue antibiotics per ID. Dr. Stephenson is following in infection disease consultation -Infected sacral wound, patient is currently on Cipro and Zyvox, continue current wound care, Dr. Valencia is following in general surgery consultation. - Acute kidney injury with a generalized edema and hyperkalemia, Dr. Stevens is following in nephrology consultation. Continue hemodialysis. -Paroxysmal atrial fibrillation -Diabetes mellitus, continue Lantus and NovoLog -Hypothyroidism, continue levothyroxine. 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 Broussard is following in gastroenterology consultation. -Tracheostomy amount malfunction, s/p tracheostomy tube change by Dr. Lofton, ENT Further recommendations based on clinical course. Plan of care discussed with Dr. Han. Problems: Exam/Review of Systems Vital Signs Vitals Vital Signs Date Time Temp Pulse Resp B/P Pulse Ox O2 Delivery O2 Flow Rate FiO2 05/20/17 15:10 96 22 05/20/17 13:22 98 40 05/20/17 12:00 97.5 149/76 Mechanical Ventilator Intake and Output 05/19/17 05/19/17 05/20/17 14:59 22:59 06:59 Intake Total 950 ml 810 ml 450 ml Output Total 55 ml 20 ml 65 ml Balance 895 ml 790 ml 385 ml Exam Constitutional: alert Neck: other (Tracheostomy), supple Respiratory: diminished breath sounds Cardiovascular: nl pulses Gastrointestinal: ascites, non-tender, other (G-tube), soft Musculoskeletal: muscle weakness Extremities: edema Neurological: other (Paraplegia) R fem Dany Results Result Diagram: 05/20/17 0400 05/20/17 0400 Results 24 hrs Laboratory Tests Test 05/19/17 17:02 05/19/17 23:31 05/20/17 04:00 05/20/17 05:08 Bedside Glucose 119 129 119 White Blood Count 9.3 Red Blood Count 3.11 L Hemoglobin 8.4 L Hematocrit 26.4 L Mean Corpuscular Volume 84.9 Mean Corpuscular Hemoglobin 27.0 L Mean Corpuscular Hemoglobin Concent 31.8 L Red Cell Distribution Width 20.6 H Platelet Count 214 Mean Platelet Volume 11.1 H Neutrophils % Segmented Neutrophils % (Manual) 67 Band Neutrophils % (Manual) 7 H Lymphocytes % Lymphocytes % (Manual) 5 L Monocytes % Monocytes % (Manual) 9 Eosinophils % Eosinophils % (Manual) 10 H Basophils % Basophils % (Manual) 2 Nucleated Red Blood Cells % 0.0 Neutrophils # Neutrophils # (Manual) 6.3 Band Neutrophils # 0.6 Absolute Lymphocytes (Manual) 0.4 L Lymphocytes # Monocytes # Absolute Monocytes (Manual) 0.8 Eosinophils # Basophils # Basophils # (Manual) 0.1 H Nucleated Red Blood Cells # Platelet Estimate NORMAL Giant Platelets 1 H Polychromasia 3+ Poikilocytosis 3+ Anisocytosis 2+ Microcytosis 1+ Sodium Level 130 L Potassium Level 4.9 Chloride Level 97 Carbon Dioxide Level 23 Anion Gap 15 Blood Urea Nitrogen 49 H Creatinine 1.31 H Glucose Level 113 Calcium Level 9.4 Test 05/20/17 08:45 05/20/17 12:16 Bedside Glucose 138 150 Medications Medications Current Medications Aspirin (Aspirin) 81 mg DAILY GTB Last administered on 05/20/17 08:46; Admin Dose 81 MG; Start 05/09/17 at 09:00 Acetaminophen (Tylenol Liquid) 650 mg Q6H PRN GTB PAIN AND OR ELEVATED TEMP Last administered on 05/15/17 08:18; Admin Dose 650 MG; Start 05/09/17 at 09:00 Cholecalciferol (Vitamin D) 1,000 unit DAILY GTB Last administered on 08:46; Admin Dose 1,000 UNIT; Start 05/09/17 at 09:00 Insulin Glargine (Lantus) 17 unit DAILY@08 SC Last administered on 05/20/17 08:48; Admin Dose 17 UNIT; Start 05/10/17 at 08:00 Levothyroxine Sodium (Synthroid) 125 mcg DAILY@06 GTB Last administered on 05:09; Admin Dose 125 MCG; Start 05/10/17 at 06:00 Zinc Sulfate (Zinc Sulfate) 220 mg DAILY GTB Last administered on 05/20/17 08 :46; Admin Dose 220 MG; Start 05/09/17 at 09:00 Ondansetron HCl (Zofran Inj) 4 mg Q6H PRN IV NAUSEA AND/OR VOMITING Last administered on 05/12/17 08:33; Admin Dose 4 MG; Start 05/09/17 at 09:00 Lorazepam (Ativan) 1 mg Q6H PRN IV ANXIETY Last administered on 05/19/17 19: 41; Admin Dose 1 MG; Start 05/09/17 at 09:00 Miscellaneous Information 1 ea NOTE XX ; Start 05/09/17 at 10:00 Glucose (Glutose) 15 gm Q15M PRN PO DECREASED GLUCOSE; Start 05/09/17 at 10:00 Glucose (Glutose) 22.5 gm Q15M PRN PO DECREASED GLUCOSE; Start 05/09/17 at 10: 00 Dextrose (D50w Syringe) 25 ml Q15M PRN IV DECREASED GLUCOSE Last administered on 05/11/17 01:54; Admin Dose 25 ML; Start 05/09/17 at 10:00 Dextrose (D50w Syringe) 50 ml Q15M PRN IV DECREASED GLUCOSE; Start 05/09/17 at 10:00 Glucagon (Glucagen) 1 mg Q15M PRN IM DECREASED GLUCOSE; Start 05/09/17 at 10:00 Glucose (Glutose) 15 gm Q15M PRN BUCCAL DECREASED GLUCOSE; Start 05/09/17 at 10 :00 Multivitamins (Multivitamin) 30 ml DAILY PEG Last administered on 05/20/17 08 :46; Admin Dose 30 ML; Start 05/10/17 at 09:00 Fluoxetine HCl (Prozac) 20 mg DAILY GTB Last administered on 05/20/17 08:46; Admin Dose 20 MG; Start 05/10/17 at 09:00 Morphine Sulfate (morphine) 2 mg Q4H PRN IV PAIN LEVEL 4-6 Last administered on 05/20/17 10:56; Admin Dose 2 MG; Start 05/10/17 at 17:30 Insulin Aspart (Novolog Insulin Pen) NOVOLOG *MILD* ALGORI... Q6 SC Last administered on 05/20/17 12:18; Admin Dose 1 UNIT; Start 05/13/17 at 12:00 Mupirocin 1 applic 1 applic BID TOP Last administered on 05/20/17 08:47; Admin Dose 1 APPLIC; Start 05/14/17 at 09:00 Linezolid (Zyvox 600mg/D5W (Pmx)) 300 ml @ 300 mls/hr Q12 IVPB Last administered on 05/20/17 10:55; Admin Dose 300 MLS/HR; Start 05/14/17 at 21:00 Pantoprazole (Protonix Iv) 40 mg BID@06,18 IV Last administered on 05/20/17 05:09; Admin Dose 40 MG; Start 05/18/17 at 18:00 Hydralazine HCl 10 mg 10 mg Q6H PRN IV sbp>170; Start 05/19/17 at 11:00 Ciprofloxacin/ Dextrose (Cipro Ivpb) 200 ml @ 200 mls/hr Q24H IVPB Last administered on 05/20/17 12:17; Admin Dose 200 MLS/HR; Start 05/20/17 at 11: 00 Sodium Hypochlorite (Dakin'S (Dilute 1/40%)) 1 applic DAILY IRR ; Start at 16:00; Stop 05/20/17 at 20:00 Sodium Hypochlorite (Dakin'S (Dilute 1/40%)) 1 applic DAILY@20 IRR ; Start at 20:00 KISHAN SAUCEDO May 20, 2017 15:27
[2017-05-20] MEDS ORDERED: SODIUM HYPOCHLORITE 1/40% 1L IRRIG IRR SCH ×2 (16:00→20:00)
--- NOTE | 2017-05-20 17:12 | CONS ---
Date/Time of Note Date/Time of Note DATE: 05/20/17 TIME: 17:08 Assessment/Plan Assessment/Plan Chief Complaint/Hosp Course - VAP vs HCAP 2/2 MRSA (Procalcitonin 2.34) - Pulmonary edema - Acute on chronic hypoxemic respiratory failure s/p recent trach - Small right pneumothorax (less than 5%) on CT - BERNARDINO on CKD d/t ATN with fluid overload initiated on HD 05/10/2017 - Hyperkalemia - resolved - CAD - PAF - remains in SR/ST - CHF d/t diastolic dysfunction - IDDM - Hgb A1c 5.5% - Hypothyroidism with elevated TSH - Anemia with iron deficiency, +stool OB - Dysphagia s/p PEG - Paraplegia d/t spinal injury - Chronic BUE weakness - Hypoalbuminemia with anasarca - Toxic metabolic encephalopathy - improving - Morbid obesity - BMI 39 - R knee wound - 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 Stephenson Critical care time spent: 35 min Problems: Consultation Date/Type/Reason Admit Date/Time May 09, 2017 at 00:06 Initial Consult Date 05/10/17 Type of Consultation: Infectious Disease Referring Provider: KISHAN SAUCEDO 24 HR Interval Summary Free Text/Dictation Pt declined EGD and colonoscopy; awaiting [facility] evaluation; no acute issues per d/w OFFICE SERVICES ASSISTANT. Nods no to pain, SOB, n/v/d, dysuria. Subjective hx not possible: pt non-verbal Exam/Review of Systems Vital Signs Vitals Vital Signs Date Time Temp Pulse Resp B/P Pulse Ox O2 Delivery O2 Flow Rate FiO2 05/20/17 16:00 98 05/20/17 15:20 19 98 40 05/20/17 12:00 97.5 149/76 Mechanical Ventilator Intake and Output 05/19/17 05/19/17 05/20/17 15:00 23:00 07:00 Intake Total 1000 ml 810 ml 450 ml Output Total 55 ml 35 ml 55 ml Balance 945 ml 775 ml 395 ml Exam Constitutional: alert, non-verbal, obese, other (anasarca), well developed Head: atraumatic, normocephalic Eyes: nl sclera Neck: other (tracheostomy intact), supple Respiratory: diminished breath sounds Cardiovascular: other (S1, S2, regular rhythm, tachycardic) Gastrointestinal: bowel sounds (normoactive), non-tender, other (G-tube intact with tube feeds in progress), soft, surgical scars (well healed) Genitourinary - Female: other (Geronimo catheter present; R fem HD catheter in place) Extremities: edema, other (Bilateral foot drop noted), No clubbing, No cyanosis Neurological: lethargic, other (paraplegia with BUE weakness; selectively nods to simple questions; + tracking) Skin: other (R knee wound and stage IV coccygeal wound; weeping noted from BUE - see nurse note and photos for details) Results Result Diagram: 05/20/17 0400 05/20/17 0400 Results 24 hrs Laboratory Tests Test 05/19/17 23:31 05/20/17 04:00 05/20/17 05:08 05/20/17 08:45 Bedside Glucose 129 119 138 White Blood Count 9.3 Red Blood Count 3.11 L Hemoglobin 8.4 L Hematocrit 26.4 L Mean Corpuscular Volume 84.9 Mean Corpuscular Hemoglobin 27.0 L Mean Corpuscular Hemoglobin Concent 31.8 L Red Cell Distribution Width 20.6 H Platelet Count 214 Mean Platelet Volume 11.1 H Neutrophils % Segmented Neutrophils % (Manual) 67 Band Neutrophils % (Manual) 7 H Lymphocytes % Lymphocytes % (Manual) 5 L Monocytes % Monocytes % (Manual) 9 Eosinophils % Eosinophils % (Manual) 10 H Basophils % Basophils % (Manual) 2 Nucleated Red Blood Cells % 0.0 Neutrophils # Neutrophils # (Manual) 6.3 Band Neutrophils # 0.6 Absolute Lymphocytes (Manual) 0.4 L Lymphocytes # Monocytes # Absolute Monocytes (Manual) 0.8 Eosinophils # Basophils # Basophils # (Manual) 0.1 H Nucleated Red Blood Cells # Platelet Estimate NORMAL Giant Platelets 1 H Polychromasia 3+ Poikilocytosis 3+ Anisocytosis 2+ Microcytosis 1+ Sodium Level 130 L Potassium Level 4.9 Chloride Level 97 Carbon Dioxide Level 23 Anion Gap 15 Blood Urea Nitrogen 49 H Creatinine 1.31 H Glucose Level 113 Calcium Level 9.4 Test 05/20/17 12:16 Bedside Glucose 150 Medications Medications Current Medications Aspirin (Aspirin) 81 mg DAILY GTB Last administered on 05/20/17 08:46; Admin Dose 81 MG; Start 05/09/17 at 09:00 Acetaminophen (Tylenol Liquid) 650 mg Q6H PRN GTB PAIN AND OR ELEVATED TEMP Last administered on 05/15/17 08:18; Admin Dose 650 MG; Start 05/09/17 at 09:00 Cholecalciferol (Vitamin D) 1,000 unit DAILY GTB Last administered on 08:46; Admin Dose 1,000 UNIT; Start 05/09/17 at 09:00 Insulin Glargine (Lantus) 17 unit DAILY@08 SC Last administered on 05/20/17 08:48; Admin Dose 17 UNIT; Start 05/10/17 at 08:00 Levothyroxine Sodium (Synthroid) 125 mcg DAILY@06 GTB Last administered on 05:09; Admin Dose 125 MCG; Start 05/10/17 at 06:00 Zinc Sulfate (Zinc Sulfate) 220 mg DAILY GTB Last administered on 05/20/17 08 :46; Admin Dose 220 MG; Start 05/09/17 at 09:00 Ondansetron HCl (Zofran Inj) 4 mg Q6H PRN IV NAUSEA AND/OR VOMITING Last administered on 05/12/17 08:33; Admin Dose 4 MG; Start 05/09/17 at 09:00 Lorazepam (Ativan) 1 mg Q6H PRN IV ANXIETY Last administered on 05/19/17 19: 41; Admin Dose 1 MG; Start 05/09/17 at 09:00 Miscellaneous Information 1 ea NOTE XX ; Start 05/09/17 at 10:00 Glucose (Glutose) 15 gm Q15M PRN PO DECREASED GLUCOSE; Start 05/09/17 at 10:00 Glucose (Glutose) 22.5 gm Q15M PRN PO DECREASED GLUCOSE; Start 05/09/17 at 10: 00 Dextrose (D50w Syringe) 25 ml Q15M PRN IV DECREASED GLUCOSE Last administered on 05/11/17 01:54; Admin Dose 25 ML; Start 05/09/17 at 10:00 Dextrose (D50w Syringe) 50 ml Q15M PRN IV DECREASED GLUCOSE; Start 05/09/17 at 10:00 Glucagon (Glucagen) 1 mg Q15M PRN IM DECREASED GLUCOSE; Start 05/09/17 at 10:00 Glucose (Glutose) 15 gm Q15M PRN BUCCAL DECREASED GLUCOSE; Start 05/09/17 at 10 :00 Multivitamins (Multivitamin) 30 ml DAILY PEG Last administered on 05/20/17 08 :46; Admin Dose 30 ML; Start 05/10/17 at 09:00 Fluoxetine HCl (Prozac) 20 mg DAILY GTB Last administered on 05/20/17 08:46; Admin Dose 20 MG; Start 05/10/17 at 09:00 Morphine Sulfate (morphine) 2 mg Q4H PRN IV PAIN LEVEL 4-6 Last administered on 05/20/17 10:56; Admin Dose 2 MG; Start 05/10/17 at 17:30 Insulin Aspart (Novolog Insulin Pen) NOVOLOG *MILD* ALGORI... Q6 SC Last administered on 05/20/17 12:18; Admin Dose 1 UNIT; Start 05/13/17 at 12:00 Mupirocin 1 applic 1 applic BID TOP Last administered on 05/20/17 08:47; Admin Dose 1 APPLIC; Start 05/14/17 at 09:00 Linezolid (Zyvox 600mg/D5W (Pmx)) 300 ml @ 300 mls/hr Q12 IVPB Last administered on 05/20/17 10:55; Admin Dose 300 MLS/HR; Start 05/14/17 at 21:00 Pantoprazole (Protonix Iv) 40 mg BID@06,18 IV Last administered on 05/20/17 05:09; Admin Dose 40 MG; Start 05/18/17 at 18:00 Hydralazine HCl 10 mg 10 mg Q6H PRN IV sbp>170; Start 05/19/17 at 11:00 Ciprofloxacin/ Dextrose (Cipro Ivpb) 200 ml @ 200 mls/hr Q24H IVPB Last administered on 05/20/17 12:17; Admin Dose 200 MLS/HR; Start 05/20/17 at 11: 00 Sodium Hypochlorite (Dakin'S (Dilute 1/40%)) 1 applic DAILY IRR ; Start at 16:00; Stop 05/20/17 at 20:00 Sodium Hypochlorite (Dakin'S (Dilute 1/40%)) 1 applic DAILY@20 IRR ; Start at 20:00 KATHY VARGAS NP May 20, 2017 17:12
[2017-05-20] MEDS: LORAZEPAM 2 MG INJ IV PRN (17:39)
--- NOTE | 2017-05-20 20:44 | CONS ---
Date/Time of Note Date/Time of Note DATE: 05/20/17 TIME: 20:35 Assessment/Plan Assessment/Plan Additional Assessment/Plan 1. 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 acute uremia with BUn around 100- started on HD during this admission 05/10/17 3. acute on chronic resp failure, s/p tracheostomy 4. Metabolic acidosis 5. Paraplegia 6. Anemia of chronic disease, rule out iron deficiency 7. 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,- will wait for Permacath HD access until pt becomes more stable and goals of care plan discussed with family pt refused EGD/Colonoscopy today - CBC in AM will follow up Consultation Date/Type/Reason Admit Date/Time May 09, 2017 at 00:06 Initial Consult Date 05/09/17 Type of Consultation: NEPHROLOGY Referring Provider: KISHAN SAUCEDO 24 HR Interval Summary Free Text/Dictation s/p HD today 2.5 L removed, Remains intubated, Bp stable Exam/Review of Systems Vital Signs Vitals Vital Signs Date Time Temp Pulse Resp B/P Pulse Ox O2 Delivery O2 Flow Rate FiO2 05/20/17 19:15 94 21 100 40 05/20/17 18:00 127/61 Mechanical Ventilator 05/20/17 16:00 97.8 Intake and Output 05/19/17 05/19/17 05/20/17 15:00 23:00 07:00 Intake Total 1000 ml 810 ml 450 ml Output Total 55 ml 35 ml 55 ml Balance 945 ml 775 ml 395 ml Exam Constitutional: non-verbal ENMT: other (+ tracehostomy on ventilator ) Respiratory: crackles/rales, diminished breath sounds Cardiovascular: other (tachycardia ), regular rate and rhythm Gastrointestinal: non-tender, soft Musculoskeletal: muscle weakness, 2+ pitting edema upto thigh, back and sacral area Neurological: sedated on ventilator Results Result Diagram: 11/13/17 0400 11/13/17 0400 Results 24 hrs Laboratory Tests Test 05/19/17 23:31 05/20/17 04:00 05/20/17 05:08 05/20/17 08:45 Bedside Glucose 129 119 138 White Blood Count 9.3 Red Blood Count 3.11 L Hemoglobin 8.4 L Hematocrit 26.4 L Mean Corpuscular Volume 84.9 Mean Corpuscular Hemoglobin 27.0 L Mean Corpuscular Hemoglobin Concent 31.8 L Red Cell Distribution Width 20.6 H Platelet Count 214 Mean Platelet Volume 11.1 H Neutrophils % Segmented Neutrophils % (Manual) 67 Band Neutrophils % (Manual) 7 H Lymphocytes % Lymphocytes % (Manual) 5 L Monocytes % Monocytes % (Manual) 9 Eosinophils % Eosinophils % (Manual) 10 H Basophils % Basophils % (Manual) 2 Nucleated Red Blood Cells % 0.0 Neutrophils # Neutrophils # (Manual) 6.3 Band Neutrophils # 0.6 Absolute Lymphocytes (Manual) 0.4 L Lymphocytes # Monocytes # Absolute Monocytes (Manual) 0.8 Eosinophils # Basophils # Basophils # (Manual) 0.1 H Nucleated Red Blood Cells # Platelet Estimate NORMAL Giant Platelets 1 H Polychromasia 3+ Poikilocytosis 3+ Anisocytosis 2+ Microcytosis 1+ Sodium Level 130 L Potassium Level 4.9 Chloride Level 97 Carbon Dioxide Level 23 Anion Gap 15 Blood Urea Nitrogen 49 H Creatinine 1.31 H Glucose Level 113 Calcium Level 9.4 Test 05/20/17 12:16 05/20/17 17:38 Bedside Glucose 150 141 Medications Medications Current Medications Aspirin (Aspirin) 81 mg DAILY GTB Last administered on 05/20/17 08:46; Admin Dose 81 MG; Start 05/09/17 at 09:00 Acetaminophen (Tylenol Liquid) 650 mg Q6H PRN GTB PAIN AND OR ELEVATED TEMP Last administered on 05/15/17 08:18; Admin Dose 650 MG; Start 05/09/17 at 09:00 Cholecalciferol (Vitamin D) 1,000 unit DAILY GTB Last administered on 08:46; Admin Dose 1,000 UNIT; Start 05/09/17 at 09:00 Insulin Glargine (Lantus) 17 unit DAILY@08 SC Last administered on 05/20/17 08:48; Admin Dose 17 UNIT; Start 05/10/17 at 08:00 Levothyroxine Sodium (Synthroid) 125 mcg DAILY@06 GTB Last administered on 05:09; Admin Dose 125 MCG; Start 05/10/17 at 06:00 Zinc Sulfate (Zinc Sulfate) 220 mg DAILY GTB Last administered on 05/20/17 08 :46; Admin Dose 220 MG; Start 05/09/17 at 09:00 Ondansetron HCl (Zofran Inj) 4 mg Q6H PRN IV NAUSEA AND/OR VOMITING Last administered on 05/12/17 08:33; Admin Dose 4 MG; Start 05/09/17 at 09:00 Lorazepam (Ativan) 1 mg Q6H PRN IV ANXIETY Last administered on 05/20/17 17: 39; Admin Dose 1 MG; Start 05/09/17 at 09:00 Miscellaneous Information 1 ea NOTE XX ; Start 05/09/17 at 10:00 Glucose (Glutose) 15 gm Q15M PRN PO DECREASED GLUCOSE; Start 05/09/17 at 10:00 Glucose (Glutose) 22.5 gm Q15M PRN PO DECREASED GLUCOSE; Start 05/09/17 at 10: 00 Dextrose (D50w Syringe) 25 ml Q15M PRN IV DECREASED GLUCOSE Last administered on 05/11/17 01:54; Admin Dose 25 ML; Start 05/09/17 at 10:00 Dextrose (D50w Syringe) 50 ml Q15M PRN IV DECREASED GLUCOSE; Start 05/09/17 at 10:00 Glucagon (Glucagen) 1 mg Q15M PRN IM DECREASED GLUCOSE; Start 05/09/17 at 10:00 Glucose (Glutose) 15 gm Q15M PRN BUCCAL DECREASED GLUCOSE; Start 05/09/17 at 10 :00 Multivitamins (Multivitamin) 30 ml DAILY PEG Last administered on 05/20/17 08 :46; Admin Dose 30 ML; Start 05/10/17 at 09:00 Fluoxetine HCl (Prozac) 20 mg DAILY GTB Last administered on 05/20/17 08:46; Admin Dose 20 MG; Start 05/10/17 at 09:00 Morphine Sulfate (morphine) 2 mg Q4H PRN IV PAIN LEVEL 4-6 Last administered on 05/20/17 17:40; Admin Dose 2 MG; Start 05/10/17 at 17:30 Insulin Aspart (Novolog Insulin Pen) NOVOLOG *MILD* ALGORI... Q6 SC Last administered on 05/20/17 17:50; Admin Dose 1 UNIT; Start 05/13/17 at 12:00 Mupirocin 1 applic 1 applic BID TOP Last administered on 05/20/17 20:01; Admin Dose 1 APPLIC; Start 05/14/17 at 09:00 Linezolid (Zyvox 600mg/D5W (Pmx)) 300 ml @ 300 mls/hr Q12 IVPB Last administered on 05/20/17 20:00; Admin Dose 300 MLS/HR; Start 05/14/17 at 21:00 Pantoprazole (Protonix Iv) 40 mg BID@06,18 IV Last administered on 05/20/17 17:39; Admin Dose 40 MG; Start 05/18/17 at 18:00 Hydralazine HCl 10 mg 10 mg Q6H PRN IV sbp>170; Start 05/19/17 at 11:00 Ciprofloxacin/ Dextrose (Cipro Ivpb) 200 ml @ 200 mls/hr Q24H IVPB Last administered on 05/20/17 12:17; Admin Dose 200 MLS/HR; Start 05/20/17 at 11: 00 Sodium Hypochlorite (Dakin'S (Dilute 1/40%)) 1 applic DAILY@20 IRR Last administered on 05/20/17 20:00; Admin Dose 1 APPLIC; Start 05/20/17 at 20:00 JOANIE PHILLIPS MD May 20, 2017 20:44
[2017-05-21] VITALS (26 sets, daily range): BP systolic 96–152; BP diastolic 43–87; PULSE 84–111; RESP 7–37
--- NOTE | 2017-05-21 01:51 | CONS ---
DATE OF ADMISSION: 05/09/2017 DATE OF CONSULTATION: GASTROINTESTINAL CONSULTATION HISTORY OF PRESENT ILLNESS: The patient is a 76-year-old female, is on vent, FIO2 of 40% and PEEP o f 5, is also on dialysis. Patient had a positive stool guaiac. GI consult was called in for anemia and positive stool guaiac. The patient is nonverbal. OBJECTIVE: VITAL SIGNS: Stable. LUNGS: The patient is on the vent, has a 5% pneumothorax which is resolved. ABDOMEN: Benign. LUNGS: No wheeze. EXTREMITIES: No edema. CENTRAL NERVOUS SYSTEM: She is paraplegic. IMPRESSION: 1. Respiratory failure. 2. Paraplegia. 3. Paroxysmal atrial fibrillation. 4. Vent-dependent respiratory failure. 5. Diabetes mellitus. 6. Acute kidney injury. 7. Positive stool guaiac and anemia. 8. Healthcare-acquired pneumonia. PLAN: To continue antibiotic and dialysis and if family agrees, we will proceed with EGD and colono scopy. Dictated By: DUARTE MORALES/NTS Conf#: [id number] DID#: [id number] CC: PERLITA WALLS MD;*EndCC*
[2017-05-21] MEDS: IPRATROPIUM (HFA) 12.9 GM INHALER INH SCH ×3 (02:18→13:26)
[2017-05-21] MEDS: ALBUTEROL HFA 8 GM INHALER INH SCH ×3 (02:18→13:26)
[2017-05-21 05:14] LABS: ABNORMAL IP MESSAGE 1; BASOPHIL # 0.1 10^3/ul (0.0-0.1); BASOPHILS % 0.6 % (0.0-2.0); EOSINOPHILS # 0.2 10^3/ul (0.0-0.5); EOSINOPHILS % 2.1 % (0.0-7.0); HEMATOCRIT 25.2 % (37.0-47.0); LYMPHOCYTES # 0.7 10^3/ul (0.8-2.9); LYMPHOCYTES % 7.6 % (15.0-51.0); MEAN CORPUSCULAR HGB CONC 31.7 g/dl (32.0-37.0); MEAN CORPUSCULAR VOLUME 85.1 fl (82.0-101.0); MEAN PLATELET VOLUME 11.1 fl (7.4-10.4); MONOCYTE # 0.8 10^3/ul (0.3-0.9); MONOCYTES % 9.5 % (0.0-11.0); NEUTROPHIL # 6.2 10^3/ul (1.6-7.5); NEUTROPHILS % 72.4 % (39.0-77.0); PLATELET COUNT 202 10^3/UL (140-415); RED BLOOD COUNT 2.96 10^6/ul (4.20-5.40); RED CELL DISTRIBUTION WIDTH 20.5 % (11.5-14.5); WHITE BLOOD COUNT 8.6 10^3/ul (4.8-10.8)
[2017-05-21] MEDS: LEVOTHYROXINE 125 MCG TAB GTB SCH (05:20)
[2017-05-21] MEDS: PANTOPRAZOLE 40 MG INJ IV SCH (05:20)
[2017-05-21] MEDS: INSULIN ASPART [NOVOLOG] 3 ML PEN SC SCH ×3 (05:20→11:46)
[2017-05-21 05:23] LABS: POSITIVE DIFF @See below
[2017-05-21 05:26] LABS: CALCIUM 9.2 mg/dl (8.4-10.2); CREATININE 1.1 mg/dl (0.44-1.00); POTASSIUM 3.9 mmol/L (3.5-5.1)
--- NOTE | 2017-05-21 08:34 | RADRPT ---
PROCEDURE: Chest radiograph CLINICAL INDICATION: Pneumonia. COMPARISON: Radiograph 05/18/2017. TECHNIQUE: Single frontal chest radiograph. FINDINGS: The tracheostomy terminates at the level of clavicular heads Low lung volumes. The left lower and mid chest are opacified which may represent a combination of effusion, atelectasi s, and/or pneumonia. Alveolar opacity within the right upper, mid, and lower lung, consistent with pulmonary edema and/or pneumonia. Moderate right pleural effusion, loculated along the right lateral chest wall. The cardiac silhouette is obscured. Aortic calcifications. Bilateral shoulder arthroplasties. IMPRESSION: 1. Left mid and lower lung opacity, likely a combination of effusion and atelectasis. A superimpose d pneumonia cannot be excluded. 2. Moderate right pleural effusion with adjacent atelectasis. 3. Alveolar opacity right mid and upper lung which may represent pulmonary edema and/or pneumonia. Overall, decreased aeration of both lungs compared to 05/18/2017 when allowing for differences in [place]. RPTAT: PP Physician Boom Date Time Electronically viewed and signed by Physician Boom on 05/21/2017 08:33 /
[2017-05-21] MEDS: LINEZOLID 600 MG/D5W (PMX) 300 ML IVPB SCH (08:40)
[2017-05-21] MEDS: morphine 2 MG INJ IV PRN ×3 (08:40→16:44)
[2017-05-21] MEDS: ASPIRIN 81 MG TAB GTB SCH (08:40)
[2017-05-21] MEDS: MULTIVITAMINS 30 ML CUP PEG SCH (08:40)
[2017-05-21] MEDS: FLUOXETINE 20 MG CAP GTB SCH (08:41)
[2017-05-21] MEDS: ZINC SULFATE 220 MG CAP GTB SCH (08:41)
[2017-05-21] MEDS: CHOLECALCIFEROL 1,000 UNIT TAB GTB SCH (08:41)
[2017-05-21] MEDS: MUPIROCIN 2% 22 GM OINT TOP SCH (08:43)
[2017-05-21] MEDS: INSULIN GLARGINE [LANtus] 3 ML PEN SC SCH (08:54)
--- NOTE | 2017-05-21 09:43 | CONS ---
Date/Time of Note Date/Time of Note DATE: 05/21/17 TIME: 09:41 Consult Date/Type/Reason Admit Date/Time May 09, 2017 at 00:06 Initial Consult Date 05/09/17 Type of Consultation: Pulmonary Ordering Provider: KISHAN SAUCEDO Subjective Patient remains comfortable on mechanical ventilation. Awake alert and oriented. No vasopressor support FiO2 40%. Objective Vital Signs Date Time Temp Pulse Resp B/P Pulse Ox O2 Delivery O2 Flow Rate FiO2 05/21/17 09:07 99 20 99 40 05/21/17 07:00 135/64 Mechanical Ventilator 05/21/17 04:00 97.5 Intake and Output 05/20/17 05/20/17 05/21/17 15:00 23:00 07:00 Intake Total 1010 ml 1310 ml 500 ml Output Total 3062 ml 60 ml Balance 1010 ml -1752 ml 440 ml Exam PHYSICAL EXAMINATION GENERAL: Elderly lady on mechanical ventilation attempts to communicate eyes open alert. VITAL SIGNS: see below. HEENT: Pupils equal, round, and reactive to light. Tracheostomy site clean and intact. CARDIAC: S1, S2, 1/6 systolic ejection murmur CHEST: Diminished air entry bilaterally. ABDOMEN: Mildly distended. Bowel sounds present no guarding or rebound EXTREMITIES: No cyanosis, clubbing edema +1 NEUROLOGIC: Generalized weakness Results/Medications Result Diagram: 05/21/17 0400 05/21/17 0400 Results 24 hrs Laboratory Tests Test 05/20/17 12:16 05/20/17 17:38 05/20/17 23:54 05/21/17 04:00 Bedside Glucose 150 141 109 White Blood Count 8.6 Red Blood Count 2.96 L Hemoglobin 8.0 L Hematocrit 25.2 L Mean Corpuscular Volume 85.1 Mean Corpuscular Hemoglobin 27.0 L Mean Corpuscular Hemoglobin Concent 31.7 L Red Cell Distribution Width 20.5 H Platelet Count 202 Mean Platelet Volume 11.1 H Neutrophils % 72.4 Lymphocytes % 7.6 L Monocytes % 9.5 Eosinophils % 2.1 Basophils % 0.6 Nucleated Red Blood Cells % 0.0 Neutrophils # 6.2 Lymphocytes # 0.7 L Monocytes # 0.8 Eosinophils # 0.2 Basophils # 0.1 Nucleated Red Blood Cells # 0.0 Sodium Level 136 Potassium Level 3.9 Chloride Level 101 Carbon Dioxide Level 25 Anion Gap 14 Blood Urea Nitrogen 40 H Creatinine 1.10 H Glucose Level 88 Calcium Level 9.2 Test 05/21/17 05:17 05/21/17 08:39 Bedside Glucose 85 120 Medications Current Medications Aspirin (Aspirin) 81 mg DAILY GTB Last administered on 05/21/17 08:40; Admin Dose 81 MG; Start 05/09/17 at 09:00 Acetaminophen (Tylenol Liquid) 650 mg Q6H PRN GTB PAIN AND OR ELEVATED TEMP Last administered on 05/15/17 08:18; Admin Dose 650 MG; Start 05/09/17 at 09:00 Cholecalciferol (Vitamin D) 1,000 unit DAILY GTB Last administered on 08:41; Admin Dose 1,000 UNIT; Start 05/09/17 at 09:00 Insulin Glargine (Lantus) 17 unit DAILY@08 SC Last administered on 05/21/17 08:54; Admin Dose 17 UNIT; Start 05/10/17 at 08:00 Levothyroxine Sodium (Synthroid) 125 mcg DAILY@06 GTB Last administered on 05:20; Admin Dose 125 MCG; Start 05/10/17 at 06:00 Zinc Sulfate (Zinc Sulfate) 220 mg DAILY GTB Last administered on 05/21/17 08 :41; Admin Dose 220 MG; Start 05/09/17 at 09:00 Ondansetron HCl (Zofran Inj) 4 mg Q6H PRN IV NAUSEA AND/OR VOMITING Last administered on 05/12/17 08:33; Admin Dose 4 MG; Start 05/09/17 at 09:00 Lorazepam (Ativan) 1 mg Q6H PRN IV ANXIETY Last administered on 05/20/17 17: 39; Admin Dose 1 MG; Start 05/09/17 at 09:00 Miscellaneous Information 1 ea NOTE XX ; Start 05/09/17 at 10:00 Glucose (Glutose) 15 gm Q15M PRN PO DECREASED GLUCOSE; Start 05/09/17 at 10:00 Glucose (Glutose) 22.5 gm Q15M PRN PO DECREASED GLUCOSE; Start 05/09/17 at 10: 00 Dextrose (D50w Syringe) 25 ml Q15M PRN IV DECREASED GLUCOSE Last administered on 05/11/17 01:54; Admin Dose 25 ML; Start 05/09/17 at 10:00 Dextrose (D50w Syringe) 50 ml Q15M PRN IV DECREASED GLUCOSE; Start 05/09/17 at 10:00 Glucagon (Glucagen) 1 mg Q15M PRN IM DECREASED GLUCOSE; Start 05/09/17 at 10:00 Glucose (Glutose) 15 gm Q15M PRN BUCCAL DECREASED GLUCOSE; Start 05/09/17 at 10 :00 Multivitamins (Multivitamin) 30 ml DAILY PEG Last administered on 05/21/17 08 :40; Admin Dose 30 ML; Start 05/10/17 at 09:00 Fluoxetine HCl (Prozac) 20 mg DAILY GTB Last administered on 05/21/17 08:41; Admin Dose 20 MG; Start 05/10/17 at 09:00 Morphine Sulfate (morphine) 2 mg Q4H PRN IV PAIN LEVEL 4-6 Last administered on 05/21/17 08:40; Admin Dose 2 MG; Start 05/10/17 at 17:30 Insulin Aspart (Novolog Insulin Pen) NOVOLOG *MILD* ALGORI... Q6 SC Last administered on 05/20/17 17:50; Admin Dose 1 UNIT; Start 05/13/17 at 12:00 Mupirocin 1 applic 1 applic BID TOP Last administered on 05/21/17 08:43; Admin Dose 1 APPLIC; Start 05/14/17 at 09:00 Linezolid (Zyvox 600mg/D5W (Pmx)) 300 ml @ 300 mls/hr Q12 IVPB Last administered on 05/21/17 08:40; Admin Dose 300 MLS/HR; Start 05/14/17 at 21:00 Pantoprazole (Protonix Iv) 40 mg BID@06,18 IV Last administered on 05/21/17 05:20; Admin Dose 40 MG; Start 05/18/17 at 18:00 Hydralazine HCl 10 mg 10 mg Q6H PRN IV sbp>170; Start 05/19/17 at 11:00 Ciprofloxacin/ Dextrose (Cipro Ivpb) 200 ml @ 200 mls/hr Q24H IVPB Last administered on 05/20/17 12:17; Admin Dose 200 MLS/HR; Start 05/20/17 at 11: 00 Sodium Hypochlorite (Dakin'S (Dilute 1/40%)) 1 applic DAILY@20 IRR Last administered on 05/20/17t 20:00; Admin Dose 1 APPLIC; Start 05/20/17 at 20:00 Assessment/Plan Chief Complaint/Hosp Course Assessment 1. Hypoxemic respiratory failure with recent tracheostomy. Dense right-sided infiltrate. Decrease FiO2 as tolerated. Decrease O2 as tolerated Chest x-ray Dense right-sided infiltrate. 2. Renal insufficiency with profound anasarca. Hemodialysis per nephrology, improved renal function. 3. Anemia possible chronic in nature rule out GI bleed H&H remained stable 4. Encephalopathy toxic metabolic now resolved. Avoid benzodiazepines 5. Diabetes mellitus Continue current glycemic management 6. Paroxysmal atrial fibrillation Currently rate controlled 7. Dysphagia now with G-tube Continue tube feeding 8. Stage IV decubitus ulcer continues infection formed stool patient may benefit from diverting colostomy. 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 Consider surgical evaluation for diverting colostomy Continue wound care Transfer to [place] respiratory unit Problems: YAQUELIN DURAN MD, [facility] May 21, 2017 09:43
[2017-05-21] MEDS: CIPROFLOXACIN 400MG/D5W 200 ML IVPB SCH (11:39)
--- NOTE | 2017-05-21 14:37 | CONS ---
Date/Time of Note Date/Time of Note DATE: 05/21/17 TIME: 14:36 Assessment/Plan Assessment/Plan Additional Assessment/Plan 1. 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 acute uremia with BUn around 100- started on HD during this admission 05/10/17 3. acute on chronic resp failure, s/p tracheostomy 4. Metabolic acidosis 5. Paraplegia 6. Anemia of chronic disease, rule out iron deficiency 7. 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,- will wait for Permacath HD access until pt becomes more stable and goals of care plan discussed with family will follow up Consultation Date/Type/Reason Admit Date/Time May 09, 2017 at 00:06 Initial Consult Date 05/09/17 Type of Consultation: NEPHROLOGY Referring Provider: KISHAN SAUCEDO 24 HR Interval Summary Free Text/Dictation no evens, remains on ventilator Exam/Review of Systems Vital Signs Vitals Vital Signs Date Time Temp Pulse Resp B/P Pulse Ox O2 Delivery O2 Flow Rate FiO2 05/21/17 14:00 85 9 101/52 100 Mechanical Ventilator 05/21/17 13:27 35 05/21/17 12:00 97.8 Intake and Output 05/20/17 05/20/17 05/21/17 15:00 23:00 07:00 Intake Total 1010 ml 1310 ml 500 ml Output Total 3062 ml 60 ml Balance 1010 ml -1752 ml 440 ml Exam Constitutional: non-verbal ENMT: other (+ tracehostomy on ventilator ) Respiratory: crackles/rales, diminished breath sounds Cardiovascular: other (tachycardia ), regular rate and rhythm Gastrointestinal: non-tender, soft Musculoskeletal: muscle weakness, 2+ pitting edema upto thigh, back and sacral area Neurological: sedated on ventilator Results Result Diagram: 05/21/17 0400 05/21/17 0400 Results 24 hrs Laboratory Tests Test 05/20/17 17:38 05/20/17 23:54 05/21/17 04:00 05/21/17 05:17 Bedside Glucose 141 109 85 White Blood Count 8.6 Red Blood Count 2.96 L Hemoglobin 8.0 L Hematocrit 25.2 L Mean Corpuscular Volume 85.1 Mean Corpuscular Hemoglobin 27.0 L Mean Corpuscular Hemoglobin Concent 31.7 L Red Cell Distribution Width 20.5 H Platelet Count 202 Mean Platelet Volume 11.1 H Neutrophils % 72.4 Lymphocytes % 7.6 L Monocytes % 9.5 Eosinophils % 2.1 Basophils % 0.6 Nucleated Red Blood Cells % 0.0 Neutrophils # 6.2 Lymphocytes # 0.7 L Monocytes # 0.8 Eosinophils # 0.2 Basophils # 0.1 Nucleated Red Blood Cells # 0.0 Sodium Level 136 Potassium Level 3.9 Chloride Level 101 Carbon Dioxide Level 25 Anion Gap 14 Blood Urea Nitrogen 40 H Creatinine 1.10 H Glucose Level 88 Calcium Level 9.2 Test 05/21/17 08:39 05/21/17 11:40 Bedside Glucose 120 104 Medications Medications Current Medications Aspirin (Aspirin) 81 mg DAILY GTB Last administered on 05/21/17 08:40; Admin Dose 81 MG; Start 05/09/17 at 09:00 Acetaminophen (Tylenol Liquid) 650 mg Q6H PRN GTB PAIN AND OR ELEVATED TEMP Last administered on 05/15/17 08:18; Admin Dose 650 MG; Start 05/09/17 at 09:00 Cholecalciferol (Vitamin D) 1,000 unit DAILY GTB Last administered on 08:41; Admin Dose 1,000 UNIT; Start 05/09/17 at 09:00 Insulin Glargine (Lantus) 17 unit DAILY@08 SC Last administered on 05/21/17 08:54; Admin Dose 17 UNIT; Start 05/10/17 at 08:00 Levothyroxine Sodium (Synthroid) 125 mcg DAILY@06 GTB Last administered on 05:20; Admin Dose 125 MCG; Start 05/10/17 at 06:00 Zinc Sulfate (Zinc Sulfate) 220 mg DAILY GTB Last administered on 05/21/17 08 :41; Admin Dose 220 MG; Start 05/09/17 at 09:00 Ondansetron HCl (Zofran Inj) 4 mg Q6H PRN IV NAUSEA AND/OR VOMITING Last administered on 05/12/17 08:33; Admin Dose 4 MG; Start 05/09/17 at 09:00 Lorazepam (Ativan) 1 mg Q6H PRN IV ANXIETY Last administered on 05/20/17 17: 39; Admin Dose 1 MG; Start 05/09/17 at 09:00 Miscellaneous Information 1 ea NOTE XX ; Start 05/09/17 at 10:00 Glucose (Glutose) 15 gm Q15M PRN PO DECREASED GLUCOSE; Start 05/09/17 at 10:00 Glucose (Glutose) 22.5 gm Q15M PRN PO DECREASED GLUCOSE; Start 05/09/17 at 10: 00 Dextrose (D50w Syringe) 25 ml Q15M PRN IV DECREASED GLUCOSE Last administered on 05/11/17 01:54; Admin Dose 25 ML; Start 05/09/17 at 10:00 Dextrose (D50w Syringe) 50 ml Q15M PRN IV DECREASED GLUCOSE; Start 05/09/17 at 10:00 Glucagon (Glucagen) 1 mg Q15M PRN IM DECREASED GLUCOSE; Start 05/09/17 at 10:00 Glucose (Glutose) 15 gm Q15M PRN BUCCAL DECREASED GLUCOSE; Start 05/09/17 at 10 :00 Multivitamins (Multivitamin) 30 ml DAILY PEG Last administered on 05/21/17 08 :40; Admin Dose 30 ML; Start 05/10/17 at 09:00 Fluoxetine HCl (Prozac) 20 mg DAILY GTB Last administered on 05/21/17 08:41; Admin Dose 20 MG; Start 05/10/17 at 09:00 Morphine Sulfate (morphine) 2 mg Q4H PRN IV PAIN LEVEL 4-6 Last administered on 05/21/17 12:55; Admin Dose 2 MG; Start 05/10/17 at 17:30 Insulin Aspart (Novolog Insulin Pen) NOVOLOG *MILD* ALGORI... Q6 SC Last administered on 05/20/17 17:50; Admin Dose 1 UNIT; Start 05/13/17 at 12:00 Mupirocin 1 applic 1 applic BID TOP Last administered on 05/21/17 08:43; Admin Dose 1 APPLIC; Start 05/14/17 at 09:00 Linezolid (Zyvox 600mg/D5W (Pmx)) 300 ml @ 300 mls/hr Q12 IVPB Last administered on 05/21/17 08:40; Admin Dose 300 MLS/HR; Start 05/14/17 at 21:00 Pantoprazole (Protonix Iv) 40 mg BID@06,18 IV Last administered on 05/21/17 05:20; Admin Dose 40 MG; Start 05/18/17 at 18:00 Hydralazine HCl 10 mg 10 mg Q6H PRN IV sbp>170; Start 05/19/17 at 11:00 Ciprofloxacin/ Dextrose (Cipro Ivpb) 200 ml @ 200 mls/hr Q24H IVPB Last administered on 05/21/17 11:39; Admin Dose 200 MLS/HR; Start 05/20/17 at 11: 00 Sodium Hypochlorite (Dakin'S (Dilute 1/40%)) 1 applic DAILY@20 IRR Last administered on 05/20/17 20:00; Admin Dose 1 APPLIC; Start 05/20/17 at 20:00 JOANIE PHILLIPS MD May 21, 2017 14:37
--- NOTE | 2017-05-21 15:17 | CONS ---
Date/Time of Note Date/Time of Note DATE: 05/21/17 TIME: 15:16 Assessment/Plan Assessment/Plan Chief Complaint/Hosp Course - VAP vs HCAP 2/2 MRSA (Procalcitonin 2.34) - Pulmonary edema - Acute on chronic hypoxemic respiratory failure s/p recent trach - Small right pneumothorax (less than 5%) on CT - BERNARDINO on CKD d/t ATN with fluid overload initiated on HD 05/10/2017 - Hyperkalemia - resolved - CAD - PAF - remains in SR/ST - CHF d/t diastolic dysfunction - IDDM - Hgb A1c 5.5% - Hypothyroidism with elevated TSH - Anemia with iron deficiency, +stool OB - Dysphagia s/p PEG - Paraplegia d/t spinal injury - Chronic BUE weakness - Hypoalbuminemia with anasarca - Toxic metabolic encephalopathy - improving - Morbid obesity - BMI 39 - R knee wound - 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 Stephenson Critical care time spent: 30 min Problems: Consultation Date/Type/Reason Admit Date/Time May 09, 2017 at 00:06 Initial Consult Date 05/10/17 Type of Consultation: Infectious Disease Referring Provider: KISHAN SAUCEDO 24 HR Interval Summary Free Text/Dictation No acute issues per d/w MEDICAL RECEPTION SPECIALIST. ISSA planning to [facility] today. Nods yes to pain. ROS limited as pt is non-verbal; recently medicated for pain per nursing. Subjective hx not possible: pt non-verbal Exam/Review of Systems Vital Signs Vitals Vital Signs Date Time Temp Pulse Resp B/P Pulse Ox O2 Delivery O2 Flow Rate FiO2 05/21/17 14:00 85 9 101/52 100 Mechanical Ventilator 05/21/17 13:27 35 05/21/17 12:00 97.8 Intake and Output 05/20/17 05/20/17 05/21/17 15:00 23:00 07:00 Intake Total 1010 ml 1310 ml 500 ml Output Total 3062 ml 60 ml Balance 1010 ml -1752 ml 440 ml Exam Constitutional: alert, non-verbal, obese, other (anasarca), well developed Head: atraumatic, normocephalic Eyes: nl sclera Neck: other (tracheostomy intact), supple Respiratory: diminished breath sounds Cardiovascular: regular rate and rhythm Gastrointestinal: bowel sounds (normoactive), non-tender, other (G-tube intact with tube feeds in progress), soft, surgical scars (well healed) Genitourinary - Female: other (Geronimo catheter present; R fem HD catheter in place) Extremities: edema, other (Bilateral foot drop noted), No clubbing, No cyanosis Neurological: lethargic, other (paraplegia with BUE weakness; selectively nods to simple questions; + tracking) Skin: other (R knee wound and stage IV coccygeal wound; weeping noted from BUE - see nurse note and photos for details) Results Result Diagram: 05/21/17 0400 05/21/17 0400 Results 24 hrs Laboratory Tests Test 05/20/17 17:38 05/20/17 23:54 05/21/17 04:00 05/21/17 05:17 Bedside Glucose 141 109 85 White Blood Count 8.6 Red Blood Count 2.96 L Hemoglobin 8.0 L Hematocrit 25.2 L Mean Corpuscular Volume 85.1 Mean Corpuscular Hemoglobin 27.0 L Mean Corpuscular Hemoglobin Concent 31.7 L Red Cell Distribution Width 20.5 H Platelet Count 202 Mean Platelet Volume 11.1 H Neutrophils % 72.4 Lymphocytes % 7.6 L Monocytes % 9.5 Eosinophils % 2.1 Basophils % 0.6 Nucleated Red Blood Cells % 0.0 Neutrophils # 6.2 Lymphocytes # 0.7 L Monocytes # 0.8 Eosinophils # 0.2 Basophils # 0.1 Nucleated Red Blood Cells # 0.0 Sodium Level 136 Potassium Level 3.9 Chloride Level 101 Carbon Dioxide Level 25 Anion Gap 14 Blood Urea Nitrogen 40 H Creatinine 1.10 H Glucose Level 88 Calcium Level 9.2 Test 05/21/17 08:39 05/21/17 11:40 Bedside Glucose 120 104 Medications Medications Current Medications Aspirin (Aspirin) 81 mg DAILY GTB Last administered on 05/21/17 08:40; Admin Dose 81 MG; Start 05/09/17 at 09:00 Acetaminophen (Tylenol Liquid) 650 mg Q6H PRN GTB PAIN AND OR ELEVATED TEMP Last administered on 05/15/17 08:18; Admin Dose 650 MG; Start 05/09/17 at 09:00 Cholecalciferol (Vitamin D) 1,000 unit DAILY GTB Last administered on 08:41; Admin Dose 1,000 UNIT; Start 05/09/17 at 09:00 Insulin Glargine (Lantus) 17 unit DAILY@08 SC Last administered on 05/21/17 08:54; Admin Dose 17 UNIT; Start 05/10/17 at 08:00 Levothyroxine Sodium (Synthroid) 125 mcg DAILY@06 GTB Last administered on 05:20; Admin Dose 125 MCG; Start 05/10/17 at 06:00 Zinc Sulfate (Zinc Sulfate) 220 mg DAILY GTB Last administered on 05/21/17 08 :41; Admin Dose 220 MG; Start 05/09/17 at 09:00 Ondansetron HCl (Zofran Inj) 4 mg Q6H PRN IV NAUSEA AND/OR VOMITING Last administered on 05/12/17 08:33; Admin Dose 4 MG; Start 05/09/17 at 09:00 Lorazepam (Ativan) 1 mg Q6H PRN IV ANXIETY Last administered on 05/20/17 17: 39; Admin Dose 1 MG; Start 05/09/17 at 09:00 Miscellaneous Information 1 ea NOTE XX ; Start 05/09/17 at 10:00 Glucose (Glutose) 15 gm Q15M PRN PO DECREASED GLUCOSE; Start 05/09/17 at 10:00 Glucose (Glutose) 22.5 gm Q15M PRN PO DECREASED GLUCOSE; Start 05/09/17 at 10: 00 Dextrose (D50w Syringe) 25 ml Q15M PRN IV DECREASED GLUCOSE Last administered on 05/11/17 01:54; Admin Dose 25 ML; Start 05/09/17 at 10:00 Dextrose (D50w Syringe) 50 ml Q15M PRN IV DECREASED GLUCOSE; Start 05/09/17 at 10:00 Glucagon (Glucagen) 1 mg Q15M PRN IM DECREASED GLUCOSE; Start 05/09/17 at 10:00 Glucose (Glutose) 15 gm Q15M PRN BUCCAL DECREASED GLUCOSE; Start 05/09/17 at 10 :00 Multivitamins (Multivitamin) 30 ml DAILY PEG Last administered on 05/21/17 08 :40; Admin Dose 30 ML; Start 05/10/17 at 09:00 Fluoxetine HCl (Prozac) 20 mg DAILY GTB Last administered on 05/21/17 08:41; Admin Dose 20 MG; Start 05/10/17 at 09:00 Morphine Sulfate (morphine) 2 mg Q4H PRN IV PAIN LEVEL 4-6 Last administered on 05/21/17 12:55; Admin Dose 2 MG; Start 05/10/17 at 17:30 Insulin Aspart (Novolog Insulin Pen) NOVOLOG *MILD* ALGORI... Q6 SC Last administered on 05/20/17 17:50; Admin Dose 1 UNIT; Start 05/13/17 at 12:00 Mupirocin 1 applic 1 applic BID TOP Last administered on 05/21/17 08:43; Admin Dose 1 APPLIC; Start 05/14/17 at 09:00 Linezolid (Zyvox 600mg/D5W (Pmx)) 300 ml @ 300 mls/hr Q12 IVPB Last administered on 05/21/17 08:40; Admin Dose 300 MLS/HR; Start 05/14/17 at 21:00 Pantoprazole (Protonix Iv) 40 mg BID@06,18 IV Last administered on 05/21/17 05:20; Admin Dose 40 MG; Start 05/18/17 at 18:00 Hydralazine HCl 10 mg 10 mg Q6H PRN IV sbp>170; Start 05/19/17 at 11:00 Ciprofloxacin/ Dextrose (Cipro Ivpb) 200 ml @ 200 mls/hr Q24H IVPB Last administered on 05/21/17 11:39; Admin Dose 200 MLS/HR; Start 05/20/17 at 11: 00 Sodium Hypochlorite (Dakin'S (Dilute 1/40%)) 1 applic DAILY@20 IRR Last administered on 05/20/17 20:00; Admin Dose 1 APPLIC; Start 05/20/17 at 20:00 KATHY VARGAS NP May 21, 2017 15:17
--- NOTE | 2017-05-21 17:46 | PN ---
Date/Time of Note Date/Time of Note DATE: 05/21/17 TIME: 17:44 Assessment/Plan Lines/Catheters IV Catheter Type (from [facility]): PICC Line Geronimo in Place (from [facility]): Yes Assessment/Plan Chief Complaint/Hosp Course 1. Sacral wound: stage 4: cultures noted; nonmalodorous -debridement prn -local care w dakins -frequent turning and off-loading -low air loss mattress -vitamin c -short term zinc -optimize nutrition -abx per sensitivity 2. Acute respiratory failure with complete collapse of the left upper lobe with obliteration of the left upper lobe bronchus; pulmonary congestion, ?pna: comfortable on vent; cxr unchanged -per pulm -continue vent support -abx -hd 3. VDRF -pulm toilet -respiratory treatments 4. Anemia: no acute bleed noted: stool OB +; h/h stable -monitor -transfuse as needed -per gi-eventual coloscopy 5. Elevated TSH -further workup per medical team 6. Electrolyte imbalance -optimize lytes 7. Morbid obesity: bmi 40 -diet and exercise optimization -encourage weight loss 8. BERNARDINO started on HD; improved edema -per renal Thank you Problems: Subjective 24 Hr Interval Summary Being considered for [place]. No acute changes. Comfortable on vent. No fevers, chills, sob, congested cough, cp, palpitations, pimentel, dizziness, n/v/d/dysuria. Exam/Review of Systems Vital Signs Vitals Vital Signs Date Time Temp Pulse Resp B/P Pulse Ox O2 Delivery O2 Flow Rate FiO2 05/21/17 17:00 111 16 131/68 97 Mechanical Ventilator 05/21/17 16:00 97.7 05/21/17 15:10 35 Intake and Output 05/20/17 05/20/17 05/21/17 14:59 22:59 06:59 Intake Total 1010 ml 1310 ml 500 ml Output Total 5 ml 3052 ml 65 ml Balance 1005 ml -1742 ml 435 ml Exam Free Text/Dictation Constitutional: alert, responsive No distress Psych: nl mood/affect, no complaints Head: atraumatic, normocephalic Eyes: nl lids, nl sclera ENMT: mucosa pink and moist, nl nasal mucosa & septum Neck: non-tender, other (trach vent), supple Respiratory: diminished Cardiovascular: nl pulses, sr Gastrointestinal: distended Genitourinary - Female: nl adnexae, nl external genitalia Musculoskeletal: No muscle tone (stiffness) Extremities: pitting pedal edema Neurological: other (paraplegia), No nl speech, No nl strength Skin: other (wound: packed, nonmalodorous, min drainage, periwound without erythema) Results Result Diagram: 05/21/1739905/21/17399 MIQUEL MOREJON MD May 21, 2017 17:45
--- NOTE | 2017-05-21 19:22 | CONS ---
Date/Time of Note Date/Time of Note DATE: 05/21/17 TIME: 19:22 Assessment/Plan Assessment/Plan Additional Assessment/Plan IMPRESSION: 1. Respiratory failure. 2. Paraplegia. 3. Paroxysmal atrial fibrillation. 4. Vent-dependent respiratory failure. 5. Diabetes mellitus. 6. Acute kidney injury. 7. Positive stool guaiac and anemia. 8. Healthcare-acquired pneumonia. PLAN: To continue antibiotic and dialysis and if family agrees, we will proceed with EGD and colonoscopy. declined EGD and colonoscopy Consultation Date/Type/Reason Admit Date/Time May 09, 2017 at 00:06 Initial Consult Date 05/10/17 Type of Consultation: Infectious Disease Referring Provider: KISHAN SAUCEDO 24 HR Interval Summary Subjective hx not possible: pt non-verbal Constitutional: no complaints Exam/Review of Systems Vital Signs Vitals Vital Signs Date Time Temp Pulse Resp B/P Pulse Ox O2 Delivery O2 Flow Rate FiO2 05/21/17 17:00 111 16 131/68 97 Mechanical Ventilator 05/21/17 16:00 97.7 05/21/17 15:10 35 Intake and Output 05/20/17 05/20/17 05/21/17 15:00 23:00 07:00 Intake Total 1010 ml 1310 ml 500 ml Output Total 3062 ml 60 ml Balance 1010 ml -1752 ml 440 ml Exam Constitutional: alert, oriented, well developed Psych: nl mood/affect, no complaints Head: atraumatic, normocephalic Eyes: EOMI, PERRL, nl conjunctiva, nl lids, nl sclera ENMT: nl external ears & nose, nl lips & teeth, nl nasal mucosa & septum Neck: non-tender, supple Respiratory: clear to auscultation, normal air movement Cardiovascular: nl pulses, regular rate and rhythm Gastrointestinal: nl liver, spleen, non-tender, soft Musculoskeletal: nl extremities to inspection, nl gait and stance Extremities: normal pulses Neurological: FLANGING OPERATOR II-XII intact, nl mental status, nl speech, nl strength Skin: nl turgor, No rash or lesions Lymph: nl lymph nodes Results Result Diagram: 05/21/17 0400 05/21/17 0400 Results 24 hrs Laboratory Tests Test 05/20/17 23:54 05/21/17 04:00 05/21/17 05:17 05/21/17 08:39 Bedside Glucose 109 85 120 White Blood Count 8.6 Red Blood Count 2.96 L Hemoglobin 8.0 L Hematocrit 25.2 L Mean Corpuscular Volume 85.1 Mean Corpuscular Hemoglobin 27.0 L Mean Corpuscular Hemoglobin Concent 31.7 L Red Cell Distribution Width 20.5 H Platelet Count 202 Mean Platelet Volume 11.1 H Neutrophils % 72.4 Lymphocytes % 7.6 L Monocytes % 9.5 Eosinophils % 2.1 Basophils % 0.6 Nucleated Red Blood Cells % 0.0 Neutrophils # 6.2 Lymphocytes # 0.7 L Monocytes # 0.8 Eosinophils # 0.2 Basophils # 0.1 Nucleated Red Blood Cells # 0.0 Sodium Level 136 Potassium Level 3.9 Chloride Level 101 Carbon Dioxide Level 25 Anion Gap 14 Blood Urea Nitrogen 40 H Creatinine 1.10 H Glucose Level 88 Calcium Level 9.2 Test 05/21/17 11:40 Bedside Glucose 104 Medications Medications Current Medications Aspirin (Aspirin) 81 mg DAILY GTB Last administered on 05/21/17 08:40; Admin Dose 81 MG; Start 05/09/17 at 09:00 Acetaminophen (Tylenol Liquid) 650 mg Q6H PRN GTB PAIN AND OR ELEVATED TEMP Last administered on 05/15/17 08:18; Admin Dose 650 MG; Start 05/09/17 at 09:00 Cholecalciferol (Vitamin D) 1,000 unit DAILY GTB Last administered on 08:41; Admin Dose 1,000 UNIT; Start 05/09/17 at 09:00 Insulin Glargine (Lantus) 17 unit DAILY@08 SC Last administered on 05/21/17 08:54; Admin Dose 17 UNIT; Start 05/10/17 at 08:00 Levothyroxine Sodium (Synthroid) 125 mcg DAILY@06 GTB Last administered on 05:20; Admin Dose 125 MCG; Start 05/10/17 at 06:00 Zinc Sulfate (Zinc Sulfate) 220 mg DAILY GTB Last administered on 05/21/17 08 :41; Admin Dose 220 MG; Start 05/09/17 at 09:00 Ondansetron HCl (Zofran Inj) 4 mg Q6H PRN IV NAUSEA AND/OR VOMITING Last administered on 05/12/17 08:33; Admin Dose 4 MG; Start 05/09/17 at 09:00 Lorazepam (Ativan) 1 mg Q6H PRN IV ANXIETY Last administered on 05/20/17 17: 39; Admin Dose 1 MG; Start 05/09/17 at 09:00 Miscellaneous Information 1 ea NOTE XX ; Start 05/09/17 at 10:00 Glucose (Glutose) 15 gm Q15M PRN PO DECREASED GLUCOSE; Start 05/09/17 at 10:00 Glucose (Glutose) 22.5 gm Q15M PRN PO DECREASED GLUCOSE; Start 05/09/17 at 10: 00 Dextrose (D50w Syringe) 25 ml Q15M PRN IV DECREASED GLUCOSE Last administered on 05/11/17 01:54; Admin Dose 25 ML; Start 05/09/17 at 10:00 Dextrose (D50w Syringe) 50 ml Q15M PRN IV DECREASED GLUCOSE; Start 05/09/17 at 10:00 Glucagon (Glucagen) 1 mg Q15M PRN IM DECREASED GLUCOSE; Start 05/09/17 at 10:00 Glucose (Glutose) 15 gm Q15M PRN BUCCAL DECREASED GLUCOSE; Start 05/09/17 at 10 :00 Multivitamins (Multivitamin) 30 ml DAILY PEG Last administered on 05/21/17 08 :40; Admin Dose 30 ML; Start 05/10/17 at 09:00 Fluoxetine HCl (Prozac) 20 mg DAILY GTB Last administered on 05/21/17 08:41; Admin Dose 20 MG; Start 05/10/17 at 09:00 Morphine Sulfate (morphine) 2 mg Q4H PRN IV PAIN LEVEL 4-6 Last administered on 05/21/17 16:44; Admin Dose 2 MG; Start 05/10/17 at 17:30 Insulin Aspart (Novolog Insulin Pen) NOVOLOG *MILD* ALGORI... Q6 SC Last administered on 05/20/17 17:50; Admin Dose 1 UNIT; Start 05/13/17 at 12:00 Mupirocin 1 applic 1 applic BID TOP Last administered on 05/21/17 08:43; Admin Dose 1 APPLIC; Start 05/14/17 at 09:00 Linezolid (Zyvox 600mg/D5W (Pmx)) 300 ml @ 300 mls/hr Q12 IVPB Last administered on 05/21/17 08:40; Admin Dose 300 MLS/HR; Start 05/14/17 at 21:00 Pantoprazole (Protonix Iv) 40 mg BID@06,18 IV Last administered on 05/21/17 05:20; Admin Dose 40 MG; Start 05/18/17 at 18:00 Hydralazine HCl 10 mg 10 mg Q6H PRN IV sbp>170; Start 05/19/17 at 11:00 Ciprofloxacin/ Dextrose (Cipro Ivpb) 200 ml @ 200 mls/hr Q24H IVPB Last administered on 05/21/17 11:39; Admin Dose 200 MLS/HR; Start 05/20/17 at 11: 00 Sodium Hypochlorite (Dakin'S (Dilute 1/40%)) 1 applic DAILY@20 IRR Last administered on 05/20/17 20:00; Admin Dose 1 APPLIC; Start 05/20/17 at 20:00 DUARTE PATTERSON MD May 21, 2017 19:22
--- NOTE | 2017-05-21 19:41 | DS ---
Date/Time of Note Date/Time of Note DATE: 05/21/17 TIME: 19:37 Discharge Summary Admission/Discharge Info Admit Date/Time May 09, 2017 at 00:06 Discharge Date/Time Patient Condition: Stable Hx of Present Illness The patient is a 76-year-old female with history of a spinal injury leading to paraplegia and some weakness in upper extremity suffered several decades ago. The patient is wheelchair bound. The patient also has history of coronary artery disease, details not available, paroxysmal atrial fibrillation, and hypertension. The patient was recently admitted at [facility] for increasing shortness of breath and was diagnosed with acute hypoxemic respiratory failure due to pneumonia, which was attributed to gram-negative organism pseudomonas and possibly due to aspiration. The patient failed swallow study and underwent G-tube placement. The patient could not be weaned off of vent and therefore underwent tracheostomy. Patient was transferred to [facility] for further care. The patient, however, after arriving in [facility] became progressively more hypoxemic and was requiring 100% of FiO2 to maintain adequate saturation, and therefore, the patient was transferred to [facility] ICU last night. The patient also has marginal blood pressure. The patient prior to her transfer did not have any chest pain, diaphoresis, or vomiting. Patient did have bloody tracheal secretions. Upon arrival in the ER, the patient was noted to have white count of 9.8, hemoglobin 8.4, platelets 119, BUN was 99, creatinine 1.5. Chest x-ray revealed pulmonary edema with left side worse than right, and also prior bilateral shoulder surgery. The patient is being admitted for further evaluation and management. Patient since admission at [facility], has not had any temperature spike. No reported seizure. No reported vomiting. No reported diarrhea. Hospital Course Pt is transferred to [facility] -Acute respiratory failure with left upper lobe collapse. Continue ventilatory support. Dr. Hamilton is following in pulmonology consultation. -5% pneumothorax, no pneumothorax per last chest x-ray -Healthcare acquired pneumonia, continue antibiotics per ID. Dr. Stephenson is following in infection disease consultation -Infected sacral wound, patient is currently on Cipro and Zyvox, continue current wound care, Dr. Valencia is following in general surgery consultation. - Acute kidney injury with a generalized edema and hyperkalemia, Dr. Stevens is following in nephrology consultation. Continue hemodialysis. -Paroxysmal atrial fibrillation -Diabetes mellitus, continue Lantus and NovoLog -Hypothyroidism, continue levothyroxine. 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 Broussard is following in gastroenterology consultation. Pt refused EGD and colonoscopy. -Tracheostomy amount malfunction, s/p tracheostomy tube change by Dr. Lofton, ENT Home Meds No Active Prescriptions or Reported Meds Primary Care Provider Luiz Han MD Time spent on discharge: > 30 minutes Pending Labs Laboratory Tests Test 05/20/17 23:54 05/21/17 04:00 05/21/17 05:17 05/21/17 08:39 Bedside Glucose 109mg/dL (70-220) 85mg/dL (70-220) 120mg/dL (70-220) White Blood Count 8.610^3/ul (4.8-10.8) Red Blood Count 2.9610^6/ul (4.20-5.40) Hemoglobin 8.0g/dl (12.0-16.0) Hematocrit 25.2% (37.0-47.0) Mean Corpuscular Volume 85.1fl (82.0-101.0) Mean Corpuscular Hemoglobin 27.0pg (29.0-33.0) Mean Corpuscular Hemoglobin Concent 31.7g/dl (32.0-37.0) Red Cell Distribution Width 20.5% (11.5-14.5) Platelet Count 62099^3/UL (140-415) Mean Platelet Volume 11.1fl (7.4-10.4) Neutrophils % 72.4% (39.0-77.0) Lymphocytes % 7.6% (15.0-51.0) Monocytes % 9.5% (0.0-11.0) Eosinophils % 2.1% (0.0-7.0) Basophils % 0.6% (0.0-2.0) Nucleated Red Blood Cells % 0.0/100WBC (0.0-0.0) Neutrophils # 6.210^3/ul (1.6-7.5) Lymphocytes # 0.710^3/ul (0.8-2.9) Monocytes # 0.810^3/ul (0.3-0.9) Eosinophils # 0.210^3/ul (0.0-0.5) Basophils # 0.110^3/ul (0.0-0.1) Nucleated Red Blood Cells # 0.010^3/ul (0.0-0.0) Sodium Level 136mmol/L (135-144) Potassium Level 3.9mmol/L (3.5-5.1) Chloride Level 101mmol/L (97-110) Carbon Dioxide Level 25mmol/L (21-31) Anion Gap 14 (8-16) Blood Urea Nitrogen 40mg/dl (7-20) Creatinine 1.10mg/dl (0.44-1.00) Glucose Level 88mg/dl (70-220) Calcium Level 9.2mg/dl (8.4-10.2) Test 05/21/17 11:40 Bedside Glucose 104mg/dL (70-220) KISHAN SAUCEDO May 21, 2017 19:41
--- NOTE | 2017-05-21 21:29 | CONS ---
Date/Time of Note Date/Time of Note DATE: 05/21/17 TIME: 21:28 Assessment/Plan Assessment/Plan Additional Assessment/Plan Respiratory failure vent dependent Acute decompensated diastolic congestive heart failure Preserved ejection fraction Pulmonary hypertension Tricuspid valve regurgitation History of pneumothorax Paraplegia Acute kidney injury with history of CKD started on hemodialysis Obesity -Fluid management via hemodialysis as per nephrology colleagues. Ventilator and pulmonary care as per our pulmonary colleagues. Blood pressure trend overall remains stable, if persistent elevation, would consider initiation of standing antihypertensive med. Consultation Date/Type/Reason Admit Date/Time May 09, 2017 at 00:06 Initial Consult Date 05/09/17 Type of Consultation: cv Referring Provider: KISHAN SAUCEDO 24 HR Interval Summary Free Text/Dictation no new cv issues as per nursing staff Exam/Review of Systems Vital Signs Vitals Vital Signs Date Time Temp Pulse Resp B/P Pulse Ox O2 Delivery O2 Flow Rate FiO2 05/21/17 17:00 111 16 131/68 97 Mechanical Ventilator 05/21/17 16:00 97.7 05/21/17 15:10 35 Intake and Output 05/20/17 05/20/17 05/21/17 15:00 23:00 07:00 Intake Total 1010 ml 1310 ml 500 ml Output Total 3062 ml 60 ml Balance 1010 ml -1752 ml 440 ml Exam nad Constitutional: alert, obese Head: normocephalic Respiratory: other (course bs, no wheeze) Cardiovascular: other (s1s2), regular rate and rhythm Gastrointestinal: bowel sounds, non-tender, soft Extremities: edema Results Result Diagram: 05/21/17 0400 05/21/17 0400 Results 24 hrs Laboratory Tests Test 05/20/17 23:54 05/21/17 04:00 05/21/17 05:17 05/21/17 08:39 Bedside Glucose 109 85 120 White Blood Count 8.6 Red Blood Count 2.96 L Hemoglobin 8.0 L Hematocrit 25.2 L Mean Corpuscular Volume 85.1 Mean Corpuscular Hemoglobin 27.0 L Mean Corpuscular Hemoglobin Concent 31.7 L Red Cell Distribution Width 20.5 H Platelet Count 202 Mean Platelet Volume 11.1 H Neutrophils % 72.4 Lymphocytes % 7.6 L Monocytes % 9.5 Eosinophils % 2.1 Basophils % 0.6 Nucleated Red Blood Cells % 0.0 Neutrophils # 6.2 Lymphocytes # 0.7 L Monocytes # 0.8 Eosinophils # 0.2 Basophils # 0.1 Nucleated Red Blood Cells # 0.0 Sodium Level 136 Potassium Level 3.9 Chloride Level 101 Carbon Dioxide Level 25 Anion Gap 14 Blood Urea Nitrogen 40 H Creatinine 1.10 H Glucose Level 88 Calcium Level 9.2 Test 05/21/17 11:40 Bedside Glucose 104 Jonah Ayala DO May 21, 2017 21:29
== END 2017-05-21 17:40 | DRG 207 ==
LOC: ICU 20:54 → UNDOADMIN 20:54 → ICU 05-09 00:06
PROVIDERS: ADMIT Internal Medicine; ATTEND Internal Medicine
PROC: 5A1955Z Respiratory Ventilation, Greater than 96 Consecutive Hours (ICD-10-PCS; principal; 2017-05-09)
PROC: 5A1D70Z Performance of Urinary Filtration, Intermittent, Less than 6 Hours Per Day (ICD-10-PCS; 2017-05-10)
PROC: 06HM33Z Insertion of Infusion Device into Right Femoral Vein, Percutaneous Approach (ICD-10-PCS; 2017-05-10)
PROC: 30233N1 Transfusion of Nonautologous Red Blood Cells into Peripheral Vein, Percutaneous Approach (ICD-10-PCS; 2017-05-10)
PROC: 0B21XFZ Change Tracheostomy Device in Trachea, External Approach (ICD-10-PCS; 2017-05-14)
DX: J96.21 Acute and chronic respiratory failure with hypoxia (principal); N17.0 Acute kidney failure with tubular necrosis; J15.212 Pneumonia due to Methicillin resistant Staphylococcus aureus; G92 Toxic encephalopathy; L89.154 Pressure ulcer of sacral region, stage 4; I50.33 Acute on chronic diastolic (congestive) heart failure; E87.2 Acidosis; I13.0 Hypertensive heart and chronic kidney disease with heart failure and stage 1 through stage 4 chronic kidney disease, or unspecified chronic kidney disease; G82.20 Paraplegia, unspecified; E11.22 Type 2 diabetes mellitus with diabetic chronic kidney disease; J93.9 Pneumothorax, unspecified; J98.19 Other pulmonary collapse; T85.618A Breakdown (mechanical) of other specified internal prosthetic devices, implants and grafts, initial encounter; J95.01 Hemorrhage from tracheostomy stoma; Z99.11 Dependence on respirator [ventilator] status; I27.20 Pulmonary hypertension, unspecified; I48.0 Paroxysmal atrial fibrillation; Z99.3 Dependence on wheelchair; I25.10 Atherosclerotic heart disease of native coronary artery without angina pectoris; E03.9 Hypothyroidism, unspecified; E87.70 Fluid overload, unspecified; Z68.39 Body mass index [BMI] 39.0-39.9, adult; E87.5 Hyperkalemia; E66.01 Morbid (severe) obesity due to excess calories; N18.9 Chronic kidney disease, unspecified; Y83.8 Other surgical procedures as the cause of abnormal reaction of the patient, or of later complication, without mention of misadventure at the time of the procedure; Y92.239 Unspecified place in hospital as the place of occurrence of the external cause; R19.5 Other fecal abnormalities; D63.8 Anemia in other chronic diseases classified elsewhere; B96.5 Pseudomonas (aeruginosa) (mallei) (pseudomallei) as the cause of diseases classified elsewhere; B95.2 Enterococcus as the cause of diseases classified elsewhere; Z16.21 Resistance to vancomycin; Z93.1 Gastrostomy status; Y95 Nosocomial condition; Z79.4 Long term (current) use of insulin
CPT/HCPCS: 36430; 36569; 36600; 71010; 71250; 76775; 76937; 80048; 80053; 80202; 81003; 82270; 82550; 82570; 82607; 82728; 82746; 82803; 82962; 83036; 83540; 83605; 83735; 84100; 84145; 84300; 84443; 84560; 85025; 85610; 85730; 86850; 86900; 86901; 86920; 87070; 87075; 87081; 87086; 87400; 89190; 90935; 93005; 93306; 94002; 94003; 94640; 94664; 94799; J1940; C1752; C1769; C9113; J0692; J0744; J1644; J1650; J1815; J2060; J2270; J2405; J3370; J7040; J7050; P9016; P9047; Q4081

== ENCOUNTER 2017-06-05 08:53 | Day surgery (SDC) | payer OTHER ==
[~2017-06-05] VITALS: Ht 162.6 cm; Wt 101.3 kg
[2017-06-05 09:31] VITALS: Ht 162.6 cm; Wt 101.3 kg
== END 2017-06-06 08:59 | disposition home or self-care (01) ==
LOC: SDS 08:53
PROVIDERS: ATTEND Surgery
DX: Z53.9 Procedure and treatment not carried out, unspecified reason (principal)
CPT/HCPCS: 71010

== ENCOUNTER 2017-09-22 10:27 | Emergency (ER) | END 2017-09-22 17:55 | disposition home or self-care (01) ==

== ENCOUNTER 2017-10-01 17:40 | Inpatient (IN) | END 2017-10-08 19:50 | DRG 870 ==

== ENCOUNTER 2017-10-15 01:27 | Inpatient (IN) | END 2017-10-25 01:45 | DRG 811 ==

== ENCOUNTER 2017-11-29 19:37 | Inpatient (IN) | END 2018-02-07 18:43 | disposition EXP | DRG 811 ==